=== PATIENT | female | born 1970 | race Caucasian/White ===

== ENCOUNTER → 2023-10-28 11:04 | Outpatient (BNVA) | payer OTHER, SELFPAY | PROVIDERS: Visit Provider Physician Assistant ==

== ENCOUNTER 2023-11-22 08:55 | Outpatient (AMB) | payer OTHER, SELFPAY ==
--- NOTE | 2023-11-22 09:00 | MHC.OFFVISWM ---
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 Allergies acetaminophen [From Percocet] Adverse Reaction (Intermediate, Verified 11/22/23 09:05) Rash oxycodone [From Percocet] Adverse Reaction (Intermediate, Verified 11/22/23 09:05) Rash Penicillins Adverse Reaction (Intermediate, Verified 11/22/23 09:05) Rash Medication List - Last Reconciled 11/22/23 by PILAR Triplett amlodipine 5 mg PO DAILY amlodipine 5 mg PO DAILY cholecalciferol (vitamin D3) (Vitamin D3) 125 mcg PO DAILY escitalopram oxalate (Lexapro) 20 mg PO DAILY gabapentin 400 mg PO BID levothyroxine 150 mcg PO DAILY losartan 50 mg PO BID magnesium 250 mg PO DAILY metformin 1,000 mg PO DAILY multivitamin 1 tab PO DAILY omeprazole 20 mg PO BID oxybutynin chloride ER 10 mg PO DAILY pyridoxine (vitamin B6) 100 mg PO DAILY ropinirole 0.5 mg PO TID simvastatin 10 mg PO DAILY tirzepatide (Mounjaro) 12.5 mg subcut QWEEK HPI HPI Comments History of Present Illness Details Pt is here to start the [facility] Weight Management surgical weight loss program. She heard about our program from her own research and a family friend. Her goal is to lose weight and achieve a healthy lifestyle as well as to improve, if not resolve, obesity related medical conditions, including dm, htn, hld, arthritis. She reports first being concerned about her weight for years, highest weight to date was 250. Current weight is 213.6 pounds with a BMI of 38.4. Her inital weight on presentation to the [facility] on 10/28/23 was 214.2 pounds and a BMI of 38.6. She has tried multiple methods of weight loss including fad diets without permanent results. She lives with her and son. 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 She wakes at:?7 am, and goes to bed at?9 pm. Dinner is at 530 pm. Breakfast: skip AM snack: skip Lunch: sausage and cottage cheese w black olives and carrots, leftovers, sandwich PM snack: doritos, cheese and crackers, dry cereal Dinner: sweet and sour chicken w white rice, steak, veg, salad, chicken, pork After dinner: popcorn, veg w dip, doritos Other snacks: candy Liquids: 16 oz water, 2 c coffee per day, cream and sugar, 4 c tea w sugar, no soda, no juice Alcohol/marijuana/tobacco intake: 2-3 drinks per week, no cannabis, no tobacco Exercise: none, can join a gym. GERD score: 22 DEE score: 4 ESS score: 10 QOL score: 111 PFSH Surgical History History of partial hysterectomy Hx of cholecystectomy Hx of thyroidectomy Hx of colonoscopy Family History Maternal Aunt Breast cancer Mother Thyroid cancer Social History Alcohol intake: current Alcohol intake frequency: holidays/special occasions only Patient Tobacco Use Status: Never used Tobacco Review of Systems Const All systems reviewed & are unremarkable except as noted in HPI and below Physical Exam Vital Signs: Last Vital Signs Temp 95.9 F L 11/22/23 09:07 Pulse 77 11/22/23 09:07 BP 141/65 H 11/22/23 09:07 Pulse Ox 96 11/22/23 09:07 Oxygen Delivery Method Room Air 11/22/23 09:07 BMI result Body Mass Index 38.4 Const General: cooperative, healthy appearing and no acute distress Orientation/consciousness: patient oriented x3 HEENT Head: Yes normal to inspection Ears: hearing grossly normal bilaterally General nose exam: Normal external nose present Face and sinus: Yes normal facial exam Eyes General: appearance normal, both eyes and all related structures Resp Effort & Inspection: normal respiratory effort Auscultation: clear to auscultation bilaterally Cardio Rate: regular rate Rhythm: regular rhythm Heart sounds: S1 normal heart sound present and S2 normal heart sound present GI Inspection: Yes normal to inspection, No distended and Yes obesity Palpation (GI): Soft to palpation, nontender and no guarding Auscultation: normal bowel sounds Skin General skin exam: no rashes or lesions noted Neuro General: patient oriented x3 Extrem General: No edema Psych Appearance: grossly normal Mental Status: mental status grossly normal Speech and movement: Normal speech and movement present Affect: normal affect Attitude: cooperative Assessment & Plan Assessment & Plan (1) Obesity (BMI 30-39.9): Code(s): E66.9 - Obesity, unspecified Plan: This is a?52 yo female who will start our SWL program to prepare for bariatric surgery.? Blood work, h pylori , CXR, ECG, Abd US and UGI have been ordered. She is being scheduled for RD and BH initial consultations. She will start SWL classes and watch the first three videos before her next appointment. Will refer to Dr Bob after her next appointment ? Adequate sleep of 7-8 hours per night discussed, awakening at 7 am and going to bed at 9 pm ? You have already purchased a body composition scale so be sure and check weight weekly. The best time to do this is first thing in the morning after going to the bathroom. 1. Nutritional counseling: Be sure to careful read the number of scoops per shake Start with 1Celebrate rebuild protein shake ([facility] [employer], [employer], [employer]), (2 scoop2 in 16 oz unsweetened almond milk) at 8am-10am 2 Celebrate protein bars (Celebrate bars at [facility] [employer], [employer], [employer]) First bar at 11am-1pm. Second bar at 3pm-5 pm Dinner at 6pm (7 forks of protein and 7 forks of salad/vegetables). Meal to include lean meat (beef, fish, pork, turkey, chicken), cooked vegetables or a salad with olive oil and/or fruits (berries, pears, apples, kiwi). Avoid salt, breads, potatoes, rice, pasta, desserts. 1 c fresh fruit if needed after dinner (berries, apple, pear, kiwi). Try to drink 64 oz of water daily and avoid soda and juices. ?2. Each shake would be drunk slowly, like coffee in a period of 2 hours. ?3. Cut each bar in 4 pieces and eat each piece in 30 min ?to make each bar last 2 hours. ?4. I emphasized the importance of measuring accurately the food portion and measure it carefully when serving the food on the plate ?5. The meal portions include 7 full-size forks of meat and 7 full-size forks of salad. You always eat the meat portion but you can replace up to half of the forks of salad/vegetables with rice, potatoes or pasta, or a fruit ?if you like. The less you do it the better weight loss will be. ?6. One full-size fork is what can be scooped on the fork without falling aside and not what can be bit with the fork. Use regular forks like those you find in a typical restaurant. ?7.? Please send me weight measurements as soon as possible and then once a week. Always include your diet and exercise plan. Alternatively come weekly at the office for weight checks and send me the measurements. ?8. Exercise counseling: Begin by watching a stretching for beginners video. Start slowly and begin to stretch your muscles. You should do this before and after each exercise session to prevent injury. Please join [facility] gym near your home. Ask the finance business manager or one of the trainers how to use the machines if you are unfamiliar with them. Start elliptical with a resistance of 2. Increase resistance by 1 every 3 min to your most comfortable resistance with a max resistance of 8. Reduce the resistance by 1 every 3 minutes back down to 2 and repeat cycles for 300 calories. Alternatively, start treadmill with a speed of 3.0 and incline of 0, increasing incline by 1 every 3 minutes to the highest comfortable level (max 6 for now) then decrease in the same fashion. Repeat process to a goal of 300 calories. Goal of 2000 calories burned or more weekly. You may also consider use of the stationary bike. The easiest would be to chose the fat-burn or interval training program on the machine and do this until you reach the 300 calorie goal. Alternatively, you can manually adjust the resistance in a similar fashion as mentioned above, (resistance of 2-8 with a goal speed of 12 mph). Tracking calories is essential. 9. Alternatively start walking outside daily, tracking calories with a goal of 300 calories per day, daily. You can download the ronnie [employer] which can track your time, distance and calories while walking outside. You press start in the ronnie when you start and then stop when you are finished. 10.? It is important to closely monitor your blood sugars as they will be positively affected quickly. Also be sure to text me weekly with your weight measurement updates and if you are having any problems with the plans. 11. Please get labs, EKG and chest X-Ray within 1 week. 12. Discussed and answered all questions regarding?obtained consent to participate in the [place] [facility]?Registry. 13. Please follow the diet plan exactly, without any change. If you do not like something about the plan or you feel hungry, you need to communicate with me so I can help you revise the plan. You should not change the plan yourself. Text me at [phone] 14. Goal is to lose at least 12 pounds in the first month 15. Goal is to lose 10% of your weight before surgery, which is about 21 lbs. Ultimate weight goal: 192 lbs before surgery Patient is morbidly obese and is not considered stable at this time.?I spent a total of 70 minutes reviewing/updating records, examining the patient and counseling the patient on weight management as detailed above. Orders: Orders H Pylori Breath Test Today E11.9 - Type 2 diabetes mellitus without complications, E66.9 - Obesity, unspecified, E78.00 - Pure hypercholesterolemia, unspecified, I10 - Essential (primary) hypertension Complete Blood Count Auto Diff Today E11.9 - Type 2 diabetes mellitus without complications, E66.9 - Obesity, unspecified, E78.00 - Pure hypercholesterolemia, unspecified, I10 - Essential (primary) hypertension Lipid Panel Today E11.9 - Type 2 diabetes mellitus without complications, E66.9 - Obesity, unspecified, E78.00 - Pure hypercholesterolemia, unspecified, I10 - Essential (primary) hypertension IRON PROFILE Today E11.9 - Type 2 diabetes mellitus without complications, E66.9 - Obesity, unspecified, E78.00 - Pure hypercholesterolemia, unspecified, I10 - Essential (primary) hypertension Comprehensive Met. Panel Today E11.9 - Type 2 diabetes mellitus without complications, E66.9 - Obesity, unspecified, E78.00 - Pure hypercholesterolemia, unspecified, I10 - Essential (primary) hypertension Vitamin B12 and Folate Today E11.9 - Type 2 diabetes mellitus without complications, E66.9 - Obesity, unspecified, E78.00 - Pure hypercholesterolemia, unspecified, I10 - Essential (primary) hypertension Vitamin B1 Today E11.9 - Type 2 diabetes mellitus without complications, E66.9 - Obesity, unspecified, E78.00 - Pure hypercholesterolemia, unspecified, I10 - Essential (primary) hypertension Vitamin D 25-OH Total Today E11.9 - Type 2 diabetes mellitus without complications, E66.9 - Obesity, unspecified, E78.00 - Pure hypercholesterolemia, unspecified, I10 - Essential (primary) hypertension US abdomen comp w elastography Today E11.9 - Type 2 diabetes mellitus without complications, E66.9 - Obesity, unspecified, E78.00 - Pure hypercholesterolemia, unspecified, I10 - Essential (primary) hypertension XR chest 2V Today E11.9 - Type 2 diabetes mellitus without complications, E66.9 - Obesity, unspecified, E78.00 - Pure hypercholesterolemia, unspecified, I10 - Essential (primary) hypertension Insulin Today E11.9 - Type 2 diabetes mellitus without complications, E66.9 - Obesity, unspecified, E78.00 - Pure hypercholesterolemia, unspecified, I10 - Essential (primary) hypertension Hemoglobin A1c Today E11.9 - Type 2 diabetes mellitus without complications, E66.9 - Obesity, unspecified, E78.00 - Pure hypercholesterolemia, unspecified, I10 - Essential (primary) hypertension Zinc Today E11.9 - Type 2 diabetes mellitus without complications, E66.9 - Obesity, unspecified, E78.00 - Pure hypercholesterolemia, unspecified, I10 - Essential (primary) hypertension C Reactive Protein Today E11.9 - Type 2 diabetes mellitus without complications, E66.9 - Obesity, unspecified, E78.00 - Pure hypercholesterolemia, unspecified, I10 - Essential (primary) hypertension Vitamin A Today E11.9 - Type 2 diabetes mellitus without complications, E66.9 - Obesity, unspecified, E78.00 - Pure hypercholesterolemia, unspecified, I10 - Essential (primary) hypertension TSH reflex Free T4 Today E11.9 - Type 2 diabetes mellitus without complications, E66.9 - Obesity, unspecified, E78.00 - Pure hypercholesterolemia, unspecified, I10 - Essential (primary) hypertension Ferritin Today E11.9 - Type 2 diabetes mellitus without complications, E66.9 - Obesity, unspecified, E78.00 - Pure hypercholesterolemia, unspecified, I10 - Essential (primary) hypertension ECG 12 lead EKG Today E11.9 - Type 2 diabetes mellitus without complications, E66.9 - Obesity, unspecified, E78.00 - Pure hypercholesterolemia, unspecified, I10 - Essential (primary) hypertension FL upper GI w air Today E11.9 - Type 2 diabetes mellitus without complications, E66.9 - Obesity, unspecified, E78.00 - Pure hypercholesterolemia, unspecified, I10 - Essential (primary) hypertension Referrals Behavioral Health Referral E11.9 - Type 2 diabetes mellitus without complications, E66.9 - Obesity, unspecified, E78.00 - Pure hypercholesterolemia, unspecified, I10 - Essential (primary) hypertension Nutrition/Dietitian Referral E11.9 - Type 2 diabetes mellitus without complications, E66.9 - Obesity, unspecified, E78.00 - Pure hypercholesterolemia, unspecified, I10 - Essential (primary) hypertension Coding Level of Care Code New Pt Level 5 (99039) Diagnoses Obesity (BMI 30-39.9) E66.9 Time Spent (min) 70
[2023-11-22 09:07] VITALS: BP 141/65; PULSE 77; TEMP 35.5; O2SAT 96; BMI 38.4
== END 2023-11-22 13:38 | disposition home or self-care (01) ==
PROVIDERS: Visit Provider Physician Assistant Surgical
DX: E66.9 Obesity, unspecified (principal); Z68.38 Body mass index [BMI] 38.0-38.9, adult
CPT/HCPCS: 99205

== ENCOUNTER → 2023-11-22 08:55 | Outpatient (BNVA) | payer OTHER, SELFPAY | PROVIDERS: Visit Provider Physician Assistant Surgical ==

== ENCOUNTER 2023-12-02 07:34 | Outpatient (REF) | payer OTHER, SELFPAY ==
--- NOTE | ~2023-12-02 | XR_ITS ---
EXAMINATION: XR CHEST CLINICAL INFORMATION: Obesity, unspecified COMPARISON: None available. TECHNIQUE: 2 views of the chest were obtained. 8:15 AM FINDINGS: No significant abnormality is noted involving the heart, lungs, mediastinum, bony thorax or soft tissues. Mild round back posture is noted. Surgical clips are seen in the upper abdomen. XR/XR chest 2V IMPRESSION: No acute cardiopulmonary disease.
--- NOTE | 2023-12-02 07:40 | ECG_ITS ---
Test Reason : OBS Blood Pressure : / mmHG Vent. Rate : 074 BPM Atrial Rate : 074 BPM P-R Int : 152 ms QRS Dur : 100 ms QT Int : 434 ms P-R-T Axes : 048 004 024 degrees QTc Int : 481 ms Normal sinus rhythm Prolonged QT Abnormal ECG No previous ECGs available Referred By: Juan Luis Vincent Electronically Signed By:TINO VICENTE
[2023-12-02 07:55] LABS: MANUAL DIFF FLAG NO
[2023-12-02 08:07] LABS: Basophils Percent Auto 0.7 % (0-2); Eosinophils Absolute Auto 0.1 X10*3/uL (0.0-0.4); Eosinophils Percent Auto 1.7 % (0-4); Hematocrit 41.1 % (37.0-47.0); Hemoglobin 13.6 g/dl (12.0-16.0); Imm Gran Abs Auto 0.01 X10*3/uL (0.00-0.03); Imm Gran Pct Auto 0.2 % (0.0-0.4); Lymphocytes Absolute Auto 1.3 X10*3/uL (1.2-4.9); Lymphocytes Percent Auto 21.7 % (20-40); Mean Corpuscular HGB Conc 33.1 g/dl (31.0-35.0); Mean Corpuscular Hemoglobin 27.3 pg (27.0-33.0); Mean Corpuscular Volume 82.4 fL (80.0-98.0); Mean Platelet Volume 9.6 fL (9.4-12.3); Monocytes Absolute Auto 0.3 X10*3/uL (0.1-1.2); Monocytes Percent Auto 5.8 % (2-11); Neutrophils Absolute Auto 4.1 x10*3/uL (2.0-8.3); Neutrophils Percent Auto 69.9 % (45-73); Platelet Count 187 X10*3/uL (160-400); Red Blood Count 4.99 X10*6/uL (4.20-5.50); Red Cell Distribution Width 14.4 % (11.0-16.0); White Blood Count 5.9 X10*3/uL (4.8-10.8)
[2023-12-02 08:23] LABS: Estimated Average Glucose 100 mg/dL; Hemoglobin A1c % 5.1 % (<6.0)
[2023-12-02 08:53] LABS: Alanine Aminotransferase 67 U/L (0-31); Albumin Level 4.4 g/dL (3.5-5.0); Alkaline Phosphatase 154 U/L (39-117); Anion Gap 15 (12-20); Aspartate Amino Transferase 69 U/L (5-31); Bilirubin Total 0.6 mg/dL (0.0-1.0); Blood Urea Nitrogen 17 mg/dL (9-16); C Reactive Protein 2.02 mg/dL (< or = 0.50); Carbon Dioxide 25 mmol/L (22-29); Chloride 104 mmol/L (96-108); Cholesterol 99 mg/dL (<200); Estimated Glomerular Filt Rate > 60; Glucose Random 81 mg/dL (60-115); HDL Cholesterol 35 mg/dL (>40); Iron 47 mcg/dL (30-160); LDL Cholesterol Calculated 40 mg/dL (<100); Percent Iron Saturation 15 % (15-50); Potassium 4.3 mmol/L (3.3-5.1); Sodium 140 mmol/L (135-145); Total Iron Binding Capacity 304 mcg/dL (228-428); Total Protein 8.2 g/dL (6.5-8.0); Triglycerides 124 mg/dL (<150); Unsaturated Iron Binding 257 ug/dL
[2023-12-02 09:04] LABS: Ferritin 116 ng/mL (10-250); Insulin 13 uU/mL (2-29); TSH reflex Free T4 0.34 uIU/mL (0.32-4.0); Vitamin D 25-OH Total 79.9 ng/mL (>30)
[2023-12-02 09:14] LABS: Folate 15.3 ng/mL (> or = 4.0); Vitamin B12 1318 pg/mL (200-900)
[2023-12-05 16:42] LABS: Zinc 84 mcg/dL (60-130)
[2023-12-07 16:05] LABS: Vitamin A 36 mcg/dL (38-98)
[2023-12-08 14:43] LABS: Vitamin B1 8 nmol/L (8-30)
== END 2023-12-02 07:35 | disposition home or self-care (01) ==
LOC: HO.XRAY 07:34
PROVIDERS: PCP Internal Medicine; Visit Provider Physician Assistant Surgical
DX: E66.9 Obesity, unspecified (principal); E11.9 Type 2 diabetes mellitus without complications; E78.00 Pure hypercholesterolemia, unspecified; I10 Essential (primary) hypertension
CPT/HCPCS: 36415; 71046; 80053; 80061; 82306; 82607; 82728; 82746; 83036; 83525; 83540; 84425; 84443; 84590; 84630; 85025; 86140; 93005

== ENCOUNTER → 2023-12-02 07:40 | Outpatient (BNV) | payer OTHER, SELFPAY | PROVIDERS: PCP Internal Medicine; Visit Provider Internal Medicine | DX: I45.81 Long QT syndrome (principal) | CPT/HCPCS: 93010 ==

== ENCOUNTER 2023-12-08 08:40 | Outpatient (AMB) | payer OTHER, SELFPAY ==
--- NOTE | 2023-12-08 09:10 | A.OFFVIS_ITS ---
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 Is doing great but would appreciate some recipe resources, provided today. Reports low energy, stopped having caffeine completely, and isn't sleeping great. struggles with constipation - discussed remedies Exercise: 2x per week at [employer] - her goal is to increase but still trying to create a consistent schedule wtih her work SW online classes completed . reviewed and scored well Going to conference in mid january - will need to discuss plans for surgery around this. Dietary counseling reduction Who buys your food self Who prepares/cooks your food self Meal frequency irregular: breakfast, lunch and dinner Lifestyle Reads food labels Yes Family support Yes Diagnosis Nutrition problem #1 overweight/obesity As related to (etiology) #1 excess energy intake and physical inactivity As evidenced by (sign/symptom) #1 high BMI Monitoring/Goals Nutrition problem monitoring total energy intake, level of knowledge/skill, total PRO intake, total CHO intake and weight Outcome progress progressing Learning/Education Readiness to learn excellent Stages of change action Educational materials provided Yes Most Recent Diabetes Results: Cholesterol 99 mg/dL (<200) 12/02/23 HDL Cholesterol 35 mg/dL (>40) L 12/02/23 Triglycerides 124 mg/dL (<150) 12/02/23 Creatinine 0.77 mg/dL (0.5-1.4) 12/02/23 Blood Urea Nitrogen 17 mg/dL (9-16) H 12/02/23 Sodium 140 mmol/L (135-145) 12/02/23 Potassium 4.3 mmol/L (3.3-5.1) 12/02/23 Chloride 104 mmol/L (96-108) 12/02/23 Carbon Dioxide 25 mmol/L (22-29) 12/02/23 Calcium 10.0 mg/dL (8.4-10.2) 12/02/23 AST 69 U/L (5-31) H 12/02/23 ALT 67 U/L (0-31) H 12/02/23 Total Protein 8.2 g/dL (6.5-8.0) H 12/02/23 Albumin 4.4 g/dL (3.5-5.0) 12/02/23 PFSH Surgical History History of partial hysterectomy Hx of cholecystectomy Hx of thyroidectomy Hx of colonoscopy Family History Maternal Aunt Breast cancer Mother Thyroid cancer Social History Alcohol intake: current Alcohol intake frequency: holidays/special occasions only Patient Tobacco Use Status: Never used Tobacco Assessment & Plan Assessment & Plan (1) Obesity (BMI 30-39.9): Code(s): E66.9 - Obesity, unspecified Plan Patient is cleared from a nutrition standpoint for bariatric surgery. Educational requirements have been completed. Reviewed vitamin supplementation and commitment to protein shake for several months post surgery. Encouraged communication with office as needed Coding Level of Care Code Nutr Indiv Intake (28976) Diagnoses Obesity (BMI 30-39.9) E66.9 Time Spent (min) 55
== END 2023-12-08 09:51 | disposition home or self-care (01) ==
PROVIDERS: Visit Provider Dietitian, Registered
DX: E66.9 Obesity, unspecified (principal)

== ENCOUNTER → 2023-12-08 08:40 | Outpatient (BNVA) | payer OTHER, SELFPAY | PROVIDERS: Visit Provider Dietitian, Registered | DX: E66.9 Obesity, unspecified (principal); Z71.3 Dietary counseling and surveillance; Z11.0 Encounter for screening for intestinal infectious diseases | CPT/HCPCS: 97802; 99211 ==

== ENCOUNTER 2023-12-08 15:06 | Outpatient (REF) | payer OTHER, SELFPAY ==
[2023-12-13 14:20] LABS: H Pylori Breath Test Negative (Negative)
== END 2023-12-08 15:07 | disposition home or self-care (01) ==
LOC: HO.LNP 15:06
PROVIDERS: Visit Provider Physician Assistant Surgical
DX: E66.9 Obesity, unspecified (principal); E11.9 Type 2 diabetes mellitus without complications; E78.00 Pure hypercholesterolemia, unspecified; I10 Essential (primary) hypertension
CPT/HCPCS: 83013

== ENCOUNTER 2023-12-14 08:54 | Outpatient (AMB) | payer OTHER, SELFPAY ==
--- NOTE | 2023-12-14 08:59 | A.OFFVIS_ITS ---
Intake VS Expanded 12/14/23 09:06 BP 135/67 Blood Pressure Location Rt brachial Blood Pressure Position Sitting Pulse 85 Pulse Source Pulse Oximeter Temp 96.7 F L Temperature Source Tympanic Pulse Oximetry 97 Oxygen Delivery Method Room Air Height 5 ft 2.5 in Weight 198 lb 3.2 oz BMI 35.7 Body Fat % 42.7 Body Fat Mass 84.6 Fat Free Mass 113.6 Visceral Fat Rating 12.0 Body Water % 40.7 Body Water Mass 80.6 Muscle Mass/Score 107.8 Basal Metabolic Rate/Score 1,576 Intake Visit Reasons: (OV) F/U SWL Registration Representative Required: No Allergies acetaminophen [From Percocet] Adverse Reaction (Intermediate, Verified 12/14/23 09:12) Rash oxycodone [From Percocet] Adverse Reaction (Intermediate, Verified 12/14/23 09:12) Rash Penicillins Adverse Reaction (Intermediate, Verified 12/14/23 09:12) Rash Medication List - Last Reconciled 12/14/23 by PILAR Triplett amlodipine 5 mg PO DAILY cholecalciferol (vitamin D3) (Vitamin D3) 125 mcg PO DAILY escitalopram oxalate (Lexapro) 20 mg PO DAILY gabapentin 400 mg PO BID levothyroxine 150 mcg PO DAILY losartan 50 mg PO BID magnesium 250 mg PO DAILY metformin 1,000 mg PO DAILY multivitamin 1 tab PO DAILY omeprazole 20 mg PO BID oxybutynin chloride ER 10 mg PO DAILY pyridoxine (vitamin B6) 100 mg PO DAILY ropinirole 0.5 mg PO TID simvastatin 10 mg PO DAILY thiamine HCl (vitamin B1) 100 mg PO DAILY tirzepatide (Mounjaro) 12.5 mg subcut QWEEK vitamin A palmitate 3,000 mcg PO DAILY 90 days HPI HPI Comments History of Present Illness Details The patient is a pleasant 53 year old female who returns to the clinic for pre-operative surgical weight loss management. They were last seen in the office on 11/22/2023 for her 1st visit, recorded weight at that time was to 13.6 pounds, with a BMI of 38.4. Today's weight is 198.2 pounds and BMI is 35.7. There has been a weight loss of 16 pounds since initiating the surgical weight loss program on 10/28/2023 with a total body weight loss of 7.4 %. Pre op work up completed as follows: SWL classes:? 05/10 BH appts: 12/19/2023 ? ? RD appts: Cleared-12/08/2023 Labs: 12/02/2023-low A, B1 H. pylori: 12/08/2023-negative CXR: 12/02/2023-no active disease EK12/02/2023-prolonged QT ABD U/S: 12/22/2023 UGI: 01/24/2024 The patient reports she is doing very well. She was able to get past the withdrawal from sugar, caffeine, alcohol. She did see the registered dietitian and was recommended to replace her 1st bar with a different protein source, it was suggested that she do too hard boiled eggs and 2 tbsp of yogurt which she has done. She has had abdominal bloating but has not changed protein bars. She does state that the abdominal bloating has improved but has not completely resolved.. The patient does have a body composition scale. They also have been communicating weekly. Current meal plan includes: 1 Celebrate rebuild protein shake ([facility] [employer], [employer], [employer]), (2 scoops in 16 oz unsweetened almond milk) at 8am-10am 1 Celebrate protein bars ([employer] bars at [facility] [employer], [employer], [employer]) meal w 2 eggs and 2 tbps maltese yogurt or cottage cheese at 11am-1pm. Second bar at 3pm-5 pm Dinner at 6pm (7 forks of protein and 7 forks of salad/vegetables). Drinking 48-64 oz of water Current exercise plan includes: joined [employer], but difficult fitting in schedule walking outside 2 x per week, not tracking calories. indoor walking videos considering buying a treadmill PFSH Surgical History History of partial hysterectomy Hx of cholecystectomy Hx of thyroidectomy Hx of colonoscopy Family History Maternal Aunt Breast cancer Mother Thyroid cancer Social History Alcohol intake: current Alcohol intake frequency: holidays/special occasions only Patient Tobacco Use Status: Never used Tobacco Review of Systems Const All systems reviewed & are unremarkable except as noted in HPI and below Physical Exam Const General: healthy appearing and no acute distress Resp Effort & Inspection: normal respiratory effort Auscultation: clear to auscultation bilaterally Cardio Rate: regular rate Rhythm: regular rhythm GI Auscultation: normal bowel sounds Extrem General: Yes normal to inspection Assessment & Plan Assessment & Plan (1) Obesity (BMI 30-39.9): Code(s): E66.9 - Obesity, unspecified Plan: Change meal plan slightly: 1 Celebrate rebuild protein shake ([facility] [employer], [employer], [employer]), (1.5 scoops in 12 oz unsweetened almond milk) at 8am-10am 2 Celebrate protein bars ([employer] bars at [facility] [employer], [employer], [employer]) first bar at 11am-1pm. Second bar at 3pm-5 pm Dinner at 6pm (7 forks of protein and 7 forks of salad/vegetables). Discussed the importance of tracking calories, using the [employer] ronnie while walking outside. She will try to get to the [employer] gym on Saturdays and Sundays. She is looking into purchasing a treadmill at home. She was reminded of upcoming appointments. We will refer to Dr. Bob for further preoperative care. Coding Level of Care Code Est Pt Level 3 (20921) Diagnoses Obesity (BMI 30-39.9) E66.9
[2023-12-14 09:06] VITALS: BP 135/67; PULSE 85; TEMP 35.9; O2SAT 97; BMI 35.7
== END 2023-12-14 09:57 | disposition home or self-care (01) ==
PROVIDERS: Visit Provider Physician Assistant Surgical
DX: E66.9 Obesity, unspecified (principal); Z68.35 Body mass index [BMI] 35.0-35.9, adult
CPT/HCPCS: 99213

== ENCOUNTER → 2023-12-14 08:54 | Outpatient (BNVA) | payer OTHER, SELFPAY | PROVIDERS: Visit Provider Physician Assistant Surgical ==

== ENCOUNTER 2023-12-22 09:12 | Outpatient (REF) | payer OTHER, SELFPAY ==
--- NOTE | ~2023-12-22 | US_ITS ---
EXAMINATION: US COMPLETE ABDOMEN WITH LIVER ELASTOGRAPHY CLINICAL INFORMATION: Obesity. COMPARISON: None available. TECHNIQUE: Real-time imaging of the abdominal viscera. Noninvasive ultrasound liver fibrosis assessment is performed using Lui ElastPQ point quantification shear wave elastography (2D-SWE) with a C5-2 MHz transducer. Multiple elastography samples are obtained. FINDINGS: PANCREAS: Suboptimally visualized, obscured by bowel gas. ABDOMINAL AORTA: The proximal, middle, and distal aortic segments are normal in caliber. INFERIOR VENA CAVA: Visualized portions are normal. LIVER: Liver has coarse parenchymal echotexture and nodular surface contour consistent with cirrhosis. No evidence of focal liver lesion or intrahepatic ductal dilatation.. The right lobe measures 17.7 cm in length. The left lobe measures 12.2 cm in length. Portal flow is normal. Shear wave liver elastography median stiffness is 1.41 m/s (reference: normal median stiffness is 1.3 m/s or less). IQR/median stiffness to assess sampling precision is 0.09 (reference: good quality data set is IQR/median stiffness of 0.15 or less). GALLBLADDER: Surgically absent. COMMON BILE DUCT: Normal in caliber measuring 0.4 - 0.5 cm in diameter. RIGHT KIDNEY: Normal. No hydronephrosis. No renal calculi or focal parenchymal lesions. The kidney measures 10.6 cm in maximum dimension. LEFT KIDNEY: Normal. No hydronephrosis. No renal calculi or focal parenchymal lesions. The kidney measures 11.2 cm in maximum dimension. SPLEEN: Mildly enlarged. The spleen measures 14.4 cm in maximum dimension. FREE FLUID: None. US/US abdomen comp w elastography IMPRESSION: * The liver has coarse parenchymal echotexture and nodular contour, highly suggestive of cirrhosis. * However, the shear wave liver elastography reveals a median stiffness of 1.41 m/s (reference: normal median stiffness is 1.3 m/s or less). In the absence of other known clinical signs, this value rules out compensated advanced chronic liver disease. * Mild splenomegaly is noted. * No ascites. REFERENCE: Society of Radiologists in Ultrasound Liver Stiffness Thresholds (2020): LIVER STIFFNESS THRESHOLDS: *Liver Stiffness equal or less than 1.3 m/s: High probability of being normal. *Liver Stiffness less than 1.7 m/s: In the absence of other known clinical signs, rules out compensated advanced chronic liver disease. *Liver Stiffness 1.7-2.1 m/s: Suggestive of compensated advanced chronic liver disease but need further test for confirmation. *Liver Stiffness over 2.1 m/s: Rules in compensated advanced chronic liver disease. *Liver Stiffness over 2.4 m/s: Suggestive of clinically significant portal hypertension. QUALITY OF DATA SET: *IQR/Median value equal or less than 0.15 implies a quality data set. *IQR/Median value over 0.15 implies a poor quality data set. OTHER CONSIDERATIONS: The stage of liver fibrosis may be overestimated in the setting of acute hepatitis, liver inflammation, elevated liver function tests, hepatic vascular congestion, obstructive cholestasis, non-fasting state, and infiltrative diseases such as amyloidosis and lymphoma. In some patients with NAFLD, the liver stiffness thresholds for compensated advanced chronic liver disease may be lower. In causes other than viral hepatitis and NAFLD, liver stiffness thresholds are not well established.
== END 2023-12-22 09:13 | disposition home or self-care (01) ==
LOC: HO.US 09:12
PROVIDERS: PCP Internal Medicine; Visit Provider Physician Assistant Surgical
DX: E66.9 Obesity, unspecified (principal); E11.9 Type 2 diabetes mellitus without complications; I10 Essential (primary) hypertension; E78.00 Pure hypercholesterolemia, unspecified
CPT/HCPCS: 76700; 76981

== ENCOUNTER 2024-01-04 10:11 | Outpatient (AMB) | payer OTHER, SELFPAY ==
--- NOTE | 2024-01-04 10:04 | A.OFFWM_ITS ---
Intake Intake Visit Reasons: (TV) BH Intake Allergies acetaminophen [From Percocet] Adverse Reaction (Intermediate, Verified 12/14/23 09:12) Rash oxycodone [From Percocet] Adverse Reaction (Intermediate, Verified 12/14/23 09:12) Rash Penicillins Adverse Reaction (Intermediate, Verified 12/14/23 09:12) Rash PFSH Surgical History History of partial hysterectomy Hx of cholecystectomy Hx of thyroidectomy Hx of colonoscopy Family History Maternal Aunt Breast cancer Mother Thyroid cancer Social History Alcohol intake: current Alcohol intake frequency: holidays/special occasions only Patient Tobacco Use Status: Never used Tobacco Behavioral Health Assessment Weight Management Therapy Therapy Notes Details Patient is looking to have weight loss surgery to help improve her health and quality of life. She denied any mental health therapy currently or in the past. Pt is taking medication from her doctor for some depression symptoms for about many years. She has no history of inpatient psychiatric admissions or hx of drug or alcohol abuse. Presenting Concerns Referral Source provider Reason for referral weight loss surgery evaluation Precipitating Event obesity Living Situation0 Current Living Situation Own At risk of losing current housing? No Satisfied with current living situation? Yes Comments Patient lives with her , and her 22 year old son. Food/Weight/Diet Expectations of change weight loss and maintenance History/Relationship with food Pt reported that she was big on starches, rice, pasta, bread, heavy coffee drinker (3 ice coffees a day with cream and sugar), also social drinker. She has stopped all that. She reported eating large quantities of food, eating when stressed and bored. Also was eating fast before hand. History/Relationship with weight She reported that she has not been this weight for over 20 years now, Currently at her lowest. She reported that she has been up and down with her weight many times. History/Relationship with dieting various diets, WW several times, and also no sugar. Binge Eating Do you frequently eat large amounts of food in short periods of time, not feeling physically hungry? No Do you feel out of control when you eat a large amount of food in a short period of time? No Do you eat large amounts of food rapidly and typically alone? Yes Night Eating Do you wake up at least once during the night to eat? No If you wake up in the night, do you find that it is necessary to eat something in order to fall back asleep? No Do you have little or no appetite in the morning and feel very hungry in the evening, often overeating between dinner and when you go to bed? No Social History Family history and relationship Patient has been for 30 years and together since high school, they have two grown children together. Parental/Familial molder meat obligations none Developmental history and status no issues Social support best friend, Community support [facility] support group Cultural/Ethnic information Legal Involvement and History Current or historical involvement with the legal system? none Education Preferred learning style Auditory, Verbal, Written, Learn by doing and Visual Currently enrolled in educational program? No Interested in further educational program? 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 No Meaningful activities traveling, walking Financial Situation Describe current financial situation Comfortable Financial assistance? None Service Service? No Mental Health and Addiction Treatment Current/Past substance abuse? No Medical and Physical Health Summary Physical exam in the last year? Yes Pain Screening Current pain? No Pain in the last few months? No Medications Is the patient compliant with medications? Yes Does the patient have Xiao Guardian in place? No Does the patient use complimentary health approaches? No Trauma/Abuse History History of trauma? No Questionnaires PHQ-9 Over the last 2 weeks, how often have you been bothered by any of the following problems? 1. Little interest or pleasure in doing things: not at all 2. Feeling down, depressed, or hopeless: not at all 3. Trouble falling or staying asleep, or sleeping too much: nearly every day 4. Feeling tired or having little energy: several days 5. Poor appetite or overeating: not at all 6. Feeling bad about yourself - or that you are a failure or have let yourself or your family down: not at all 7. Trouble concentrating on things, such as reading the newspaper or watching television: several days 8. Moving or speaking so slowly that other people could have noticed. Or the opposite - being so fidgety or restless that you have been moving around a lot more than usual: not at all 9. Thoughts that you would be better off or of hurting yourself in some way: not at all Total score: 5 Depression Screening Interpretation: Negative Depression Screening Done: Yes Source: Developed by Drs. Pratik Álvarez, Keya Barreto, Liam Moscoso and colleagues, with an educational sandi from [employer]. Binge Eating Scale Group 1 A. I don't feel self-conscious about my wt. or body size when I'm with others. B. I feel concerned about how I look to others, but it normally does not make me fell disappointed with myself C. I do get self-conscious about my appearance and wt. which makes me feel disappointed in myself. D. I feel very self-conscious about my wt. and frequently I feel intense shame and disgust for myself. I try to avoid social contacts because of my self- consciousness. Response Group 1: C Group 2 A. I don't have any difficulty eating slowly in the proper manner. B. Although I seem to gobble down foods, I don't end up feeling stuffed because of eating to much. C. At times, I tend to eat quickly and then, I feel uncomfortably full afterwards. D. I have the habit of bolting down my food, without really chewing it. When this happens I usually feel uncomfortably stuffed because I've eaten to much. Response Group 2: B Group 3 A. I feel capable to control my eating urges when I want to. B. I feel like I have failed to control my eating more than the average person. C. I feel utterly helpless when it comes to feeling in control of my eating urges. D. Because I feel so helpless about controlling my eating I have become very desperate about trying to get control. Response Group 3: B Group 4 A. I don't have the habit of eating when I'm bored. B. I sometimes eat when I'm bored, but often I'm able to get busy and get my mind off food. C. I have a regular habit of eating when I'm bored, but occasionally, I can use some other activity to get my mind off eating. D. I have a strong habit of eating when I'm bored. Nothing seems to help me breath the habit. Response Group 4: D Group 5 A. I'm usually physically hungry when I eat something. B. Occasionally, I eat something on impulse even though I really am not hungry. C. I have the regular habit of eating foods, that I might not really enjoy, to satisfy a hungry feeling even though physically, I don't need the food. D. Although I'm not physically hungry, I get a hungry feeling in my mouth that only seems to be satisfied when I eat a food, like sandwich, that fills my mouth. Sometimes, when I eat the food to satisfy my mouth hunger, I then spit the food out so I won't gain weight. Response Group 5: B Group 6 A. I don't feel any guilt or self-hate after I overeat. B. After I overeat, occasionally I feel guilt or self-hate. C. Almost all the time I experience strong guilt or self-hate after I overeat. Response Group 6: B Group 7 A. I don't lose total control of my eating when dieting even after periods when I overeat. B. Sometimes when I eat a forbidden food on a diet, I feel like I blew it and eat even more. C. Frequently, I have the habit of saying to myself, I've blown it now, why not go all the way, when I overeat on a diet. When that happens I eat more. D. I have a regular habit of starting a strict diets for myself but I break the diets by going on an eating binge. My life seems to be either a feast or famine. Response Group 7: C Group 8 A. I rarely eat so much food that I feel uncomfortably stuffed afterwards. B. Usually about once a month, I each such a quantity of food, I end up feeling very stuffed. C. I have regular periods during the month when I eat large amounts of food, either at mealtime or at snacks. D. I eat so much food that I regularly feel quite uncomfortable after eating and sometimes a bit nauseous. Response Group 8: C Group 9 A. My level of calorie intake does not go up very high or go down very low on a regular basis. B. Sometimes after I overeat, I will try to reduce my caloric intake to almost nothing to compensate for the excess calories I've eaten. C. I have a regular habit of overeating during the night. It seems that my routine is not to be hungry in the morning but overeat in the evening. D. In my adult years, I have had week-long periods where I practically starve myself. This follows periods when I overeat. It seems I live a life of either feast or famine. Response Group 9: C Group 10 A. I usually am able to stop eating when I want to. I know when enough is enough. B. Every so often, I experience a compulsion to eat which I can't seem to control. C. Frequently, I experience strong urges to eat which I seem unable to control, but at other times I can control my eating urges. D. I feel incapable of controlling urges to eat. I have a fear of not being able to stop eating voluntarily. Response Group 10: B Group 11 A. I don't have any problem stopping eating when I feel full. B. I usually can stop eating when I feel full but occasionally overeat leaving me feeling uncomfortably stuffed. C. I have a problem stopping eating once I start and usually I feel uncomfortably stuffed after I eat a meal. D. Because I have a problem not being able to stop eating when I want, I some times have to induce vomiting to relieve my stuffed feeling. Response Group 11: B Group 12 A. I seem to eat just as much when I'm with others, Family social gatherings as when I'm by myself. B. Sometimes, when I'm with other persons, I don't eat as much as I want to eat because I'm self-conscious about my eating. C. Frequently, I eat only a small amount of food when others are present, because I'm very embarrassed about my eating. D. I feel so ashamed about overeating that I pick times to overeat when I know no one will see me. I feel like a closet eater. Response Group 12: A Group 13 A. I eat three meals a day with only an occasional between meal snack. B. I eat 3 meals a day, but I also normally snack between meals. C. When I am snacking heavily, I get in the habit of skipping regular meals. D. There are regular periods when I seem to be continually eating, with no planned meals. Response Group 13: D Group 14 A. I don't think much about trying to control unwanted eating urges. B. At least some of the time, I feel my thoughts are pre-occupied with trying to control my eating urges. C. I feel that frequently I spend much time thinking about how much I ate or a bout trying not to eat anymore. D. It seems to me that most of my waking hours are pre-occupied by thoughts about eating or not eating. I feel like I'm constantly struggling not to eat. Response Group 14: B Group 15 A. I don't think about food a great deal. B. I have strong craving for food but they last only for brief periods of time. C. I have days when I can't seem to think about anything else but food. D. Most of my days seem to be pre-occupied with thoughts about food. I feel like I live to eat. Response Group 15: B Group 16 A. I usually know whether or not I'm physically hungry. I take the right portion of food to satisfy me. B. Occasionally, I feel uncertain about knowing whether or not I'm physically hungry. A these times it's hard to know how much food I should take to satisfy me. C. Even though I might know how many calories I should eat, I don't have any idea what is a normal amount of food for me. Response Group 16: C Binge Eating Score: 24 Score less than 17 Minimal Risk Score between 18-26 Moderate Risk Score between 27-46 High Risk Assessment & Plan Assessment & Plan (1) Depression, unspecified: Code(s): F32.A - Depression, unspecified (2) Obesity (BMI 30-39.9): Code(s): E66.9 - Obesity, unspecified Plan Patient is doing well, she has no major barriers. Provided some psychoeducation around emotional eating and binge eating tendencies. She is cleared for surgery when ready. Telehealth Telehealth Location of provider rendering services: other Location of patient: other Patient Identification confirmed using: Name, : Yes Telehealth method: voice only Patient verbally consented to treatment: Yes Patient verbally consented to billing insurance company: Yes Patient informed of any privacy concerns related to visit: Yes Minutes spent on Phone/Video with Pt.: 45 Coding Level of Care Code Tele Psy Diag Eval (83935) Diagnoses Depression, unspecified F32.A Obesity (BMI 30-39.9) E66.9 Time Spent (min) 45
== END 2024-01-04 10:35 | disposition home or self-care (01) ==
LOC: HO.HBST 10:11
PROVIDERS: PCP Internal Medicine; Visit Provider Counselor Mental Health
DX: F32.A Depression, unspecified (principal); E66.9 Obesity, unspecified
CPT/HCPCS: 90791

== ENCOUNTER → 2024-01-04 10:11 | Outpatient (BNVA) | payer OTHER, SELFPAY | PROVIDERS: PCP Internal Medicine; Visit Provider Counselor Mental Health ==

== ENCOUNTER 2024-01-13 08:28 | Outpatient (AMB) | payer OTHER, SELFPAY ==
--- NOTE | 2024-01-13 13:33 | MHC.OFFVISWM ---
Intake VS Expanded 01/13/24 13:50 Height 5 ft 2.5 in Weight 188 lb 6 oz BMI 33.9 Body Fat % 45.1 Body Fat Mass 85 Fat Free Mass 103.4 Visceral Fat Rating 16 Body Water % 37.6 Body Water Mass 70.9 Basal Metabolic Rate/Score 1,509 Intake Visit Reasons: TV Consult/Transfer Juan Luis Allergies acetaminophen [From Percocet] Adverse Reaction (Intermediate, Verified 01/13/24 13:33) Rash oxycodone [From Percocet] Adverse Reaction (Intermediate, Verified 01/13/24 13:33) Rash Penicillins Adverse Reaction (Intermediate, Verified 01/13/24 13:33) Rash Medication List - Last Reconciled 01/13/24 by Moe Licea MD amlodipine 5 mg PO DAILY cholecalciferol (vitamin D3) (Vitamin D3) 125 mcg PO DAILY escitalopram oxalate (Lexapro) 20 mg PO DAILY gabapentin 400 mg PO BID levothyroxine 150 mcg PO DAILY losartan 50 mg PO BID magnesium 250 mg PO DAILY metformin 1,000 mg PO DAILY multivitamin 1 tab PO DAILY omeprazole 20 mg PO BID oxybutynin chloride ER 10 mg PO DAILY pyridoxine (vitamin B6) 100 mg PO DAILY ropinirole 0.5 mg PO TID simvastatin 10 mg PO DAILY thiamine HCl (vitamin B1) 100 mg PO DAILY tirzepatide (Mounjaro) 12.5 mg subcut QWEEK vitamin A palmitate 3,000 mcg PO DAILY 90 days HPI TV Consult/Transfer Juan Luis HPI Details Start time: 1.10pm, End time: 1.55pm ?I spent 40 minutes speaking with the patient on the phone plus an additional 5 minutes reviewing and updating records for a total of 45 minutes HPI Comments History of Present Illness Details Overall weight loss: 25.1 lbs, or 11.75% TBWL Is doing 1 Celebrate Rebuild protein shake (1.5 scoops in almond milk), 1-2 Celebrate protein bars, one meal (7 forks of protein and 7 forks of salad or vegetables) Exercise: doing treadmill x3-4/wk for 300 calories (speed: 3.1mph, does not incline) [facility] Medical History (Updated 01/13/24 @ 13:42 by Moe Licea MD) Restless leg syndrome Stress incontinence Hypothyroidism Anxiety DJD (degenerative joint disease) Asthma GERD (gastroesophageal reflux disease) Surgical History (Updated 01/13/24 @ 13:42 by Moe Licea MD) History of delivery History of partial hysterectomy Hx of cholecystectomy Hx of thyroidectomy Hx of colonoscopy Family History Maternal Aunt Breast cancer Mother Thyroid cancer Social History Alcohol intake: current Alcohol intake frequency: holidays/special occasions only Patient Tobacco Use Status: Never used Tobacco Physical Exam Vital Signs: BMI result Body Mass Index 33.9 Assessment & Plan Assessment & Plan (1) Obesity (BMI 30-39.9): Code(s): E66.9 - Obesity, unspecified Plan: 1. Plan for lap sleeve gastrectomy. If diaphragmatic or ventral hernias are present at time of surgery, these will be repaired laparoscopically as well. Risks and complications were discussed in detail including possible conversion to an open procedure, anastomotic leak, bleeding requiring transfusion, small bowel obstruction, , DVT and pulmonary embolism, cardiac, or pulmonary complications, as buttermaker complications such as anastomotic ulcer, insufficient weight loss and vitamin deficiencies. I emphasized the importance of close follow-up, adherence to instructions and good communication. 2. Continue same nutritional plan of 1 Celebrate Rebuild protein shake (1.5 scoops in almond milk), 1-2 Celebrate protein bars, one meal (7 forks of protein and 7 forks of salad or vegetables) 3. Exercise: continue treadmill but increase to daily for 300 calories per day. Goal is to burn 2000 calories per week 4. Send weight measurements weekly on Wednesdays Orders: Orders CA lexiscan stress w wanda Today R94.31 - Abnormal electrocardiogram [ECG] [EKG] CA echo transthorac w con Today R94.31 - Abnormal electrocardiogram [ECG] [EKG] Telehealth Telehealth Location of provider rendering services: practice address Location of patient: address on file Patient Identification confirmed using: Name, : Yes Telehealth method: voice only Patient verbally consented to treatment: Yes Patient verbally consented to billing insurance company: Yes Patient informed of any privacy concerns related to visit: Yes Minutes spent on Phone/Video with Pt.: 45 Coding Level of Care Code Tele Est Pt Level 5 (83639) Diagnoses Obesity (BMI 30-39.9) E66.9 Time Spent (min) 45
[2024-01-13 13:50] VITALS: BMI 33.9
== END 2024-01-13 13:56 | disposition home or self-care (01) ==
LOC: HO.HBS 08:28
PROVIDERS: PCP Internal Medicine; Visit Provider Surgery
DX: E66.9 Obesity, unspecified (principal)
CPT/HCPCS: 99215

== ENCOUNTER → 2024-01-13 08:28 | Outpatient (BNVA) | payer OTHER, SELFPAY | PROVIDERS: PCP Internal Medicine; Visit Provider Surgery ==

== ENCOUNTER 2024-01-24 08:09 | Outpatient (REF) | payer OTHER, SELFPAY ==
--- NOTE | ~2024-01-24 | FL_ITS ---
EXAMINATION: XR FLUOROSCOPY UPPER GI WITH AIR CLINICAL INFORMATION: Preop evaluation prior to bariatric surgery COMPARISON: None TECHNIQUE: Fluoroscopic air contrast upper GI examination was performed utilizing standard techniques with thin and thick barium and effervescent granules. Numerous spot images were obtained. FINDINGS: Imaging of the oropharynx and hypopharynx demonstrate normal swallow mechanism with normal epiglottic inversion and soft palate elevation. No tracheal penetration, glottic or subglottic aspiration identified. Minimal nasopharyngeal reflux present. There is mild ballooning of the hypopharynx during swallow. Hypopharyngeal structures appear normal without evidence of mass or diverticulum. There is mild to moderate cricopharyngeal achalasia present. Dual and single contrast images of the esophagus demonstrate normal caliber, contour, and mucosal pattern. No evidence of stricture, mass, or ulcerations identified. Nonpropulsive tertiary contractions noted throughout the entire esophagus, resulting in to and fro motion of the barium column. No evidence of hiatus hernia identified. No significant gastroesophageal reflux was seen during the course of the examination and on reflux views. Dual contrast and single contrast images of the stomach demonstrated normal contour and mucosal pattern without evidence of mass or large ulceration. Approximately 3 subcentimeter filling defects are present along the greater curvature in the gastric body, suggestive of hyperplastic polyps (RF 1-6, image 74). Contrast freely passed into the gastric antrum and duodenal bulb without delay. Single and air-contrast images of the duodenal bulb demonstrate no abnormality. The duodenal sweep has a normal appearance, course, and mucosal fold appearance. There is a small third segment duodenal diverticulum. The imaged proximal jejunum has a normal fold pattern and caliber. Numerous surgical clips surround the trachea in the region of the thyroid. Cholecystectomy clips present. FLUOROSCOPY TIME: 2 minutes 47 seconds Number of Spot Images: 12 Number of Cine: 9 DOSE AREA PRODUCT: 1909 uGy-m2 (microgray-meter squared) FL/FL upper GI w air IMPRESSION: 1. Mild to moderate cricopharyngeal achalasia, with ballooning of the hypopharynx on swallow. No aspiration. 2. Mild to moderate esophageal dysmotility. 3. A few subcentimeter hyperplastic polyps suspected in the lateral gastric body. 4. Small third segment duodenal diverticulum. 5. No definite hiatus hernia or reflux identified during this exam. This procedure was performed by Rylan Marcano PA-C, and supervised by Dr. Warner
== END 2024-01-24 08:10 | disposition home or self-care (01) ==
LOC: HO.XRAY 08:09
PROVIDERS: PCP Internal Medicine; Visit Provider Physician Assistant Surgical
DX: E66.9 Obesity, unspecified (principal); E11.9 Type 2 diabetes mellitus without complications; I10 Essential (primary) hypertension; E78.00 Pure hypercholesterolemia, unspecified
CPT/HCPCS: 74246

== ENCOUNTER → 2024-01-24 08:10 | Outpatient (BNV) | payer OTHER, SELFPAY | PROVIDERS: PCP Internal Medicine; Visit Provider Physician Assistant Surgical | DX: E66.01 Morbid (severe) obesity due to excess calories (principal); Z01.818 Encounter for other preprocedural examination | CPT/HCPCS: 74246 ==

== ENCOUNTER 2024-02-17 09:13 | Outpatient (AMB) | payer OTHER, SELFPAY ==
--- NOTE | 2024-02-17 09:14 | A.OFFVIS_ITS ---
VS Expanded 02/17/24 09:21 BP 112/57 L Blood Pressure Location Rt brachial Blood Pressure Position Sitting Pulse 80 Pulse Source Pulse Oximeter Temp 96.8 F Temperature Source Tympanic Pulse Oximetry 95 Oxygen Delivery Method Room Air Height 5 ft 2.5 in Weight 180 lb BMI 32.4 Body Fat % 71.4 Body Fat Mass 71.4 Fat Free Mass 108.4 Visceral Fat Rating 10.0 Body Water % 42.9 Body Water Mass 77.2 Muscle Mass/Score 103.0 Basal Metabolic Rate/Score 1,492 Intake Visit Reasons: (ov) appt per Dr Bob Claim Service Representative Required: No Allergies acetaminophen [From Percocet] Adverse Reaction (Intermediate, Verified 02/17/24 09:14) Rash oxycodone [From Percocet] Adverse Reaction (Intermediate, Verified 02/17/24 09:14) Rash Penicillins Adverse Reaction (Intermediate, Verified 02/17/24 09:14) Rash Medication List - Last Reconciled 02/17/24 by PILAR Triplett amlodipine 5 mg PO DAILY cholecalciferol (vitamin D3) (Vitamin D3) 125 mcg PO DAILY escitalopram oxalate (Lexapro) 20 mg PO DAILY gabapentin 600 mg PO BID levothyroxine 150 mcg PO DAILY losartan 50 mg PO BID magnesium 250 mg PO DAILY metformin 1,000 mg PO DAILY multivitamin 1 tab PO DAILY omeprazole 20 mg PO BID oxybutynin chloride ER 10 mg PO DAILY pyridoxine (vitamin B6) 100 mg PO DAILY ropinirole 0.5 mg PO TID simvastatin 10 mg PO DAILY thiamine HCl (vitamin B1) 100 mg PO DAILY tirzepatide (Mounjaro) 12.5 mg subcut QWEEK vitamin A palmitate 3,000 mcg PO DAILY 90 days HPI Comments Details: The patient is a pleasant 53 year old female who returns to the clinic for pre- operative surgical weight loss management. Today's weight is 180pounds and BMI is 32.4. There has been a weight loss of 34.2 pounds since initiating the surgical weight loss program on 10/28/2023 with a total body weight loss of 15.9 % The patient reports she is doing great. Now gardening and has noticed much less knee pain. The patient does have a body composition scale. They also have been communicating weekly. BS 98-200. BP not being measured at home. Current meal plan includes: 1 Celebrate Rebuild protein shake (1.5 scoops in almond milk), 1 Celebrate protein bars, one meal (7 forks of protein and 7 forks of salad or vegetables) Drinking 48 oz of water Current exercise plan includes: walking outside, not tracking fanny, 1-2 x per week, 30 min treadmill 1 hr, no incline, 350 fanny, 3-4 days per week PFSH Medical History Restless leg syndrome Stress incontinence Hypothyroidism Anxiety DJD (degenerative joint disease) Asthma GERD (gastroesophageal reflux disease) Surgical History History of delivery History of partial hysterectomy Hx of cholecystectomy Hx of thyroidectomy Hx of colonoscopy Family History Maternal Aunt Breast cancer Mother Thyroid cancer Social History Alcohol intake: current Alcohol intake frequency: holidays/special occasions only Patient Tobacco Use Status: Never used Tobacco Physical Exam Vital Signs: Last Vital Signs Temp 96.8 F 02/17/24 09:21 Pulse 80 02/17/24 09:21 BP 112/57 L 02/17/24 09:21 Pulse Ox 95 02/17/24 09:21 Oxygen Delivery Method Room Air 02/17/24 09:21 Const General: healthy appearing and no acute distress Resp Effort & Inspection: normal respiratory effort Auscultation: clear to auscultation bilaterally Cardio Rate: regular rate Rhythm: regular rhythm GI Auscultation: normal bowel sounds Extrem General: Yes normal to inspection Assessment & Plan Assessment & Plan (1) Obesity (BMI 30-39.9): Code(s): E66.9 - Obesity, unspecified Category: Medical Plan: Patient has made good progress. She is scheduled for cardiac testing next week. She continues to communicate weekly with Dr. Licea. She will continue her current meal plan. As far as exercise goes, she was encouraged to use her treadmill on a daily basis. She states because of work she can only do 1 hour 3-4 days per week. I encouraged her to do at least a 1/2 hour on the days that she does not have as much time.
[2024-02-17 09:21] VITALS: BP 112/57; PULSE 80; TEMP 36; O2SAT 95; BMI 32.4
== END 2024-02-17 09:51 | disposition home or self-care (01) ==
PROVIDERS: PCP Internal Medicine; Visit Provider Physician Assistant Surgical
DX: E66.9 Obesity, unspecified (principal); Z68.32 Body mass index [BMI] 32.0-32.9, adult
CPT/HCPCS: 99213

== ENCOUNTER → 2024-02-17 09:13 | Outpatient (BNVA) | payer OTHER, SELFPAY | PROVIDERS: PCP Internal Medicine; Visit Provider Physician Assistant Surgical ==

== ENCOUNTER → 2024-02-21 08:00 | Outpatient (REF) | payer OTHER, SELFPAY ==
--- NOTE | ~2024-02-21 | NM_ITS ---
Myocardial perfusion study Indication: Abnormal EKG to evaluate for myocardial ischemia Technique: The patient was brought in for a Lexiscan perfusion study on 02/21/2024. Patient performed low-level exercise and was injected 0.4 mg of Lexiscan intravenously. Within a minute of injection, 30 mCi of sestamibi was given intravenously. Images were obtained using the SPECT gamma camera interlaced with the gating device. Images were obtained in supine position. Resting perfusion study was performed on 02/23/2024. Patient was administered 30 mCi of sestamibi intravenously at rest. Images were then obtained in supine position. Images obtained with and without CT attenuation. Total DLP 100 mGy-cm. Images were processed with the software and compared side to side in short axis, horizontal long axis and vertical long axis views. Findings: The stress perfusion study showed both attenuated as well as non attenuated corrected images show overall normal uptake of radiotracer in all segments of LV myocardium. The gated study shows normal LV systolic function with calculated LVEF of 73%. LV cavity is normal size. The gated study shows normal systolic wall thickening and contraction of segments. Resting study shows attenuated corrected images show normal uptake of radiotracer in all segments of LV myocardium. Gating at rest reveals normal systolic wall motion with ejection fraction at greater than 60%. The findings are consistent with normal myocardial perfusion. NM/NM wanda perf SPECT rest & str Impression: 1. Myocardial perfusion imaging study shows normal myocardial perfusion 2. Gated LVEF is 73% 3. Transient ischemic dilatation not present EKG is nondiagnostic for ischemia
--- NOTE | 2024-02-21 08:02 | CA_ITS ---
Acquisition Time: 2024-02-21 08:45:32 Total Exercise Time: 00:08:26 Test Indications: ABN EKG Medications: SEE H Protocol: MALLORIE Max HR: 144 BPM 86% of Pred: 166 BPM Max BP: 138/074 mmHG Max Work Load: 10.1 METS Exercise stress test exercise 8 min 26 sec of Mallorie protocol achieving 86% MPHR, without anginal symptoms, without arrhythmias, with normotensive response to exercise, without EKG changes. Nuclear images pending. Test reviewed with Dr. Silva Referred By: Moe Licea Overread By: Magali Warner
--- NOTE | 2024-02-21 08:02 | CA_ITS ---
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 The calculated ejection fraction is 61% by biplane method. - No obvious valvular pathology seen on this study. - There is mild dilatation of the ascending aorta measuring 3.80 cm. - There is a small loculated pericardial effusion overlying the left ventricle. Findings Left Ventricle Normal left ventricular cavity size. There is mildly increased left ventricular wall thickness. The left ventricular systolic function is normal. The calculated ejection fraction is 61% by biplane method. There is no evidence of regional wall motion abnormalities. Evidence suggests grade I (mild) diastolic dysfunction. LV peak GLS -17.5%. Right Ventricle Normal right ventricular cavity size and systolic function. Atria Both atria are normal in size. Aortic Valve There is a normal trileaflet aortic valve. There is no aortic valve stenosis. There is no aortic valve regurgitation. Mitral Valve The mitral valve appears normal. There is trace mitral valve regurgitation. There is no mitral valve stenosis. Pulmonic Valve The pulmonic valve is likely normal. Tricuspid Valve There is trace tricuspid valve regurgitation. There is no evidence of pulmonary hypertension. Great Vessels The aortic arch is normal in size. There is mild dilatation of the ascending aorta measuring 3.80 cm. Venous The inferior vena cava is normal in size and collapses greater than 50% with inspiration. Pericardium/Pleural There is a small loculated pericardial effusion overlying the left ventricle. There are no definitive echocardiographic findings of tamponade physiology. Prior Study Comparison No prior study available for comparison. Recommendations, Care & Conclusions No obvious valvular pathology seen on this study. Measurements 2D Linear Measurements IVSd: 1.25 0.6-0.9/0.6-1.0 cm LVIDd: 4.43 3.9-5.3/4.2-5.9 cm LVIDd Index: 2.42 2.4-3.2/2.2-3.1 cm/m2 LVIDs: 2.82 2.0-3.6 cm LVPWd: 1.09 0.7-1.1 cm LA Diam: 4.10 2.7-3.8/3.0-4.0 cm LAIDs Index: 2.24 1.5-2.3 cm/m2 LV Mass: 232.28 67-162/88-224 g LV Mass Index: 126.93 43-95/49-115 g/m2 LVOT Diam: 2.10 3.0+(-)1.3 cm 2D Systolic Function EF 4C: 62.40 >55% EF 2C: 58.40 >55% EF BiP: 60.60 >55% Mitral Valve MV Pk E: 0.75 MV PK A: 0.89 MV Decel Time: 244.00 E/A: 0.80 E'Lateral: 5.33 E'Medial: 4.03 E/E' Med: 18.50 E/E' Lat: 14.00 PHT: 72.00 MVA PHT: 3.06 Decel Cascade: 3.05 Aortic Valve AoV Pk Luis E: 1.51 AoV Mn Luis E: 1.03 AoV VTI: 0.32 AoV Pk Grad: 9.00 Aov Mn Grad: 5.00 BELINDA Cont.VTI: 2.62 LVOT LVOT Pk Luis E: 1.06 LVOT Mn Luis E: 0.73 LVOT VTI: 0.24 LVOT Pk Grad: 4.00 LVOT Mn Grad: 2.00 LVOT Diam: 2.10 LVOT Area: 3.46 Diastolic Function MV Pk E: 0.75 MV Pk A: 0.89 E/A: 0.80 E'Medial: 4.03 E/E' Med: 18.50 E' Laterial: 5.33 E/E' Lat: 14.00 Right Ventricle TAPSE (mm): 20.80 TVS' Luis E: 16.40 Tricuspid Valve TR Pk Luis E: 2.09 TR Pk Grad: 17.00 RA Press: 3.00 RVSP: 20.00 Great Vessels Aorta Sinus of Valsalva: 3.40 2.0-3.5 cm Ao Asc: 3.80 2.1-3.4 cm Ao Arch: 3.40 Pulmonary Valve PV Pk Luis E: 0.94 Peak PV Grad: 4.00 Updated in Other Vendor System with Status of Final Kojo Willett MD electronically signed on 02/21/2024 10:29:24 AM with status of Final
== END ==
LOC: HO.CARD 08:00
PROVIDERS: PCP Internal Medicine; Visit Provider Surgery
DX: R94.31 Abnormal electrocardiogram [ECG] [EKG] (principal)
CPT/HCPCS: 78452; 93017; 93306; 93356; A9500

== ENCOUNTER → 2024-02-21 08:02 | Outpatient (BNV) | payer OTHER, SELFPAY | PROVIDERS: PCP Internal Medicine; Visit Provider Internal Medicine | DX: R94.31 Abnormal electrocardiogram [ECG] [EKG] (principal) | CPT/HCPCS: 78452; 93016; 93018; 93350; 93356 ==

== ENCOUNTER 2024-02-22 13:55 | Outpatient (AMB) | payer OTHER, SELFPAY ==
--- NOTE | 2024-02-22 15:49 | A.OFFVIS_ITS ---
VS Expanded 02/22/24 15:52 Height 5 ft 2.5 in Weight 179 lb BMI 32.2 Body Fat % 42.3 Body Fat Mass 75.7 Fat Free Mass 103.2 Intake Visit Reasons: TV Pre Op LSG 02/28/24 Allergies acetaminophen [From Percocet] Adverse Reaction (Intermediate, Verified 02/22/24 15:57) Rash oxycodone [From Percocet] Adverse Reaction (Intermediate, Verified 02/22/24 15:57) Rash Penicillins Adverse Reaction (Intermediate, Verified 02/22/24 15:57) Rash Medication List - Last Reconciled 02/22/24 by Moe Licea MD amlodipine 5 mg PO DAILY cholecalciferol (vitamin D3) (Vitamin D3) 125 mcg PO DAILY escitalopram oxalate (Lexapro) 20 mg PO DAILY gabapentin 600 mg PO BID levothyroxine 150 mcg PO DAILY losartan 50 mg PO BID magnesium 250 mg PO DAILY metformin 1,000 mg PO DAILY multivitamin 1 tab PO DAILY omeprazole 20 mg PO BID ondansetron 4 mg PO Q12H oxybutynin chloride ER 10 mg PO DAILY pantoprazole 40 mg PO DAILY polyethylene glycol 3350 17 grams PO DAILY pyridoxine (vitamin B6) 100 mg PO DAILY ropinirole 0.5 mg PO TID simvastatin 10 mg PO DAILY sucralfate 10 mL PO BID thiamine HCl (vitamin B1) 100 mg PO DAILY tirzepatide (Mounjaro) 12.5 mg subcut QWEEK vitamin A palmitate 3,000 mcg PO DAILY 90 days HPI HPI TV Pre Op LSG 02/28/24: Details: Start time: 2.30pm, End time: 3pm ?I spent 15 minutes speaking with the patient on the phone plus an additional 15 minutes reviewing and updating records for a total of 20 minutes HPI Comments Details: Overall weight loss: 34.7 lbs, or 16.24% TBWL Is doing 1 Celebrate Rebuild protein shake (1.5 scoops in almond milk), 1-2 Celebrate protein bars, one meal (7 forks of protein and 7 forks of salad or vegetables) Exercise: doing treadmill x6-7/wk for 300 calories (speed: 3.1mph, does not incline) PFSH Medical History Restless leg syndrome Stress incontinence Hypothyroidism Anxiety DJD (degenerative joint disease) Asthma GERD (gastroesophageal reflux disease) Surgical History History of delivery History of partial hysterectomy Hx of cholecystectomy Hx of thyroidectomy Hx of colonoscopy Family History Maternal Aunt Breast cancer Mother Thyroid cancer Social History Alcohol intake: current Alcohol intake frequency: holidays/special occasions only Patient Tobacco Use Status: Never used Tobacco Telehealth Telehealth Telehealth Platform: Telephone Location of provider rendering services: practice address Location of patient: address on file Patient Identification confirmed using: Name, : Yes Telehealth method: voice only Patient verbally consented to treatment: Yes Patient verbally consented to billing insurance company: Yes Patient informed of any privacy concerns related to visit: Yes Minutes spent on Phone/Video with Pt.: 30 Assessment & Plan Assessment & Plan (1) Obesity (BMI 30-39.9): Code(s): E66.9 - Obesity, unspecified Category: Medical Plan: 1. Plan for lap sleeve gastrectomy including upper GI endoscopy. All tests has been completed and reviewed and the patient is cleared for the surgery. If diaphragmatic or ventral hernias are present at time of surgery, these will be repaired laparoscopically as well. Risks and complications were discussed in detail including possible conversion to an open procedure, anastomotic leak, bleeding requiring transfusion, small bowel obstruction, , DVT and pulmonary embolism, cardiac, or pulmonary complications, as long-term complications such as anastomotic ulcer, insufficient weight loss and vitamin deficiencies. I emphasized the importance of close follow-up, adherence to instructions and good communication. So far she has proven to be an excellent communicator and very compliant with all our directions accomplishing a great weight loss. I believe that she is an excellent candidate and she is ready. 2. Preop prescriptions were provided and explained the purpose of each one. Need to be purchased preop. Start Pantoprazole now as you get it from the pharmacy, 1 pill per day. Sucralfate and Zofran are for after surgery as needed. 3. Bowel prep: please do 7 packets of Miralax mixing each one with a an 8oz glass of water, crystal light, gatorade zero, or propel on 02/28/24 and the same amount on 02/29/24. The Miralax you begin with one packet at a time in 8oz water or crystal light, gatorade zero, or propel as early in the day as you can and you do them back to back until you finish them. Continue the protein shakes duri ng the bowel prep. 4. Needs to purchase 1oz medicine cups . 5. Needs to purchase Children's liquid Tylenol for postop pain control. 6. She needs to stop the Gabapentin on Tuesday02/24/24 (last day to take it). Do not take the Mounjaro again. Avoid aspirin, motrin, Advil, Aleve, Ibuprofen, Naproxyn. Tylenol is OK. 7. She needs to purchase the Celebrate 4:1 protein shakes from the hospital's gift shop. 8. Will do basic preop blood work-up any day between tomorrow Tuesday02/22/24 and Tuesday02/24/24 fasting for 12 hours and is scheduled to see the Anesthesiologist prior to the day of surgery. 9. Importance of adherence to postop folllow-up and recommendations was underscored and she understands that. 10. Stop food and bars as of tomorrow 02/22/24 and continue with 4 Celebrate REBUILD protein shakes (ONE scoop EACH in 8oz almond milk) at 8am-10am, 11am- 1pm, 2pm-4pm and 5pm-7pm and one more Celebrate REBUILD protein shake with TWO scoops in 8oz of almond milk at 7pm-9pm 11. No soups, broths or V8 12. The patient's medical history has been reviewed and they are considered low risk for post op DVT and therefore DVT prophylaxis is not considered necessary. Travel after surgery was reviewed. The patient has not disclosed any travel plans during the first 30 days after surgery and they have been advised that within the first 30 days after surgery any bus, plane, train or car travel over 2 hours in duration is contraindicated due to the possibility of developing blood clots from immobility. Any travel, needs to include periods of ambulation of 10 minutes in duration every 2 hours. Patient was instructed to discuss any plans for travel during this period with their bariatric surgeon. 13. Please take at the day of surgery the following medications: Only Amllodipine and Losartan based on the following parameters: Measure your blood pressure daily in the morning starting tomorrow. If blood pressure is: Below 120/70: do not take the Amlodipine or Losartan 121/71 to 130/80: take only the Amlodipine 131/81 to 140/90: take the Amlodipine and HALF of Losartan Over 141/91: take both the Losartana and Amlodipine 14. Stop any control pills and don't use them for one month after surgery 15. Absolutely no smoking or vaping, or marijuana until the surgery and for at least the first 4 weeks. Only nicotine patches are allowed. 16. Send me weight measurements tomorrow Tuesday and then on 03/01/24, the day of surgery before you go to the hospital. 17. Avoid any steroids by mouth for any reason. Let me know if someone prescribes them to you 18. These instructions supersede anything else you read in the handbook, anything you watched in videos or classes or you were told by any other provider. If there is any conflict, you follow the above instructions
[2024-02-22 15:52] VITALS: BMI 32.2
== END 2024-02-22 16:00 | disposition home or self-care (01) ==
PROVIDERS: PCP Internal Medicine; Visit Provider Surgery
DX: E66.9 Obesity, unspecified (principal)
CPT/HCPCS: 99214

== ENCOUNTER → 2024-02-22 13:55 | Outpatient (BNVA) | payer OTHER, SELFPAY | PROVIDERS: PCP Internal Medicine; Visit Provider Surgery ==

== ENCOUNTER 2024-02-23 08:12 | Outpatient (REF) | payer OTHER, SELFPAY ==
[2024-02-23 08:39] LABS: MANUAL DIFF FLAG NO
[2024-02-23 09:17] LABS: Basophils Percent Auto 0.6 % (0-2); Eosinophils Absolute Auto 0.1 X10*3/uL (0.0-0.4); Eosinophils Percent Auto 1.1 % (0-4); Hematocrit 40.4 % (37.0-47.0); Hemoglobin 13.4 g/dl (12.0-16.0); Imm Gran Abs Auto 0.02 X10*3/uL (0.00-0.03); Imm Gran Pct Auto 0.3 % (0.0-0.4); Lymphocytes Absolute Auto 1.3 X10*3/uL (1.2-4.9); Lymphocytes Percent Auto 21.6 % (20-40); Mean Corpuscular HGB Conc 33.2 g/dl (31.0-35.0); Mean Corpuscular Hemoglobin 28.2 pg (27.0-33.0); Mean Corpuscular Volume 85.1 fL (80.0-98.0); Mean Platelet Volume 10.3 fL (9.4-12.3); Monocytes Absolute Auto 0.4 X10*3/uL (0.1-1.2); Monocytes Percent Auto 6.3 % (2-11); Neutrophils Absolute Auto 4.3 x10*3/uL (2.0-8.3); Neutrophils Percent Auto 70.1 % (45-73); Platelet Count 186 X10*3/uL (160-400); Red Blood Count 4.75 X10*6/uL (4.20-5.50); Red Cell Distribution Width 14.4 % (11.0-16.0); White Blood Count 6.2 X10*3/uL (4.8-10.8)
[2024-02-23 09:22] LABS: Prothrombin Time 12.2 SEC (11.1-13.3)
[2024-02-23 09:23] LABS: Estimated Average Glucose 100 mg/dL; Hemoglobin A1c % 5.1 % (<6.0)
[2024-02-23 09:25] LABS: Partial Thromboplastin Time 37.5 SEC (26.0-36.8)
[2024-02-23 10:26] LABS: Alanine Aminotransferase 33 U/L (0-31); Albumin Level 4.3 g/dL (3.5-5.0); Alkaline Phosphatase 141 U/L (39-117); Anion Gap 14 (12-20); Aspartate Amino Transferase 39 U/L (5-31); Bilirubin Total 0.7 mg/dL (0.0-1.0); Blood Urea Nitrogen 14 mg/dL (9-16); C Reactive Protein 1.22 mg/dL (< or = 0.50); Carbon Dioxide 25 mmol/L (22-29); Chloride 106 mmol/L (96-108); Cholesterol 102 mg/dL (<200); Estimated Glomerular Filt Rate > 60; Glucose Random 91 mg/dL (60-115); HDL Cholesterol 37 mg/dL (>40); LDL Cholesterol Calculated 43 mg/dL (<100); Potassium 4.2 mmol/L (3.3-5.1); Sodium 141 mmol/L (135-145); Total Protein 7.9 g/dL (6.5-8.0); Triglycerides 110 mg/dL (<150)
[2024-02-23 10:34] LABS: Insulin 14 uU/mL (2-29); TSH reflex Free T4 0.03 uIU/mL (0.32-4.0)
[2024-02-23 11:12] LABS: Free T4 (Free Thyroxine) 1.43 ng/dL (0.71-1.85)
== END 2024-02-23 08:13 | disposition home or self-care (01) ==
LOC: HO.LAB 08:12
PROVIDERS: PCP Internal Medicine; Visit Provider Surgery
DX: E66.9 Obesity, unspecified (principal); I10 Essential (primary) hypertension; E11.9 Type 2 diabetes mellitus without complications; E78.00 Pure hypercholesterolemia, unspecified; E03.9 Hypothyroidism, unspecified
CPT/HCPCS: 36415; 80053; 80061; 83036; 83525; 84439; 84443; 85025; 85610; 85730; 86140

== ENCOUNTER 2024-02-28 06:55 | Day surgery (SDC) | payer OTHER, SELFPAY ==
[2024-02-23 10:50] VITALS: BMI 32.7
--- NOTE | 2024-02-23 14:03 | HO.ANESPROP2 ---
Documented by User: Suzan Omalley NP 02/24/24 09:15 HPI - Anesthesia Eval Consult details Narrative: 53yo F for Gastrectomy Sleeve-EGD, possible diaphragmatic hernia, possible ventral hernia, possible open Cirrhosis - no prev EGD on record Small loculated pericardial effusion over LV, no sign of tamponade. Reviewed with Dr Ye. After T/C with Dr Bob [place] [facility] [place], should not increase risk under anesthesia. OK for eval DOS. PMFSH Active Problems Active Problems: All Active Problems BMI 34.0-34.9,adult (Acute) Abnormal EKG (Acute) Depression, unspecified (Acute) Hypercholesterolemia (Acute) Diabetes (Acute) HTN (hypertension) (Acute) Obesity (BMI 30-39.9) (Acute) Restless leg syndrome (Acute) Stress incontinence (Acute) Hypothyroidism (Acute) Anxiety (Acute) DJD (degenerative joint disease) (Acute) Asthma (Acute) GERD (gastroesophageal reflux disease) (Acute) Past Medical History Medical History Arthritis Diabetes Cirrhosis Depression Elevated cholesterol HTN (hypertension) Cancer Restless leg syndrome Stress incontinence Hypothyroidism Anxiety DJD (degenerative joint disease) Asthma GERD (gastroesophageal reflux disease) Family History Family History Maternal Aunt Breast cancer Mother Thyroid cancer Surgical History Surgical History History of lumpectomy of right breast History of delivery History of partial hysterectomy Hx of cholecystectomy Hx of thyroidectomy Hx of colonoscopy Social History Social History Are you a primary aged or disabled care worker to a significant other at home: No Do you presently have visiting nurse or other home services: No Alcohol intake: current Alcohol intake frequency: does not drink Patient Tobacco Use Status: Never used Tobacco Use of substances other than those prescribed or required for medical reasons: No Have you been hit, kicked, punched, or otherwise hurt by someone within the past year? If so, by whom?: No Are you DNR?: No Advance Directives: No Advance Directives Information Provided: Yes Advance Directives on File: No Recently lost weight without trying: No Eating poorly because of decreased appetite: No Nutrition Risks: No Nutritional Risk Patient : No : No Poor oral hygiene: Yes (right upper crown) Meds Allergies Allergy/AdvReac Type Severity Reaction Status Date / Time oxycodone [From Percocet] AdvReac Intermediate Rash Verified 02/28/24 07:17 Penicillins AdvReac Intermediate Rash Verified 02/28/24 07:17 Home Medications ?Medication ?Instructions ?Recorded ?Confirmed ?Last Taken ?Type amlodipine 5 mg tablet 5 mg PO DAILY 10/28/23 02/28/24 02/27/24 History cholecalciferol (vitamin D3) 125 125 mcg PO DAILY 10/28/23 02/28/24 02/27/24 History mcg (5,000 unit) tablet (Vitamin D3) escitalopram oxalate 20 mg tablet 20 mg PO BEDTIME 10/28/23 02/28/24 02/27/24 History (Lexapro) levothyroxine 150 mcg capsule 150 mcg PO DAILY 10/28/23 02/28/24 02/27/24 History losartan 50 mg tablet 50 mg PO BID 10/28/23 02/28/24 02/27/24 History magnesium 250 mg tablet 250 mg PO BEDTIME 10/28/23 02/28/24 02/27/24 History metformin 1,000 mg tablet 1,000 mg PO BID 10/28/23 02/28/24 02/27/24 History multivitamin 1 tab PO DAILY 10/28/23 02/28/24 02/27/24 History omeprazole 20 mg capsule,delayed 20 mg PO BID 10/28/23 02/28/24 02/27/24 History release oxybutynin chloride 10 mg 10 mg PO BEDTIME 10/28/23 02/28/24 02/27/24 History tablet,extended release 24 hr pyridoxine (vitamin B6) 100 mg 100 mg PO DAILY 10/28/23 02/28/24 02/27/24 History tablet ropinirole 0.5 mg tablet 0.5 mg PO TID 10/28/23 02/28/24 02/27/24 History simvastatin 10 mg tablet 10 mg PO BEDTIME 10/28/23 02/28/24 02/27/24 History Exam Height,Weight and Vital Signs: Height 5 ft 2 in Weight 81.193 kg Pertinent Lab Results Pertinent Lab Results: Laboratory Tests 02/23/24 08:28 Blood Type O Positive Antibody Screen NEGATIVE Laboratory Tests 02/23/24 08:38 WBC 6.2 Hgb 13.4 Hct 40.4 Plt Count 186 PT 12.2 INR 1.0 APTT 37.5 H Sodium 141 Potassium 4.2 Chloride 106 Carbon Dioxide 25 Anion Gap 14 BUN 14 Creatinine 0.70 Estimated GFR > 60 Random Glucose 91 Estimat Average Glucose 100 Hemoglobin A1c % 5.1 Insulin Level 14 Calcium 10.0 Total Bilirubin 0.7 AST 39 H ALT 33 H Alkaline Phosphatase 141 H C-Reactive Protein 1.22 H Total Protein 7.9 Albumin 4.3 Triglycerides 110 Cholesterol 102 LDL Cholesterol, Calc 43 HDL Cholesterol 37 L TSH 0.03 L Free T4 1.43 Narrative Narrative: EKG 12/2023 ECHO 02/2024 Conclusions: - The left ventricular systolic function is normal. The calculated ejection fraction is 61% by biplane method. - No obvious valvular pathology seen on this study. - There is mild dilatation of the ascending aorta measuring 3.80 cm. - There is a small loculated pericardial effusion overlying the left ventricle. NM wanda perf SPECT rest & str 02/2024 Impression: 1. Myocardial perfusion imaging study shows normal myocardial perfusion 2. Gated LVEF is 73% 3. Transient ischemic dilatation not present US abdomen comp w elastography IMPRESSION: * The liver has coarse parenchymal echotexture and nodular contour, highly suggestive of cirrhosis. * However, the shear wave liver elastography reveals a median stiffness of 1.41 m/s (reference: normal median stiffness is 1.3 m/s or less). In the absence of other known clinical signs, this value rules out compensated advanced chronic liver disease. * Mild splenomegaly is noted. * No ascites. FL upper GI w air 2023 IMPRESSION: 1. Mild to moderate cricopharyngeal achalasia, with ballooning of the hypopharynx on swallow. No aspiration. 2. Mild to moderate esophageal dysmotility. 3. A few subcentimeter hyperplastic polyps suspected in the lateral gastric body. 4. Small third segment duodenal diverticulum. 5. No definite hiatus hernia or reflux identified during this exam. Assessment and Plan Assessment Anesthesia Assessment: Chart Reviewed Documented by User: Lubna Langston MD 02/28/24 10:14 PMF Past Medical History Medical History Arthritis Diabetes Cirrhosis Depression Elevated cholesterol HTN (hypertension) Cancer Restless leg syndrome Stress incontinence Hypothyroidism Anxiety DJD (degenerative joint disease) Asthma GERD (gastroesophageal reflux disease) Family History Family History Maternal Aunt Breast cancer Mother Thyroid cancer Surgical History Surgical History History of lumpectomy of right breast History of delivery History of partial hysterectomy Hx of cholecystectomy Hx of thyroidectomy Hx of colonoscopy Social History Social History Are you a primary aged or disabled care worker to a significant other at home: No Do you presently have visiting nurse or other home services: No Alcohol intake: current Alcohol intake frequency: does not drink Patient Tobacco Use Status: Never used Tobacco Use of substances other than those prescribed or required for medical reasons: No Have you been hit, kicked, punched, or otherwise hurt by someone within the past year? If so, by whom?: No Are you DNR?: No Advance Directives: No Advance Directives Information Provided: Yes Advance Directives on File: No Recently lost weight without trying: No Eating poorly because of decreased appetite: No Nutrition Risks: No Nutritional Risk Patient : No : No Poor oral hygiene: Yes (right upper crown) Meds Allergies Allergy/AdvReac Type Severity Reaction Status Date / Time oxycodone [From Percocet] AdvReac Intermediate Rash Verified 02/28/24 07:17 Penicillins AdvReac Intermediate Rash Verified 02/28/24 07:17 Home Medications ?Medication ?Instructions ?Recorded ?Confirmed ?Last Taken ?Type amlodipine 5 mg tablet 5 mg PO DAILY 10/28/23 02/28/24 02/27/24 History cholecalciferol (vitamin D3) 125 125 mcg PO DAILY 10/28/23 02/28/24 02/27/24 History mcg (5,000 unit) tablet (Vitamin D3) escitalopram oxalate 20 mg tablet 20 mg PO BEDTIME 10/28/23 02/28/24 02/27/24 History (Lexapro) levothyroxine 150 mcg capsule 150 mcg PO DAILY 10/28/23 02/28/24 02/27/24 History losartan 50 mg tablet 50 mg PO BID 10/28/23 02/28/24 02/27/24 History magnesium 250 mg tablet 250 mg PO BEDTIME 10/28/23 02/28/24 02/27/24 History metformin 1,000 mg tablet 1,000 mg PO BID 10/28/23 02/28/24 02/27/24 History multivitamin 1 tab PO DAILY 10/28/23 02/28/24 02/27/24 History omeprazole 20 mg capsule,delayed 20 mg PO BID 10/28/23 02/28/24 02/27/24 History release oxybutynin chloride 10 mg 10 mg PO BEDTIME 10/28/23 02/28/24 02/27/24 History tablet,extended release 24 hr pyridoxine (vitamin B6) 100 mg 100 mg PO DAILY 10/28/23 02/28/24 02/27/24 History tablet ropinirole 0.5 mg tablet 0.5 mg PO TID 10/28/23 02/28/24 02/27/24 History simvastatin 10 mg tablet 10 mg PO BEDTIME 10/28/23 02/28/24 02/27/24 History Exam Airway Mallampati Class: II TM Dist: >3cm Neck ROM: Full Loose/Missing/Broken Teeth: No Heart: RRR Lungs: CTA Assessment and Plan Assessment Anesthesia Assessment: Anesthesia Plan Discussed Final Anesthetic Review NPO: Yes ASA Class: III Final Preanesthetic Review: Meds/Allgs Chart Reviewed, Consent Obtained/Reviewed and Anes Risks/Benef Reviewed Patient Risk: Intermediate Procedure Risk: Intermediate Anesthetic Plan Anesthetic Plan: GA Disposition: Standard PACU
[2024-02-28] VITALS (14 sets, daily range): BP systolic 107–155; BP diastolic 52–88; PULSE 66–83; RESP 14–18; TEMP 35.9–36.6; O2SAT 94–99; BMI 31.9
[2024-02-28] MEDS: Aprepitant 32 MG/4.4 ML VIAL IVPUSH (07:58)
[2024-02-28] MEDS: Lactated Ringers 1,000 ML 100 ML IVCONT ×2 (07:58→15:28)
[2024-02-28] MEDS: Lactated Ringers 1,000 ML 999 ML IV (07:58)
[2024-02-28 09:09] LABS: Glucose, Whole Blood 93 mg/dL (60-115)
--- NOTE | 2024-02-28 10:35 | PM.OP ---
Brief Operative Note Date of Service: 02/28/24 Pre-op diagnosis: Severe obesity with comorbidities (see below) Post-op diagnosis: same (& liver cirrhosis) Procedure: INITIAL PATIENT BMI ON PRESENTATION AT OUR OFFICE: 38.6 kg/m2 LAST BMI BEFORE SURGERY: 32.9 kg/m2 COMORBIDITIES: GERD, non-insulin dependent diabetes, hypertension, depression, anxiety, DJD, asthma, hypothyroidism, restless leg syndrome, stress incontinence, liver fibrosis, hyperlipidemia, LVH, grade I diastolic dysfunction ?The patient presented to the Weight Management Program with significant obesity that was negatively impacting the patient's comorbidities as listed above.? The program is a phased program with a special focus on preoperative medical weight management to promote substantial weight loss and prepare the patients for the second phase of the program: bariatric surgery. The patient participated in an intensive weekly lifestyle ?intervention and exercise program during which the patient ?has lost between the initial office visit and the last preoperative visit 34.7lbs, or 16.24% of initial actual body weight. It was deemed appropriate for the patient to now have bariatric surgery. In light of the current Covid-19 pandemic and the well documented strong association of obesity and increased risk of worse outcomes if infected with Covid-19 (REFERENCES:https://pubmed.ncbi.nlm.nih.gov/59916570/,?https://pubmed.ncbi.nlm.nih.gov/80923428/), any delay in undergoing bariatric surgery may lead to the patient's worsening health condition and increased?risk of more severe Covid-19 disease if infected. In addition a recent?study from [facility] published in [employer] [employer] on 09/28/2021 ([email or web address]) found that, among patients with obesity, substantial weight loss achieved with surgery was associated with improved outcomes of COVID-19 infection. The findings suggest that obesity can be a modifiable risk factor for the severity of COVID-19 infection. In addition, the patient met the BMI-criteria for bariatric surgery based on the BMI on initial presentation. The patient should not be penalized for achieving such weight loss because ?it is not sustainable long-term without surgical intervention and it was achieved in preparation for bariatric surgery ?under my direction and based on my published research ([email or web address] and?https://www.soard.org/article/[email or web address]-X/pdf) ?that a 10% preoperative weight loss improves long-term weight loss after surgery and reduces perioperative complications.? Insurance carriers such as [facility] have endorsed my recommendations ?and have included in their policies criteria to include a 10% preoperative weight loss requirement. PROCEDURE: Esophago-gastroscopy, laparoscopic sleeve gastrectomy and laparoscopic gastropexy INDICATIONS: This is a 53 year-old female who was electively scheduled for laparoscopic, possibly open sleeve gastrectomy. The risks and complications of the procedure were discussed with the patient in advance, particularly the possibility of ; pulmonary embolism; staple line leak; bleeding; GERD; cardiac, pulmonary, or renal complications; as well as long-term problems such as insufficient weight loss, vitamin deficiency, strictures, or ulcers. The patient understood all the risks, and was in agreement to proceed with surgery. DESCRIPTION OF PROCEDURE: After informed consent was obtained from the patient, the patient was given preoperative antibiotics, and was transferred to the operating room. After successful induction of general anesthesia, pneumatic compression devices were placed on both lower extremities. An upper endoscopy was performed next. The oropharynx and esophagus appeared to be within normal limits. There was no diaphragmatic hernia present consistent with the findings of the preoperative upper GI. The stomach was entered. Then after all fluid and air were suctioned and the stomach was fully decompressed, the scope was withdrawn and secured in the mid esophagus. The patient was then prepped and draped in the usual sterile manner, and abdominal access was established at the right upper quadrant with the Brandt technique. A 12 mm blunt port was inserted, and the abdomen was insufflated with CO2 to a pressure of 15 mmHg. Under direct visualization, additional ports were placed, specifically two 5 mm Versi-step ports to the left upper quadrant, and a 5 mm Versi-Step port to the right upper quadrant. 1% lidocaine plain was used to infiltrate all port sites as well as all fascia defects. Following that, the patient was placed in a steep reverse Trendelenburg position. An additional 5 mm port was placed to the right flank for the Mediflex retractor that was used to retract the left lobe of the liver. The liver was nodular consistent with liver cirrhosis. There was no obvious varices or ascitic fluid in the abdomen. The gastro-esophageal fat pad was opened with the ultrasonic device (Thunderbeat, Olympus) and the anterior esophagus and hiatus were exposed. The angle of His was opened with the ultrasonic device the fundus of the stomach from any diaphragmatic and splenic attachments. I then opened the gastrocolic ligament between the transverse colon and the greater curvature of the stomach with the ultrasonic device to enter the lesser sac and facilitate the ligation of the short gastric vessels. I started at a mid-point along the greater curvature and using the Thunderbeat, all short gastric vessels were divided all the way to the angle of His until the left maxine was completely dissected at its entirety. I then divided the gastro-colic ligament distally to a distance of about 3-4 cm proximal to the pylorus. The stomach was then divided transversely with three Endo BRAYAN-45 purple and four BRAYAN-60 articulating purple loads using the CellEraIA stapler and loads. Every effort was made that the gastric sleeve had a tubular shape and an even caliber throughout. Once the sleeve resection was completed, the staple line of the gastric sleeve was reinforced with Hemoclips. The resected stomach was retrieved without difficulty from the Brandt port. A gastropexy was then performed in order to prevent postoperative GERD and partial gastric volvulus. Several interrupted 2.0 Surgidac sutures were placed between the sleeve's staple line and the previously divided greater omentum and gastro-colic ligament using the Endo-Stitch device. ?An upper endoscopy was performed. There was no narrowing at the GE junction. The scope was easily advanced all the way to the pylorus which was clearly visualized. There was no narrowing anywhere and the sleeve's caliber was even throughout. The sleeve's staple line was inspected and there was no evidence of ischemia, bleeding or dehiscence. At that point the gastroscope was withdrawn from the patient?s mouth while we were decompressing the bowel and the stomach from any remaining air. I looked into the lesser sac to see how the sleeve was situating and it was situating well. There was no bleeding from the staple line, spleen, or short gastric vessels. The Mediflex retractor was removed, and the undersurface of the liver was inspected and there was no bleeding. The patient was placed in supine position. I closed the fascial defect of the 12 mm port site with a figure of eight #1 Polysorb suture. Then 30cc Ropivacaine plain with 10 mg of Dexamethasone were used to infiltrate the fascial closure as well as all skin incisions. A total of 7ml Zynrelef was applied in the Brandt wound. At this point, the abdomen was deflated, all ports were removed under direct vision, and no bleeding was noted from any of the port sites. The skin incisions were irrigated with saline and were closed with 4-0 absorbable monofilament sutures. Steri-Strips and OpSites were used to cover all incisions. The patient was extubated and was transferred in stable condition to the recovery room for further care. I was present and performed all damon parts of the procedure. Mr. Vincent was the public services assistant. There were no residents to assist with this case. Jesus Licea MD, PhD, FACS Surgeon: Moe Licea MD Anesthesia: GETA, local and other (TAP block and 7ml Zynrelef) Was an Asphalt Plant Operator used for this Procedure?: No Asphalt Plant Operator: Juan Luis Vincent Estimated blood loss (mL): 10 IV fluids (mL): 2,500 Urine output (mL): 0 (No Castro to record output) Pathology: other (Stomach) Condition: stable Disposition: PACU
--- NOTE | 2024-02-28 10:39 | P.PNGS_ITS ---
Subjective Subjective Date of Service: 02/29/24 Interval history: Feels well. Mild incisional pain. She is tolerating phase 1 bariatric diet Physical Exam 2 Vital Signs: Vital Signs: Last Vital Signs Temp 96.7 F L 02/28/24 07:50 Pulse 66 02/28/24 07:50 Resp 16 02/28/24 07:50 BP 107/52 L 02/28/24 07:50 Pulse Ox 98 02/28/24 07:50 O2 Del Method Room Air 02/28/24 07:50 BMI result Body Mass Index 31.9 GI: Inspection: Yes normal to inspection, Yes incision (clean, dry and intact) and Yes obesity Palpation (GI): Soft to palpation Extrem: Right lower extremity: normal to inspection (no calf tenderness) L eft lower extremity: normal to inspection (no calf tenderness) Objective Data Active Medications Albuterol Sulfate (Albuterol Sulfate (0.083%) 2.5 Mg/3 Ml Vial.Neb) 2.5 mg INHALE ONCE PRN PRN Reason: Shortness of Breath/Wheezing Albuterol Sulfate (Albuterol Sulfate (0.083%) 2.5 Mg/3 Ml Vial.Neb) 2.5 mg INHALE ONCE PRN PRN Reason: Wheezing Stop: 02/28/24 16:16 Fentanyl (Fentanyl Citrate/Pf 100 Mcg/2 Ml Vial) 25 mcg IVPUSH Q5M PRN; Protocol PRN Reason: Pain, Moderate(Pain Scale 4-6) Stop: 02/28/24 16:15 Hydromorphone HCl (Hydromorphone Hcl 0.5 Mg/0.5 Ml Syringe) 0.25 mg IVPUSH Q5M PRN; Protocol PRN Reason: Pain, Severe (Pain Scale 7-10) Stop: 02/28/24 16:15 Lactated Ringer's (Lr) 1,000 mls @ 100 mls/hr IVCONT .Q10H LINDA Last Admin: 02/28/24 07:58 Dose: 100 mls/hr Documented By: BRITTANI Ondansetron HCl (Ondansetron Hcl 4 Mg/2 Ml Vial) 4 mg IVPUSH ONCE PRN PRN Reason: Nausea and Vomiting Stop: 02/28/24 16:16 Labs 02/29/24 05:50 05/29/24 05:50 Labs: Laboratory Results - last 24 hr 02/28/24 09:05 POC Glucose 93 Procedures Date of Service Date of Service: 02/29/24 Progress Note: A&P Assessment and plan (1) Obesity (BMI 30-39.9): Status: Acute Assessment and Plan: s/p laparoscopic sleeve gastrectomy and gastropexy Doing well Will check am labs and if OK the patient will be discharged home (2) BMI 32.0-32.9,adult: Status: Acute (3) GERD (gastroesophageal reflux disease): Status: Acute (4) Asthma: Status: Acute (5) DJD (degenerative joint disease): Status: Acute (6) Anxiety: Status: Acute (7) Hypothyroidism: Status: Acute (8) Stress incontinence: Status: Acute (9) Restless leg syndrome: Status: Acute (10) HTN (hypertension): Status: Acute (11) Diabetes: Status: Acute (12) Hypercholesterolemia: Status: Acute (13) Depression, unspecified: Status: Acute (14) LVH (left ventricular hypertrophy): Status: Acute (15) Diastolic dysfunction without heart failure: Status: Acute (16) S/P laparoscopic sleeve gastrectomy: Status: Acute (17) Cirrhosis: Status: Acute Time Spent With Patient Time: Total time managing care of this patient today ____ minutes. Quality Stroke Does the patient have a stroke diagnosis?: No VTE Prior VTE?: No VTE Risk Level:: Surgical - moderate VTE Device Contraindication: N/A - Device Ordered VTE Drug Contraindication: Treatment Not Indicated
--- NOTE | 2024-02-28 13:19 | P.DS_ITS ---
DS: Providers Provider Date of Service: 02/29/24 Primary care physician: Faustino Sommer MD DS: Diagnosis Discharge Diagnosis (1) Obesity (BMI 30-39.9): Status: Acute (2) BMI 32.0-32.9,adult: Status: Acute (3) GERD (gastroesophageal reflux disease): Status: Acute (4) Asthma: Status: Acute (5) DJD (degenerative joint disease): Status: Acute (6) Anxiety: Status: Acute (7) Hypothyroidism: Status: Acute (8) Stress incontinence: Status: Acute (9) Restless leg syndrome: Status: Acute (10) HTN (hypertension): Status: Acute (11) Diabetes: Status: Acute (12) Hypercholesterolemia: Status: Acute (13) Depression, unspecified: Status: Acute (14) LVH (left ventricular hypertrophy): Status: Acute (15) Diastolic dysfunction without heart failure: Status: Acute DS: Summary Hospital Course Hospital Course: ADMITTING DIAGNOSIS: obesity, dm, htn, hypothyroid, hld ? DISCHARGE DIAGNOSIS: same, s/p laparoscopic sleeve gastrectomy ? PAST SURGICAL HISTORY: partial hystercetomy, cholecystectomy, thyroidectomy ? PROCEDURE: upper endoscopy, laparoscopic sleeve gastrectomy ? DISCHARGE SUMMARY: ? History of Present Illness: ? The patient is a?53 year-old woman with a BMI of?38.6 kg/m2 and associated co- morbidities as described above. The patient had extensive work-up,lost?35.8 lbs preoperatively and was electively scheduled for laparoscopic, possible open sleeve gastrectomy and gastropexy. Risks and complications of the surgery were discussed with the patient in advance, particularly the possibility of , pulmonary embolism, anastomotic leak, bleeding, bowel injury, GERD, cardiac, renal or pulmonary complications. The patient understood all the risks and was in agreement with the surgical plan. ? Hospital Course: ? The patient underwent an uneventful laparoscopic sleeve gastrectomy with gastropexy on the day of admission. Postoperatively, the patient was transferred to the surgical floor. The patient received IV Acetaminophen and IV dilaudid for pain control. Patient was started on bariatric phase 1 diet POD #0. On postoperative day one, the patient was feeling well without nausea, vomiting, fevers, or tachycardia. The patient had some mild incisional pain and the abdomen was soft. ? On the morning of postoperative day one, the patient was continued on 1 ounce of water or ice every half hour. During the day, the patient did fairly well, having some incisional pain, but able to ambulate adequately and to tolerate liquids well. ? Since the patient is doing well, we decided that the patient was ready to be discharged. The patient was given instructions to follow-up with me next week and to call my office for any fever over 101, persistent abdominal pain, nausea, vomiting, GERD, symptoms of DVT such as calf tenderness, or leg swelling, or pulmonary embolism such as chest pain or shortness of breath. The patient was also instructed to drink 40-60 ounces of liquids per day using the 1-ounce cups. The patient had been given prescriptions for Tylenol for pain, Zofran prn for nausea, and pantoprazole and carafate previously. The patient was encouraged to ambulate and use the incentive spirometer. The patient was allowed to shower, but no baths, and encouraged to stay active at home. All of these instructions were given to the patient personally. All questions were answered and the patient understood all instructions, the instructions were also given to the patient in print. Time Attestation Total time managing care of this patient today: 25 mintues. Discharge Coordination Time (in mins): 25 Quality: Safe Use of Opioids Does Pt have an Active Cancer Diagnosis on the Problem List?: No Quality: Stroke Does the patient have a stroke diagnosis?: No Physical Exam Vital Signs: Vital Signs: Last Vital Signs Temp 96.7 F L 02/28/24 07:50 Pulse 66 02/28/24 07:50 Resp 16 02/28/24 07:50 BP 107/52 L 02/28/24 07:50 Pulse Ox 98 02/28/24 07:50 O2 Del Method Room Air 02/28/24 07:50 BMI result Body Mass Index 31.9 DS: Data Data Completed and Pending Pending studies at discharge: Pending at discharge 02/28/24 12:50 Surgical [PTH] Routine Labs on day of discharge: Laboratory Results - last 24 hr 02/28/24 09:05 POC Glucose 93 Discharge Plan Discharge Patient Disposition: Home, Self-Care Referrals: Faustino Sommer MD [Primary Care Provider] - 1 Week Discharge Medications: Continued pantoprazole 40 mg tablet,delayed release (DR/EC) 40 mg PO DAILY Qty: 90 0RF trazodone 50 mg tablet 50 - 100 mg PO BEDTIME PRN (Reason: insomnia) levothyroxine 150 mcg capsule 150 mcg PO DAILY simvastatin 10 mg tablet 10 mg PO BEDTIME escitalopram oxalate [Lexapro] 20 mg tablet 20 mg PO BEDTIME oxybutynin chloride 10 mg tablet extended release 24hr 10 mg PO BEDTIME ropinirole 0.5 mg tablet 0.5 mg PO TID magnesium 250 mg tablet 250 mg PO BEDTIME Held amlodipine 5 mg tablet 5 mg PO DAILY Hold Instructions: Resume on 03/01/24. Check your blood pressure every morning as soon as you wake up and send it to Dr. Licea. Do no take the blood pressure medication if the blood pressure is below 120/70. Wait every day to hear back from Dr. Licea before you take the medication. losartan 50 mg tablet 50 mg PO BID Hold Instructions: Resume on 03/01/24. Check your blood pressure every morning as soon as you wake up and send it to Dr. Licea. Do no take the blood pressure medication if the blood pressure is below 120/70. Wait every day to hear back from Dr. Licea before you take the medication. Discontinued vitamin A palmitate 3,000 mcg (10,000 unit) capsule 3,000 mcg PO DAILY 90 Days Qty: 90 0RF thiamine HCl (vitamin B1) 100 mg tablet 100 mg PO DAILY Qty: 60 0RF metformin 1,000 mg tablet 1,000 mg PO BID multivitamin Tablet 1 tab PO DAILY cholecalciferol (vitamin D3) [Vitamin D3] 125 mcg (5,000 unit) tablet 125 mcg PO DAILY No Action pyridoxine (vitamin B6) 100 mg tablet 100 mg PO DAILY Discharge Orders: Discharge Order (Routine); Ordered 02/29/24 Ordered By: Moe Licea Activity on Discharge: No heavy lifting Activity Restrictions/Additional Instructions: No tub baths, sex or returning to work until discussed at first post op appointment. No exercise, alcohol, tobacco or illegal drug use. Continue to use incentive spirometer hourly while awake. Walk in home for 5- 10 minutes every 2 hours during the first week. Follow all instructions in the bariatric handbook and call with any questions.Discharge Instructions 1. Please call your doctor or come back to the emergency room should any new symptoms arise. 2. You will receive a courtesy call from [facility] 24-48 hours after discharge. 3. Activity: abstain from alcohol, practice limited stair climbing, no bending, no driving, no exercise, no illicit substances, no lifting, no sex, no tub bath, no work. 4. Diet: continue as discussed with Dr. Licea. 5. Dressing Change/Wound Care: Your incision is covered by clear bandages and guaze underneath. If the area is tender, you may apply an ice pack for short intervals (no more than 20 minutes on, followed by at least 20 minutes off). Do not apply heat. Do not use creams, lotions, or topical antibiotics unless instructed to do so by your surgeon. These can cause infection or allergic reaction. 6. Call your doctor if: - Your temperature exceeds 101.5 F - You experience excessive pain or swelling - You have an unexpected reaction to medication - You have excessive bleeding - You experience continued vomiting/nausea - Your incision begins to separate - Your incision shows signs of infection such as increased redness, swelling, excessive pain, heat, or drainage (light blood or clear fluid is normal) 7. General instructions: No lifting greater than 5 lbs for 1 week and not more than 20lbs the next 3?weeks. No driving until seen at the office in 5-7 days after surgery. If you do not move your bowels in the next 2 days, please tell?Dr. Licea. Please walk around your home every hour or two to prevent blood clots from forming in your legs. You do not need to wake from sleeping to walk. Please sleep in a bed or couch to prevent kinking at the hips and knees. Please take your incentive spirometer (your lung cosmetics demonstrator) home with you and use it for the next few days to prevent pneumonia. You may shower, no hot tubs, baths or swimming pools.?Please follow the post op diet instructions you are?given by Dr Licea? and text me daily at 5-6pm for an update.?If you have any issues or concerns or questions please communicate this to him via text.? The Celebrate shakes have all of the bariatric vitamins you need if you consume these shakes. If you are drinking other protein shakes, you will need to purchase the Celebrate multivitamins and calcium that are available in the hospital gift shop on the first floor of the [facility].??Do not take anything without first discussing with Dr Licea. Please make sure you are consuming at least 40 ounces of fluids per day starting the?day AFTER your discharge from the hospital. Always drink 1-2 ml per minute using the 5ml?syringe. If you drink faster you may experience?bloating,?gas pain, burping, nausea or heartburn. In that case please slow down your pace and use the syringe to?understand better the?proper?pace and volume of drinking. Do not hesitate to contact the office with any questions at . The patient's medical history has been reviewed and they are considered low risk for post op DVT and therefore DVT prophylaxis is not considered necessary. Travel after surgery was reviewed. The patient has not disclosed any travel plans during the first 30 days after surgery and they have been advised that within the first 30 days after surgery any bus, plane, train or car travel over 2 hours in duration is contraindicated due to the possibility of developing blood clots from immobility. Any travel, needs to include periods of ambulation of 10 minutes in duration every 2 hours.? The patient was instructed to discuss any plans for travel during this period with their bariatric surgeon. Print Language: Italian Discharge Date/Time: 02/29/24 10:00
[2024-02-28] MEDS: HYDROmorphone HCl 0.5 MG/0.5 ML SYRINGE 0.25 MG IVPUSH ×2 (13:45→13:50)
[2024-02-28] MEDS: fentaNYL citrate/PF 100 MCG/2 ML VIAL 25 MCG IVPUSH (14:02)
[2024-02-28 14:03] LABS: Hematocrit 38.5 % (37.0-47.0); Hemoglobin 13.2 g/dl (12.0-16.0)
[2024-02-28 14:19] LABS: Anion Gap 14 (12-20); Blood Urea Nitrogen 11 mg/dL (9-16); Calcium 9.2 mg/dL (8.4-10.2); Carbon Dioxide 22 mmol/L (22-29); Chloride 105 mmol/L (96-108); Creatinine Clr Calc Pharmacy 97.8; Estimated Glomerular Filt Rate > 60; Glucose Random 141 mg/dL (60-115); Potassium 4.4 mmol/L (3.3-5.1); Sodium 137 mmol/L (135-145)
[2024-02-28] MEDS: Acetaminophen 1,000 MG/100 ML PIGGYBACK 16.7 MG IV ×2 (15:29→21:40)
[2024-02-28 16:23] LABS: Glucose, Whole Blood 149 mg/dL (60-115)
[2024-02-28] MEDS: rOPINIRole HCL 0.5 MG TABLET PO ×2 (16:34→21:53)
[2024-02-28] MEDS: 0.9 % Sodium Chloride Flush 3 ML SYRINGE IVFLUSH (16:44)
--- NOTE | 2024-02-28 17:56 | PC.NURSE ---
Pt able to ambulate around unit multiple times. Pt was able to void once in bathroom. Pt denying pain at this time. Tolerating phase 1 diet, denies nausea.
--- NOTE | 2024-02-28 19:36 | PHA.MEDREC ---
Pharmacy Consult ? Medication Reconciliation Pharmacy has completed the medication reconciliation. Confirmed med list with patient.
[2024-02-28 20:25] LABS: Glucose, Whole Blood 153 mg/dL (60-115)
[2024-02-28] MEDS: Escitalopram Oxalate 20 MG TABLET PO (21:52)
[2024-02-28] MEDS: oxyBUTYnin chloride ER 5 MG TAB.ER.24 10 MG PO (21:52)
[2024-02-28] MEDS: Famotidine/PF 20 MG/2 ML VIAL IVPUSH (21:57)
[2024-02-29] MEDS: Lactated Ringers 1,000 ML 100 ML IVCONT (00:12)
[2024-02-29 03:11] VITALS: BP 142/93; PULSE 73; RESP 18; TEMP 36.1; O2SAT 95
[2024-02-29] MEDS: Acetaminophen 1,000 MG/100 ML PIGGYBACK 16.7 MG IV (03:59)
[2024-02-29 06:36] LABS: MANUAL DIFF FLAG NO
[2024-02-29] MEDS: Levothyroxine Sodium 150 MCG TABLET PO (06:40)
[2024-02-29 06:47] LABS: Basophils Percent Auto 0.1 % (0-2); Hematocrit 36.3 % (37.0-47.0); Hemoglobin 12.7 g/dl (12.0-16.0); Imm Gran Abs Auto 0.03 X10*3/uL (0.00-0.03); Imm Gran Pct Auto 0.4 % (0.0-0.4); Lymphocytes Absolute Auto 0.7 X10*3/uL (1.2-4.9); Lymphocytes Percent Auto 8.3 % (20-40); Mean Corpuscular Hemoglobin 28.9 pg (27.0-33.0); Mean Corpuscular Volume 82.5 fL (80.0-98.0); Mean Platelet Volume 10.3 fL (9.4-12.3); Monocytes Absolute Auto 0.3 X10*3/uL (0.1-1.2); Monocytes Percent Auto 3.1 % (2-11); Neutrophils Absolute Auto 7.1 x10*3/uL (2.0-8.3); Neutrophils Percent Auto 88.1 % (45-73); Platelet Count 143 X10*3/uL (160-400); Red Cell Distribution Width 13.8 % (11.0-16.0); White Blood Count 8.1 X10*3/uL (4.8-10.8)
[2024-02-29 07:05] LABS: Anion Gap 13 (12-20); Blood Urea Nitrogen 9 mg/dL (9-16); Calcium 9.6 mg/dL (8.4-10.2); Carbon Dioxide 25 mmol/L (22-29); Chloride 106 mmol/L (96-108); Creatinine Clr Calc Pharmacy 96.3; Estimated Glomerular Filt Rate > 60; Glucose Random 113 mg/dL (60-115); Potassium 4.9 mmol/L (3.3-5.1); Sodium 139 mmol/L (135-145)
[2024-02-29 07:47] VITALS: BP 135/79; PULSE 69; RESP 16; TEMP 36.3; O2SAT 94
[2024-02-29 08:04] LABS: Glucose, Whole Blood 107 mg/dL (60-115)
[2024-02-29 08:41] VITALS: BP 135/79
[2024-02-29] MEDS: amLODIPine Besylate 5 MG TABLET PO (08:41)
[2024-02-29] MEDS: rOPINIRole HCL 0.5 MG TABLET PO (08:41)
[2024-02-29] MEDS: Losartan Potassium 50 MG TABLET PO (08:41)
[2024-02-29] MEDS: Famotidine/PF 20 MG/2 ML VIAL IVPUSH (08:42)
--- NOTE | 2024-02-29 09:15 | MHC.CM.PN ---
PATIENT LIVES AT HOME W/ AND ADULT SON. FUNCTIONALLY INDEPENDENT. DENIES USE OF DME OR SERVICES. PCP WHIT PAYNE MD NO HCP. CM PROVIDED EDUCATION AND OFFERED ASSISTANCE. PATIENT DECLINED. DP: MEDICALLY CLEARED FOR DC HOME SELF CARE. SON TO TRANSPORT.
--- NOTE | 2024-02-29 09:38 | HO.POSTANES ---
Post Anesthesia Evaluation Post Anesthesia Evaluation Date of Service: 02/29/24 Vital Signs: Vital Signs Temp Pulse Resp BP Pulse Ox O2 Del Method 02/29/24 08:41 135/79 02/29/24 08:41 135/79 02/29/24 07:47 97.4 F 69 16 135/79 94 Room Air 02/29/24 03:11 97 F 73 18 142/93 H 95 Room Air Anesthesia: General Endotracheal-GETA Mental Status: Awake Pain Control: Satisfactory Nausea/Vomiting: None Hydration: Adequate Anesthesia-Related Issues: No Anes. Related Issues
== END 2024-02-29 10:00 | disposition home or self-care (01) ==
LOC: HO.SSS 13:22 → HO.S3 13:28
PROVIDERS: Physician Assistant Surgical; PCP Internal Medicine; Visit Provider Surgery
PROC: (CPT 43845; principal; 2024-02-28 10:30)
DX: E66.01 Morbid (severe) obesity due to excess calories (principal); Z68.32 Body mass index [BMI] 32.0-32.9, adult; K21.9 Gastro-esophageal reflux disease without esophagitis; J45.909 Unspecified asthma, uncomplicated; M19.90 Unspecified osteoarthritis, unspecified site; F41.9 Anxiety disorder, unspecified; E03.9 Hypothyroidism, unspecified; K74.60 Unspecified cirrhosis of liver; N39.3 Stress incontinence (female) (male); G25.81 Restless legs syndrome; I11.9 Hypertensive heart disease without heart failure; E11.9 Type 2 diabetes mellitus without complications; E78.00 Pure hypercholesterolemia, unspecified; F32.A Depression, unspecified; Z79.84 Long term (current) use of oral hypoglycemic drugs; Z79.899 Other long term (current) drug therapy; Z90.49 Acquired absence of other specified parts of digestive tract; Z88.0 Allergy status to penicillin; Z88.5 Allergy status to narcotic agent
CPT/HCPCS: 43775; 43659; 36415; 80048; 82947; 85014; 85018; 85025; 86850; 86900; 86901; 88304; 88305; 88307; 88342; A4649; C9088; C9145; J0131; J1100; J1170; J1956; J2250; J2405; J2704; J2795; J3010; J7120

== ENCOUNTER → 2024-02-28 06:55 | Outpatient (BNV) | payer OTHER, SELFPAY | PROVIDERS: PCP Internal Medicine; Visit Provider Surgery | DX: E66.9 Obesity, unspecified (principal); Z68.32 Body mass index [BMI] 32.0-32.9, adult; Z90.3 Acquired absence of stomach [part of]; Z98.84 Bariatric surgery status | CPT/HCPCS: 43659; 43775; 99024 ==

== ENCOUNTER 2024-03-06 09:50 | Outpatient (AMB) | payer OTHER, SELFPAY ==
--- NOTE | 2024-03-06 09:58 | MHC.OFFVISWM ---
VS Expanded 03/06/24 10:18 BP 112/58 L Blood Pressure Location Rt brachial Blood Pressure Position Sitting Pulse 82 Pulse Source Pulse Oximeter Temp 97.6 F Temperature Source Tympanic Pulse Oximetry 93 Oxygen Delivery Method Room Air Height 5 ft 2.5 in Weight 167 lb 12.8 oz BMI 30.2 Body Fat % 38.4 Body Fat Mass 73.4 Fat Free Mass 103.4 Visceral Fat Rating 9.0 Body Water % 43.8 Body Water Mass 73.4 Muscle Mass/Score 98.2 Basal Metabolic Rate/Score 1,419 Intake Visit Reasons: (OV) PO LSG 02/28/24 Allergies oxycodone [From Percocet] Adverse Reaction (Intermediate, Verified 02/28/24 07:17) Rash Penicillins Adverse Reaction (Intermediate, Verified 02/28/24 07:17) Rash HPI Comments Details: Patient is a 53-year-old female who returns to the office today in follow-up. She is approximately 7 days post sleeve gastrectomy performed on 02/28/2024. Tolerating 3 celebrate 4 in 1 shakes with 1 scoop each. She has moved her bowels. She is additionally drinking approximately 45 oz of fluids. She does report a confluence rash in the umbilical area. She has been checking her blood pressure at home. Average 120s to 130s over 70s to 80s. She is most commonly taking her amlodipine 5 mg daily and not requiring her losartan. [facility] Medical History (Updated 03/06/24 @ 11:02 by PILAR Triplett) BMI 32.0-32.9,adult BMI 34.0-34.9,adult Arthritis Diabetes Cirrhosis Depression Elevated cholesterol HTN (hypertension) Cancer Restless leg syndrome Stress incontinence Hypothyroidism Anxiety DJD (degenerative joint disease) Asthma GERD (gastroesophageal reflux disease) Surgical History (Updated 03/06/24 @ 10:24 by Jania Hall CMA) Hx of laparoscopic partial gastrectomy History of lumpectomy of right breast History of delivery History of partial hysterectomy Hx of cholecystectomy Hx of thyroidectomy Hx of colonoscopy Family History Maternal Aunt Breast cancer Mother Thyroid cancer Social History Household Members: Spouse and Children Household Members Other:: 3 Housing: House Are you a primary career guidance technician to a significant other at home: No Do you presently have visiting nurse or other home services: No Alcohol intake: current Alcohol intake frequency: does not drink Patient Tobacco Use Status: Never used Tobacco service: No Physical Exam GI Inspection: Yes incision (Clean, dry, intact. Mild ecchymosis.) Skin Other: Erythematous papular rash midline abdominal fold Assessment & Plan Assessment & Plan (1) S/P laparoscopic sleeve gastrectomy: Code(s): Z98.84 - Bariatric surgery status Category: Surgical Plan: POD 7 s/p LSG on 02/28/[address] Licea Weight loss prior to surgery was 35.8 pounds or 16.7 % TBWL. Original weight on 10/28/2023 was 214.2 pounds and op weight was 178.4 pounds. Be sure to text Dr Licea exactly 1 week after surgery your weight from your home scale so he can adjust your meal plan. Continue meal plan until f/u nakul Mcknight in 2 weeks May shower, no submersion in bath for another week Continue abdominal binder with activity and exercise for the next 2 weeks. Exercise prior to surgery was treadmill and may resume No abdominal exercises for 6 weeks post operatively Will be emailed link to post op video for review Reminded of the pace of drinking, 2 mL per minute, 1 oz/15 min. (2) Dermatomycosis: Code(s): B36.9 - Superficial mycosis, unspecified Category: Medical Plan: Add p.r.n. clotrimazole Medications: New clotrimazole 1% (Antifungal (clotrimazole)) 1 appl topical BID 45 grams 2RF
[2024-03-06 10:18] VITALS: BP 112/58; PULSE 82; TEMP 36.4; O2SAT 93; BMI 30.2
== END 2024-03-06 11:03 | disposition home or self-care (01) ==
LOC: HO.HBS 09:50
PROVIDERS: PCP Internal Medicine; Visit Provider Physician Assistant Surgical
DX: Z98.84 Bariatric surgery status (principal); B36.9 Superficial mycosis, unspecified
CPT/HCPCS: 99024

== ENCOUNTER → 2024-03-06 09:50 | Outpatient (BNVA) | payer OTHER, SELFPAY | PROVIDERS: PCP Internal Medicine; Visit Provider Physician Assistant Surgical ==

== ENCOUNTER 2024-04-02 10:19 | Outpatient (AMB) | payer OTHER, SELFPAY ==
--- NOTE | 2024-04-02 10:20 | MHC.OFFVISWM ---
VS Expanded 04/02/24 10:30 BP 123/68 Blood Pressure Location Rt brachial Blood Pressure Position Sitting Pulse 67 Pulse Source Pulse Oximeter Temp 97.8 F Temperature Source Temporal Artery Scan Pulse Oximetry 100 Oxygen Delivery Method Room Air Height 5 ft 2.5 in Weight 159 lb 3.2 oz BMI 28.7 Body Fat % 33.1 Body Fat Mass 52.6 Fat Free Mass 106.4 Visceral Fat Rating 8.0 Body Water % 47.5 Body Water Mass 75.6 Muscle Mass/Score 101.0 Basal Metabolic Rate/Score 1,436 Intake Visit Reasons: (OV) PO LSG 02/28/24 Cma Or Lpn Required: No Allergies oxycodone [From Percocet] Adverse Reaction (Intermediate, Verified 04/02/24 10:24) Rash Penicillins Adverse Reaction (Intermediate, Verified 04/02/24 10:24) Rash Medication List - Last Reconciled 04/02/24 by PILAR Triplett bisacodyl (Dulcolax (bisacodyl)) 10 mg ND DAILY PRN levothyroxine 150 mcg PO DAILY [OTC Antifungual powder topical] pantoprazole 40 mg PO DAILY ropinirole 0.5 mg PO TID sennosides (senna) 17.2 mg (2 x 8.6 mg) PO BEDTIME PRN simvastatin 10 mg PO BEDTIME sucralfate mL PO trazodone 50 - 100 mg PO BEDTIME PRN HPI Comments Details: This?a?53?yo female who is s/p LSG without hiatal hernia repair on?02/28/2024. Presents for 1 month post op visit. Weight today is 159.2 pounds, with a BMI of 28.7. There has been a 55 pound weight loss,(initial weight 214.2 pounds) since starting the program on 10/28/2023 reflecting a 25.6 % total body weight loss and a weight loss of 19.2 pounds since surgery (operative weight 178.4 pounds) reflecting a 10.7 % TBWL since surgery. No complaints of nausea, emesis, abdominal pain or reflux. Reports infrequent but normal bowel movements every 1-2 days and uses stool softeners regularly. She has been checking her BP at home with readings 1 teens-120s/60-70s. She has not used her amlodipine or losartan Present meal plan includes: Celebrate 4 in 1 1 scoop in 4 oz water and 4 oz almond milk at 8-10, 11-1 Celebrate bar 2-4 meal 7 pm, 4 forks protein Drinking 30 24 oz additional water ? Exercise routine includes: treadmill at home, 200 in am and 200 at night, daily [facility] Medical History (Updated 03/06/24 @ 11:02 by PILAR Triplett) BMI 32.0-32.9,adult BMI 34.0-34.9,adult Arthritis Diabetes Cirrhosis Depression Elevated cholesterol HTN (hypertension) Cancer Restless leg syndrome Stress incontinence Hypothyroidism Anxiety DJD (degenerative joint disease) Asthma GERD (gastroesophageal reflux disease) Surgical History Hx of laparoscopic partial gastrectomy History of lumpectomy of right breast History of delivery History of partial hysterectomy Hx of cholecystectomy Hx of thyroidectomy Hx of colonoscopy Family History Maternal Aunt Breast cancer Mother Thyroid cancer Social History Household Members: Spouse and Children Household Members Other:: 3 Housing: House Are you a primary adult care provider to a significant other at home: No Do you presently have visiting nurse or other home services: No Alcohol intake: current Alcohol intake frequency: does not drink Patient Tobacco Use Status: Never used Tobacco service: No Physical Exam Vital Signs: Last Vital Signs Temp 97.8 F 04/02/24 10:30 Pulse 67 04/02/24 10:30 BP 123/68 04/02/24 10:30 Pulse Ox 100 04/02/24 10:30 Oxygen Delivery Method Room Air 04/02/24 10:30 BMI result Body Mass Index 28.7 Skin Other: incisions all healing Assessment & Plan Assessment & Plan (1) S/P laparoscopic sleeve gastrectomy: Code(s): Z98.84 - Bariatric surgery status Category: Surgical Plan: Patient is doing very well. She has no longer requiring antihypertensive medications. She will continue her current meal plan. Return to the office in 3 weeks. Encouraged to continue exercising and text weekly with weights and if any questions or concerns.
[2024-04-02 10:30] VITALS: BP 123/68; PULSE 67; TEMP 36.6; O2SAT 100; BMI 28.7
== END 2024-04-02 11:04 | disposition home or self-care (01) ==
PROVIDERS: PCP Internal Medicine; Visit Provider Physician Assistant Surgical
DX: Z98.84 Bariatric surgery status (principal)
CPT/HCPCS: 99024

== ENCOUNTER → 2024-04-02 10:19 | Outpatient (BNVA) | payer OTHER, SELFPAY | PROVIDERS: PCP Internal Medicine; Visit Provider Physician Assistant Surgical ==

== ENCOUNTER 2024-05-08 10:46 | Outpatient (AMB) | payer OTHER, SELFPAY ==
--- NOTE | 2024-05-08 08:14 | A.OFFVIS_ITS ---
VS Expanded 05/08/24 08:15 Height 5 ft 2.5 in Weight 149 lb 9 oz BMI 26.9 Body Fat % 34.1 Body Fat Mass 51.1 Fat Free Mass 98.6 Visceral Fat Rating 10 Body Water % 45.1 Body Water Mass 67.6 Muscle Mass/Score 92.7 Basal Metabolic Rate/Score 1,340 Intake Visit Reasons: (TV) PO LSG 02/28/24 Granite Setter Required: No Allergies oxycodone [From Percocet] Adverse Reaction (Intermediate, Verified 04/02/24 10:24) Rash Penicillins Adverse Reaction (Intermediate, Verified 04/02/24 10:24) Rash Medication List - Last Reconciled 05/08/24 by PILAR Triplett bisacodyl (Dulcolax (bisacodyl)) 10 mg ID DAILY PRN levothyroxine 150 mcg PO DAILY [OTC Antifungual powder topical] pantoprazole 40 mg PO DAILY ropinirole 0.5 mg PO TID sennosides (senna) 17.2 mg (2 x 8.6 mg) PO BEDTIME PRN simvastatin 10 mg PO BEDTIME trazodone 50 - 100 mg PO BEDTIME PRN HPI Comments Details: This?a?53?yo female who is s/p LSG without hiatal hernia repair on?02/28/2024. Presents for 2.5 month post op visit. Weight today is 149.9 pounds, with a BMI of 26.9. There has been a 64.3 pound weight loss,(initial weight 214.2 pounds) since starting the program on 10/28/2023 reflecting a 30 % total body weight loss and a weight loss of 28.5 pounds since surgery (operative weight 178.4 pounds) reflecting a 15.9 % TBWL since surgery. No complaints of nausea, emesis, abdominal pain or reflux. Reports infrequent but normal bowel movements every 1- 2 days and uses stool softeners regularly. She has been checking her BP at home with readings 1 teens-120s/60-70s. She has not used her amlodipine or losartan Present meal plan includes: 1 scram egg, 8 am celebrate 4 in 1 1/2 scoop in 4 oz almond milk, 4 oz water 11 am Celebrate bar 2-4 5 pm meal, 5 forks protein, 5 forks salad celebrate 4 in 1 1/2 scoop in 4 oz almond milk and 4 oz water (1-2 x per week has this shake) Drinking 96 oz additional water ? Exercise routine includes: treadmill at home, 200 in am and 200 at night, daily [facility] Medical History BMI 32.0-32.9,adult BMI 34.0-34.9,adult Arthritis Diabetes Cirrhosis Depression Elevated cholesterol HTN (hypertension) Cancer Restless leg syndrome Stress incontinence Hypothyroidism Anxiety DJD (degenerative joint disease) Asthma GERD (gastroesophageal reflux disease) Surgical History Hx of laparoscopic partial gastrectomy History of lumpectomy of right breast History of delivery History of partial hysterectomy Hx of cholecystectomy Hx of thyroidectomy Hx of colonoscopy Family History Maternal Aunt Breast cancer Mother Thyroid cancer Social History Household Members: Spouse and Children Household Members Other:: 3 Housing: House Are you a primary child caregiver to a significant other at home: No Do you presently have visiting nurse or other home services: No Alcohol intake: current Alcohol intake frequency: does not drink Patient Tobacco Use Status: Never used Tobacco service: No Telehealth Telehealth Telehealth Platform: Telephone Location of provider rendering services: practice address Location of patient: address on file Patient Identification confirmed using: Name, : Yes Telehealth method: voice only Patient verbally consented to treatment: Yes Patient verbally consented to billing insurance company: Yes Patient informed of any privacy concerns related to visit: Yes Minutes spent on Phone/Video with Pt.: 20 Assessment & Plan Assessment & Plan (1) S/P laparoscopic sleeve gastrectomy: Code(s): Z98.84 - Bariatric surgery status Category: Surgical Plan: Patient is doing well overall. Meal plan changed recently by Dr. Licea. We will continue current plan. Additionally, incorporate weight training, prior to cardio. Follow-up in clinic as scheduled.
[2024-05-08 08:15] VITALS: BMI 26.9
== END 2024-05-08 10:56 | disposition home or self-care (01) ==
LOC: HO.HBS 10:46
PROVIDERS: PCP Internal Medicine; Visit Provider Physician Assistant Surgical
DX: Z98.84 Bariatric surgery status (principal)
CPT/HCPCS: 99024

== ENCOUNTER → 2024-05-08 10:46 | Outpatient (BNVA) | payer OTHER, SELFPAY | PROVIDERS: PCP Internal Medicine; Visit Provider Physician Assistant Surgical ==

== ENCOUNTER 2024-06-22 09:00 | Outpatient (AMB) | payer OTHER, SELFPAY ==
--- NOTE | 2024-06-22 08:45 | MHC.OFFVISWM ---
VS Expanded 06/22/24 08:46 Height 5 ft 2.5 in Weight 147 lb 7 oz BMI 26.5 Body Fat % 33.5 Fat Free Mass 98.1 Visceral Fat Rating 9 Body Water % 45.5 Muscle Mass/Score 92.2 Intake Visit Reasons: (TV) PO LSG 02/28/24 Allergies oxycodone [From Percocet] Adverse Reaction (Intermediate, Verified 04/02/24 10:24) Rash Penicillins Adverse Reaction (Intermediate, Verified 04/02/24 10:24) Rash HPI Comments Details: This?a?53?yo female who is s/p LSG without hiatal hernia repair on?02/28/2024. Presents for 4 month post op visit. Weight today is 147.7 pounds, with a BMI of 26.9. There has been a 66.5 pound weight loss,(initial weight 214.2 pounds) since starting the program on 10/28/2023 reflecting a 31 % total body weight loss and a weight loss of 30.7 pounds since surgery (operative weight 178.4 pounds) reflecting a 17.2 % TBWL since surgery. No complaints of nausea, emesis, abdominal pain or reflux. Reports infrequent but normal bowel movements every 1-2 days and uses stool softeners regularly. She has been more stressed at work and she has been spending more time in bed. She has been checking her BP at home with readings 1 teens-120s/60-70s. She has not used her amlodipine or losartan. Present meal plan includes: 1 scram egg, 8 am celebrate 4 in 1 1 scoop in 4 oz almond milk, 4 oz water 11 am Celebrate bar 2-4 5 pm meal, 5 forks protein, 5 forks salad Drinking 96 oz additional water ? Exercise routine includes: treadmill at home, 200 in am and 200 at night, daily [facility] Medical History BMI 32.0-32.9,adult BMI 34.0-34.9,adult Arthritis Diabetes Cirrhosis Depression Elevated cholesterol HTN (hypertension) Cancer Restless leg syndrome Stress incontinence Hypothyroidism Anxiety DJD (degenerative joint disease) Asthma GERD (gastroesophageal reflux disease) Surgical History Hx of laparoscopic partial gastrectomy History of lumpectomy of right breast History of delivery History of partial hysterectomy Hx of cholecystectomy Hx of thyroidectomy Hx of colonoscopy Family History Maternal Aunt Breast cancer Mother Thyroid cancer Social History Household Members: Spouse and Children Household Members Other:: 3 Housing: House Are you a primary health care technician to a significant other at home: No Do you presently have visiting nurse or other home services: No Alcohol intake: current Alcohol intake frequency: does not drink Patient Tobacco Use Status: Never used Tobacco service: No Telehealth Telehealth Telehealth Platform: Telephone Location of provider rendering services: practice address Location of patient: other Patient Identification confirmed using: Name, : Yes Telehealth method: voice only Patient verbally consented to treatment: Yes Patient verbally consented to billing insurance company: Yes Patient informed of any privacy concerns related to visit: Yes Minutes spent on Phone/Video with Pt.: 15 Assessment & Plan Assessment & Plan (1) S/P laparoscopic sleeve gastrectomy: Code(s): Z98.84 - Bariatric surgery status Category: Surgical Plan: Discussed the importance of incorporating exercise again. She will try to resume her treadmill. She does have weights at home that she has been using. Discussed using weights and then cardio. Goal is to burn approximately 300 calories daily. She states her goal is to achieve a weight of approximately 140 lb. We will arrange for follow-up visit in 4 weeks. She was encouraged to text her weight and if any questions or concerns.
[2024-06-22 08:46] VITALS: BMI 26.5
== END 2024-06-22 09:18 | disposition home or self-care (01) ==
LOC: HO.HBS 09:13
PROVIDERS: PCP Internal Medicine; Visit Provider Physician Assistant Surgical
DX: E66.3 Overweight (principal); Z68.26 Body mass index [BMI] 26.0-26.9, adult; Z90.3 Acquired absence of stomach [part of]; Z98.84 Bariatric surgery status
CPT/HCPCS: 99213

== ENCOUNTER → 2024-06-22 09:00 | Outpatient (BNVA) | payer OTHER, SELFPAY | PROVIDERS: PCP Internal Medicine; Visit Provider Physician Assistant Surgical ==

== ENCOUNTER 2024-08-17 09:07 | Outpatient (REF) | payer OTHER, SELFPAY ==
[2024-08-17 10:17] LABS: MANUAL DIFF FLAG NO
[2024-08-17 10:39] LABS: Basophils Percent Auto 0.9 % (0-2); Eosinophils Absolute Auto 0.1 X10*3/uL (0.0-0.4); Eosinophils Percent Auto 2.1 % (0-4); Hematocrit 39.3 % (37.0-47.0); Hemoglobin 12.9 g/dl (12.0-16.0); Imm Gran Abs Auto 0.01 X10*3/uL (0.00-0.03); Imm Gran Pct Auto 0.2 % (0.0-0.4); Lymphocytes Percent Auto 22.8 % (20-40); Mean Corpuscular HGB Conc 32.8 g/dl (31.0-35.0); Mean Corpuscular Hemoglobin 28.7 pg (27.0-33.0); Mean Corpuscular Volume 87.3 fL (80.0-98.0); Mean Platelet Volume 10.4 fL (9.4-12.3); Monocytes Absolute Auto 0.2 X10*3/uL (0.1-1.2); Monocytes Percent Auto 5.5 % (2-11); Neutrophils Percent Auto 68.5 % (45-73); Platelet Count 144 X10*3/uL (160-400); Red Cell Distribution Width 13.7 % (11.0-16.0); White Blood Count 4.3 X10*3/uL (4.8-10.8)
[2024-08-17 10:57] LABS: Estimated Average Glucose 100 mg/dL; Hemoglobin A1c % 5.1 % (<6.0); Total Hemoglobin (HGBA1C) 3422.4586 umol/L
[2024-08-17 11:21] LABS: Alanine Aminotransferase 41 U/L (0-31); Albumin Level 3.9 g/dL (3.5-5.0); Alkaline Phosphatase 131 U/L (39-117); Anion Gap 8 (12-20); Aspartate Amino Transferase 45 U/L (5-31); Bilirubin Total 0.5 mg/dL (0.0-1.0); Blood Urea Nitrogen 15 mg/dL (9-16); C Reactive Protein 0.47 mg/dL (< or = 0.50); Calcium 9.6 mg/dL (8.4-10.2); Carbon Dioxide 29 mmol/L (22-29); Chloride 105 mmol/L (96-108); Cholesterol 136 mg/dL (<200); Estimated Glomerular Filt Rate > 60; Glucose Random 97 mg/dL (60-115); HDL Cholesterol 53 mg/dL (>40); Iron 67 mcg/dL (30-160); LDL Cholesterol Calculated 62 mg/dL (<100); Percent Iron Saturation 25 % (15-50); Potassium 4.1 mmol/L (3.3-5.1); Sodium 138 mmol/L (135-145); Total Iron Binding Capacity 264 mcg/dL (228-428); Total Protein 6.9 g/dL (6.5-8.0); Triglycerides 107 mg/dL (<150); Unsaturated Iron Binding 197 ug/dL
[2024-08-17 11:23] LABS: Ferritin 50 ng/mL (10-250); Insulin 29 uU/mL (2-29); TSH reflex Free T4 1.69 uIU/mL (0.32-4.0); Vitamin D 25-OH Total 93.2 ng/mL (>30)
[2024-08-17 11:40] LABS: Folate 13.4 ng/mL (> or = 4.0); Vitamin B12 1132 pg/mL (200-900)
[2024-08-22 03:13] LABS: Zinc 59 mcg/dL (60-130)
[2024-08-23 17:58] LABS: Vitamin A 35 mcg/dL (38-98)
[2024-08-24 16:09] LABS: Vitamin B1 12 nmol/L (8-30)
== END 2024-08-17 09:08 | disposition home or self-care (01) ==
LOC: HO.LAB 09:07
PROVIDERS: PCP Internal Medicine; Visit Provider Physician Assistant Surgical
DX: E03.9 Hypothyroidism, unspecified (principal); I10 Essential (primary) hypertension; E11.9 Type 2 diabetes mellitus without complications; E78.00 Pure hypercholesterolemia, unspecified; Z98.84 Bariatric surgery status
CPT/HCPCS: 36415; 80053; 80061; 82306; 82607; 82728; 82746; 83036; 83525; 83540; 84425; 84443; 84590; 84630; 85025; 86140

== ENCOUNTER 2024-08-17 09:07 | Outpatient (AMB) | payer OTHER, SELFPAY ==
--- NOTE | 2024-08-17 09:21 | A.OFFVIS_ITS ---
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 Presents for 6 month post op visit. Weight today is 148 pounds, with a BMI of 26.6. There has been a 66.2 pound weight loss,(initial weight 214.2 pounds) since starting the program on 10/28/2023 reflecting a 31 % total body weight loss and a weight loss of 30.4 pounds since surgery (operative weight 178.4 pounds) reflecting a 17.2 % TBWL since surgery. No complaints of nausea, emesis, abdominal pain or reflux. Reports infrequent but normal bowel movements every 1- 2 days and uses stool softeners regularly. She has been stuck . Feels as though it is stress related and work related. She does not have a therapist and she will discuss with her PCP. She wants to change her shake product to clean and simple protein shake 20 gm per packet. She has been using 8 oz almond milk shake into ice coffee. She is no longer using celebrate 4 in 1 She has been checking her BP at home with readings 1 teens-120s/60-70s. She has not used her amlodipine or losartan. Dr Bob had suggested celebrate 4 in 1 1/2 scoop x 2, celebrate bar, meal Present meal plan includes: 1 scram egg, 8 am celebrate 4 in 1 1 scoop in 4 oz almond milk, 4 oz water 11 am Celebrate bar 2-4 5 pm meal, 5 forks protein, 5 forks salad Drinking 96 oz additional water ? Exercise routine includes: treadmill at home, 3 days per week, 250 fanny weights Any post op complications: none EDIN: never DM: resolved HTN: resolved Hyperlipidemia: resolved GERD:?0-5 scale ??0 = no symptoms ??1 = symptoms noticeable but not bothersome 2 =symptoms bothersome but not daily ? 3 = symptoms bothersome and daily 4 = symptoms affect daily activities 5 = symptoms are incapacitating, unable to do daily activities ? How bad is the heartburn: 0 ? Heartburn while lying down: 0 ? Heartburn when standing up: 0 ? Heartburn after meals: 0 ? Does heartburn change your diet: 0 ? Does heartburn wake you up from sleep: 0 ? Do you have difficulty swallowin ? Do you have pain with swallowin ? If you take medicine for your reflux, does this affect your daily life: 0 Satisfaction with present condition - satisfied or not satisfied: satisfied [facility] Medical History BMI 32.0-32.9,adult BMI 34.0-34.9,adult Arthritis Diabetes Cirrhosis Depression Elevated cholesterol HTN (hypertension) Cancer Restless leg syndrome Stress incontinence Hypothyroidism Anxiety DJD (degenerative joint disease) Asthma GERD (gastroesophageal reflux disease) Surgical History Hx of laparoscopic partial gastrectomy History of lumpectomy of right breast History of delivery History of partial hysterectomy Hx of cholecystectomy Hx of thyroidectomy Hx of colonoscopy Family History Maternal Aunt Breast cancer Mother Thyroid cancer Social History Household Members: Spouse and Children Household Members Other:: 3 Housing: House Are you a primary neonatal intensive care nurse to a significant other at home: No Do you presently have visiting nurse or other home services: No Alcohol intake: current Alcohol intake frequency: does not drink Patient Tobacco Use Status: Never used Tobacco service: No Physical Exam Const General: cooperative and no acute distress Orientation/consciousness: patient oriented x3 Resp Effort & Inspection: normal respiratory effort Auscultation: clear to auscultation bilaterally Cardio Rate: regular rate Rhythm: regular rhythm GI Inspection: Yes normal to inspection and Yes incision (well healed) Palpation (GI): Soft to palpation and no masses Neuro General: patient oriented x3 Assessment & Plan Assessment & Plan (1) S/P laparoscopic sleeve gastrectomy: Code(s): Z98.84 - Bariatric surgery status Category: Surgical Plan: clean and simple protein shake 20 gm per packet patient wants to use this protein supplement One packet mixed with 16 oz of almond milk drank over 4 hours Celebrate protein bar Meal with 5 forks of protein and 5 of vegetables She may have half cup fresh fruit in the afternoon if she wishes Encouraged to improve her exercise routine, utilizing weights for 20 minutes then cardio for 40 minutes on a daily basis with a goal of burning 300 calories or more per day. Check six-month postop labs. Encouraged to text weekly with her weights and if any questions Return to clinic 1 month. Orders: Orders Complete Blood Count Auto Diff Today E03.9 - Hypothyroidism, unspecified, E11.9 - Type 2 diabetes mellitus without complications, E78.00 - Pure hypercholesterolemia, unspecified, I10 - Essential (primary) hypertension, Z98.84 - Bariatric surgery status Comprehensive Met. Panel Today E03.9 - Hypothyroidism, unspecified, E11.9 - Type 2 diabetes mellitus without complications, E78.00 - Pure hypercholes terolemia, unspecified, I10 - Essential (primary) hypertension, Z98.84 - Bariatric surgery status Zinc Today E03.9 - Hypothyroidism, unspecified, E11.9 - Type 2 diabetes brayden litus without complications, E78.00 - Pure hypercholesterolemia, unspecified, I10 - Essential (primary) hypertension, Z98.84 - Bariatric surgery status C Reactive Protein Today E03.9 - Hypothyroidism, unspecified, E11.9 - Type 2 diabetes mellitus without complications, E78.00 - Pure hypercholesterolemia, unspecified, I10 - Essential (primary) hypertension, Z98.84 - Bariatric surgery status TSH reflex Free T4 Today E03.9 - Hypothyroidism, unspecified, E11.9 - Type 2 diabetes mellitus without complications, E78.00 - Pure hypercholesterolemia, unspecified, I10 - Essential (primary) hypertension, Z98.84 - Bariatric surgery status Ferritin Today E03.9 - Hypothyroidism, unspecified, E11.9 - Type 2 diabetes mellitus without complications, E78.00 - Pure hypercholesterolemia, unspecified, I10 - Essential (primary) hypertension, Z98.84 - Bariatric surgery status Vitamin D 25-OH Total Today E03.9 - Hypothyroidism, unspecified, E11.9 - Type 2 diabetes mellitus without complications, E78.00 - Pure hypercholesterolemia, unspecified, I10 - Essential (primary) hypertension, Z98.84 - Bariatric surgery status Insulin Today E03.9 - Hypothyroidism, unspecified, E11.9 - Type 2 diabetes mellitus without complications, E78.00 - Pure hypercholesterolemia, unspecified, I10 - Essential (primary) hypertension, Z98.84 - Bariatric surgery status Hemoglobin A1c Today E03.9 - Hypothyroidism, unspecified, E11.9 - Type 2 diabetes mellitus without complications, E78.00 - Pure hypercholesterolemia, unspecified, I10 - Essential (primary) hypertension, Z98.84 - Bariatric surgery status Lipid Panel Today E03.9 - Hypothyroidism, unspecified, E11.9 - Type 2 diabetes mellitus without complications, E78.00 - Pure hypercholesterolemia, unspecified, I10 - Essential (primary) hypertension, Z98.84 - Bariatric surgery status IRON PROFILE Today E03.9 - Hypothyroidism, unspecified, E11.9 - Type 2 diabetes mellitus without complications, E78.00 - Pure hypercholesterolemia, unspecified, I10 - Essential (primary) hypertension, Z98.84 - Bariatric surgery status Vitamin B12 and Folate Today E03.9 - Hypothyroidism, unspecified, E11.9 - Type 2 diabetes mellitus without complications, E78.00 - Pure hypercholesterolemia, unspecified, I10 - Essential (primary) hypertension, Z98.84 - Bariatric surgery status Vitamin B1 Today E03.9 - Hypothyroidism, unspecified, E11.9 - Type 2 diabetes mellitus without complications, E78.00 - Pure hypercholesterolemia, unspecified, I10 - Essential (primary) hypertension, Z98.84 - Bariatric surgery status Vitamin A Today E03.9 - Hypothyroidism, unspecified, E11.9 - Type 2 diabetes mellitus without complications, E78.00 - Pure hypercholesterolemia, unspecified, I10 - Essential (primary) hypertension, Z98.84 - Bariatric surgery status
[2024-08-17 09:36] VITALS: BP 124/66; PULSE 65; TEMP 35.8; O2SAT 98; BMI 26.6
== END 2024-08-17 09:50 | disposition home or self-care (01) ==
PROVIDERS: PCP Internal Medicine; Visit Provider Physician Assistant Surgical
DX: E66.3 Overweight (principal); Z68.26 Body mass index [BMI] 26.0-26.9, adult; Z90.3 Acquired absence of stomach [part of]; Z98.84 Bariatric surgery status
CPT/HCPCS: 99214

== ENCOUNTER 2024-09-27 14:21 | Outpatient (AMB) | payer OTHER, SELFPAY ==
--- OUTSIDE RECORDS SUMMARY | 2024-09-27 14:25 | XMS_ITS | Patient Health Record ---
[facility] Address [address] [place] [address] Care Team Providers Care Guest Service Representative Name Role Phone Pratik Varela MD Primary Care Provider Unavailab Nargis Anderson Unavailable [phone] Suzy Fontana Unavailable Unavailable Allergies Allergen (clinical drug ingredient) Drug/Non Drug Allergy documented on EMR Reaction Allergy Type Onset Date Status Penicillin hives Drug Allergy Active Reason For Referral No Information Medications Medication SIG (Take, Route, Frequency, Duration) Notes Start Date End Date Status Tamoxifen Citrate 20 MG 1 tablet Orally Once a day Active Losartan Potassium 25 MG 1 tablet Orally Once a day Active Vitamin D 2000 UNIT 1 tablet Orally Once a day Active metFORMIN HCl 1000 MG 1 tablet with meal s Orally Twice a day Active Gabapentin 300 MG Orally 3 times daily Active Turmeric Active Necon (28) Not- Taking Magnesium Active Maxalt Not-Taking Simvastatin Active Wellbutrin Not-Takin g Ropinirole Hydrochloride Active Singulair Not-Taking Levoxyl Active Claritin Active Immunizations Vaccine Route Administration Date Status Comme nts Influenza Unknown 06/28/2018 Administered Influenza Unknown 07/27/2019 Administered Social History Tobacco use other than smoking: Question Answer Notes Are you an other tobacco user? No Problems Problem Type SNOMED Code ICD Code Onset Dates Problem Status W/U Status Risk Notes Problem Acquired hammer toe of right foot (5622394512680754) Other hammer toe(s) (acquired), right foot (M20.41) Active confirmed Problem Acquired hammer toe of left foot (5397716284641108) Other hammer toe(s) (acquired), left foot (M20.42) Active confirmed Problem Localized, primary osteoarthritis of the ankle and/or foot (264988173) Primary osteoarthritis, left ankle and foot (M19.072) Active confirmed Problem Acquired hammer toe of left foot (6323425538958265) Other hammer toe(s) (acquired), left foot (M20.42) Active confirmed Problem Plantar nerve lesion (586349824) Lesion of plantar nerve, 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) Active confirmed Problem Type II diabetes mellitus without complication (158838256) Type 2 diabetes mellitus without complications (E11.9) Active confirmed Plan Of Treatment Pending Test Test Name Order Date X ray : Foot, right 3V 06/01/2011 87601, J0702- Neuroma/Injection 07/04/20 83640, J0702- Neuroma/Injection 03/16/20 21 Insurance Providers Payer Name Payer Address Payer Phone Subscriber Number Group Number Insured Name Patient Relationship to Insured Coverage Start Date Coverage End Date [facility] [address] [place] [address] [phone] [id number] [facility] Self - patient is the insured Medical (General) History Medical History History ICD Code chicken pox bone implants/screws thyroid disorder headaches/migraines gall bladder problems depression cancer back, hip, knee pain asthma Anxiety Reflux Diabetic Surgical History Surgery Date(Month/Year) section cholecystectomy 2000 thyroidectomy 2002 knee surgery breast cancer 11/18
--- OUTSIDE RECORDS SUMMARY | 2024-09-27 14:26 | XMS_ITS | Data Portability ---
Author Organization [facility], , [facility] Address [address] [place] [address] Care Team Providers Care Otolaryngologist Name Role Phone AJ FELIPE OTHER AJ FELIPE Career Specialist [facility] WHIT PAYNE Primary Care Provider [phone] Assessment Encounter Date Assessment Date Assessment LastModified by Organization Details LastModified Time 02/22/2023 02/22/2023 PAPILLARY THYROID CA- Small focus- excised 2002 with follow up 100 mCi of I131. Has had low thyroglobulin levels (01/2015) indicating continued remission. Low risk for recurrence. TSH up to 20.1 on 2018 but better about meds in 2019 and TSH much improved. DMT2- on metformin and incretin. Was on victoza but wasn't helping her (per pt). Trulicity not covered. Weight gain in 2018 and a1c up to 7.2 (but TSH= 20). A1c back under 7% in 2019 but weight remains high. 01/21: On Ozempic 0.25. High a1c. Increase to 0.5. 05/24: Trouble getting refill of ozempic. Off x 2 months. Try mounjaro FATTY LIVER- on u/s (02/20); Has increased AST/ALT but usually AST >ALT. Persisting since 2019. HYPERLIPIDEMIA- at goal on meds. Hx breast CA on tamoxifen. Will want to consider getting BMD. Enhanced Provider time spent performing enhanced activities which may include, but are not limited to: reviewing tests, obtaining and/or reviewing patient history; ordering medications, test or procedures; EMR documentation; communication with patient, family, caregiver(s), VNA; pre-visit prep time communication with specialists, ER staff. Time spent: 33 (minutes) 05/24; Update lab orders Try mounjaro- samples for next 4 weeks. Pt received teaching about use of pen device If tolerates, will send in Rx. 02/22: Increase mounjaro (to help fatty liver as much as anything else). Thyroid stable. Lipids OK. [email or web address] Not available 02/23/2023 19:32:18 07/29/2023 07/29/2023 PAPILLARY THYROID CA- Small focus- excised 2002 with follow up 100 mCi of I131. Has had low thyroglobulin levels (01/2015) indicating continued remission. Low risk for recurrence. TSH up to 20.1 on 2018 but better about meds in 2019 and TSH much improved. DMT2- on metformin and incretin. Was on victoza but wasn't helping her (per pt). Trulicity not covered. Weight gain in 2018 and a1c up to 7.2 (but TSH= 20). A1c back under 7% in 2019 but weight remains high. 01/21: On Ozempic 0.25. High a1c. Increase to 0.5. 05/24: Trouble getting refill of ozempic. Off x 2 months. Try mounjaro OK to increase mounjaro (for fatty liver too) 07/25: a1c at target and OK ACR (losartan up to 50 bid- can go to 100 daily) FATTY LIVER- on u/s (02/20); Has increased AST/ALT but usually AST >ALT. Persisting since 2019. 07/25: PCP following u/s- doesn't typically quantify so may not see changes. HYPERLIPIDEMIA- at goal on meds. 07/25: last was total/HDL. would like to see TG given metabolic syndrome. next time. consider simva -> rosuva/atorva for better TG control. PANNUS: becoming a greater problem- discussed option of referral to surgeon. GI had also thought good idea. she will contact them re: referral. Hx breast CA on tamoxifen. Will want to consider getting BMD. Enhanced Provider time spent performing enhanced activities which may include, but are not limited to: reviewing tests, obtaining and/or reviewing patient history; ordering medications, test or procedures; EMR documentation; communication with patient, family, caregiver(s), VNA; pre-visit prep time communication with specialists, ER staff. Time spent: 32 (minutes) 05/24; Update lab orders Try mounjaro- samples for next 4 weeks. Pt received teaching about use of pen device If tolerates, will send in Rx. 07/25: Increase mounjaro (to help fatty liver as much as anything else). TSH too low- decrease dose to 6/7 (from daily). Lipids update full panel- assess TG. [email or web address] Not available 07/29/2023 09:14:37 09/16/2023 09/16/2023 PAPILLARY THYROID CA- Small focus- excised 2002 with follow up 100 mCi of I131. Has had low thyroglobulin levels (01/2015) indicating continued remission. Low risk for recurrence. TSH up to 20.1 on 2018 but better about meds in 2019 and TSH much improved. DMT2- on metformin and incretin. Was on victoza but wasn't helping her (per pt). Trulicity not covered. Weight gain in 2018 and a1c up to 7.2 (but TSH= 20). A1c back under 7% in 2019 but weight remains high. 01/21: On Ozempic 0.25. High a1c. Increase to 0.5. 05/24: Trouble getting refill of ozempic. Off x 2 months. Try mounjaro OK to increase mounjaro (for fatty liver too) 07/25: a1c at target and OK ACR (losartan up to 50 bid- can go to 100 daily) 09/24: a1c at target. FATTY LIVER- on u/s (02/20); Has increased AST/ALT but usually AST >ALT. Persisting since 2019. 07/25: PCP following u/s- doesn't typically quantify so may not see changes. 09/24: sees Shahida Perkins in [facility]. Evidence of fibrosis. HYPERLIPIDEMIA- at goal on meds. 07/25: last was total/HDL. would like to see TG given metabolic syndrome. next time. consider simva -> rosuva/atorva for better TG control. 09/24: check lipid panel PANNUS: becoming a greater problem- discussed option of referral to surgeon. GI had also thought good idea. she will contact them re: referral. 09/24: discussion of bariatric procedure vs. plastics- need to consider what is biggest issue for her. Hx breast CA on tamoxifen. Will want to consider getting BMD. Enhanced Provider time spent performing enhanced activities which may include, but are not limited to: reviewing tests, obtaining and/or reviewing patient history; ordering medications, test or procedures; EMR documentation; communication with patient, family, caregiver(s), VNA; pre-visit prep time communication with specialists, ER staff. Time spent: 37 (minutes) 05/24; Update lab orders Try mounjaro- samples for next 4 weeks. Pt received teaching about use of pen device If tolerates, will send in Rx. 07/25: Increase mounjaro (to help fatty liver as much as anything else). TSH too low- decrease dose to 6/7 (from daily). Lipids update full panel- assess TG. 09/24: lipid panel today. a1c too. Big issue is thinking about what is focus for seeing surgeon- bariatric vs. correction of pannus. [email or web address] Not available 10/18/2023 18:13:32 04/25/2024 04/25/2024 PAPILLARY THYROID CA- Small focus- excised 2002 with follow up 100 mCi of I131. Has had low thyroglobulin levels (01/2015) indicating continued remission. Low risk for recurrence. TSH up to 20.1 on 2018 but better about meds in 2019 and TSH much improved. 04/25: TSH too low since wt. loss s/p gastric sleeve. adjust dose (to 112) DMT2- on metformin and incretin. Was on victoza but wasn't helping her (per pt). Trulicity not covered. Weight gain in 2018 and a1c up to 7.2 (but TSH= 20). A1c back under 7% in 2019 but weight remains high. 01/21: On Ozempic 0.25. High a1c. Increase to 0.5. 05/24: Trouble getting refill of ozempic. Off x 2 months. Try mounjaro OK to increase mounjaro (for fatty liver too) 07/25: a1c at target and OK ACR (losartan up to 50 bid- can go to 100 daily) 09/24: a1c at target. 04/25: Now really Previous hx of Abnormal Glucose Tolerance. A1c normal with weight loss (mounjaro and then gastric sleeve). FATTY LIVER- on u/s (02/20); Has increased AST/ALT but usually AST >ALT. Persisting since 2019. 07/25: PCP following u/s- doesn't typically quantify so may not see changes. 09/24: sees Shahida Perkins in [facility]. Evidence of fibrosis. 04/25: bariatric surgeon told her liver was not normal. May want to update fibroscan (GI) to see if weight loss/incretin in past has helped. HYPERLIPIDEMIA- at goal on meds. 07/25: last was total/HDL. would like to see TG given metabolic syndrome. next time. consider simva -> rosuva/atorva for better TG control. 09/24: check lipid panel 04/25: Given normal a1c and wt. loss, may be able to come off low dose simva. PANNUS: becoming a greater problem- discussed option of referral to surgeon. GI had also thought good idea. she will contact them re: referral. 09/24: discussion of bariatric procedure vs. plastics- need to consider what is biggest issue for her. 04/25:hopes insurance will cover next summer (2023) saddlebags hanging Hx breast CA on tamoxifen. Will want to consider getting BMD. Enhanced Provider time spent performing enhanced activities which may include, but are not limited to: reviewing tests, obtaining and/or reviewing patient history; ordering medications, test or procedures; EMR documentation; communication with patient, family, caregiver(s), VNA; pre-visit prep time communication with specialists, ER staff. Time spent: 36 (minutes) 04/25; 05/24; Update lab orders Try mounjaro- samples for next 4 weeks. Pt received teaching about use of pen device If tolerates, will send in Rx. 07/25: Increase mounjaro (to help fatty liver as much as anything else). TSH too low- decrease dose to 6/7 (from daily). Lipids update full panel- assess TG. 09/24: lipid panel today. a1c too. Big issue is thinking about what is focus for seeing surgeon- bariatric vs. correction of pannus. 04/25: Great job with weight loss (Mounjaro) and now s/p gastric sleeve. a1c is NORMAL. No meds for DM, HTN and probably can come off of lipid meds. TFTs are off likely from weight loss. [email or web address] Not available 04/25/2024 18:20:31 Plan of Treatment Reminders Order Date Submit Date Provider Last Modified By Organization Details Last Modified Time Details Appointments LAB Follow-U p 2024 09:00A M [facility] Lab Not available Not available Not available Follow Up, 40 2024 04:00P M Aj Felipe MD Not available Not available Not available Lab HbA1c (hemoglo bin A1c), blood 2022 023 [email or web address] 2 [facility], [address] [place], [id number], 09/16/2023 10:49:39 CMP, serum or plasma 2022 023 NARDA [facility], [address] [place], [id number], 06/03/2023 16:43:50 lipid panel, serum 2022 023 NARDA [facility], [address] [place], [id number], 06/03/2023 16:43:52 microalb umin, urine 2022 023 NARDA [facility], [address] [place], [address], 06/03/2023 17:44:29 HbA1c (hemoglo bin A1c), blood 2022 023 NARDA [facility], [address] [place], [id number], 06/03/2023 19:04:09 thyroglo bulin Ab, serum 2022 023 [email or web address] 2 [facility], [address] [place], [id number], 09/16/2023 10:49:29 thyroglo bulin Ab, serum 2022 023 NARDA [facility], [address] [place], [id number], 06/04/2023 11:06:44 TSH, serum or plasma 2022 023 [email or web address], [address] [place], [address], 09/16/2023 10:49:14 T4, free, serum 2022 023 [email or web address], [address] [place], [address], 09/16/2023 10:49:49 TSH, serum or plasma 2022 023 NARDA [facility], [address] [place], [address], 06/03/2023 16:48:53 T4, free, serum 2022 023 NARDA [facility], [address] [place], [address], 06/03/2023 16:48:51 HbA1c (hemoglo bin A1c), blood 2022 023 [facility], [address] [place] [address], [id number], 05/23/2024 11:43:14 CMP, serum or plasma 2022 023 [facility], [address] [place] [address], [id number], 09/19/2023 16:36:29 lipid panel, serum 2022 023 [facility], [address] [place] [address], [id number], 09/19/2023 16:36:30 microalb umin, urine 2022 023 [facility], [address] [place] [address], [id number], 09/23/2023 14:34:10 HbA1c (hemoglo bin A1c), blood 2022 024 [facility], [address] [place] [address], [id number], 05/23/2024 11:43:14 CMP, serum or plasma 2022 024 [facility], [address] [place] [address], [id number], 02/14/2024 14:58:31 lipid panel, serum 2022 024 [facility], [address] [place] [address], [id number], 02/14/2024 14:58:32 microalb umin, urine 2022 024 [facility], [address] [place] [address], [id number], 04/17/2024 11:00:12 CMP, serum or plasma 2023 024 [facility], [address] [place] [address], [id number], 08/23/2024 09:19:21 lipid panel, serum 2023 024 [facility], [address] [place] [address], [id number], 08/23/2024 09:19:21 microalb umin, urine 2023 024 [facility], [address] [place] [address], [id number], 08/23/2024 09:19:21 TSH, serum or plasma 2022 023 [facility], [address] [place] [address], [id number], 05/23/2024 11:43:55 T4, free, serum 2022 023 [facility], [address] [place] [address], [id number], 05/23/2024 11:43:36 thyroglo bulin Ab, serum [address] [facility], [address] [place] [address], [id number], 10/11/2023 10:38:53 T4, free, serum 2022 024 [facility], [address] [place] [address], [id number], 05/23/2024 11:43:36 TSH, serum or plasma 2022 024 [facility], [address] [place] [address], [id number], 05/23/2024 11:43:55 thyroglo bulin Ab, serum 2022 024 [facility], [address] [place] [address], [id number], 02/17/2024 07:38:42 HbA1c (hemoglo bin A1c), blood 2023 024 [facility], [address] [place] [address], [id number], 05/28/2024 11:17:08 lipid panel, serum 2023 024 [facility], [address] [place] [address], [id number], 05/28/2024 14:16:25 CMP, serum or plasma 2023 024 [facility], [address] [place] [address], [id number], 05/28/2024 14:38:58 microalb umin, urine 2023 024 [facility], [address] [place] [address], [id number], 05/29/2024 14:48:40 HbA1c (hemoglo bin A1c), blood 2023 025 [facility], [address] [place] [address], [id number], 05/28/2024 11:17:08 lipid panel, serum 2023 025 [facility], [address] [place] [address], [id number], 05/28/2024 14:16:25 CMP, serum or plasma 2023 025 [facility], [address] [place] [address], [id number], 05/28/2024 14:38:58 thyroglo bulin Ab, serum - thyroid AB tumor marker 2023 024 [facility], [address] [place] [address], [id number], 06/07/2024 15:03:30 thyroglo bulin Ab, serum - thyroid AB tumor marker 2023 025 [facility], [address] [place] [address], [id number], 06/07/2024 15:03:30 TSH, ultra-se nsitive, serum 2023 024 [facility], [address] [place] [address], [address], 05/29/2024 14:51:19 T4, free, serum 2023 024 [facility], [address] [place] [address], [id number], 05/28/2024 12:29:43 T4, free, serum 2023 024 [facility], [address] [place] [address], [id number], 08/23/2024 09:19:21 TSH, ultra-se nsitive, serum 2023 024 [facility], [address] [place] [address], [id number], 08/23/2024 09:19:21 Referral None recorded . Procedures None recorded . Surgeries None recorded . Imaging None recorded . Medication Orders Mounjaro 7.5 mg/0.5 mL subcutan eous pen injector 2021 022 [email or web address] [facility], [address] [place], [address], 04/22/2023 09:44:57 Mounjaro 10 mg/0.5 mL subcutan eous pen injector 2022 023 [email or web address] [facility], [address] [place], [address], 09/16/2023 09:49:36 Mounjaro 12.5 mg/0.5 mL subcutan eous pen injector 2022 023 [facility], [address] [place], [address], 04/25/2024 16:49:16 levothyr oxine 112 mcg tablet 2023 024 NARDA [facility], [address] [place], [address], 04/25/2024 18:28:29 Patient TargetsNo targets recorded. Patient Instructions Encounter Date Encounter Id Patient Instructions Last Modified By Organization Details Last Modified Time 02/22/2023 [id number] - Get labs done every 3 months (for thyroid and diabetes). - Continue taking thyroid hormone every day away from other food and especially from other minerals like calcium (dairy), iron, magnesium, etc. - Contact office if any symptoms of low thyroid (excess fatigue, unexplained weight gain, feeling much more cold than usual, constipation, very dry skin) or excess thyroid (heart racing, unexplained weight loss, feeling jittery/nervous/ anxious, change in frequency of moving bowels, tremors, or insomnia) - Try and be as physically active as you can - Continue to monitor your blood sugars as directed - Follow a healthy diet - Increase Mounjaro weekly (10). [email or web address] Not available 02/22/2023 14:06:38 6 months- 40 min [email or web address] Not available 02/22/2023 14:06:46 07/29/2023 [id number] - Get labs done every 3 months (for thyroid and diabetes). - Continue taking thyroid hormone every day away from other food and especially from other minerals like calcium (dairy), iron, magnesium, etc. - Contact office if any symptoms of low thyroid (excess fatigue, unexplained weight gain, feeling much more cold than usual, constipation, very dry skin) or excess thyroid (heart racing, unexplained weight loss, feeling jittery/nervous/ anxious, change in frequency of moving bowels, tremors, or insomnia) - Try and be as physically active as you can - Continue to monitor your blood sugars as directed - Follow a healthy diet - Increase Mounjaro weekly (12.5). - Thyroid take as 150 six days per week. [email or web address] Not available 07/29/2023 09:11:30 6 months- 40 min [email or web address] Not available 07/29/2023 09:10:37 09/16/2023 [id number] - Get labs done every 3 months (for thyroid and diabetes). - Continue taking thyroid hormone every day away from other food and especially from other minerals like calcium (dairy), iron, magnesium, etc. - Contact office if any symptoms of low thyroid (excess fatigue, unexplained weight gain, feeling much more cold than usual, constipation, very dry skin) or excess thyroid (heart racing, unexplained weight loss, feeling jittery/nervous/ anxious, change in frequency of moving bowels, tremors, or insomnia) - Try and be as physically active as you can - Continue to monitor your blood sugars as directed - Follow a healthy diet - Continue Mounjaro weekly (12.5). - Thyroid take as 150 six days per week. [email or web address] Not available 09/16/2023 10:37:48 6 months- 40 min Not available 09/13/2023 11:27:35 04/25/2024 [id number] - Get labs done every 6 months - Continue taking thyroid hormone every day away from other food and especially from other minerals like calcium (dairy), iron, magnesium, etc. - Contact office if any symptoms of low thyroid (excess fatigue, unexplained weight gain, feeling much more cold than usual, constipation, very dry skin) or excess thyroid (heart racing, unexplained weight loss, feeling jittery/nervous/ anxious, change in frequency of moving bowels, tremors, or insomnia) - Try and be as physically active as you can - Continue to monitor your blood sugars as directed - Follow a healthy diet [email or web address] Not available 04/25/2024 17:23:07 6 months- 40 min Not available 04/24/2024 08:52:57 Reason for Referral None Reported. Results Created Date Observation Date Name Description Value Unit Range Abnormal Flag Note LastModifiedBy Organization Detail LastModifiedTime 12/02/1912/01/2022 HGB A1C hemoglobin A1C 6.0 % 4.8-6. 0 Goal: <7% in Patie nts with Diabe luci An A1c betwe en 5.7-6 .4% is ident ified as pre-d iabet es and sugge sts risk for progr essio n to diabe luci Two a1c value s of 6.5% or highe r is consi stent with a diagn osis of diabe luci but may need furth er confi rmati on Not Available [address], [address], 12/01/2022 11:47:35 12/02/19 23 12/01/2022 HGB A1C estimated average glucose 125.5 mg/dL Not Available [address], [address], 12/01/2022 11:47:35 12/02/1912/01/2022 COMP. METAB OLIC PANEL glucose 121 mg/dL 70-100 high Not Available [address], [address], 12/01/2022 14:30:55 12/02/1912/01/2022 COMP. METAB OLIC PANEL BUN 12 mg/dL 7-18 Not Available [address], [address], 12/01/2022 14:30:55 12/02/19 23 12/01/2022 COMP. METAB OLIC PANEL creatinine 0.7 mg/dL 0.8-1. 3 low Not Available [address], [address], 12/01/2022 14:30:55 12/02/19 23 12/01/2022 COMP. METAB OLIC PANEL B/C 17.1 ratio Not Available [address], [address], 12/01/2022 14:30:55 12/02/19 23 12/01/2022 COMP. METAB OLIC PANEL GFR >=60ML /MIN mL/mi n normal >=60m L/min - Tamia l or midly reduc ed <60mL /min- Decre ased kidne y funct ion <15mL /min - Kidne y failu re [facility] calcu lates estim ated Glome rular Filtr ation Rate (eGFR ) using the Chron ic Kidne y Disea se Epide miolo gy Colla borat ion (CKD- EPI) Equat ion (Joaquina r et. al 2020) as recom lenny d by the Natio nal Kidne y Found ation . eGFR is based on age, serum creat inine , and sex. CKD-E PI does not calcu late eGFR by race, does not apply to child sarah (age <18 years ), and shoul d not be used in pregn jose. Not Available [address], [address], 12/01/2022 14:30:55 12/02/19 23 12/01/2022 COMP. METAB OLIC PANEL sodium 142 mmol/ L 136-14 5 Not Available [address], [address], 12/01/2022 14:30:55 12/02/19 23 12/01/2022 COMP. METAB OLIC PANEL potassium 4.2 mmol/ L 3.5-5. 1 Not Available [address], [address], 12/01/2022 14:30:55 12/02/19 23 12/01/2022 COMP. METAB OLIC PANEL chloride 104 mmol/ L 96-107 Not Available [address], [address], 12/01/2022 14:30:55 12/02/19 23 12/01/2022 COMP. METAB OLIC PANEL anion gap 9.4 5.0-15 .0 Not Available [address], [address], 12/01/2022 14:30:55 12/02/19 23 12/01/2022 COMP. METAB OLIC PANEL CO2 29 mmol/ L 21-32 Not Available [address], [address], 12/01/2022 14:30:55 12/02/19 23 12/01/2022 COMP. METAB OLIC PANEL calcium 9.7 mg/dL 8.5-10 .3 Not Available [address], [address], 12/01/2022 14:30:55 12/02/19 23 12/01/2022 COMP. METAB OLIC PANEL total protein 7.0 g/dL 6.4-8. 2 Not Available [address], [address], 12/01/2022 14:30:55 12/02/19 23 12/01/2022 COMP. METAB OLIC PANEL albumin 3.4 g/dL 3.4-5. 0 Not Available [address], [address], 12/01/2022 14:30:55 12/02/19 23 12/01/2022 COMP. METAB OLIC PANEL globulin 3.6 g/dL Not Available [address], [address], 12/01/2022 14:30:55 12/02/19 23 12/01/2022 COMP. METAB OLIC PANEL A/G 0.9 ratio 0.8-2. 0 Not Available [address], [address], 12/01/2022 14:30:55 12/02/19 23 12/01/2022 COMP. METAB OLIC PANEL total bilirubin 0.30 mg/dL 0.00-1 .00 Not Available [address], [address], 12/01/2022 14:30:55 12/02/19 23 12/01/2022 COMP. METAB OLIC PANEL AST 50 U/L 0-37 high Not Available [address], [address], 12/01/2022 14:30:55 12/02/19 23 12/01/2022 COMP. METAB OLIC PANEL ALT 52 U/L 6-63 Not Available [address], [address], 12/01/2022 14:30:55 12/02/19 23 12/01/2022 COMP. METAB OLIC PANEL alk. phos. 259 U/L 50-136 high Not Available [address], [address], 12/01/2022 14:30:55 12/02/19 23 12/01/2022 LIPID PANEL cholesterol 146 mg/dL <200 mg/dl Alexandra able 200-2 39 mg/dl Borde rline High >240 mg/dl High Not Available [address], [address], 12/01/2022 14:30:57 12/02/1912/01/2022 LIPID PANEL triglyceride s 198 mg/dL <150 mg/dL Tamia l 150-1 99 mg/dL Borde rline High 200-4 99 mg/dL High >500 mg/dL Very High Not Available [address], [address], 12/01/2022 14:30:57 12/02/19 23 12/01/2022 LIPID PANEL direct HDL 54 mg/dL <40 mg/dl - Major Risk for CHD >60 mg/dl - Negat ravi Risk for CHD Not Available [address], [address], 12/01/2022 14:30:57 12/02/19 23 12/01/2022 DIREC T LDL direct LDL 44 mg/dL RISK CATEG ORY LDL GOAL _ CHD or CHD Risk Equiv alent s <100 mg/dl (10-y ear risk >20%) 2+ Risk Facto rs <130 mg/dl (10-y ear risk <= 20%) 0-1 Risk Facto r??? <160 mg/dl ??? Almos t all peopl e with 0-1 risk facto r have a 10 year risk <10%, thus 10 year risk asses ment in peopl e with 0-1 risk facto r is not emma bueno. Not Available [address], [address], 12/01/2022 14:30:58 12/02/19 23 12/01/2022 MICRO ALBUM IN/CR EATIN INE RATIO PANEL , URINE microalbumin 58.1 mg/L 1.3-20 .0 high Not Available [address], [address], 12/01/2022 15:25:16 12/02/19 23 12/01/2022 MICRO ALBUM IN/CR EATIN INE RATIO PANEL , URINE creatinine urine 140.0 mg/dL 30.0-1 25.0 high Not Available [address], [address], 12/01/2022 15:25:16 12/02/19 23 12/01/2022 MICRO ALBUM IN/CR EATIN INE RATIO PANEL , URINE microalb/cre at ratio 41.5 mg/g_ creat 0.0-29 .0 high Not Available [address], [address], 12/01/2022 15:25:16 12/02/19 23 12/01/2022 FREE T4 free T4 1.33 NG/dL 0.75-1 .54 Not Available [address], [address], 12/01/2022 15:37:02 12/02/19 23 12/01/2022 TSH TSH 0.24 uIU/m L 0.50-6 .00 low The [employer] Endoc rinol ogy and Ameri can Thyro id Assoc iatio n recom mend goal TSH value s betwe en 0.4-4 .0 mIU/m L. Not Available [address], [address], 12/01/2022 16:05:27 12/02/19 23 12/05/2022 THYRO ID CANCE R (THYR OGLOB ULIN) MONIT OR thyroglobuli n antibody <1 IU/mL <=1 This Thyro globu mychal antib anjum test was perfo rmed using the [employer] er Chemi lumin escen t metho d. Value s obtai mila from diffe rent assay metho ds canno t be used inter [facility] . Thyro globu mychal antib anjum level s, regar dless of value , shoul d not be inter prete d as absol [place] evide nce of the prese nce or absen ce of disea se. Not Available [employer] [facility] [place] [facility] [address] [place] [address], [place], [address], 12/05/2022 06:13:00 12/02/1912/05/2022 THYRO ID CANCE R (THYR OGLOB ULIN) MONIT OR thyroglobuli n <0.1 NG/mL Refer ence Range : Athyr otic: <0.1 ng/mL Refer ence range appli es to diffe renti ated thyro id cance r patie nts follo wing treat ment. The prese nce of measu rable thyro globu mychal indic ates the prese nce of thyro globu mychal-p roduc ing thyro id tissu e. Clini fanny corre latio n is advis ed. This Thyro globu mychal test was perfo rmed using the Beckm an Coult er Chemi lumin escen t metho d. Value s obtai mila from diffe rent assay metho ds canno t be used inter [facility] . Thyro globu mychal level s, regar dless of value , shoul d not be inter prete d as absol [place] evide nce of the prese nce or absen ce of disea se. Not Available [facility] [address] [place] [address], [place], [address], 12/05/2022 06:13:00 06/03/20 23 06/03/2023 COMPR EHENS RAVI METAB OLIC PANL glucose 130 mg/dL (70-99 ) high Not Available [facility] [address] [place], [address], 06/03/2023 16:43:50 06/03/20 23 06/03/2023 COMPR EHENS RAVI METAB OLIC PANL BUN 8 mg/dL (6-20) Not Available [facility] [address] [place], [address], 06/03/2023 16:43:50 06/03/20 23 06/03/2023 COMPR EHENS RAVI METAB OLIC PANL creatinine 0.6 mg/dL (0.5-1 .0) Not Available [facility] [address] [place], [address], 06/03/2023 16:43:50 06/03/20 23 06/03/2023 COMPR EHENS RAVI METAB OLIC PANL sodium 141 mmol/ L (133-1 45) Not Available [facility] [address] [place], [address], 06/03/2023 16:43:50 06/03/20 23 06/03/2023 COMPR EHENS RAVI METAB OLIC PANL potassium 3.9 mmol/ L (3.6-5 .2) Not Available [facility] [address] [place], [address], 06/03/2023 16:43:50 06/03/20 23 06/03/2023 COMPR EHENS RAVI METAB OLIC PANL chloride 106 mmol/ L (98-10 7) Not Available [facility] [address] [place] [place], [address], 06/03/2023 16:43:50 06/03/20 23 06/03/2023 COMPR EHENS RAVI METAB OLIC PANL bicarbonate 25 mmol/ L (22-29 ) Not Available [facility] [address] [place], [address], 06/03/2023 16:43:50 06/03/20 23 06/03/2023 COMPR EHENS RAVI METAB OLIC PANL anion gap 10 (4-17) Not Available [facility] [address] [place], [address], 06/03/2023 16:43:50 06/03/20 23 06/03/2023 COMPR EHENS RAVI METAB OLIC PANL albumin 3.9 gm/dL (3.4-4 .8) Not Available [facility] [address] [place], [address], 06/03/2023 16:43:50 06/03/20 23 06/03/2023 COMPR EHENS RAVI METAB OLIC PANL calcium 9.4 mg/dL (8.6-1 0.5) Not Available [facility] [address] [place], [address], 06/03/2023 16:43:50 06/03/20 23 06/03/2023 COMPR EHENS RAVI METAB OLIC PANL bilirubin,to scarlett 0.3 mg/dL (0-1.2 ) Not Available [facility] [address] [place], [address], 06/03/2023 16:43:50 06/03/20 23 06/03/2023 COMPR EHENS RAVI METAB OLIC PANL total protein 6.5 gm/dL (6.2-8 .2) Not Available [facility] [address] [place], [address], 06/03/2023 16:43:50 06/03/20 23 06/03/2023 COMPR EHENS RAVI METAB OLIC PANL Ag ratio 1.5 Not Available [facility] [address] [place], [address], 06/03/2023 16:43:50 06/03/20 23 06/03/2023 COMPR EHENS RAVI METAB OLIC PANL AST 55 U/L (0-32) high Not Available [facility] [address] [place], [address], 06/03/2023 16:43:50 06/03/20 23 06/03/2023 COMPR EHENS RAVI METAB OLIC PANL alk phos 208 U/L (35-10 4) high Not Available [facility] [address] [place], [address], 06/03/2023 16:43:50 06/03/20 23 06/03/2023 COMPR EHENS RAVI METAB OLIC PANL ALT 45 U/L (0-33) high Not Available [facility] [address] [place], [address], 06/03/2023 16:43:50 06/03/20 23 06/03/2023 COMPR EHENS RAVI METAB OLIC PANL estimated GFR creatinine 109 mL/mi n/1.7 3_M2 Creat inine based estim ated glome rular filtr ation (eGFR ) in adult s is calcu lated using the Natio nal Kidne y Found ation recom lenny d 2020 CKD-E PI equat ion. Estim ates GFR from serum creat inine , age and sex. Not Available [facility] [address] [place], [address], 06/03/2023 16:43:50 06/03/20 23 06/03/2023 NON FASTI NG LIPID PANEL cholesterol, total 126 mg/dL (<200) Not Available [facility] [address] [place], [address], 06/03/2023 16:43:51 06/03/20 23 06/03/2023 NON FASTI NG LIPID PANEL HDL chol 51 mg/dL (>39) Not Available [facility] [address] [place], [address], 06/03/2023 16:43:51 06/03/20 23 06/03/2023 NON FASTI NG LIPID PANEL non HDL cholesterol (calc) 75 mg/dL (<160) Not Available [facility] [address] [place], [address], 06/03/2023 16:43:51 06/03/2006/03/2023 FREE T4 free T4 1.88 NG/dL (0.70- 1.80) high Not Available [facility] [address] [place], [address], 06/03/2023 16:48:51 06/03/2006/03/2023 TSH TSH 0.02 uIU/m L (0.4-4 .2) low Not Available [facility] [address] [place], [address], 06/03/2023 16:48:53 06/03/2006/03/2023 URINA RY MICRO ALBUM IN micro-albumi n <12.0 mg/L (<20) The urine micro album in test is desig mila to monit or renal funct ion. When scree castro for Bence Mansfield prote inuri a, urine elect ropho resis is recom lenny d. Not Available [facility] [address] [place], [address], 06/03/2023 17:44:29 06/03/20 23 06/03/2023 URINA RY MICRO ALBUM IN malb/creat ratio UNABLE TO CALCUL ATE mg/gm (0-20) Not Available [facility] [address], [place], [address], 06/03/2023 17:44:29 06/03/20 23 06/03/2023 URINA RY MICRO ALBUM IN urine creat for micro albumin 62.9 mg/dL Not Available [facility] [address], [place], [address], 06/03/2023 17:44:29 06/03/20 23 06/03/2023 HEMOG LOBIN A1C hemoglobin A1C 5.7 % (4.0-5 .6) high MONIT ORING : In known diabe tic patie nts, hemog lobin A1c targe ts shoul d be discu ssed with healt h care provi jane. DIAGN OSTIC USE: The Ameri can Diabe luci Assoc iatio n (ADA) and the World Healt h Organ izati on (WHO) recom mend the use of HbA1c to diagn ose diabe luci using a thres hold of 6.5%. Patie nts who have an HbA1c betwe en 5.7% and 6.4% are consi dered at incre ased risk for devel oping diabe luci in the futur e. CAUTI ON: False ly low HbA1c resul ts may be obser oleg in patie nts with hemol ytic anemi a, homoz ygous forms of abnor mal hemog lobin (e.g. SS, CC, SC), pregn jose, recen t blood loss or hemog lobin F great er than 7%. Fruct osami ne may be used as an alter sharif test in these cases . REFER ENCE: ADA: [employer] ards of Medic al Care in Diabe luci 2019, The Journ al of Clini fanny and Appli ed Resea rch and Educa tion Volum e 43, Suppl ement 1 Not Available [facility] [address], [place], [address], 06/03/2023 19:04:09 06/03/20 23 06/04/2023 THYRO GLOBU MYCHAL,T UMOR MRKR W/RFL X thyroglobuli n antibody, serum <1.0 Refer ence range : 0.0 to 0.9 Unit: IU/mL (NOTE ) Thyro globu mychal Antib anjum measu red by Beckm an Coult er Metho dolog y Test perfo rmed by [facility], [address], [place] [address] Not Available [facility] [address], [place], [address], 06/04/2023 11:06:43 06/03/20 23 06/04/2023 THYRO GLOBU MYCHAL REFLE X IMMUN OASSA Y thyroglobin reflex immunoassy low <0.1 Refer ence range : 1.5 to 38.5 Unit: ng/mL (NOTE ) Accor ding to the Natio nal Acade my of Clini fanny Bioch emist ry, the refer ence inter more for Thyro globu mychal (TG) shoul d be relat ed to euthy roid patie nts and not for patie nts who under went thyro idect raheem. TG refer ence inter vals for these patie nts depen d on the resid ual mass of the thyro id tissu e left after surge ry. Estab lishi ng a post- opera tive basel ine is recom lenny d. The assay limit of quant itati on is 0.1 ng/mL Thyro globu mychal measu red by Beckm an Coult er Immun ometr ic Assay Test perfo rmed by [facility], [address], [place] [address] Not Available [facility] [address], [place], [address], 06/04/2023 11:07:04 09/16/20 23 09/16/2023 HGB A1C hemoglobin A1C 5.3 % 4.8-6. 0 Goal: <7% in Patie nts with Diabe luci An A1c betwe en 5.7-6 .4% is ident ified as pre-d iabet es and sugge sts risk for progr essio n to diabe luci Two a1c value s of 6.5% or highe r is consi stent with a diagn osis of diabe luci but may need furth er confi rmati on Not Available [address], [address], 09/16/2023 14:10:24 09/16/20 23 09/16/2023 HGB A1C estimated average glucose 105.4 mg/dL Not Available [address], [address], 09/16/2023 14:10:24 09/16/20 23 09/16/2023 FREE T4 free T4 1.53 NG/dL 0.75-1 .54 Not Available [address], [address], 09/16/2023 16:13:11 09/16/20 23 09/16/2023 TSH TSH 0.11 uIU/m L 0.50-6 .00 low The Ameri can Colle ge of Endoc rinol ogy and Ameri can Thyro id Assoc iatio n recom mend goal TSH value s betwe en 0.4-4 .0 mIU/m L. Not Available [address], [address], 09/16/2023 16:39:34 09/16/20 23 09/17/2023 THYRO GLOBU MYCHAL ANTIB ODIES thyroglobuli n antibodies <1 IU/mL < or = 1 normal Not Available [facility] [address], [address], 09/17/2023 09:43:20 09/16/20 23 09/19/2023 COMP. METAB OLIC PANEL glucose 88 mg/dL 70-100 Not Available [address], [address], 09/19/2023 16:36:28 09/16/20 23 09/19/2023 COMP. METAB OLIC PANEL BUN 13 mg/dL 7-18 Not Available [address] [place], [address], 09/19/2023 16:36:28 09/16/20 23 09/19/2023 COMP. METAB OLIC PANEL creatinine 0.8 mg/dL 0.8-1. 3 Not Available [address], [address], 09/19/2023 16:36:28 09/16/20 23 09/19/2023 COMP. METAB OLIC PANEL B/C 16.3 ratio Not Available [address], [address], 09/19/2023 16:36:28 09/16/20 23 09/19/2023 COMP. METAB OLIC PANEL GFR >=60ML /MIN mL/mi n normal >=60m L/min - Tamia l or midly reduc ed <60mL /min- Decre ased kidne y funct ion <15mL /min - Kidne y failu re [facility] calcu lates estim ated Glome rular Filtr ation Rate (eGFR ) using the Chron ic Kidne y Disea se Epide miolo gy Colla borat ion (CKD- EPI) Equat ion (Joaquina r et. al 2020) as recom lenny d by the Natio nal Kidne y Found ation . eGFR is based on age, serum creat inine , and sex. CKD-E PI does not calcu late eGFR by race, does not apply to child sarah (age <18 years ), and shoul d not be used in pregn jose. Not Available [address], [address], 09/19/2023 16:36:28 09/16/20 23 09/19/2023 COMP. METAB OLIC PANEL sodium 142 mmol/ L 136-14 5 Not Available [address], [address], 09/19/2023 16:36:28 09/16/20 23 09/19/2023 COMP. METAB OLIC PANEL potassium 4.9 mmol/ L 3.5-5. 1 Not Available [address], [address], 09/19/2023 16:36:28 09/16/20 23 09/19/2023 COMP. METAB OLIC PANEL chloride 106 mmol/ L 96-107 Not Available [address], [address], 09/19/2023 16:36:28 09/16/20 23 09/19/2023 COMP. METAB OLIC PANEL anion gap 8.5 5.0-15 .0 Not Available [address], [address], 09/19/2023 16:36:28 09/16/20 23 09/19/2023 COMP. METAB OLIC PANEL CO2 28 mmol/ L 21-32 Not Available [address], [address], 09/19/2023 16:36:28 09/16/20 23 09/19/2023 COMP. METAB OLIC PANEL calcium 9.1 mg/dL 8.5-10 .3 Not Available [address], [address], 09/19/2023 16:36:28 09/16/20 23 09/19/2023 COMP. METAB OLIC PANEL total protein 7.5 g/dL 6.4-8. 2 Not Available [address], [address], 09/19/2023 16:36:28 09/16/20 23 09/19/2023 COMP. METAB OLIC PANEL albumin 3.6 g/dL 3.4-5. 0 Not Available [address], [address], 09/19/2023 16:36:28 09/16/20 23 09/19/2023 COMP. METAB OLIC PANEL globulin 3.9 g/dL Not Available [address], [address], 09/19/2023 16:36:28 09/16/20 23 09/19/2023 COMP. METAB OLIC PANEL A/G 0.9 ratio 0.8-2. 0 Not Available [address], [address], 09/19/2023 16:36:28 09/16/20 23 09/19/2023 COMP. METAB OLIC PANEL total bilirubin 0.30 mg/dL 0.00-1 .00 Not Available [address], [address], 09/19/2023 16:36:28 09/16/20 23 09/19/2023 COMP. METAB OLIC PANEL AST 38 U/L 0-37 high Not Available [address], [address], 09/19/2023 16:36:28 09/16/20 23 09/19/2023 COMP. METAB OLIC PANEL ALT 53 U/L 6-63 Not Available [address], [address], 09/19/2023 16:36:28 09/16/20 23 09/19/2023 COMP. METAB OLIC PANEL alk. phos. 182 U/L 50-136 high Not Available [address], [address], 09/19/2023 16:36:28 09/16/20 23 09/19/2023 LIPID PANEL cholesterol 124 mg/dL <200 mg/dl Alexandra able 200-2 39 mg/dl Borde rline High >240 mg/dl High Not Available [address], [address], 09/19/2023 16:36:30 09/16/20 23 09/19/2023 LIPID PANEL triglyceride s 77 mg/dL <150 mg/dL Tamia l 150-1 99 mg/dL Borde rline High 200-4 99 mg/dL High >500 mg/dL Very High Not Available [address], [address], 09/19/2023 16:36:30 09/16/20 23 09/19/2023 LIPID PANEL direct HDL 57 mg/dL <40 mg/dl - Major Risk for CHD >60 mg/dl - Negat ravi Risk for CHD Not Available [address], [address], 09/19/2023 16:36:30 09/16/20 23 09/19/2023 LDL - CALCU LATED LDL - calculated 51.6 RISK CATEG ORY LDL GOAL _ CHD or CHD Risk Equiv alent s <100 mg/dl (10-y ear risk >20%) 2+ Risk Facto rs <130 mg/dl (10-y ear risk <= 20%) 0-1 Risk Facto r??? <160 mg/dl ??? Almos t all peopl e with 0-1 risk facto r have a 10 year risk <10%, thus 10 year risk asses ment in peopl e with 0-1 risk facto r is not emma bueno. Not Available [address], [address], 09/19/2023 16:36:31 09/16/20 23 09/20/2023 MICRO ALBUM IN/CR EATIN INE RATIO PANEL , URINE microalbumin 12.2 mg/L 1.3-20 .0 Not Available [address], [address], 09/20/2023 14:44:35 09/16/20 23 09/20/2023 MICRO ALBUM IN/CR EATIN INE RATIO PANEL , URINE creatinine urine 94.2 mg/dL 30.0-1 25.0 Not Available [address], [address], 09/20/2023 14:44:35 09/16/20 23 09/20/2023 MICRO ALBUM IN/CR EATIN INE RATIO PANEL , URINE microalb/cre at ratio 13.0 mg/g_ creat 0.0-29 .0 Not Available [address], [address], 09/20/2023 14:44:35 02/14/20 24 02/14/2024 HGB A1C hemoglobin A1C 5.2 % 4.8-6. 0 Goal: <7% in Patie nts with Diabe luci An A1c betwe en 5.7-6 .4% is ident ified as pre-d iabet es and sugge sts risk for progr essio n to diabe luci Two a1c value s of 6.5% or highe r is consi stent with a diagn osis of diabe luci but may need furth er confi rmati on Not Available [address], [address], 02/14/2024 13:18:57 02/14/20 24 02/14/2024 HGB A1C estimated average glucose 102.5 mg/dL Not Available [address], [address], 02/14/2024 13:18:57 02/14/20 24 02/14/2024 MICRO ALBUM IN/CR EATIN INE RATIO PANEL , URINE microalbumin 15.2 mg/L 1.3-20 .0 Not Available [address], [address], 02/14/2024 14:34:38 02/14/20 24 02/14/2024 MICRO ALBUM IN/CR EATIN INE RATIO PANEL , URINE creatinine urine 196.9 mg/dL 30.0-1 25.0 high Not Available [address], [address], 02/14/2024 14:34:38 02/14/20 24 02/14/2024 MICRO ALBUM IN/CR EATIN INE RATIO PANEL , URINE microalb/cre at ratio 7.7 mg/g_ creat 0.0-29 .0 Not Available [address], [address], 02/14/2024 14:34:38 02/14/20 24 02/14/2024 COMP. METAB OLIC PANEL glucose 83 mg/dL 70-100 Not Available [address], [address], 02/14/2024 14:58:30 02/14/20 24 02/14/2024 COMP. METAB OLIC PANEL BUN 16 mg/dL 7-18 Not Available [address], [address], 02/14/2024 14:58:30 02/14/20 24 02/14/2024 COMP. METAB OLIC PANEL creatinine 0.6 mg/dL 0.8-1. 3 low Not Available [address], [address], 02/14/2024 14:58:30 02/14/20 24 02/14/2024 COMP. METAB OLIC PANEL B/C 26.7 ratio Not Available [address], [address], 02/14/2024 14:58:30 02/14/20 24 02/14/2024 COMP. METAB OLIC PANEL GFR >=60ML /MIN mL/mi n normal >=60m L/min - Tamia l or midly reduc ed <60mL /min- Decre ased kidne y funct ion <15mL /min - Kidne y failu re [facility] calcu lates estim ated Glome rular Filtr ation Rate (eGFR ) using the Chron ic Kidne y Disea se Epide miolo gy Colla borat ion (CKD- EPI) Equat ion (Joaquina r et. al 2020) as recom lneny d by the Natio nal Kidne y Found ation . eGFR is based on age, serum creat inine , and sex. CKD-E PI does not calcu late eGFR by race, does not apply to child sarah (age <18 years ), and shoul d not be used in pregn jose. Not Available [address], [address], 02/14/2024 14:58:30 02/14/20 24 02/14/2024 COMP. METAB OLIC PANEL sodium 143 mmol/ L 136-14 5 Not Available [address], [address], 02/14/2024 14:58:30 02/14/20 24 02/14/2024 COMP. METAB OLIC PANEL potassium 4.2 mmol/ L 3.5-5. 1 Not Available [address], [address], 02/14/2024 14:58:30 02/14/20 24 02/14/2024 COMP. METAB OLIC PANEL chloride 106 mmol/ L 96-107 Not Available [address], [address], 02/14/2024 14:58:30 02/14/20 24 02/14/2024 COMP. METAB OLIC PANEL anion gap 6.8 5.0-15 .0 Not Available [address], [address], 02/14/2024 14:58:30 02/14/20 24 02/14/2024 COMP. METAB OLIC PANEL CO2 30 mmol/ L 21-32 Not Available [address], [address], 02/14/2024 14:58:30 02/14/20 24 02/14/2024 COMP. METAB OLIC PANEL calcium 9.3 mg/dL 8.5-10 .3 Not Available [address], [address], 02/14/2024 14:58:30 02/14/20 24 02/14/2024 COMP. METAB OLIC PANEL total protein 7.1 g/dL 6.4-8. 2 Not Available [address], [address], 02/14/2024 14:58:30 02/14/20 24 02/14/2024 COMP. METAB OLIC PANEL albumin 3.5 g/dL 3.4-5. 0 Not Available [address], [address], 02/14/2024 14:58:30 02/14/20 24 02/14/2024 COMP. METAB OLIC PANEL globulin 3.6 g/dL Not Available [address], [address], 02/14/2024 14:58:30 02/14/20 24 02/14/2024 COMP. METAB OLIC PANEL A/G 1.0 ratio 0.8-2. 0 Not Available [address], [address], 02/14/2024 14:58:30 02/14/20 24 02/14/2024 COMP. METAB OLIC PANEL total bilirubin 0.50 mg/dL 0.00-1 .00 Not Available [address], [address], 02/14/2024 14:58:30 02/14/20 24 02/14/2024 COMP. METAB OLIC PANEL AST 34 U/L 0-37 Not Available [address], [address], 02/14/2024 14:58:30 02/14/20 24 02/14/2024 COMP. METAB OLIC PANEL ALT 44 U/L 6-63 Not Available [address], [address], 02/14/2024 14:58:30 02/14/20 24 02/14/2024 COMP. METAB OLIC PANEL alk. phos. 149 U/L 50-136 high Not Available [address], [address], 02/14/2024 14:58:30 02/14/20 24 02/14/2024 LIPID PANEL cholesterol 124 mg/dL <200 mg/dl Alexandra able 200-2 39 mg/dl Borde rline High >240 mg/dl High Not Available [address], [address], 02/14/2024 14:58:32 02/14/20 24 02/14/2024 LIPID PANEL triglyceride s 100 mg/dL <150 mg/dL Tamia l 150-1 99 mg/dL Borde rline High 200-4 99 mg/dL High >500 mg/dL Very High Not Available [address], [address], 02/14/2024 14:58:32 02/14/20 24 02/14/2024 LIPID PANEL direct HDL 47 mg/dL <40 mg/dl - Major Risk for CHD >60 mg/dl - Negat ravi Risk for CHD Not Available [address], [address], 02/14/2024 14:58:32 02/14/20 24 02/14/2024 LDL - CALCU LATED LDL - calculated 57.0 RISK CATEG ORY LDL GOAL _ CHD or CHD Risk Equiv alent s <100 mg/dl (10-y ear risk >20%) 2+ Risk Facto rs <130 mg/dl (10-y ear risk <= 20%) 0-1 Risk Facto r??? <160 mg/dl ??? Almos t all peopl e with 0-1 risk facto r have a 10 year risk <10%, thus 10 year risk asses ment in peopl e with 0-1 risk facto r is not necgladys ximena. Not Available [address], [address], 02/14/2024 14:58:34 02/14/20 24 02/14/2024 FREE T4 free T4 1.28 NG/dL 0.75-1 .54 Not Available [address] [place], [address], 02/14/2024 15:08:30 02/14/20 24 02/14/2024 TSH TSH 0.03 uIU/m L 0.50-6 .00 low The Ameri can Colle ge of Endoc rinol ogy and Ameri can Thyro id Assoc iatio n recom mend goal TSH value s betwe en 0.4-4 .0 mIU/m L. Not Available [address], [address], 02/14/2024 15:33:50 02/14/20 24 02/17/2024 THYRO ID CANCE R (THYR OGLOB ULIN) MONIT OR thyroglobuli n antibody <1 IU/mL <=1 This Thyro globu mychal antib anjum test was perfo rmed using the Baiyaxuanm an Coult er Chemi lumin escen t metho d. Value s obtai mila from diffe rent assay metho ds canno t be used inter jackson eably . Thyro globu mychal antib anjum level s, regar dless of value , shoul d not be inter prete d as absol [place] evide nce of the prese nce or absen ce of disea se. Not Available [facility] [address] [place] [address], [address], 02/17/2024 07:38:40 02/14/20 24 02/17/2024 THYRO ID CANCE R (THYR OGLOB ULIN) MONIT OR thyroglobuli n <0.1 NG/mL Refer ence Range : Athyr otic: <0.1 ng/mL Refer ence range appli es to diffe renti ated thyro id cance r patie nts follo wing treat ment. The prese nce of measu rable thyro globu mychal indic ates the prese nce of thyro globu mychal-p roduc ing thyro id tissu e. Clini fanny corre latio n is advis ed. This Thyro globu mychal test was perfo rmed using the Beckm an Coult er Chemi lumin escen t metho d. Value s obtai mila from diffe rent assay metho ds canno t be used inter jackson eably . Thyro globu mychal level s, regar dless of value , shoul d not be inter prete d as absol [place] evide nce of the prese nce or absen ce of disea se. Not Available [facility] [place] [facility] [address], [place], [address], 02/17/2024 07:38:40 02/14/2002/17/2024 THYRO GLOBU MYCHAL ANTIB ODIES thyroglobuli n antibodies <1 IU/mL < or = 1 normal Not Available [facility] [place] [facility] [address], [place], [address], 02/17/2024 07:38:42 05/28/20 24 05/28/2024 HGB A1C hemoglobin A1C 5.1 % 4.8-6. 0 Goal: <7% in Patie nts with Diabe luci An A1c betwe en 5.7-6 .4% is ident ified as pre-d iabet es and sugge sts risk for progr essio n to diabe luci Two a1c value s of 6.5% or highe r is consi stent with a diagn osis of diabe luci but may need furth er confi rmati on Not Available [address], [address], 05/28/2024 11:17:08 05/28/20 24 05/28/2024 HGB A1C estimated average glucose 99.7 mg/dL Not Available [address], [address], 05/28/2024 11:17:08 05/28/20 24 05/28/2024 FREE T4 free T4 1.61 NG/dL 0.75-1 .54 high Not Available [address], [address], 05/28/2024 12:29:43 05/28/20 24 05/28/2024 TSH TSH 0.05 uIU/m L 0.50-6 .00 low [facility] i[facility] n recom mend goal TSH value s betwe en 0.4-4 .0 mIU/m L. Not Available [address], [address], 05/28/2024 14:08:09 05/28/2005/28/2024 LIPID PANEL cholesterol 131 mg/dL <200 mg/dl Alexandra able 200-2 39 mg/dl Borde rline High >240 mg/dl High Not Available [address], [address], 05/28/2024 14:16:25 05/28/20 24 05/28/2024 LIPID PANEL triglyceride s 73 mg/dL <150 mg/dL Tamia l 150-1 99 mg/dL Borde rline High 200-4 99 mg/dL High >500 mg/dL Very High Not Available [address], [address], 05/28/2024 14:16:25 05/28/20 24 05/28/2024 LIPID PANEL direct HDL 59 mg/dL <40 mg/dl - Major Risk for CHD >60 mg/dl - Negat ravi Risk for CHD Not Available [address], [address], 05/28/2024 14:16:25 05/28/2005/28/2024 LDL - CALCU LATED LDL - calculated 57 RISK CATEG ORY LDL GOAL _ CHD or CHD Risk Equiv alent s <100 mg/dl (10-y ear risk >20%) 2+ Risk Facto rs <130 mg/dl (10-y ear risk <= 20%) 0-1 Risk Facto r??? <160 mg/dl ??? Almos t all peopl e with 0-1 risk facto r have a 10 year risk <10%, thus 10 year risk asses ment in peopl e with 0-1 risk facto r is not emma joshuay. Not Available [address], [address], 05/28/2024 14:16:26 05/28/20 24 05/28/2024 COMP. METAB OLIC PANEL glucose 88 mg/dL 70-100 Not Available [address], [address], 05/28/2024 14:38:58 05/28/20 24 05/28/2024 COMP. METAB OLIC PANEL BUN 14 mg/dL 7-18 Not Available [address], [address], 05/28/2024 14:38:58 05/28/20 24 05/28/2024 COMP. METAB OLIC PANEL creatinine 0.7 mg/dL 0.8-1. 3 low Not Available [address], [address], 05/28/2024 14:38:58 05/28/20 24 05/28/2024 COMP. METAB OLIC PANEL B/C 20.0 ratio Not Available [address], [address], 05/28/2024 14:38:58 05/28/20 24 05/28/2024 COMP. METAB OLIC PANEL GFR >=60ML /MIN mL/mi n normal >=60m L/min - Tamia l or midly reduc ed <60mL /min- Decre ased kidne y funct ion <15mL /min - Kidne y failu re [facility] calcu lates estim ated Glome rular Filtr ation Rate (eGFR ) using the Chron ic Kidne y Disea se Epide miolo gy Colla borat ion (CKD- EPI) Equat ion (Joaquina adan et. al 2020) as recom lenny d by [facility] . eGFR is based on age, serum creat inine , and sex. CKD-E PI does not calcu late eGFR by race, does not apply to child sarah (age <18 years ), and shoul d not be used in pregn jose. Not Available [address], [address], 05/28/2024 14:38:58 05/28/20 24 05/28/2024 COMP. METAB OLIC PANEL sodium 143 mmol/ L 136-14 5 Not Available [address], [address], 05/28/2024 14:38:58 05/28/20 24 05/28/2024 COMP. METAB OLIC PANEL potassium 3.9 mmol/ L 3.5-5. 1 Not Available [address], [address], 05/28/2024 14:38:58 05/28/20 24 05/28/2024 COMP. METAB OLIC PANEL chloride 106 mmol/ L 96-107 Not Available [address], [address], 05/28/2024 14:38:58 05/28/20 24 05/28/2024 COMP. METAB OLIC PANEL anion gap 8.5 5.0-15 .0 Not Available [address], [address], 05/28/2024 14:38:58 05/28/20 24 05/28/2024 COMP. METAB OLIC PANEL CO2 29 mmol/ L 21-32 Not Available [address], [address], 05/28/2024 14:38:58 05/28/20 24 05/28/2024 COMP. METAB OLIC PANEL calcium 9.0 mg/dL 8.5-10 .3 Not Available [address], [address], 05/28/2024 14:38:58 05/28/20 24 05/28/2024 COMP. METAB OLIC PANEL total protein 6.9 g/dL 6.4-8. 2 Not Available [address], [address], 05/28/2024 14:38:58 05/28/20 24 05/28/2024 COMP. METAB OLIC PANEL albumin 3.6 g/dL 3.4-5. 0 Not Available [address], [address], 05/28/2024 14:38:58 05/28/20 24 05/28/2024 COMP. METAB OLIC PANEL globulin 3.3 g/dL Not Available [address], [address], 05/28/2024 14:38:58 05/28/20 24 05/28/2024 COMP. METAB OLIC PANEL A/G 1.1 ratio 0.8-2. 0 Not Available [address], [address], 05/28/2024 14:38:58 05/28/20 24 05/28/2024 COMP. METAB OLIC PANEL total bilirubin 0.60 mg/dL 0.00-1 .00 Not Available [address], [address], 05/28/2024 14:38:58 05/28/20 24 05/28/2024 COMP. METAB OLIC PANEL AST 39 U/L 0-37 high Not Available [address], [address], 05/28/2024 14:38:58 05/28/20 24 05/28/2024 COMP. METAB OLIC PANEL ALT 40 U/L 6-63 Not Available [address], [address], 05/28/2024 14:38:58 05/28/20 24 05/28/2024 COMP. METAB OLIC PANEL alk. phos. 151 U/L 50-136 high Not Available [address], [address], 05/28/2024 14:38:58 05/28/20 24 05/28/2024 MICRO ALBUM IN/CR EATIN INE RATIO PANEL , URINE microalbumin 11.5 mg/L 1.3-20 .0 Not Available [address], [address], 05/28/2024 16:07:39 05/28/20 24 05/28/2024 MICRO ALBUM IN/CR EATIN INE RATIO PANEL , URINE creatinine urine 143.3 mg/dL 30.0-1 25.0 high Not Available [address], [address], 05/28/2024 16:07:39 05/28/20 24 05/28/2024 MICRO ALBUM IN/CR EATIN INE RATIO PANEL , URINE microalb/cre at ratio 8.0 mg/g_ creat 0.0-29 .0 Not Available [address], [address], 05/28/2024 16:07:39 05/28/20 24 06/07/2024 THYRO ID CANCE R (THYR OGLOB ULIN) MONIT OR thyroglobuli n antibody <1 IU/mL <=1 This Thyro globu mychal antib anjum test was perfo rmed using the Beta Dash an [employer] lumin escen t metho d. Value s obtai mila from diffe rent assay metho ds canno t be used inter jackson eably . Thyro globu mychal antib anjum level s, regar dless of value , shoul d not be inter prete d as absol [place] evide nce of the prese nce or absen ce of disea se. Not Available [facility] [address] [place] [address], [place], [address], 06/07/2024 15:03:30 05/28/20 24 06/07/2024 THYRO ID CANCE R (THYR OGLOB ULIN) MONIT OR thyroglobuli n <0.1 NG/mL Refer ence Range : Athyr otic: <0.1 ng/mL Refer ence range appli es to diffe renti ated thyro id cance r patie nts follo wing treat ment. The prese nce of measu rable thyro globu mychal indic ates the prese nce of thyro globu mychal-p roduc ing thyro id tissu e. Clini fanny corre latio n is advis ed. This Thyro globu mychal test was perfo rmed using the Beta Dash an Coul[employer] er Chemi lumin escen t metho d. Value s obtai mila from diffe rent assay metho ds canno t be used inter jackson eably . Thyro globu mychal level s, regar dless of value , shoul d not be inter prete d as absol [place] evide nce of the prese nce or absen ce of disea se. Not Available [facility] [address] [place] [address], [address], 06/07/2024 15:03:30 Result Notes None recorded. Problems Name Problem SNOMED Code Status Onset Date Resolution Date Notes Provider Name and Address Organization Details Recorded Time Renal disorder due to type 2 diabetes mellitus [id number] Nuno Felipe MD [address] [place] [address], [phone] , [facility] 09:01:23 Hyperlipid emia 36433401 Nuno Felipe MD [address] [place] [address], [phone] , [facility] 2 11:35:32 Numbness of lower limb 661925662 Nuno Felipe MD [address] [place] [address], [phone] , [facility] 6 09:46:36 Polyuria 82952570 Completed 08/22/2013 Not Available [facility] 3 02:04:12 Menopausal symptom 72020967 Completed 08/22/2013 Not Available [facility] 3 02:01:29 Blood chemistry outside reference range 628948421 Completed 08/22/2013 Not Available [facility] 3 02:03:30 Postoperat ravi hypothyroi dism 74679996 Active 2007 Aj Felipe MD [address] [place] [address], [phone] , [facility] 3 09:01:07 Primary malignant neoplasm of thyroid gland 83267171 Active 2003 Aj Felipe MD [address] [place] [address], [phone] , [facility] 3 09:01:23 Problem Notes None recorded. Procedures Surgical History Date Name Laterality Status Provider Name and Address Organization Details Recorded Time 9 Carpal tunnel surgery completed Haley Marcos LPN [facility] 04/24/2019 09:07:21 9 release of trigger thumb completed Haley Marcos LPN [facility] 04/24/2019 09:07:39 Imaging Results None recorded. Procedure Notes None recorded. Medical Equipment None Reported. Allergies Allergen ID Allergen Name Allergen Category Reaction Reaction Severity Criticality Documentation Date Start Date Code Code System Note Provider Name and Address Organization Details Recorded Time 20161103 Oxycontin medicatio n Not available Not available Not available 09/27/2017 72905 6 RxNorm Prema Matamoros RN BSN [address] [place] [address], [phone], [facility] 7 09:05:36 7548 Medicinal product containin g penicilli n and acting as antibacte rial agent (product) medicatio n rash Not available Not available 01/02/2009 48437 05 SNOMED Not Available [facility] 1 06:05:20 Medications Name Sig Start Date Stop Date Status Note LastModified by Organization Details LastModified Time Prescript ion - Prior Authoriza tion Request 01/28 completed Not Available Not Available Not Available Singulair 10 mg tablet active Take 1 tab. q.d. Not Available Not Available Not Available losartan 50 mg tablet TAKE 1 TABLET BY MOUTH EVERY DAY 04/25 completed taking 100mg daily PT states PCP filling 02/09/24 Not Available Not Available Not Available silver sulfadiaz ine 1 % topical cream APPLY A 1/16 INCH (1.5 MM) THICK LAYER TO ENTIRE BURN AREA BY TOPICALR OUTE 2 TIMES PER DAY 02/24 completed Not Available Not Available Not Available trazodone 50 mg tablet Take 2 tablets every day by oral route as directed for 30 days. 2020 active Taking it for sleep. Not Available Not Available Not Available atorvasta tin 10 mg tablet Take 1 tablet every day by oral route for 30 days. 04/24 completed Not Available Not Available Not Available oxybutyni n chloride ER 10 mg tablet,ex tended release 24 hr Take 1 tablet every day by oral route. 04/25 completed Not Available Not Available Not Available Levoxyl 200 mcg tablet Take 1 tablet every day by oral route for 30 days. 2014 active Not Available Not Available Not Avai lable Claritin 10 mg tablet active Take 1 tab. q.d. Not Available Not Available Not Available simvastat in 10 mg tablet Take 1 tablet every day by oral route. active Not Available Not Available No t Available Levoxyl 175 mcg tablet TAKE ONE TABLET BY MOUTH EVERY DAY 04/24 completed Not Available Not Available Not Available Zyrtec 10 mg tablet active taking claritin Not Available Not Available Not Available amlodipin e 5 mg tablet Take 1 tablet every day by oral route. 04/25 completed Not Available Not Available Not Available citalopra m 20 mg tablet Take 1.5 tablet(s ) every day by oral route. 04/24 completed Not Available Not Available Not Available metformin 1,000 mg tablet TAKE ONE TABLET BY MOUTH TWICE A DAY 04/25 completed [place] 02/23/20 23 [place] 09/16/20 23 LABS 12/02/19 23 Not Available Not Available Not Available ropinirol e 0.5 mg tablet Take 1 tablet 3 times a day by oral route. active Not Available Not Available No t Available levothyro xine 150 mcg tablet TAKE ONE TABLET BY MOUTH EVERY DAY DIRECTED 06/20 completed Not Available Not Available Not Available losartan 25 mg tablet Take 1 tablet every day by oral route. 06/02 completed Not Available Not Available Not Available gabapenti n 300 mg capsule Take 1 capsule twice a day by oral route as directed for 30 days. 04/25 completed Not Available Not Available Not Available lorazepam 1 mg tablet Take 1 tablet twice a day by oral route as needed. 01/28 completed PCP Not Available Not Available Not Available tamoxifen 20 mg tablet Take 1 tablet every day by oral route. 05/14 completed Not Available Not Available Not Available levothyro xine 112 mcg tablet TAKE ONE TABLET(S ) EVERY DAY BY MOUTH 2023 active Not Available Not Available Not Avai lable Levoxyl 137 mcg tablet TAKE 1 TABLET BY MOUTH EVERY DAY 12/30 completed [place]: 11-16-19 LV: 04-24-19 Labs: 04-27-19 Not Available Not Available Not Available escitalop eben 20 mg tablet Take 1 tablet every day by oral route. active Not Available Not Available No t Available calcium 1 tabs PO daily, unsure of dose 01/28 completed Not Available Not Available Not Available sucralfat e 10 ml twice daily active Not Available Not Available No t Available Claritin active as needed Not Available Not Available Not Available Celexa active prescirb ed by PCP pt does not recall dose. Not Available Not Available Not Available Necon 0.5/35 (28) active Take 1 tab. q.d. Not Available Not Available Not Available multivita min 1 tab Po daily active Not Available Not Available No t Available Cymbalta active Not Available Not Avai lable Not Available Vitamin D3 50 mcg (2,000 unit) tablet 03/17 completed Take 1 tab. q.d., hasn't taken in over a year, 09/27/17 Not Available Not Available Not Available Victoza 3-Reece 0.6 mg/0.1 mL (18 mg/3 mL) subcutane ous pen injector Inject 1.8 mg every day by subcutan eous route for 30 days. 04/24 completed Not Available Not Available Not Available Levemir FlexTouch U-100 Insulin 100 unit/mL (3 mL) subcutane ous pen Inject 8 units every day by subcutan eous route in the evening. 02/24 completed Not Available Not Available Not Available Trulicity 0.75 mg/0.5 mL subcutane ous pen injector Inject 0.5 mL every week by subcutan eous route. 04/24 completed Not Available Not Available Not Available Ozempic 0.25 mg or 0.5 mg (2 mg/1.5 mL) subcutane ous pen injector lNJECT 0.5MRII GRAMS SUBCUTAN EOUSLY ONCE WEEKLY needs apt prior to future refills 06/02 completed PT has not been taking for the past two months 05/14/22 Not Available Not Available Not Available Ozempic 1 mg/dose (4 mg/3 mL) subcutane ous pen injector 07/15 completed pa approved thru 05/11/26-n ot using this 07/15/23 Not Available Not Available Not Available Mounjaro 7.5 mg/0.5 mL subcutane ous pen injector 04/22 completed taking once weekly * 3 portal msg=d/c d/t national shortage , switched to ozempic Not Available Not Available Not Available Mounjaro 5 mg/0.5 mL subcutane ous pen injector 07/29 completed Not Available Not Available Not Available Mounjaro 10 mg/0.5 mL subcutane ous pen injector Inject 10 mg every week by subcutan eous route for 90 days. 09/16 completed Not Available Not Available Not Available Mounjaro 12.5 mg/0.5 mL subcutane ous pen injector 04/25 completed Not Available Not Available Not Available Vitals Date Recorded Body weight Systolic blood pressure Diastolic blood pressure Provider Name and Address Organization Details Last Updated DateTime 06/23/2022 014149.84 g 132 mm[Hg] 86 mm[Hg] Idania Cole RN [facility] 06/23/2022 11:05:46 Date Recorded Body weight Body mass index (BMI) Body height Heart rate Systolic blood pressure Diastolic blood pressure Provider Name and Address Organization Details Last Updated DateTime 3 148069. 94 g 40 kg/m2 158.75 cm 81 /min 146 mm[Hg] 81 mm[Hg] Xochitl Sparrow LPN [facility] 3 13:31:55 Date Recorded Body height Body mass index (BMI) Body weight Provider Name and Address Organization Details Last Updated DateTime 07/29/2023 158.75 cm 38.5 kg/m2 19386.77 g Idania Cole RN [facility] 07/29/2023 08:39:56 Date Recorded Body height Body mass index (BMI) Body weight Heart rate Systolic blood pressure Diastolic blood pressure Provider Name and Address Organization Details Last Updated DateTime 3 158.75 cm 39.5 kg/m2 45920.8 8 g 72 /min 136 mm[Hg] 82 mm[Hg] Idania Cole RN [facility] 3 09:52:37 Date Recorded Body height Body mass index (BMI) Body weight Heart rate Systolic blood pressure Diastolic blood pressure Provider Name and Address Organization Details Last Updated DateTime 4 158.75 cm 27.8 kg/m2 03253.6 6 g 63 /min 112 mm[Hg] 70 mm[Hg] Xochitl Sparrow LPN [facility] 4 16:54:45 Social History Question Answer Notes LastModified by Organizat ion Details LastModified Time Tobacco Smoking Status Never Smoker Not Available [facility] 08/19/2011 04:53:49 Do You Have An Advance Directive? No [email or web address] Information not available 08/19/2011 What Is Your Level Of Alcohol Consumption? None Information not available 04/25/2024 What Is Your Level Of Caffeine Consumption? Heavy 3 Cups Of Coffee Daily, 4 Cups Tea Daily Information not available 01/02/2009 How Much Tobacco Do You Chew? None [email or web address] Information not available 08/19/2011 What Type Of Diet Are You Following? REGULAR [email or web address] Information not available 08/19/2011 Which Illicit Or Recreational Drugs Have You Used? 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 No [email or web address] Information not available 08/19/2011 Live Alone Or With Others? With Others [email or web address] Information not available 08/19/2011 DM Disease Process Pre-grasps Stringer Points Information not available 05/10/2018 Nutrition Pre-needs Review Information not available 05/10/2018 Physical Activity Pre-needs Review Information not available 05/10/2018 Medications Pre-needs Review Information not available 05/10/2018 Monitoring Not Assessed Pt. Forgot Meter. Information not available 05/10/2018 Acute Complications Pre-needs Review Information not available 05/10/2018 Chronic Complications Pre-needs Review Information not available 05/10/2018 Coping Pre-needs Review Information not available 05/10/2018 Behavior Change Pre-needs Review Information not available 05/10/2018 DSME Plan Goal Monitoring: Bring Meter In The Future For Appointments. Information not available 05/10/2018 DSME Plan Goal Success Initiated Information not available 05/10/2018 DSME Plan Goal Evaluation: 05/10/2018 Information not available 05/10/2018 DSME Plan Initiated: 05/10/2018 DSME Dates Seen: 05/10/18, Information not available 05/10/2018 DSME Plan Status In Progress - Information not available 05/10/2018 Diabetes Ed Classes Discussed Decined Information not available 05/10/2018 Marital Status Information not available 08/19/2011 What Was The Date Of Your Most Recent Tobacco Screening? 04/24/2019 Information not available 04/25/2019 How Many Children Do You Have? 2 [email or web address] Information not available 08/19/2011 Are There Any Occupational Health Risks Where You Work? Bodily Harm From Clients [email or web address] Information not available 08/19/2011 Seat Belts Used Routinely Yes [email or web address] Information not available 08/19/2011 What Types Of Sporting Activities Do You Participate In? None [email or web address] Information not available 08/19/2011 General Stress Level High [email or web address] Information not available 08/19/2011 Do You Use Any Illicit Or Recreational Drugs? No Information not available 05/14/2022 Do You Use Sunscreen Routinely? No [email or web address] Information not available 08/19/2011 Do You Or Have You Ever Used Any Other Forms Of Tobacco Or Nicotine? No Information not available 05/14/2022 Sex: Unknown Functional Status None recorded. Mental Status None recorded. Family History Relationship Description Onset Age of this Age Resolved Age Notes LastModified by Organization Details LastModified Time Mother Diabetes mellitus 52 liver xplant and aneur ysm [email or web address] Not available 02/20/2016 09:10:32 Sister Diverticulit is [email or web address] Not available 2017 08:53:55 Notes:Mother- of aneury sm and complications of liver transplant at age 52, Hep from transfusion when had kidney cancer, diabetes, Matheus's thyroid disease Father- age 59 of lung cancer, prostate cancer 1 brother and 1 sister-sister =asthma, matheus's thyroid disease, brother=thyroid disease but does not know kind 12/13- no changes. doesn't know much about brother's health. 07/2014: no changes 01/2015- Sister coming in next week. Has been OK. 18 y.o.son works assistant department manager with . 14 y.o. son is her baby 08/17- Sister doing OK (divorce tough). sons are dong OK. 03/20- No changes. Sister remarried. January diverticulitis. Sons are OK. 04/20- No changes. 01/21: No change- not much interaction with sister right now. 05/24: Family OK. Youngest son Reserves. Oldest nearby lives [place] farm. No grands. Medical History Condition Response Diabetes Type II Y Thyroid Disease Y Gynecological HistoryNo gynecological history recorded. Obstetrics History GPAL:G 0 P 0 0 0 0 Immunizations Vaccine Type Date Status Note Provider Nam e and Address Organization Details Recorded Time Influenza, split virus, trivalent, preservative 1 completed Not Available [facility] 10/20/2019 02:18:14 Influenza, split virus, trivalent, PF 3 completed Not Available [facility] 10/20/2019 02:18:32 Influenza, split virus, trivalent, PF 4 completed Not Available [facility] 10/20/2019 02:25:04 Influenza, split virus, quadrivalent, PF 5 completed Not Available [facility] 10/20/2019 02:20:12 Influenza, split virus, quadrivalent, PF 7 completed Not Available [facility] 10/20/2019 02:22:29 COVID-19, mRNA, LNP-S, PF, 100 mcg/0.5mL dose or 50 mcg/0.25mL dose 1 completed ANAMARIA Mckee, [facility] 05/14/2022 10:57:17 COVID-19, mRNA, LNP-S, PF, 100 mcg/0.5mL dose or 50 mcg/0.25mL dose 1 completed Xochitl Sparrow LPN chandana [facility] 05/14/2022 10:57:27 Past Encounters Encounter ID Performer Location Encounter Start Date Encounter Closed Date Diagnosis/Indication Diagnosis SNOMED-CT Code Diagnosis ICD10 Code [id number] [address] [address] 09/15/2004 07:17:13 09/15/2004 11:47:[id number] [address] 09/30/2004 13:24:11 09/30/2004 17:11:[id number] [address] 1 11/30/2004 07:06:18 11/30/2004 09:21:[id number] [address] 04/13/2006 13:26:41 04/14/2006 08:35:[id number] [address] 04/13/2006 14:37:30 04/13/2006 14:37:[id number] [place] [address] 06/07/2007 13:06:06 10/23/2008 02:02:[id number] [address] 06/30/2007 08:55:27 06/30/2007 08:55:35 [id number] [facility], OFFICE [address] [place] [address] 07/03/2007 08:31:33 10/23/2008 02:02:29 [id number] [facility], OFFICE [address] [place] [address] 07/04/2007 08:28:14 10/23/2008 02:02:29 [id number] Endocrino logy, [facility] [place] [address] 07/14/2007 11:40:39 07/14/2007 12:47:17 [id number] LAB - [address] [place] [address] 10/06/2007 14:01:26 10/06/2007 14:01:33 [id number] Endocrino logy, [facility] [place] [place] [address] 05/15/2008 13:05:24 10/23/2008 02:02:29 [id number] LAB - [facility] [place] [place] [address] 05/15/2008 14:28:35 05/15/2008 14:28:49 [id number] LAB - [facility] [place] [address] 10/17/2008 14:03:39 10/17/2008 14:03:45 [id number] Endocrino logy, [facility] [place] [address] 01/02/2009 09:41:53 02/07/2009 09:15:04 [id number] Carolyn Will LPN Endocrino logy, [facility] [place] [place] [address] 02/12/2010 09:27:06 02/18/2010 09:09:10 [id number] Carolyn Will LPN Endocrino logy, [facility] [place] [place] [address] 07/23/2011 10:25:14 07/23/2011 11:13:06 [id number] Carolyn Will LPN Endocrino logy, [facility] [place] [address] 12/20/2012 17:13:58 01/01/2013 09:42:30 [id number] Carolyn Will LPN Endocrino logy, [facility] [place] [address] 07/25/2014 10:05:38 07/25/2014 11:25:42 Postoperative hypothyroidism 67344173 Influenza vaccine needed 5724271277 106 Primary ma lignant neoplasm of thyroid gland 79190419 [id number] Endocrino logy, [address] [address] 02/21/2015 09:46:40 02/21/2015 10:39:44 Primary malignant neoplasm of thyroid gland 21725195 Postoperat ravi hypothyroidism 81369843 Renal diso rder due to type 2 diabetes mellitus 529731381 [id number] Aj Felipe MD [facility], [address] [address] 08/22/2015 09:47:50 08/22/2015 10:40:03 Active or passive immunization 968698274 Z23 Primary ma lignant neoplasm of thyroid gland 24949899 C73 Postoperat ravi hypothyroidism 76178265 E89.0 Renal diso rder due to type 2 diabetes mellitus 273342025 E11.29 [id number] Aj Felipe MD [facility], [address] [address] 02/20/2016 08:13:06 02/20/2016 09:45:25 Primary malignant neoplasm of thyroid gland 80355120 C73 Postoperat ravi hypothyroidism 51137302 E89.0 Renal diso rder due to type 2 diabetes mellitus 110833576 E11.29 Hyperlipidemia 29456866 E78.5 Numbness o f lower limb 594629169 R20.0 [id number] Aj Felipe MD [facility], [address] [address] 02/24/2017 14:27:14 02/24/2017 15:43:14 Postoperative hypothyroidism 72014993 E89.0 Primary ma lignant neoplasm of thyroid gland 60067803 C73 Renal diso rder due to type 2 diabetes mellitus 186401026 E11.29 Hyperlipidemia 05156497 E78.5 [id number] Aj Felipe MD Endocr[facility], [address] [address] 09/27/2017 08:58:19 09/27/2017 10:11:03 Postoperative hypothyroidism 89507994 E89.0 Renal diso rder due to type 2 diabetes mellitus 194719634 E11.29 Primary ma lignant neoplasm of thyroid gland 45803556 C73 Hyperlipidemia 26847945 E78.5 Fatigue 02648002 R53.83 Steatosis of liver 1007 K76.0 Active or passive immunization 071271301 Z23 [id number] Aj Felipe MD [facility], [address] [address] 03/17/2018 08:36:28 03/17/2018 09:43:01 Postoperative hypothyroidism 21542137 E89.0 Renal diso rder due to type 2 diabetes mellitus 826610708 E11.29 Primary ma lignant neoplasm of thyroid gland 95835058 C73 Hyperlipidemia 35938418 E78.5 Steatosis of liver 1007 K76.0 [id number] Iram Mohan RN, BSN, [facility] DM Education , [address] [address] 05/10/2018 07:44:45 05/15/2018 11:33:54 Uncontrolled type 2 diabetes mellitus 121959476 E11.65 [id number] Aj Felipe MD [facility]ocr[facility] logy, [address] [address] 04/24/2019 08:35:40 04/24/2019 09:55:57 Postoperative hypothyroidism 77750649 E89.0 Primary ma lignant neoplasm of thyroid gland 43741560 C73 Renal diso rder due to type 2 diabetes mellitus 649020805 E11.29 Hyperlipidemia 31299926 E78.5 Steatosis of liver 1007 K76.0 [id number] Aj Felipe MD Endocr[facility] log[facility], [address] [address] 01/28/2021 14:27:25 01/28/2021 19:22:16 Postoperative hypothyroidism 09143351 E89.0 Primary ma lignant neoplasm of thyroid gland 94529219 C73 Renal diso rder due to type 2 diabetes mellitus 114935433 E11.29 Hyperlipidemia 43007957 E78.5 Steatosis of liver 1007 K76.0 [id number] Iram Mohan RN, BSN, [facility] Education , [address] [address] 06/17/2021 14:34:53 06/22/2021 09:18:12 Uncontrolled type 2 diabetes mellitus 313048020 E11.65 [id number] Aj Felipe MD Endocrino logy, [address] [address] 05/14/2022 10:41:18 05/19/2022 14:27:17 Renal disorder due to type 2 diabetes mellitus 724087255 E11.29 Postoperat ravi hypothyroidism 91889665 E89.0 Primary ma lignant neoplasm of thyroid gland 12004230 C73 Steatosis of liver 1007 K76.0 Hyperlipidemia 73211025 E78.5 [id number] Idania Cole RN Endocrino logy, [address] [address] 06/23/2022 10:47:49 06/23/2022 11:27:07 Uncontrolled type 2 diabetes mellitus 208570062 E11.65 [id number] Aj Felipe MD Endocrino logy, [address] [address] 02/22/2023 13:15:52 02/23/2023 16:19:30 Renal disorder due to type 2 diabetes mellitus 518885473 E11.29 Postoperat ravi hypothyroidism 24858929 E89.0 Primary ma lignant neoplasm of thyroid gland 76688178 C73 Steatosis of liver 1007 K76.0 Hyperlipidemia 83219231 E78.5 [id number] Aj Felipe MD Endocrino logy, [address] [address] 1 07/29/2023 08:35:07 07/29/2023 10:10:36 Renal disorder due to type 2 diabetes mellitus 354143255 E11.29 Postoperat ravi hypothyroidism 90453011 E89.0 Primary ma lignant neoplasm of thyroid gland 20858676 C73 Steatosis of liver 1007 K76.0 Hyperlipidemia 90630743 E78.5 [id number] Aj Felipe MD Endocr[facility] logy, [address] [address] 09/16/2023 09:43:47 10/19/2023 12:46:59 Renal disorder due to type 2 diabetes mellitus 122880299 E11.29 Postoperat ravi hypothyroidism 69891222 E89.0 Primary ma lignant neoplasm of thyroid gland 93780392 C73 Steatosis of liver 1007 K76.0 Hyperlipidemia 01265964 E78.5 [id number] Aj Felipe MD Endocrino logy, [address] [address] 04/25/2024 16:17:11 04/26/2024 09:45:14 Renal disorder due to type 2 diabetes mellitus 918592834 E11.29 Postoperat ravi hypothyroidism 90181735 E89.0 Primary ma lignant neoplasm of thyroid gland 86491059 C73 Steatosis of liver 1007 K76.0 Hyperlipidemia 74793300 E78.5 Health Concerns Section Related Observation LastModified by Organization Detai ls LastModified Time None Recorded Concern Status LastModified by Organization Details LastModified Time None Recorded Advance Directives Directive N: Payers Encounter Date Sequence Insurance Name Policy Number Policy Shelby Covered Member ID Shelby Member ID Guarantor Name 06/23/2022 1 [facility] [id number] 01 Ruth L L Stanislav [id number] Ruth L Stanislav 02/22/2023 1 [facility] [id number] 01 Ruth L L Stanislav [id number] Ruth L Stanislav 07/29/2023 1 [facility] [id number] 01 Ruth L L Stanislav [id number] Ruth L Stanislav 09/16/2023 1 [facility] [id number] 01 Ruth L L Stanislav [id number] Ruth L Stanislav 04/25/2024 1 [facility] [id number] 01 Ruth L L Stanislav [id number] Ruth L Stanislav Notes Date Note Type Note Provider Name and Address Organization Details Recorded Time 02/22/2023 text/html DiabetesReported bypatient.Labs:last Hemoglobin A1C: (6.0 (12/23); was 10.6 (05/24) was 7.3 (06/23); was 8.5 (01/21); was 11.9 (10/23); was 7.2 (09/20); was 7.1 (04/20); was 6.7 (01/19); was 6.5; was 7.2 (03/20); was 6.1 (09/18- as 6.1 (02/16); was 5.7 (10/19);); microalbumin/creatinine ratio: normal (41.5 (12/23): was 106 (05/24) was 29.5 (10/23); was 12.7 (09/20); was 28.4 (10/21);); serum creatinine: 2022 normal; LDL at goal (44 (12/23); was 49 (10/23);); Triglycerides (198 (12/23); was 285 (10/23); was 173;); HDL at goal (54 (12/23); was 43 (10/23); was 53 (10/21);) Diabetes Medications:metformin; detemir (OFF: 8 units (was higher).); Mounjaro 7.5 (02/22); occ nausea. tolerable . Ozempic - Ran out 2 months ago. Trulicity not covered. Off Victoza 1.8. Renal/HTN Medications:losartan (50) Lipid Medications:simvastatin (10 mg) Review blood sugar:Doesn't check. Associated Symptoms:no polyuria (every couple hours.);nocturia: 2x times per night; no burning or discomfort with urination;foul odor or discharge(per lab. Rx waiting.);polydypsia; no blurred vision; no weight gain;weight loss (10 lbs)(since fall 2021 (Mounjaro));barriers to self management(multiple jobs.); Still has 1 dog (crook) but doesn't go for walks- had to put [place] down). Weight is 222 (02/22); was 235. Cardiac / Eye / Podiatric / Renal / Vascular Symptomsno coronary artery disease; no retinopathy ([address] (2021)); no numbness of feet; no kidney disease Hypoglycemia Symptomsfrequency of hypoglycemic episodesinfrequently; No lows. In past, feels nervous when BG around 70 (only on metformin). Dogs noticed once (BG was 65)Notes:TSH 0.93-cancer AST/ALT ongoing elevation. ast/alt= 50/52 (12/23) was 94/75 (05/24); was 60/45 (06/23); was 53/46 (10/23); was 44/31 (04/21); 77/79 (04/20); as 70/54 (01/19) Son (Yogesh) has helped her (in [employer] and [employer] ). Not buying snacks. Small meals with protein. Bringing meals to work more. yogurt with berries. Has juicer now. Drinks a lot of water (also lot of coffee). Coffee always has cream and sugar. CMP gluc 155, AST 60, ALT 45 Alk phos 176 A1c 7.3 TSH 0.93-cancerThyroidRepor maxwell bypatient.Previous Evaluation:TSH: (0.24 (12/23) was 2.46 (05/24) was 0.93 (06/23); was 1.25 (10/23); 12.89 (11/22); was 1.02 (04/20); was 1.33 (01/19); was 0.07; was 20.01 (03/20); was 7.06); free T4: (1.33 (12/23) was 1.21 (05/24) was 1.70 (10/23); was ss0.96 (09/20); was 1.59 (04/20); was 1.31 (01/19); was 1.5 (03/20); was 1.14 (09/18);); thyroglobulin: (<0.1 (12/23 and 04/20 and 03/20 and 02/14)- was 0.08 (06/16)- was <0.05 in 10/15 when TSH was over 35. - was <0.2 07/21/11); total body scan thyrogen: (07/09 at [facility]); Pt hx of thyroid cancer (2002), goal is to suppress TSH to low normal. Treatment:levoxyl, dose: 150 mcg (x 05/09 (05/24); was daily ( 01/21); Was 137 x 7.5 pills per week. Was on 150 Levoxyl. Takes away from calcium); Reports taking daily in AM. Waits 30 minutes between pill and coffee (milk)/bkfst. Monitoring and goals:Taking MVI away from T4 (but today was with thyroid). Takes Mg in evening. Takes vit D (1000). Constitutional:no cold intolerance; no heat intolerance Eyes:opthamologist: (Alfred.); No blurry vision. Neck:no difficulty swallowing; no masses Heart:no rapid heart rate; no palpitations; no chest pain; no tightness or pressure GI:no constipation; no diarrhea :No periods since Aug 2013- had ablation procedure. Having lots of hot flashes. Neurological:no tremor; no anxiety; no insomnia (Better with trazodone (ongoing). Restless legs bad- on requip. Better than in past- switched room (different than ). Too used to sleeping by herself. snores too.)Notes: PREVIOUS TSH: 0.05 (07/2015)_ was <0.01 (taking regularly now; was over 50 (10/17); was 3.95 (12/13) but had been as high as 37.12 (in 10/15) 4.23 (prev 0.03) PREVIOUS FT4= 1.54 (ULN in 07/17)- was 2.02 in 02/14- (was 1.63)- - was 1.13 in 10/15. 1.28 ( prev 1.30) PCP: Madisyn Osorio (venecia Varela).ONC: [facility]. OFF tamoxifen (graduated).[facility] put on gabapentinDx of breast CA in 2016: s/p lumpectomy and now on tamoxifen Follow-Up: postoperative hypothyroidismFollow-Up : primary malignant neoplasm of thyroid glandFollow-Up: renal disorder due to type 2 diabetes mellitusRenal disorder due to type 2 diabetes mellitusprimary malignant neoplasm of thyroid glandLV on 05/24Last labs 12/23 [id number] cuedPT had Liver US on 1Checks blood sugars occasionally when not feeling well last reading was FBS 128Pt saw a power marketer states might have cirrosis of the liver PT had colonoscopy and endoscopy last week. PAST MEDICAL Hx (updated): Had u/s around december 2022 by GI for LFTs ([address] Start of cirrhosis.On mounjaro since 06/24. 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 FAMILY Hx (updated): No changes. Youngest son Reserves. Oldest nearby lives [place] farm. No grands. weight= 222 (02/22); doesn't check at home. ROS:Migraines come/go- not as bad as in past.COVID in 03/24. Not too bad. Hx asthma but no recent problems. allergy flare over summer.Hx of MRSA infection after breast CA surgery- went to ER and put drain in. Mild nausea. No vomiting or abdominal pain.No muscle cramping; Usual aches/pains.Arthritis in hands (mostly right). Right knee bothers her too.Charley horse lately (calves)- getting out of pool Has restless legs- on given low dose of ropinirole - helps some.No dizziness with standing. Aj Felipe MD [address] [place] [address], [phone], [facility]/23/[place]23 19:34:58 07/29/2023 text/html DiabetesReported bypatient.Labs:last Hemoglobin A1C: (5.7 (06/25) was 6.0 (12/23); was 10.6 (05/24) was 7.3 (06/23); was 8.5 (01/21); was 11.9 (10/23); was 7.2 (09/20); was 7.1 (04/20); was 6.7 (01/19); was 6.5; was 7.2 (03/20); was 6.1 (09/18- as 6.1 (02/16); was 5.7 (10/19);); microalbumin/creatinine ratio: normal (<12 (06/25); was 41.5 (12/23): was 106 (05/24) was 29.5 (10/23); was 12.7 (09/20); was 28.4 (10/21);); serum creatinine: 2022 normal; LDL at goal (44 (12/23); was 49 (10/23);); Triglycerides (198 (12/23); was 285 (10/23); was 173;); HDL at goal (54 (12/23); was 43 (10/23); was 53 (10/21);); LFTs- see below Diabetes Medications:metformin; detemir (OFF: 8 units (was higher).); Mounjaro 10 (07/25; was 7.); occ nausea. tolerable . Occ stomach ache. No constipation. Ozempic - Ran out 2 months ago. Trulicity not covered. Off Victoza 1.8. Renal/HTN Medications:losartan (50 BID (07/25)) Lipid Medications:simvastatin (10 mg) Review blood sugar:Doesn't check. Associated Symptoms:no polyuria (every couple hours.); no nocturia (1-2x;); no burning or discomfort with urination; no foul odor or discharge; no polydypsia; no blurred vision; no weight gain;weight loss ( lbs)(since fall 2021 ());barriers to self management(multiple jobs.); Still has 1 dog (crook) but doesn't go for walks- had to put Alice down). Weight is 214 (07/25); was 222 (02/22); was 235. Cardiac / Eye / Podiatric / Renal / Vascular Symptomsno coronary artery disease; no retinopathy ([address] (2021).); no numbness of feet; no kidney disease; due (07/25) Hypoglycemia Symptomsfrequency of hypoglycemic episodesinfrequently; No lows. In past, feels nervous when BG around 70 (only on metformin). Dogs noticed once (BG was 65)Notes:06/25: 126/xxx/51/xx12/23: 146/198/5405/24: 169-247-46 (05/24);01/21: 465-934-89-65 (01/21)07/25: Eating less junk- Mounjaro helping (10mg). TSH 0.93-cancer AST/ALT ongoing elevation.AST/ALT= 55/45 (06/25); Told U/S shows sign of cirrhosis ([facility]). was 50/52 (12/23) was 94/75 (05/24); was 60/45 (06/23); was 53/46 (10/23); was 44/31 (04/21); 77/79 (04/20); as 70/54 (01/19) Son (Yogesh) has helped her (in [employer] ). Not buying snacks. Small meals with protein. Bringing meals to work more. yogurt with berries. Has juicer now. ThyroidReported bypatient.Previous Evaluation:TSH: (0.02 (06/25) was 0.24 (12/23) was 2.46 (05/24) was 0.93 (06/23); was 1.25 (10/23); 12.89 (11/22); was 1.02 (04/20); was 1.33 (01/19); was 0.07; was 20.01 (03/20); was 7.06); free T4: (1.88 (06/25) was 1.33 (12/23) was 1.21 (05/24) was 1.70 (10/23); was ss0.96 (09/20); was 1.59 (04/20); was 1.31 (01/19); was 1.5 (03/20); was 1.14 (09/18);); thyroglobulin: (<0.1 (06/25 and 12/23 and 04/20 and 03/20 and 02/14)- was 0.08 (06/16)- was <0.05 in 10/15 when TSH was over 35. - was <0.2 07/21/11); total body scan thyrogen: (07/09 at [facility]); Pt hx of thyroid cancer (2002), goal is to suppress TSH to low normal. Treatment:generic, dose: 150 mcg (daily (07/25); was x 8/7 (05/24); was daily ( 01/21); Was 137 x 7.5 pills per week. Was on 150 Levoxyl. Takes away from calcium); Reports taking daily in AM. Waits 30 minutes between pill and coffee (milk)/bkfst. Monitoring and goals:Taking MVI away from T4 (but today was with thyroid). Takes Mg in evening. Takes vit D (1000). Constitutional:no cold intolerance; no heat intolerance Eyes:opthamologist: () Neck:no difficulty swallowing; no masses Heart:no rapid heart rate; no palpitations; no chest pain; no tightness or pressure GI:no constipation; no diarrhea :No periods since Aug 2013- had ablation procedure. Having lots of hot flashes. Neurological:no tremor; no anxiety; no insomnia (Better with trazodone (ongoing).); Restless horrible - on requip. Had been better- worse (07/25) switched room (different than ). Too used to sleeping by herself. snores too.Notes: PREVIOUS TSH: 0.05 (07/2015)_ was <0.01 (taking regularly now; was over 50 (10/17); was 3.95 (12/13) but had been as high as 37.12 (in 10/15) 4.23 (prev 0.03) PREVIOUS FT4= 1.54 (ULN in 07/17)- was 2.02 in 02/14- (was 1.63)- - was 1.13 in 10/15. 1.28 ( prev 1.30) PCP: Kemal ([facility]).ONC: [facility]. OFF tamoxifen (graduated).RHEUM: [facility]. put on gabapentinDx of breast CA in 2016: s/p lumpectomy and now on tamoxifen Follow-Up: postoperative hypothyroidismFollow-Up : primary malignant neoplasm of thyroid glandFollow-Up: renal disorder due to type 2 diabetes mellitusRenal disorder due to type 2 diabetes mellitusprimary malignant neoplasm of thyroid glandLV on 05/24Last labs 12/23 [id number] cuedPT had Liver US on 1Checks blood sugars occasionally when not feeling well last reading was FBS 128Pt saw a power marketer states might have cirrosis of the liver PT had colonoscopy and endoscopy last week. PAST MEDICAL Hx (updated): Had u/s around december 2022 by GI for LFTs ([address]). Start of cirrhosis.On mounjaro since 06/24.07/25: BP up. Started on amlodipine. has machine at home- no major change. 5mg. 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 not much time for walking FAMILY Hx (updated): No changes. Youngest son Reserves. Oldest nearby lives on farm. No grands.07/25: all good. weight= 222 (02/22); doesn't check at home. 07/25: wants to increase Mounjaro. Distressed about saddle bag .sex life is zero. very self conscious about looks (role in [employer]- more visible than in past).Talked about option of surgeon - might not be covered. GI agreed ([address] ROS:Migraines come/go- not as bad as in past.COVID in 03/24. Not too bad. Hx asthma but no recent problems. allergy flare over summer.Hx of MRSA infection after breast CA surgery- went to ER and put drain in. Mild nausea. No vomiting or abdominal pain.No muscle cramping; Usual aches/pains from restless legs.Charley horse less lately (calves)Arthritis in hands (mostly right). Right knee bothers her too.No dizziness with standing. Aj Felipe MD [address] [place] [address], [phone], [facility] 07/29/2023 09:18:19 09/16/2023 text/html DiabetesReported bypatient.Labs:last Hemoglobin A1C: (5.7 (06/25) was 6.0 (12/23); was 10.6 (05/24) was 7.3 (06/23); was 8.5 (01/21); was 11.9 (10/23); was 7.2 (09/20); was 7.1 (04/20); was 6.7 (01/19); was 6.5; was 7.2 (03/20); was 6.1 (09/18- as 6.1 (02/16); was 5.7 (10/19);); microalbumin/creatinine ratio: normal (<12 (06/25); was 41.5 (12/23): was 106 (05/24) was 29.5 (10/23); was 12.7 (09/20); was 28.4 (10/21);); serum creatinine: 2022 normal; LDL at goal (44 (12/23); was 49 (10/23);); Triglycerides (198 (3/23); was 285 (10/23); was 173;); HDL at goal (54 (12/23); was 43 (10/23); was 53 (10/21);); LFTs- see below Diabetes Medications:metformin; detemir (OFF: 8 units (was higher).); Mounjaro 12.5 (09/24); occ nausea. tolerable . Occ stomach ache. No constipation. Ozempic - Ran out 2 months ago. Trulicity not covered. Off Victoza 1.8. Renal/HTN Medications:losartan (100 qd (09/24) 50 BID (07/25)) Lipid Medications:simvastatin (10 mg) Review blood sugar:Doesn't check. Associated Symptoms:no polyuria (every couple hours.); no nocturia (1-2x;); no burning or discomfort with urination; no foul odor or discharge; no polydypsia; no blurred vision; no weight gain;weight loss ( lbs)(since fall 2021 (Mounaudiero));barriers to self management(multiple jobs.); Still has 1 dog (crook) but doesn't go for walks- had to put Alice down). Weight is 220 (09/24@[facility]); was 214 (07/25); was 222 (02/22); was 235. Cardiac / Eye / Podiatric / Renal / Vascular Symptomsno coronary artery disease; no retinopathy ([facility] (2021)); no numbness of feet; no kidney disease Hypoglycemia Symptomsfrequency of hypoglycemic episodesinfrequently; No lows. In past, feels nervous when BG around 70 (only on metformin). Dogs noticed once (BG was 65)Notes: 06/25: 126/xxx/51/xx12/23: 146/198/54/: 169-247-46 (05/24);01/21: 178-832-15-65 (01/21)07/25: Eating less junk- Krish helping (10mg). TSH 0.93-cancer AST/ALT ongoing elevation.AST/ALT= 55/45 (06/25); Told U/S shows sign of cirrhosis ([facility]). was 50/52 (12/23) was 94/75 (05/24); was 60/45 (06/23); was 53/46 (10/23); was 44/31 (04/21); 77/79 (04/20); as 70/54 (01/19) ThyroidReported bypatient.Previous Evaluation:TSH: (0.02 (06/25) was 0.24 (12/23) was 2.46 (05/24) was 0.93 (06/23); was 1.25 (10/23); 12.89 (11/22); was 1.02 (04/20); was 1.33 (01/19); was 0.07; was 20.01 (03/20); was 7.06); free T4: (1.88 (06/25) was 1.33 (12/23) was 1.21 (05/24) was 1.70 (10/23); was ss0.96 (09/20); was 1.59 (04/20); was 1.31 (01/19); was 1.5 (03/20); was 1.14 (09/18);); thyroglobulin: (<0.1 (06/25 and 12/23 and 04/20 and 03/20 and 02/14)- was 0.08 (06/16)- was <0.05 in 10/15 when TSH was over 35. - was <0.2 07/21/11); total body scan thyrogen: (07/09 at [facility]); Pt hx of thyroid cancer (2002), goal is to suppress TSH to low normal. Treatment:generic, dose: 150 mcg (x6/7 (09/24); was daily (07/25); was x 8/7 (05/24); was daily ( 01/21); Was 137 x 7.5 pills per week. Was on 150 Levoxyl. Takes away from calcium); Reports taking daily in AM. Waits 30 minutes between pill and coffee (milk)/bkfst. Monitoring and goals:Taking MVI away from T4 (but today was with thyroid). Takes Mg in evening. Takes vit D (1000). Constitutional:no cold intolerance; no heat intolerance; less hot flashes off tamoxifen Eyes:opthamologist: () Neck:no difficulty swallowing; no masses Heart:no rapid heart rate; no palpitations; no chest pain; no tightness or pressure GI:no constipation; no diarrhea :No periods since Aug 2013- had ablation procedure. Having lots of hot flashes. Neurological:no tremor; no anxiety; no insomnia (Better with trazodone (ongoing).); Restless legs- horrible - on requip. worse with aging (since 07/25) switched room (different than ). Too used to sleeping by herself. snores too.Notes:some numbness in feet (09/24) PREVIOUS TSH: 0.05 (07/2015)_ was <0.01 (taking regularly now; was over 50 (10/17); was 3.95 (12/13) but had been as high as 37.12 (in 10/15) 4.23 (prev 0.03) PREVIOUS FT4= 1.54 (ULN in 07/17)- was 2.02 in 02/14- (was 1.63)- - was 1.13 in 10/15. 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).ONC: yearly now ([facility]) OFF tamoxifen (graduated).Dx of breast CA in 2016: s/p lumpectomy and now on tamoxifenGI: Keisha for fatty liver. ([address])- Elevated liver elastography stiffness value measuring 11.2 kPa (1.92 m/sec): Suggestive of compensated advanced chronic liver disease but need further test for confirmation. Additional comment: In the setting of elevated liver function tests, vascular congestion, and infiltrative liver diseases, the stage of liver fibrosis may be overestimated RHEUM: [facility]. put on gabapentin PT had Liver US on 1Checks blood sugars occasionally when not feeling well last reading was FBS 128Pt saw a power marketer states might have cirrosis of the liver PT had colonoscopy and endoscopy last week. PAST MEDICAL Hx (updated): Had u/s around december 2022 by GI for LFTs ([address]). Start of cirrhosis.On mounjaro since 06/24.07/25: BP up. Started on amlodipine. has machine at home- no major change. 5mg.09/24: No changes. losaratan increased to 100. 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 Not exercising. up/down stairs 2-3x per day FAMILY Hx (updated): No changes. Youngest son Reserves. Oldest nearby lives on farm ([employer]). No grands.in past, Son (Yogesh) has helped her (in [employer] ). Not buying snacks. Small meals with protein. Bringing meals to work more. yogurt with berries. Has juicer now.09/24: all good. WEIGHT= 219 (09/24); was 222 (02/22); doesn't check at home. masx was 250 (2017)On Call Britanniaro 12.5.Will likely be contacting [facility] surgeons. In past: sex life is zero. very self conscious about looks (role in [employer]- more visible than in past).Talked about option of surgeon - might not be covered. GI agreed ([address] ROS:Migraines come/go- not as bad as in past.COVID in 03/24. Not too bad. Hx asthma but no recent problems. allergy flare over summer.Hx of MRSA infection after breast CA surgery- went to ER and put drain in. No nausea/vomiting or abdominal pain.No muscle cramping; Usual aches/pains from restless legs.Charley horse less lately (calves)Arthritis in hands (mostly right). Right knee bothers her too. No dizziness with standing. Aj Felipe MD [address] [place] [address], [place], [phone], [facility] [place] 10/18/2023 18:17:21 04/25/2024 text/html DiabetesReported bypatient.Labs:last Hemoglobin A1C: (5.2 (02/23); was 5.3 (09/24) was 5.7 (06/25) was 6.0 (12/23); was 10.6 (05/24) was 7.3 (06/23); was 8.5 (01/21); was 11.9 (10/23); was 7.2 (09/20); was 7.1 (04/20); was 6.7 (01/19); was 6.5; was 7.2 (03/20); was 6.1 (09/18- as 6.1 (02/16); was 5.7 (10/19);); microalbumin/creatinine ratio: normal (7.7 (02/23) was 13 (09/24) was <12 (06/25); was 41.5 (12/23): was 106 (05/24) was 29.5 (10/23); was 12.7 (09/20); was 28.4 (10/21);); serum creatinine: 2023 normal; LDL at goal (44 (12/23); was 49 (10/23);); Triglycerides (198 (12/23); was 285 (10/23); was 173;); HDL at goal (54 (12/23); was 43 (10/23); was 53 (10/21);); LFTs- see below Diabetes Medications:OFF METFORMIN and MOUNJARO 12.5 (09/24); occ nausea. tolerable . Occ stomach ache. No constipation. Ozempic - Ran out 2 months ago. Trulicity not covered. Off Victoza 1.8. Renal/HTN Medications:losartan (OFF 100 qd (09/24) 50 BID (07/25)) Lipid Medications:simvastatin (10 mg) Review blood sugar:Doesn't check. Associated Symptoms:no polyuria; no nocturia; no burning or discomfort with urination; no foul odor or discharge; no polydypsia; no blurred vision (has some floaters.); no weight gain;weight loss ( lbs)(since gastric sleeve. had lost on Mounjaro too); Still has 1 dog (crook) but doesn't go for walks- had to put [place] down). WEIGHT: 151 (04/25@home); was 220 (09/24@[facility]); was 214 (07/25); was 222 (02/22); was 235. Cardiac / Eye / Podiatric / Renal / Vascular Symptomsno coronary artery disease; no retinopathy ([facility] (2023)); no numbness of feet; no kidney disease Hypoglycemia Symptomsfrequency of hypoglycemic episodes; No lows.Notes:02/23: 124/100/47/57 still on simva.06/25: 126/xxx/51/xx12/23: 146/198/54/: [phone] (05/24);01/21: [phone] (01/21)07/25: Eating less junk- Mounjaro helping (10mg). TSH 0.93-cancer AST/ALT improved s/p gastric sleeve and weight loss.AST/ALT= 34/44 (02/23); was 55/45 (06/25); Told U/S shows sign of cirrhosis ([place]). was 50/52 (12/23) was 94/75 (05/24); was 60/45 (06/23); was 53/46 (10/23); was 44/31 (04/21); 77/79 (04/20); as 70/54 (01/19) ThyroidReported bypatient.Previous Evaluation:TSH: (0.03 (02/23) was 0.1 (09/24) was 0.02 (06/25) was 0.24 (12/23) was 2.46 (05/24) was 0.93 (06/23); was 1.25 (10/23); 12.89 (11/22); was 1.02 (04/20); was 1.33 (01/19); was 0.07; was 20.01 (03/20); was 7.06); free T4: (1.28 (02/23) was 1.53 (09/24) was 1.88 (06/25) was 1.33 (12/23) was 1.21 (05/24) was 1.70 (10/23); was ss0.96 (09/20); was 1.59 (04/20); was 1.31 (01/19); was 1.5 (03/20); was 1.14 (09/18);); thyroglobulin: (<0.1 (02/23 and 06/25 and 12/23 and 04/20 and 03/20 and 02/14)- was 0.08 (06/16)- was <0.05 in 10/15 when TSH was over 35. - was <0.2 07/21/11); total body scan thyrogen: (07/09 at [facility]); Pt hx of thyroid cancer (2002), goal is to suppress TSH to low normal. Treatment:generic, dose: 150 mcg (x6/7 ( since 09/24); was daily (07/25); was x 8/7 (05/24); was daily ( 01/21); Was 137 x 7.5 pills per week. Was on 150 Levoxyl. Takes away from calcium); Reports taking daily in AM. Waits 30 minutes between pill and coffee (milk)/bkfst. Monitoring and goals:Taking MVI away from T4 (but today was with thyroid). Takes Mg in evening. Takes vit D (1000). Constitutional:no heat intolerance;cold intolerance(colder in a/c.); Less hot flashes off tamoxifen. Eyes:opthamologist: () Neck:no difficulty swallowing; no masses Heart:no rapid heart rate; no palpitations; no chest pain; no tightness or pressure GI:no constipation; no diarrhea :No periods since Aug 2013- had ablation procedure. Having lots of hot flashes. Neurological:no tremor; no anxiety; no insomnia (Better with trazodone (ongoing). Not snoring (per ).); Not nervous jittery. Restless legs- horrible - on requip. Worse with aging (since 07/25)Notes: PREVIOUS TSH: 0.05 (07/2015)_ was <0.01 (taking regularly now; was over 50 (10/17); was 3.95 (12/13) but had been as high as 37.12 (in 10/15) 4.23 (prev 0.03) PREVIOUS FT4= 1.54 ([facility] in 07/17)- was 2.02 in 02/14- (was 1.63)- - was 1.13 in 10/15. 1.28 ( prev 1.30) PCP: Kemal ([facility] [place]).ONC: Yearly now (SPFLD) OFF tamoxifen (graduated).Dx of breast CA in 2016: s/p lumpectomy and now on tamoxifen- mammo 2023; told OK. GI: Keisha for fatty liver. ([address]) not in a while.- Elevated liver elastography stiffness value measuring 11.2 kPa (1.92 m/sec): Suggestive of compensated advanced chronic liver disease but need further test for confirmation. Additional comment: In the setting of elevated liver function tests, vascular congestion, and infiltrative liver diseases, the stage of liver fibrosis may be overestimated Bariatric Surgeon: Anuja RHEUM: [facility]. Was on gabapentin PT had Liver US on 1PT does not Check blood sugarsLab cuedPT had gastric sleeve surgery Feb 28 2024 PT states has lost 60 pounds PT had Liver US on 1Checks blood sugars occasionally when not feeling well last reading was FBS 128Pt saw a power marketer states might have cirrosis of the liver PT had colonoscopy and endoscopy last week. PAST MEDICAL Hx (updated): Had u/s around december 2022 by GI for LFTs ([address]). Start of cirrhosis.On mounjaro since 06/24.07/25: BP up. Started on amlodipine. has machine at home- no major change. 5mg.09/24: No changes. losaratan increased to 100.04/25: PT had gastric sleeve surgery Feb 28 2024 PT states has lost 60 poundsAble to get off BP meds. No metformin. No mounjaro. off gabapentin, oxybutynin. 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 Not exercising. 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 Treadmill daily: 45-60 min. 3-3.5 mph. FAMILY Hx (updated): No changes. Youngest son Reserves. Oldest nearby lives on farm ([employer]). No grands.in past, Son (Yogesh) has helped her (in [employer] and [employer] ). Not buying snacks. Small meals with protein. Bringing meals to work more. yogurt with berries. Has juicer now.09/24: all good.04/25: all good. says she's not snoring. WEIGHT (home): 151 (04/25); was 219 (09/24); was 222 (02/22); doesn't check at home. masx was 250 (2017) As in past: sex life is zero. Not interested. not interested (apparently) ROS:Migraines - better (04/25);COVID in 03/24. Not too bad. Hx asthma but no recent problems. Occ allergy flare over summer.Hx of MRSA infection after breast CA surgery- went to ER and put drain in. No nausea/vomiting or abdominal pain.No muscle cramping; Usual aches/pains from restless legs.No Charley horse lately (calves)No gabapentin for arthritis in hands (mostly right). Right knee bothers her too.No dizziness with standing. Aj Felipe MD [address] [place] [address], [phone], [facility] 04/25/2024 18:28:30 OBGyn Episode No OBEpisode recorded.
--- NOTE | 2024-09-27 14:37 | MHC.OFFVISWM ---
VS Expanded 09/27/24 14:46 BP 136/61 Blood Pressure Location Rt brachial Blood Pressure Position Sitting Pulse 68 Pulse Source Pulse Oximeter Temp 97.0 F Temperature Source Temporal Artery Scan Pulse Oximetry 99 Oxygen Delivery Method Room Air Height 5 ft 2.5 in Weight 148 lb 6.4 oz BMI 26.7 Body Fat % 29.9 Body Fat Mass 44.4 Fat Free Mass 104.0 Visceral Fat Rating 7.0 Body Water % 49.8 Body Water Mass 73.8 Muscle Mass/Score 98.8 Basal Metabolic Rate/Score 1,393 Intake Visit Reasons: (OV) PO LSG 02/28/24 Allergies oxycodone [From Percocet] Adverse Reaction (Intermediate, Verified 09/27/24 14:42) Rash Penicillins Adverse Reaction (Intermediate, Verified 09/27/24 14:42) Rash HPI Comments Details: This?a?53?yo female who is s/p LSG without hiatal hernia repair on?02/28/2024. Presents for 7 month post op visit. Weight today is 148.4 pounds, with a BMI of 26.7. There has been a 65.8 pound weight loss,(initial weight 214.2 pounds) since starting the program on 10/28/2023 reflecting a 30.7 % total body weight loss and a weight loss of 30 pounds since surgery (operative weight 178.4 pounds) reflecting a 16.8 % TBWL since surgery. No complaints of nausea, emesis, abdominal pain or reflux. Reports infrequent but normal bowel movements every 1-2 days and uses stool softeners regularly. She has been using celebrate multivitamin daily, especially since low vitamin-A was identified. She has been checking her BP at home with readings 1 teens-120s/60-70s. She has not used her amlodipine or losartan. She states that approximately a week ago her son gave her a big hug as he was very proud of her weight loss. She felt an immediate pop on the left side of her ribs. Since then she has had pain, worse with deep inspiration. She took Tylenol once. Offered chest x-ray but declined. Present meal plan includes: clean and simple protein shake 20 gm per packet patient wants to use this protein supplement One packet mixed with 16 oz of almond milk drank over 4 hours Celebrate protein bar Meal with 5 forks of protein and 5 of vegetables She may have half cup fresh fruit in the afternoon if she wishes Drinking 60-70 oz additional water ? Exercise routine includes: treadmill at home, 3 days per week, 350 fanny weights PFSH Medical History BMI 32.0-32.9,adult BMI 34.0-34.9,adult Arthritis Diabetes Cirrhosis Depression Elevated cholesterol HTN (hypertension) Cancer Restless leg syndrome Stress incontinence Hypothyroidism Anxiety DJD (degenerative joint disease) Asthma GERD (gastroesophageal reflux disease) Surgical History Hx of laparoscopic partial gastrectomy History of lumpectomy of right breast History of delivery History of partial hysterectomy Hx of cholecystectomy Hx of thyroidectomy Hx of colonoscopy Family History Maternal Aunt Breast cancer Mother Thyroid cancer Social History Household Members: Spouse and Children Household Members Other:: 3 Housing: House Are you a primary professional healthcare representative to a significant other at home: No Do you presently have visiting nurse or other home services: No Alcohol intake: current Alcohol intake frequency: does not drink Patient Tobacco Use Status: Never used Tobacco service: No Review of Systems Resp Details: Denies shortness of breath but does report Reports pain on inspiration Physical Exam Const General: healthy appearing and no acute distress Chest Chest palpation & inspection: localized rib tenderness with anteroposterior compression left mid-axillary line Resp Effort & Inspection: normal respiratory effort Auscultation: clear to auscultation bilaterally Cardio Rate: regular rate Rhythm: regular rhythm GI Auscultation: normal bowel sounds Extrem General: Yes normal to inspection Assessment & Plan Assessment & Plan (1) S/P laparoscopic sleeve gastrectomy: Code(s): Z98.84 - Bariatric surgery status Category: Surgical Plan: Patient may continue current meal plan. Suggest increasing to 6 forks of protein and 6 of vegetables at night. Additionally, recommend increasing treadmill to 4 days per week 400 calories burn per session and adding a day of yoga per week. (2) Vitamin A deficiency: Code(s): E50.9 - Vitamin A deficiency, unspecified Category: Medical Plan: Has since been taking celebrate multivitamin. We will check vitamin-A level prior to her next appointment (3) Rib pain on left side: Code(s): R07.81 - Pleurodynia Category: Medical Plan: Likely left-sided midthoracic rib contusion or possible fracture. She was offered chest x-ray but declined. She may use 3 [id number] ibuprofen tablets nightly with food for the next week and p.r.n. Tylenol during the day. Orders: Orders Vitamin A 10/22/24 E50.9 - Vitamin A deficiency, unspecified
[2024-09-27 14:46] VITALS: BP 136/61; PULSE 68; TEMP 36.1; O2SAT 99; BMI 26.7
== END 2024-09-27 15:10 | disposition home or self-care (01) ==
PROVIDERS: PCP Internal Medicine; Visit Provider Physician Assistant Surgical
DX: E50.9 Vitamin A deficiency, unspecified (principal); R07.81 Pleurodynia; Z98.84 Bariatric surgery status
CPT/HCPCS: 99214

== ENCOUNTER → 2024-09-27 14:21 | Outpatient (BNVA) | payer OTHER, SELFPAY | PROVIDERS: PCP Internal Medicine; Visit Provider Physician Assistant Surgical ==

== ENCOUNTER 2024-10-02 14:53 | Outpatient (REF) | payer OTHER, SELFPAY ==
--- NOTE | ~2024-10-02 | XR_ITS ---
CLINICAL HISTORY: R07.81 - Pleurodynia 2 view chest x-ray. Comparison: DX/SR - XR CHEST 2V - 12/02/23 08:18 EST Findings: Normal lung volumes. Lungs are clear. No pneumothorax. Blunting left costophrenic angle. Heart size normal. No passive venous congestion. No midline shift or tracheal deviation. No acute fracture. Scoliosis. Surgical clips GE junction and right upper quadrant. Impression: 1. New blunting left costophrenic angle either pleural thickening or small pleural effusion. This document has been electronically signed by: Tom Davis MD on 10/04/2024 11:53:11
--- OUTSIDE RECORDS SUMMARY | 2024-10-02 14:56 | XMS_ITS | Patient Health Record ---
Author Organization [facility] Address [address] [place] [address] Care Team Providers Care Jack Strip Assembler Name Role Phone Pratik Varela MD Primary Care Provider Unavailab Nargis Anderson Unavailable [phone] Suzy Fontana Unavailable Unavailable Allergies Allergen (clinical [...] Problem Acquired hammer toe of right foot ([id number]) Other hammer toe(s) (acquired), right foot (M20.41) Active confirmed Problem Acquired hammer toe of left foot (0509326114880907) Other hammer toe(s) (acquired), left foot (M20.42) Active confirmed Problem Localized, primary osteoarthritis of the ankle and/or foot (396001239) Primary osteoarthritis, left ankle and foot (M19.072) Active confirmed Problem Acquired hammer toe of left foot ([id number]) Other hammer toe(s) (acquired), left foot (M20.42) Active confirmed Problem Plantar nerve lesion (844769501) Lesion of plantar nerve, 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) Active confirmed Problem Type II diabetes mellitus without complication (430420031) Type 2 diabetes mellitus without complications (E11.9) Active confirmed Plan Of Treatment Pending Test Test Name Order Date X ray : Foot, right 3V 06/01/2011 61487, J0702- Neuroma/Injection 07/04/20 70654, J0702- Neuroma/Injection 03/16/20 21 Insurance Providers Payer Name Payer Address Payer Phone Subscriber Number Group Number Insured Name Patient Relationship to Insured Coverage Start Date Coverage End Date [facility] [address] [place] [address] [phone] [id number] [facility] Self - patient is the insured Medical (General) History Medical History History ICD Code chicken pox bone implants/screws thyroid disorder headaches/migraines gall bladder problems depression cancer back, hip, knee pain asthma Anxiety Reflux Diabetic Surgical History Surgery Date(Month/Year) section cholecystectomy 2000 thyroidectomy 2002 knee surgery breast cancer 11/18
--- OUTSIDE RECORDS SUMMARY | 2024-10-02 14:57 | XMS_ITS | Data Portability ---
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 Role Phone AJ FELIPE OTHER AJ FELIPE [employer] [facility] WHIT PAYNE Primary Care Provider [phone] Assessment Encounter Date Assessment Date Assessment LastModified [...] Appointments LAB Follow-U p 2024 09:00A M [facility] Lab Not available Not available Not available Follow Up, 40 2024 04:00P M Aj Felipe MD Not available Not available Not available Lab HbA1c (hemoglo bin A1c), blood 2022 023 [email or web address] 2 [facility], [address] [place], [address], 09/16/2023 10:49:39 CMP, serum or plasma 2022 023 NARDA [facility], [address] [place], [address], 06/03/2023 16:43:50 lipid panel, serum 2022 023 NARDA [facility], [address] [place], [address], 06/03/2023 16:43:52 microalb umin, urine 2022 023 NARDA [facility], [address] [place], [address], 06/03/2023 17:44:29 HbA1c (hemoglo bin A1c), blood 2022 023 NARDA [facility], [address] [place], [address], 06/03/2023 19:04:09 thyroglo bulin Ab, serum 2022 023 [email or web address] 2 [facility], [address] [place], [address], 09/16/2023 10:49:29 thyroglo bulin Ab, serum 2022 023 NARDA [facility], [address] [place], [address], 06/04/2023 11:06:44 TSH, serum or plasma 2022 023 [email or web address], [address] [place], [address], 09/16/2023 10:49:14 T4, free, serum 2022 023 [email or web address], [address] [place], [address], 09/16/2023 10:49:49 TSH, serum or plasma 2022 023 NARDA [facility], [address] [place], [address], 06/03/2023 16:48:53 T4, free, serum 2022 023 NARDA [facility], [address] [place], [address], 06/03/2023 16:48:51 HbA1c (hemoglo bin A1c), blood 2022 023 [facility], [address] [place] [address], [address], 05/23/2024 11:43:14 CMP, serum or plasma 2022 023 [facility], [address] [place] [address], [address], 09/19/2023 16:36:29 lipid panel, serum 2022 023 [facility], [address] [place] [address], [address], 09/19/2023 16:36:30 microalb umin, urine 2022 023 [facility], [address] [place] [address], [address], 09/23/2023 14:34:10 HbA1c (hemoglo bin A1c), blood 2022 024 [facility], [address] [place] [address], [address], 05/23/2024 11:43:14 CMP, serum or plasma 2022 024 [facility], [address] [place] [address], [address], 02/14/2024 14:58:31 lipid panel, serum 2022 024 [facility], [address] [place] [address], [address], 02/14/2024 14:58:32 microalb umin, urine 2022 024 [facility], [address] [place] [address], [address], 04/17/2024 11:00:12 CMP, serum or plasma 2023 024 [facility], [address] [place] [address], [address], 08/23/2024 09:19:21 lipid panel, serum 2023 024 [facility], [address] [place] [address], [address], 08/23/2024 09:19:21 microalb umin, urine 2023 024 [facility], [address] [place] [address], [address], 08/23/2024 09:19:21 TSH, serum or plasma 2022 023 [facility], [address] [place] [address], [address], 05/23/2024 11:43:55 T4, free, serum 2022 023 [facility], [address] [place] [address], [address], 05/23/2024 11:43:36 thyroglo bulin Ab, serum [address] [facility], [address] [place] [address], [address], 10/11/2023 10:38:53 T4, free, serum 2022 024 [facility], [address] [place] [address], [address], 05/23/2024 11:43:36 TSH, serum or plasma 2022 024 [facility], [address] [place] [address], [address], 05/23/2024 11:43:55 thyroglo bulin Ab, serum 2022 024 [facility], [address] [place] [address], [address], 02/17/2024 07:38:42 HbA1c (hemoglo bin A1c), blood 2023 024 [facility], [address] [place] [address], [address], 05/28/2024 11:17:08 lipid panel, serum 2023 024 [facility], [address] [place] [address], [address], 05/28/2024 14:16:25 CMP, serum or plasma 2023 024 [facility], [address] [place] [address], [address], 05/28/2024 14:38:58 microalb umin, urine 2023 024 [facility], [address] [place] [address], [address], 05/29/2024 14:48:40 HbA1c (hemoglo bin A1c), blood 2023 025 [facility], [address] [place] [address], [address], 05/28/2024 11:17:08 lipid panel, serum 2023 025 [facility], [address] [place] [address], [address], 05/28/2024 14:16:25 CMP, serum or plasma 2023 025 [facility], [address] [place] [address], [address], 05/28/2024 14:38:58 thyroglo bulin Ab, serum - thyroid AB tumor marker 2023 024 [facility], [address] [place] [address], [address], 06/07/2024 15:03:30 thyroglo bulin Ab, serum - thyroid AB tumor marker 2023 025 [facility], [address] [place] [address], [address], 06/07/2024 15:03:30 TSH, ultra-se nsitive, serum 2023 024 [facility], [address] [place] [address], [address], 05/29/2024 14:51:19 T4, free, serum 2023 024 [facility], [address] [place] [address], 60[address], 05/28/2024 12:29:43 T4, free, serum 2023 024 [facility], [address] [place] [address], [address], 08/23/2024 09:19:21 TSH, ultra-se nsitive, serum 2023 024 [facility], [address] [place] [address], [address], 08/23/2024 09:19:21 Referral None recorded . Procedures None recorded . Surgeries None recorded . Imaging None recorded . Medication Orders Mounjaro 7.5 mg/0.5 mL subcutan eous pen injector 2021 022 [email or web address] [facility], [address] [place], [address], 04/22/2023 09:44:57 Mounjaro 10 mg/0.5 mL subcutan eous pen injector 2022 023 [email or web address] [facility], [address] [place], [address], 09/16/2023 09:49:36 Mounjaro 12.5 mg/0.5 mL subcutan eous pen injector 2022 023 [facility], [address] [place], [address], 04/25/2024 16:49:16 levothyr oxine 112 mcg tablet 2023 024 NARDA [facility], [address] [place], [address], 04/25/2024 18:28:29 Patient TargetsNo targets recorded. Patient Instructions Encounter Date Encounter Id Patient Instructions Last Modified By Organization Details Last Modified Time 02/22/2023 [id number] - Get labs done every 3 months [...] min [email or web address] Not available 02/22/2023 14:06:46 07/29/2023 [id number] - Get labs done every 3 months [...] min [email or web address] Not available 07/29/2023 09:10:37 09/16/2023 [id number] - Get labs done every 3 months [...] 40 min Not available 09/13/2023 11:27:35 04/25/2024 [id number] - Get labs done every 6 months [...] furth er confi rmati on Not Available [address], [address], 12/01/2022 11:47:35 12/02/19 23 12/01/2022 HGB A1C estimated average glucose 125.5 mg/dL Not Available [address], [address], 12/01/2022 11:47:35 12/02/1912/01/2022 COMP. METAB OLIC PANEL glucose 121 mg/dL 70-100 high Not Available [address], [address], 12/01/2022 14:30:55 12/02/1912/01/2022 COMP. METAB OLIC PANEL BUN 12 mg/dL 7-18 Not Available [address], [address], 12/01/2022 14:30:55 12/02/19 23 12/01/2022 COMP. METAB OLIC PANEL creatinine 0.7 mg/dL 0.8-1. 3 low Not Available [address], [address], 12/01/2022 14:30:55 12/02/19 23 12/01/2022 COMP. METAB OLIC PANEL B/C 17.1 ratio Not Available [address], [address], 12/01/2022 14:30:55 12/02/19 23 12/01/2022 COMP. METAB [...] be used in pregn jose. Not Available [address], [address], 12/01/2022 14:30:55 12/02/19 23 12/01/2022 COMP. METAB OLIC PANEL sodium 142 mmol/ L 136-14 5 Not Available [address], [address], 12/01/2022 14:30:55 12/02/19 23 12/01/2022 COMP. METAB OLIC PANEL potassium 4.2 mmol/ L 3.5-5. 1 Not Available [address], [address], 12/01/2022 14:30:55 12/02/19 23 12/01/2022 COMP. METAB OLIC PANEL chloride 104 mmol/ L 96-107 Not Available [address], [address], 12/01/2022 14:30:55 12/02/19 23 12/01/2022 COMP. METAB OLIC PANEL anion gap 9.4 5.0-15 .0 Not Available [address], [address], 12/01/2022 14:30:55 12/02/19 23 12/01/2022 COMP. METAB OLIC PANEL CO2 29 mmol/ L 21-32 Not Available [address], [address], 12/01/2022 14:30:55 12/02/19 23 12/01/2022 COMP. METAB OLIC PANEL calcium 9.7 mg/dL 8.5-10 .3 Not Available [address], [address], 12/01/2022 14:30:55 12/02/19 23 12/01/2022 COMP. METAB OLIC PANEL total protein 7.0 g/dL 6.4-8. 2 Not Available [address], [address], 12/01/2022 14:30:55 12/02/19 23 12/01/2022 COMP. METAB OLIC PANEL albumin 3.4 g/dL 3.4-5. 0 Not Available [address], [address], 12/01/2022 14:30:55 12/02/19 23 12/01/2022 COMP. METAB OLIC PANEL globulin 3.6 g/dL Not Available [address], [address], 12/01/2022 14:30:55 12/02/19 23 12/01/2022 COMP. METAB OLIC PANEL A/G 0.9 ratio 0.8-2. 0 Not Available [address], [address], 12/01/2022 14:30:55 12/02/19 23 12/01/2022 COMP. METAB OLIC PANEL total bilirubin 0.30 mg/dL 0.00-1 .00 Not Available [address], [address], 12/01/2022 14:30:55 12/02/19 23 12/01/2022 COMP. METAB OLIC PANEL AST 50 U/L 0-37 high Not Available [address], [address], 12/01/2022 14:30:55 12/02/19 23 12/01/2022 COMP. METAB OLIC PANEL ALT 52 U/L 6-63 Not Available [address], [address], 12/01/2022 14:30:55 12/02/19 23 12/01/2022 COMP. METAB OLIC PANEL alk. phos. 259 U/L 50-136 high Not Available [address], [address], 12/01/2022 14:30:55 12/02/19 23 12/01/2022 LIPID PANEL cholesterol 146 mg/dL <200 mg/dl Alexandra able 200-2 39 mg/dl Borde rline High >240 mg/dl High Not Available [address], [address], 12/01/2022 14:30:57 12/02/1912/01/2022 LIPID PANEL triglyceride s 198 mg/dL <150 mg/dL Tamia l 150-1 99 mg/dL Borde rline High 200-4 99 mg/dL High >500 mg/dL Very High Not Available [address], [address], 12/01/2022 14:30:57 12/02/19 23 12/01/2022 LIPID PANEL direct HDL 54 mg/dL <40 mg/dl - Major Risk for CHD >60 mg/dl - Negat ravi Risk for CHD Not Available [address], [address], 12/01/2022 14:30:57 12/02/19 23 12/01/2022 DIREC T [...] r is not emma bueno. Not Available [address], [address], 12/01/2022 14:30:58 12/02/19 23 12/01/2022 MICRO ALBUM IN/CR EATIN INE RATIO PANEL , URINE microalbumin 58.1 mg/L 1.3-20 .0 high Not Available [address], [address], 12/01/2022 15:25:16 12/02/19 23 12/01/2022 MICRO ALBUM IN/CR EATIN INE RATIO PANEL , URINE creatinine urine 140.0 mg/dL 30.0-1 25.0 high Not Available [address], [address], 12/01/2022 15:25:16 12/02/19 23 12/01/2022 MICRO ALBUM IN/CR EATIN INE RATIO PANEL , URINE microalb/cre at ratio 41.5 mg/g_ creat 0.0-29 .0 high Not Available [address], [address], 12/01/2022 15:25:16 12/02/19 23 12/01/2022 FREE T4 free T4 1.33 NG/dL 0.75-1 .54 Not Available [address], [address], 12/01/2022 15:37:02 12/02/19 23 12/01/2022 TSH TSH 0.24 uIU/m L 0.50-6 .00 low The Ameri can Colle ge of Endoc rinol ogy and Ameri can Thyro id Assoc iatio n recom mend goal TSH value s betwe en 0.4-4 .0 mIU/m L. Not Available [address], [address], 12/01/2022 16:05:27 12/02/19 23 12/05/2022 THYRO ID CANCE R (THYR OGLOB ULIN) MONIT OR thyroglobuli n antibody <1 IU/mL <=1 This Thyro globu mychal antib anjum test was perfo rmed using the [employer] er Chemi lumin escen t metho d. Value s obtai mila from diffe rent assay metho ds canno t be used inter [facility] . Thyro globu mychal antib anjum level s, regar dless of value , shoul d not be inter prete d as absol circle evide nce of the prese nce or absen ce of disea se. Not Available [facility] [place] [facility] [address] [place] [address], [place], [address], 12/05/2022 06:13:00 12/02/1912/05/2022 THYRO ID CANCE R [...] not be inter prete d as absol circle evide nce of the prese nce or absen ce of disea se. Not Available [facility] [address] [place] [address], [place], [address], 12/05/2022 06:13:00 06/03/20 23 06/03/2023 COMPR EHENS RAVI METAB OLIC PANL glucose 130 mg/dL (70-99 ) high Not Available [facility] [address] [place], [address], 06/03/2023 16:43:50 06/03/20 23 06/03/2023 COMPR EHENS RAVI METAB OLIC PANL BUN 8 mg/dL (6-20) Not Available [facility] [address] [place], [address], 06/03/2023 16:43:50 06/03/20 23 06/03/2023 COMPR EHENS RAVI METAB OLIC PANL creatinine 0.6 mg/dL (0.5-1 .0) Not Available [facility] [address] [place], [address], 06/03/2023 16:43:50 06/03/20 23 06/03/2023 COMPR EHENS RAVI METAB OLIC PANL sodium 141 mmol/ L (133-1 45) Not Available [facility] [address] [place], [address], 06/03/2023 16:43:50 06/03/20 23 06/03/2023 COMPR EHENS RAVI METAB OLIC PANL potassium 3.9 mmol/ L (3.6-5 .2) Not Available [facility] [address], [address], 06/03/2023 16:43:50 06/03/20 23 06/03/2023 COMPR EHENS RAVI METAB OLIC PANL chloride 106 mmol/ L (98-10 7) Not Available [facility] [address], [address], 06/03/2023 16:43:50 06/03/20 23 06/03/2023 COMPR EHENS RAVI METAB OLIC PANL bicarbonate 25 mmol/ L (22-29 ) Not Available [facility] [address] [place], [address], 06/03/2023 16:43:50 06/03/20 23 06/03/2023 COMPR EHENS RAVI METAB OLIC PANL anion gap 10 (4-17) Not Available [facility] [address] [place], [address], 06/03/2023 16:43:50 06/03/20 23 06/03/2023 COMPR EHENS RAVI METAB OLIC PANL albumin 3.9 gm/dL (3.4-4 .8) Not Available [facility] [address] [place], [address], 06/03/2023 16:43:50 06/03/20 23 06/03/2023 COMPR EHENS RAVI METAB OLIC PANL calcium 9.4 mg/dL (8.6-1 0.5) Not Available [facility] [address] [place], [address], 06/03/2023 16:43:50 06/03/20 23 06/03/2023 COMPR EHENS RAVI METAB OLIC PANL bilirubin,to scarlett 0.3 mg/dL (0-1.2 ) Not Available [facility] [address] [place], [address], 06/03/2023 16:43:50 06/03/20 23 06/03/2023 COMPR EHENS RAVI METAB OLIC PANL total protein 6.5 gm/dL (6.2-8 .2) Not Available [facility] [address] [place], [address], 06/03/2023 16:43:50 06/03/20 23 06/03/2023 COMPR EHENS RAVI METAB OLIC PANL Ag ratio 1.5 Not Available [facility] [address] [place], [address], 06/03/2023 16:43:50 06/03/20 23 06/03/2023 COMPR EHENS RAVI METAB OLIC PANL AST 55 U/L (0-32) high Not Available [facility] [address] [place], [address], 06/03/2023 16:43:50 06/03/20 23 06/03/2023 COMPR EHENS RAVI METAB OLIC PANL alk phos 208 U/L (35-10 4) high Not Available [facility] [address] [place], [address], 06/03/2023 16:43:50 06/03/20 23 06/03/2023 COMPR EHENS RAVI METAB OLIC PANL ALT 45 U/L (0-33) high Not Available [facility] [address] [place], [address], 06/03/2023 16:43:50 06/03/20 23 06/03/2023 COMPR EHENS [...] sex. Not Available [facility] [address] [place], [address], 06/03/2023 16:43:50 06/03/20 23 06/03/2023 NON FASTI NG LIPID PANEL cholesterol, total 126 mg/dL (<200) Not Available [facility] [address] [place], [address], 06/03/2023 16:43:51 06/03/20 23 06/03/2023 NON FASTI NG LIPID PANEL HDL chol 51 mg/dL (>39) Not Available [facility] [address] [place], [address], 06/03/2023 16:43:51 06/03/20 23 06/03/2023 NON FASTI NG LIPID PANEL non HDL cholesterol (calc) 75 mg/dL (<160) Not Available [facility] [address], [address], 06/03/2023 16:43:51 06/03/2006/03/2023 FREE T4 free T4 1.88 NG/dL (0.70- 1.80) high Not Available [facility] [address], [address], 06/03/2023 16:48:51 06/03/2006/03/2023 TSH TSH 0.02 uIU/m L (0.4-4 .2) low Not Available [facility] [address], [address], 06/03/2023 16:48:53 06/03/2006/03/2023 URINA RY MICRO ALBUM IN micro-albumi n <12.0 mg/L (<20) The urine micro album in test is desig mila to monit or renal funct ion. When scree castro for Bence Mansfield prote inuri a, urine elect ropho resis is recom lenny d. Not Available [facility] [address] [place], [address], 06/03/2023 17:44:29 06/03/20 23 06/03/2023 URINA RY MICRO ALBUM IN malb/creat ratio UNABLE TO CALCUL ATE mg/gm (0-20) Not Available [facility] [address], [place], [address], 06/03/2023 17:44:29 06/03/20 23 06/03/2023 URINA RY MICRO ALBUM IN urine creat for micro albumin 62.9 mg/dL Not Available [facility] [address], [place], [address], 06/03/2023 17:44:29 06/03/20 23 06/03/2023 HEMOG LOBIN [...] ement 1 Not Available [facility] [address], [place], [address], 06/03/2023 19:04:09 06/03/20 23 06/04/2023 THYRO GLOBU MYCHAL,T UMOR MRKR W/RFL X thyroglobuli n antibody, serum <1.0 Refer ence range : 0.0 to 0.9 Unit: IU/mL (NOTE ) Thyro globu mychal Antib anjum measu red by Beckm an Coult er Metho dolog y Test perfo rmed by [facility], [address], [place] [address] Not Available [facility] [address], [place], [address], 06/04/2023 11:06:43 06/03/20 23 06/04/2023 THYRO GLOBU [...] rp, [address], [place] [address] Not Available [facility] [address], [place], [address], 06/04/2023 11:07:04 09/16/20 23 09/16/2023 HGB A1C [...] furth er confi rmati on Not Available [address], [address], 09/16/2023 14:10:24 09/16/20 23 09/16/2023 HGB A1C estimated average glucose 105.4 mg/dL Not Available [address], [address], 09/16/2023 14:10:24 09/16/20 23 09/16/2023 FREE T4 free T4 1.53 NG/dL 0.75-1 .54 Not Available [address], [address], 09/16/2023 16:13:11 09/16/20 23 09/16/2023 TSH TSH 0.11 uIU/m L 0.50-6 .00 low The Ameri can Colle ge of Endoc rinol ogy and Ameri can Thyro id Assoc iatio n recom mend goal TSH value s betwe en 0.4-4 .0 mIU/m L. Not Available [address], [address], 09/16/2023 16:39:34 09/16/20 23 09/17/2023 THYRO GLOBU MYCHAL ANTIB ODIES thyroglobuli n antibodies <1 IU/mL < or = 1 normal Not Available [facility] [address], [address], 09/17/2023 09:43:20 09/16/20 23 09/19/2023 COMP. METAB OLIC PANEL glucose 88 mg/dL 70-100 Not Available [address], [address], 09/19/2023 16:36:28 09/16/20 23 09/19/2023 COMP. METAB OLIC PANEL BUN 13 mg/dL 7-18 Not Available [address] [place], [address], 09/19/2023 16:36:28 09/16/20 23 09/19/2023 COMP. METAB OLIC PANEL creatinine 0.8 mg/dL 0.8-1. 3 Not Available [address], [address], 09/19/2023 16:36:28 09/16/20 23 09/19/2023 COMP. METAB OLIC PANEL B/C 16.3 ratio Not Available [address], [address], 09/19/2023 16:36:28 09/16/20 23 09/19/2023 COMP. METAB [...] be used in pregn jose. Not Available [address], [address], 09/19/2023 16:36:28 09/16/20 23 09/19/2023 COMP. METAB OLIC PANEL sodium 142 mmol/ L 136-14 5 Not Available [address], [address], 09/19/2023 16:36:28 09/16/20 23 09/19/2023 COMP. METAB OLIC PANEL potassium 4.9 mmol/ L 3.5-5. 1 Not Available [address], [address], 09/19/2023 16:36:28 09/16/20 23 09/19/2023 COMP. METAB OLIC PANEL chloride 106 mmol/ L 96-107 Not Available [address], [address], 09/19/2023 16:36:28 09/16/20 23 09/19/2023 COMP. METAB OLIC PANEL anion gap 8.5 5.0-15 .0 Not Available [address], [address], 09/19/2023 16:36:28 09/16/20 23 09/19/2023 COMP. METAB OLIC PANEL CO2 28 mmol/ L 21-32 Not Available [address], [address], 09/19/2023 16:36:28 09/16/20 23 09/19/2023 COMP. METAB OLIC PANEL calcium 9.1 mg/dL 8.5-10 .3 Not Available [address], [address], 09/19/2023 16:36:28 09/16/20 23 09/19/2023 COMP. METAB OLIC PANEL total protein 7.5 g/dL 6.4-8. 2 Not Available [address], [address], 09/19/2023 16:36:28 09/16/20 23 09/19/2023 COMP. METAB OLIC PANEL albumin 3.6 g/dL 3.4-5. 0 Not Available [address], [address], 09/19/2023 16:36:28 09/16/20 23 09/19/2023 COMP. METAB OLIC PANEL globulin 3.9 g/dL Not Available [address], [address], 09/19/2023 16:36:28 09/16/20 23 09/19/2023 COMP. METAB OLIC PANEL A/G 0.9 ratio 0.8-2. 0 Not Available [address], [address], 09/19/2023 16:36:28 09/16/20 23 09/19/2023 COMP. METAB OLIC PANEL total bilirubin 0.30 mg/dL 0.00-1 .00 Not Available [address], [address], 09/19/2023 16:36:28 09/16/20 23 09/19/2023 COMP. METAB OLIC PANEL AST 38 U/L 0-37 high Not Available [address], [address], 09/19/2023 16:36:28 09/16/20 23 09/19/2023 COMP. METAB OLIC PANEL ALT 53 U/L 6-63 Not Available [address], [address], 09/19/2023 16:36:28 09/16/20 23 09/19/2023 COMP. METAB OLIC PANEL alk. phos. 182 U/L 50-136 high Not Available [address], [address], 09/19/2023 16:36:28 09/16/20 23 09/19/2023 LIPID PANEL cholesterol 124 mg/dL <200 mg/dl Alexandra able 200-2 39 mg/dl Borde rline High >240 mg/dl High Not Available [address], [address], 09/19/2023 16:36:30 09/16/20 23 09/19/2023 LIPID PANEL triglyceride s 77 mg/dL <150 mg/dL Tamia l 150-1 99 mg/dL Borde rline High 200-4 99 mg/dL High >500 mg/dL Very High Not Available [address], [address], 09/19/2023 16:36:30 09/16/20 23 09/19/2023 LIPID PANEL direct HDL 57 mg/dL <40 mg/dl - Major Risk for CHD >60 mg/dl - Negat ravi Risk for CHD Not Available [address], [address], 09/19/2023 16:36:30 09/16/20 23 09/19/2023 LDL - [...] r is not emma bueno. Not Available [address], [address], 09/19/2023 16:36:31 09/16/20 23 09/20/2023 MICRO ALBUM IN/CR EATIN INE RATIO PANEL , URINE microalbumin 12.2 mg/L 1.3-20 .0 Not Available [address], [address], 09/20/2023 14:44:35 09/16/20 23 09/20/2023 MICRO ALBUM IN/CR EATIN INE RATIO PANEL , URINE creatinine urine 94.2 mg/dL 30.0-1 25.0 Not Available [address], [address], 09/20/2023 14:44:35 09/16/20 23 09/20/2023 MICRO ALBUM IN/CR EATIN INE RATIO PANEL , URINE microalb/cre at ratio 13.0 mg/g_ creat 0.0-29 .0 Not Available [address], [address], 09/20/2023 14:44:35 02/14/20 24 02/14/2024 HGB A1C [...] furth er confi rmati on Not Available [address], [address], 02/14/2024 13:18:57 02/14/20 24 02/14/2024 HGB A1C estimated average glucose 102.5 mg/dL Not Available [address], [address], 02/14/2024 13:18:57 02/14/20 24 02/14/2024 MICRO ALBUM IN/CR EATIN INE RATIO PANEL , URINE microalbumin 15.2 mg/L 1.3-20 .0 Not Available [address], [address], 02/14/2024 14:34:38 02/14/20 24 02/14/2024 MICRO ALBUM IN/CR EATIN INE RATIO PANEL , URINE creatinine urine 196.9 mg/dL 30.0-1 25.0 high Not Available [address], [address], 02/14/2024 14:34:38 02/14/20 24 02/14/2024 MICRO ALBUM IN/CR EATIN INE RATIO PANEL , URINE microalb/cre at ratio 7.7 mg/g_ creat 0.0-29 .0 Not Available [address], [address], 02/14/2024 14:34:38 02/14/20 24 02/14/2024 COMP. METAB OLIC PANEL glucose 83 mg/dL 70-100 Not Available [address], [address], 02/14/2024 14:58:30 02/14/20 24 02/14/2024 COMP. METAB OLIC PANEL BUN 16 mg/dL 7-18 Not Available [address], [address], 02/14/2024 14:58:30 02/14/20 24 02/14/2024 COMP. METAB OLIC PANEL creatinine 0.6 mg/dL 0.8-1. 3 low Not Available [address], [address], 02/14/2024 14:58:30 02/14/20 24 02/14/2024 COMP. METAB OLIC PANEL B/C 26.7 ratio Not Available [address], [address], 02/14/2024 14:58:30 02/14/20 24 02/14/2024 COMP. METAB [...] be used in pregn jose. Not Available [address], [address], 02/14/2024 14:58:30 02/14/20 24 02/14/2024 COMP. METAB OLIC PANEL sodium 143 mmol/ L 136-14 5 Not Available [address], [address], 02/14/2024 14:58:30 02/14/20 24 02/14/2024 COMP. METAB OLIC PANEL potassium 4.2 mmol/ L 3.5-5. 1 Not Available [address], [address], 02/14/2024 14:58:30 02/14/20 24 02/14/2024 COMP. METAB OLIC PANEL chloride 106 mmol/ L 96-107 Not Available [address], [address], 02/14/2024 14:58:30 02/14/20 24 02/14/2024 COMP. METAB OLIC PANEL anion gap 6.8 5.0-15 .0 Not Available [address], [address], 02/14/2024 14:58:30 02/14/20 24 02/14/2024 COMP. METAB OLIC PANEL CO2 30 mmol/ L 21-32 Not Available [address], [address], 02/14/2024 14:58:30 02/14/20 24 02/14/2024 COMP. METAB OLIC PANEL calcium 9.3 mg/dL 8.5-10 .3 Not Available [address], [address], 02/14/2024 14:58:30 02/14/20 24 02/14/2024 COMP. METAB OLIC PANEL total protein 7.1 g/dL 6.4-8. 2 Not Available [address], [address], 02/14/2024 14:58:30 02/14/20 24 02/14/2024 COMP. METAB OLIC PANEL albumin 3.5 g/dL 3.4-5. 0 Not Available [address], [address], 02/14/2024 14:58:30 02/14/20 24 02/14/2024 COMP. METAB OLIC PANEL globulin 3.6 g/dL Not Available [address], [address], 02/14/2024 14:58:30 02/14/20 24 02/14/2024 COMP. METAB OLIC PANEL A/G 1.0 ratio 0.8-2. 0 Not Available [address], [address], 02/14/2024 14:58:30 02/14/20 24 02/14/2024 COMP. METAB OLIC PANEL total bilirubin 0.50 mg/dL 0.00-1 .00 Not Available [address], [address], 02/14/2024 14:58:30 02/14/20 24 02/14/2024 COMP. METAB OLIC PANEL AST 34 U/L 0-37 Not Available [address], [address], 02/14/2024 14:58:30 02/14/20 24 02/14/2024 COMP. METAB OLIC PANEL ALT 44 U/L 6-63 Not Available [address], [address], 02/14/2024 14:58:30 02/14/20 24 02/14/2024 COMP. METAB OLIC PANEL alk. phos. 149 U/L 50-136 high Not Available [address], [address], 02/14/2024 14:58:30 02/14/20 24 02/14/2024 LIPID PANEL cholesterol 124 mg/dL <200 mg/dl Alexandra able 200-2 39 mg/dl Borde rline High >240 mg/dl High Not Available [address], [address], 02/14/2024 14:58:32 02/14/20 24 02/14/2024 LIPID PANEL triglyceride s 100 mg/dL <150 mg/dL Tamia l 150-1 99 mg/dL Borde rline High 200-4 99 mg/dL High >500 mg/dL Very High Not Available [address], [address], 02/14/2024 14:58:32 02/14/20 24 02/14/2024 LIPID PANEL direct HDL 47 mg/dL <40 mg/dl - Major Risk for CHD >60 mg/dl - Negat ravi Risk for CHD Not Available [address], [address], 02/14/2024 14:58:32 02/14/20 24 02/14/2024 LDL - [...] r is not necgladys ximena. Not Available [address], [address], 02/14/2024 14:58:34 02/14/20 24 02/14/2024 FREE T4 free T4 1.28 NG/dL 0.75-1 .54 Not Available [address] [place], [address], 02/14/2024 15:08:30 02/14/20 24 02/14/2024 TSH TSH 0.03 uIU/m L 0.50-6 .00 low The Ameri can [employer] ge of Endoc rinol ogy and Ameri can Thyro id Assoc iatio n recom mend goal TSH value s betwe en 0.4-4 .0 mIU/m L. Not Available [address], [address], 02/14/2024 15:33:50 02/14/20 24 02/17/2024 THYRO ID CANCE R (THYR OGLOB ULIN) MONIT OR thyroglobuli n antibody <1 IU/mL <=1 This Thyro globu mychal antib anjum test was perfo rmed using the [employer] an Coult er Chemi lumin escen t metho d. Value s obtai mila from diffe rent assay metho ds canno t be used inter jackson eably . Thyro globu mychal antib anjum level s, regar dless of value , shoul d not be inter prete d as absol circle evide nce of the prese nce or absen ce of disea se. Not Available [facility] [address] [place] [address], [address], 02/17/2024 07:38:40 02/14/20 24 02/17/2024 THYRO ID [...] not be inter prete d as absol circle evide nce of the prese nce or absen ce of disea se. Not Available [facility] [address], [place], [address], 02/17/2024 07:38:40 02/14/2002/17/2024 THYRO GLOBU MYCHAL ANTIB ODIES thyroglobuli n antibodies <1 IU/mL < or = 1 normal Not Available [facility] [address], [place], [address], 02/17/2024 07:38:42 05/28/20 24 05/28/2024 HGB A1C [...] furth er confi rmati on Not Available [address], [address], 05/28/2024 11:17:08 05/28/20 24 05/28/2024 HGB A1C estimated average glucose 99.7 mg/dL Not Available [address], [address], 05/28/2024 11:17:08 05/28/20 24 05/28/2024 FREE T4 free T4 1.61 NG/dL 0.75-1 .54 high Not Available [address], [address], 05/28/2024 12:29:43 05/28/20 24 05/28/2024 TSH TSH 0.05 uIU/m L 0.50-6 .00 low The Ameri can Colle ge of Endoc rinol ogy and Mark can Thyro id Assoc iatio n recom mend goal TSH value s betwe en 0.4-4 .0 mIU/m L. Not Available [address], [address], 05/28/2024 14:08:09 05/28/2005/28/2024 LIPID PANEL cholesterol 131 mg/dL <200 mg/dl Alexandra able 200-2 39 mg/dl Borde rline High >240 mg/dl High Not Available [address], [address], 05/28/2024 14:16:25 05/28/20 24 05/28/2024 LIPID PANEL triglyceride s 73 mg/dL <150 mg/dL Tamia l 150-1 99 mg/dL Borde rline High 200-4 99 mg/dL High >500 mg/dL Very High Not Available [address], [address], 05/28/2024 14:16:25 05/28/20 24 05/28/2024 LIPID PANEL direct HDL 59 mg/dL <40 mg/dl - Major Risk for CHD >60 mg/dl - Negat ravi Risk for CHD Not Available [address], [address], 05/28/2024 14:16:25 05/28/2005/28/2024 LDL - CALCU LATED [...] r is not emma joshuay. Not Available [address], [address], 05/28/2024 14:16:26 05/28/20 24 05/28/2024 COMP. METAB OLIC PANEL glucose 88 mg/dL 70-100 Not Available [address], [address], 05/28/2024 14:38:58 05/28/20 24 05/28/2024 COMP. METAB OLIC PANEL BUN 14 mg/dL 7-18 Not Available [address], [address], 05/28/2024 14:38:58 05/28/20 24 05/28/2024 COMP. METAB OLIC PANEL creatinine 0.7 mg/dL 0.8-1. 3 low Not Available [address], [address], 05/28/2024 14:38:58 05/28/20 24 05/28/2024 COMP. METAB OLIC PANEL B/C 20.0 ratio Not Available [address], [address], 05/28/2024 14:38:58 05/28/20 24 05/28/2024 COMP. METAB [...] be used in pregn jose. Not Available [address], [address], 05/28/2024 14:38:58 05/28/20 24 05/28/2024 COMP. METAB OLIC PANEL sodium 143 mmol/ L 136-14 5 Not Available [address], [address], 05/28/2024 14:38:58 05/28/20 24 05/28/2024 COMP. METAB OLIC PANEL potassium 3.9 mmol/ L 3.5-5. 1 Not Available [address], [address], 05/28/2024 14:38:58 05/28/20 24 05/28/2024 COMP. METAB OLIC PANEL chloride 106 mmol/ L 96-107 Not Available [address], [address], 05/28/2024 14:38:58 05/28/20 24 05/28/2024 COMP. METAB OLIC PANEL anion gap 8.5 5.0-15 .0 Not Available [address], [address], 05/28/2024 14:38:58 05/28/20 24 05/28/2024 COMP. METAB OLIC PANEL CO2 29 mmol/ L 21-32 Not Available [address], [address], 05/28/2024 14:38:58 05/28/20 24 05/28/2024 COMP. METAB OLIC PANEL calcium 9.0 mg/dL 8.5-10 .3 Not Available [address], [address], 05/28/2024 14:38:58 05/28/20 24 05/28/2024 COMP. METAB OLIC PANEL total protein 6.9 g/dL 6.4-8. 2 Not Available [address], [address], 05/28/2024 14:38:58 05/28/20 24 05/28/2024 COMP. METAB OLIC PANEL albumin 3.6 g/dL 3.4-5. 0 Not Available [address], [address], 05/28/2024 14:38:58 05/28/20 24 05/28/2024 COMP. METAB OLIC PANEL globulin 3.3 g/dL Not Available [address], [address], 05/28/2024 14:38:58 05/28/20 24 05/28/2024 COMP. METAB OLIC PANEL A/G 1.1 ratio 0.8-2. 0 Not Available [address], [address], 05/28/2024 14:38:58 05/28/20 24 05/28/2024 COMP. METAB OLIC PANEL total bilirubin 0.60 mg/dL 0.00-1 .00 Not Available [address], [address], 05/28/2024 14:38:58 05/28/20 24 05/28/2024 COMP. METAB OLIC PANEL AST 39 U/L 0-37 high Not Available [address], [address], 05/28/2024 14:38:58 05/28/20 24 05/28/2024 COMP. METAB OLIC PANEL ALT 40 U/L 6-63 Not Available [address], [address], 05/28/2024 14:38:58 05/28/20 24 05/28/2024 COMP. METAB OLIC PANEL alk. phos. 151 U/L 50-136 high Not Available [address], [address], 05/28/2024 14:38:58 05/28/20 24 05/28/2024 MICRO ALBUM IN/CR EATIN INE RATIO PANEL , URINE microalbumin 11.5 mg/L 1.3-20 .0 Not Available [address], [address], 05/28/2024 16:07:39 05/28/20 24 05/28/2024 MICRO ALBUM IN/CR EATIN INE RATIO PANEL , URINE creatinine urine 143.3 mg/dL 30.0-1 25.0 high Not Available [address], [address], 05/28/2024 16:07:39 05/28/20 24 05/28/2024 MICRO ALBUM IN/CR EATIN INE RATIO PANEL , URINE microalb/cre at ratio 8.0 mg/g_ creat 0.0-29 .0 Not Available [address], [address], 05/28/2024 16:07:39 05/28/20 24 06/07/2024 THYRO ID CANCE R (THYR OGLOB ULIN) MONIT OR thyroglobuli n antibody <1 IU/mL <=1 This Thyro globu mychal antib anjum test was perfo rmed using the [employer] an IntraOp Medicalt er Chemi lumin escen t metho d. Value s obtai mila from diffe rent assay metho ds canno t be used inter jackson eably . Thyro globu mychal antib anjum level s, regar dless of value , shoul d not be inter prete d as absol circle evide nce of the prese nce or absen ce of disea se. Not Available [facility] [address] [place] [address], [place], [address], 06/07/2024 15:03:30 05/28/20 24 06/07/2024 THYRO ID [...] mychal test was perfo rmed using the [employer] an Coult er Chemi lumin escen t metho d. Value s obtai mila from diffe rent assay metho ds canno t be used inter jackson eably . Thyro globu mychal level s, regar dless of value , shoul d not be inter prete d as absol circle evide nce of the prese nce or absen ce of disea se. Not Available [facility] [address] [place] [address], [address], 06/07/2024 15:03:30 Result Notes None recorded. Problems Name Problem SNOMED Code Status Onset Date Resolution Date Notes Provider Name and Address Organization Details Recorded Time Renal disorder due to type 2 diabetes mellitus 869444786 Nuno Felipe MD [address] [place] [address], [phone] , [facility] 3 09:01:23 Hyperlipid emia 32147207 Nuno Felipe MD [address] [place] [address], [phone] , [facility] 2 11:35:32 Numbness of lower limb 915781303 Nuno Felipe MD [address] [place] [address], [phone] , [facility] 6 09:46:36 Polyuria 22312618 Completed 08/22/2013 Not Available [facility] 3 02:04:12 Menopausal symptom 48295830 Completed 08/22/2013 Not Available [facility] 3 02:01:29 Blood chemistry outside reference range 587971868 Completed 08/22/2013 Not Available [facility] 3 02:03:30 Postoperat ravi hypothyroi dism 68903483 Active 2007 Aj Felipe MD [address] [place] [address], [phone] , [facility] 3 09:01:07 Primary malignant neoplasm of thyroid gland 51366837 Active 2003 Aj Felipe MD [address] [place] [address], [phone] , [facility] 3 09:01:23 Problem Notes None recorded. Procedures Surgical History Date Name Laterality Status Provider Name and Address Organization Details Recorded Time 9 Carpal tunnel surgery completed Haley Marcos LPN [facility] 04/24/2019 09:07:21 9 release of trigger thumb completed Haley Marcos LPN [facility] 04/24/2019 09:07:39 Imaging Results None recorded. Procedure Notes None recorded. Medical Equipment None Reported. Allergies Allergen ID Allergen Name Allergen Category Reaction Reaction Severity Criticality Documentation Date Start Date Code Code System Note Provider Name and Address Organization Details Recorded Time 20161103 Oxycontin medicatio n Not available Not available Not available 09/27/2017 01597 6 RxNorm Prema Matamoros RN BSN [address] [place] [address], [phone], [facility] 7 09:05:36 7548 Medicinal product containin g penicilli n and acting as antibacte rial agent (product) medicatio n rash Not available Not available 01/02/2009 51284 05 SNOMED Not Available [facility] 1 06:05:20 Medications Name Sig Start [...] Address Organization Details Last Updated DateTime 06/23/2022 729979.84 g 132 mm[Hg] 86 mm[Hg] Idania Cole RN [facility] 06/23/2022 11:05:46 Date Recorded Body weight Body mass index (BMI) Body height Heart rate Systolic blood pressure Diastolic blood pressure Provider Name and Address Organization Details Last Updated DateTime 3 952096. 94 g 40 kg/m2 158.75 cm 81 /min 146 mm[Hg] 81 mm[Hg] Xochitl Sparrow LPN [facility] 3 13:31:55 Date Recorded Body height Body mass index (BMI) Body weight Provider Name and Address Organization Details Last Updated DateTime 07/29/2023 158.75 cm 38.5 kg/m2 92085.77 g Idania Cole RN [facility] 07/29/2023 08:39:56 Date Recorded Body height Body mass index (BMI) Body weight Heart rate Systolic blood pressure Diastolic blood pressure Provider Name and Address Organization Details Last Updated DateTime 3 158.75 cm 39.5 kg/m2 82001.8 8 g 72 /min 136 mm[Hg] 82 mm[Hg] Idania Cole RN [facility] 3 09:52:37 Date Recorded Body height Body mass index (BMI) Body weight Heart rate Systolic blood pressure Diastolic blood pressure Provider Name and Address Organization Details Last Updated DateTime 4 158.75 cm 27.8 kg/m2 47861.6 6 g 63 /min 112 mm[Hg] 70 mm[Hg] Xochitl Sparrow LPN [facility] 4 16:54:45 Social History Question Answer Notes LastModified by Organizat ion Details LastModified Time Tobacco Smoking Status Never Smoker Not Available [facility] 08/19/2011 04:53:49 Do You Have An Advance [...] not available 08/19/2011 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 Has been OK. 18 y.o.son works rn post partum with . 14 y.o. son is her [...] virus, trivalent, preservative 1 completed Not Available [facility] 10/20/2019 02:18:14 Influenza, split virus, trivalent, PF 3 completed Not Available [facility] 10/20/2019 02:18:32 Influenza, split virus, trivalent, PF 4 completed Not Available [facility] 10/20/2019 02:25:04 Influenza, split virus, quadrivalent, PF 5 completed Not Available [facility] 10/20/2019 02:20:12 Influenza, split virus, quadrivalent, PF 7 completed Not Available [facility] 10/20/2019 02:22:29 COVID-19, mRNA, LNP-S, PF, 100 mcg/0.5mL dose or 50 mcg/0.25mL dose 1 completed ANAMARIA Mckee, [facility] 05/14/2022 10:57:17 COVID-19, mRNA, LNP-S, PF, 100 mcg/0.5mL dose or 50 mcg/0.25mL dose 1 completed Xochitl Sparrow LPN chnadana [facility] 05/14/2022 10:57:27 Past Encounters Encounter ID Performer Location Encounter Start Date Encounter Closed Date Diagnosis/Indication Diagnosis SNOMED-CT Code Diagnosis ICD10 Code [id number] [address] [address] 09/15/2004 07:17:13 09/15/2004 11:47:[id number] [address] 09/30/2004 13:24:11 09/30/2004 17:11:[id number] [address] 11/30/2004 07:06:18 11/30/2004 09:21:[id number] [address] 04/13/2006 13:26:41 04/14/2006 08:35:[id number] [address] 04/13/2006 14:37:30 04/13/2006 14:37:[id number] [place] [address] 06/07/2007 13:06:06 10/23/2008 02:02:[id number] [address] 06/30/2007 08:55:27 06/30/2007 08:55:35 [id number] [facility], OFFICE [address] [place] [address] 07/03/2007 08:31:33 10/23/2008 02:02:29 [id number] [facility], OFFICE [address] [place] [address] 07/04/2007 08:28:14 10/23/2008 02:02:29 [id number] Endocrino logy, [facility] [place] [address] 07/14/2007 11:40:39 07/14/2007 12:47:17 [id number] LAB - [address] [place] [address] 10/06/2007 14:01:26 10/06/2007 14:01:33 [id number] Endocrino logy, [facility] [place] [address] 05/15/2008 13:05:24 10/23/2008 02:02:29 [id number] LAB - [facility] [place] [address] 05/15/2008 14:28:35 05/15/2008 14:28:49 [id number] LAB - [place] [address] 10/17/2008 14:03:39 10/17/2008 14:03:45 [id number] Endocrino logy, [facility] [place] [address] 01/02/2009 09:41:53 02/07/2009 09:15:04 [id number] Carolyn Will LPN Endocrino logy, [facility] [place] [address] 02/12/2010 09:27:06 02/18/2010 09:09:10 [id number] Carolyn Will LPN Endocrino logy, [facility] [place] [address] 07/23/2011 10:25:14 07/23/2011 11:13:06 [id number] Carolyn Will LPN Endocrino logy, [facility] [place] [address] 12/20/2012 17:13:58 01/01/2013 09:42:30 [id number] Carolyn Will LPN Endocrino logy, [facility] [place] [address] 07/25/2014 10:05:38 07/25/2014 11:25:42 Postoperative hypothyroidism 21491222 Influenza vaccine needed 4441552518 106 Primary ma lignant neoplasm of thyroid gland 51085345 [id number] Endocrino logy, [address] [address] 02/21/2015 09:46:40 02/21/2015 10:39:44 Primary malignant neoplasm of thyroid gland 49467525 Postoperat ravi hypothyroidism 48852924 Renal diso rder due to type 2 diabetes mellitus 624657530 [id number] Aj Felipe MD Endocr[facility] logy, [address] [address] 08/22/2015 09:47:50 08/22/2015 10:40:03 Active or passive immunization 663128748 Z23 Primary ma lignant neoplasm of thyroid gland 20463128 C73 Postoperat ravi hypothyroidism 41842321 E89.0 Renal diso rder due to type 2 diabetes mellitus 014681373 E11.29 [id number] Aj Felipe MD Endocr[facility] logy, [address] [address] 02/20/2016 08:13:06 02/20/2016 09:45:25 Primary malignant neoplasm of thyroid gland 57801073 C73 Postoperat ravi hypothyroidism 74341804 E89.0 Renal diso rder due to type 2 diabetes mellitus 632609265 E11.29 Hyperlipidemia 58403292 E78.5 Numbness o f lower limb 970027218 R20.0 [id number] Aj Felipe MD [facility]ocr[facility], [address] [address] 02/24/2017 14:27:14 02/24/2017 15:43:14 Postoperative hypothyroidism 98558198 E89.0 Primary ma lignant neoplasm of thyroid gland 52661678 C73 Renal diso rder due to type 2 diabetes mellitus 729481354 E11.29 Hyperlipidemia 18685623 E78.5 [id number] Aj Felipe MD Endocr[facility] logy, [address] [address] 09/27/2017 08:58:19 09/27/2017 10:11:03 Postoperative hypothyroidism 32300829 E89.0 Renal diso rder due to type 2 diabetes mellitus 392437069 E11.29 Primary ma lignant neoplasm of thyroid gland 85079142 C73 Hyperlipidemia 19049356 E78.5 Fatigue 13985639 R53.83 Steatosis of liver 1007 K76.0 Active or passive immunization 119907610 Z23 [id number] Aj Felipe MD [facility], [address] [address] 03/17/2018 08:36:28 03/17/2018 09:43:01 Postoperative hypothyroidism 55808244 E89.0 Renal diso rder due to type 2 diabetes mellitus 699915737 E11.29 Primary ma lignant neoplasm of thyroid gland 85061714 C73 Hyperlipidemia 95940528 E78.5 Steatosis of liver 1007 K76.0 [id number] Iram Mohan RN, BSN, [facility] , [address] [address] 05/10/2018 07:44:45 05/15/2018 11:33:54 Uncontrolled type 2 diabetes mellitus 543735302 E11.65 [id number] Aj Felipe MD [facility]ocr[facility], [address] [address] 04/24/2019 08:35:40 04/24/2019 09:55:57 Postoperative hypothyroidism 01426032 E89.0 Primary ma lignant neoplasm of thyroid gland 34998427 C73 Renal diso rder due to type 2 diabetes mellitus 184244874 E11.29 Hyperlipidemia 10941091 E78.5 Steatosis of liver 1007 K76.0 [id number] Aj Felipe MD Endocr[facility]y, [address] [address] 01/28/2021 14:27:25 01/28/2021 19:22:16 Postoperative hypothyroidism 20133878 E89.0 Primary ma lignant neoplasm of thyroid gland 49208338 C73 Renal diso rder due to type 2 diabetes mellitus 801879829 E11.29 Hyperlipidemia 55240213 E78.5 Steatosis of liver 1007 K76.0 [id number] Iram Mohan RN, BSN, [facility] , [address] [address] 06/17/2021 14:34:53 06/22/2021 09:18:12 Uncontrolled type 2 diabetes mellitus 422201102 E11.65 [id number] Aj Felipe MD [facility]ocr[facility], [address] [address] 05/14/2022 10:41:18 05/19/2022 14:27:17 Renal disorder due to type 2 diabetes mellitus 834905650 E11.29 Postoperat ravi hypothyroidism 70347433 E89.0 Primary ma lignant neoplasm of thyroid gland 23817415 C73 Steatosis of liver 1007 K76.0 Hyperlipidemia 96329569 E78.5 [id number] Idania Cole RN Endocrino logy, [address] [address] 06/23/2022 10:47:49 06/23/2022 11:27:07 Uncontrolled type 2 diabetes mellitus 917152099 E11.65 [id number] Aj Felipe MD Endocrino logy, [address] [address] 02/22/2023 13:15:52 02/23/2023 16:19:30 Renal disorder due to type 2 diabetes mellitus 095623948 E11.29 Postoperat ravi hypothyroidism 48276502 E89.0 Primary ma lignant neoplasm of thyroid gland 73620169 C73 Steatosis of liver 1007 K76.0 Hyperlipidemia 62310449 E78.5 [id number] Aj Felipe MD Endocrino logy, [address] [address] 07/29/2023 08:35:07 07/29/2023 10:10:36 Renal disorder due to type 2 diabetes mellitus 176716471 E11.29 Postoperat ravi hypothyroidism 35312757 E89.0 Primary ma lignant neoplasm of thyroid gland 70227154 C73 Steatosis of liver 1007 K76.0 Hyperlipidemia 26109457 E78.5 [id number] Aj Felipe MD Endocr[facility] logy, [address] [address] 09/16/2023 09:43:47 10/19/2023 12:46:59 Renal disorder due to type 2 diabetes mellitus 353306102 E11.29 Postoperat ravi hypothyroidism 87516760 E89.0 Primary ma lignant neoplasm of thyroid gland 42016290 C73 Steatosis of liver 1007 K76.0 Hyperlipidemia 27462669 E78.5 [id number] Aj Felipe MD Endocr[facility]y, [address] [address] 04/25/2024 16:17:11 04/26/2024 09:45:14 Renal disorder due to type 2 diabetes mellitus 908211101 E11.29 Postoperat ravi hypothyroidism 56344762 E89.0 Primary ma lignant neoplasm of thyroid gland 07761048 C73 Steatosis of liver 1007 K76.0 Hyperlipidemia 69789900 E78.5 Health Concerns Section Related Observation LastModified by Organization Detai ls LastModified Time None Recorded Concern Status LastModified by Organization Details LastModified Time None Recorded Advance Directives Directive N: Payers Encounter Date Sequence Insurance Name Policy Number Policy Shelby Covered Member ID Shelby Member ID Guarantor Name 06/23/2022 1 [facility] [id number] 01 Ruth L L Stanislav [id number] Ruth L Stanislav 02/22/2023 1 [facility] [id number] 01 Ruth L L Stanislav [id number] Ruth L Stanislav 07/29/2023 1 [facility] [id number] 01 Ruth L L Stanislav [id number] Ruth L Stanislav 09/16/2023 1 [facility] [id number] 01 Ruth L L Stanislav [id number] Ruth L Stanislav 04/25/2024 1 [facility] [id number] 01 Ruth L L Stanislav [id number] Ruth L Stanislav Notes Date Note Type [...] doesn't go for walks- had to put Sargeant down). Weight is 222 (02/22); was 235. Cardiac / Eye / Podiatric / Renal / Vascular Symptomsno coronary artery disease; no retinopathy ([address] (2021)); no numbness of feet; no kidney disease Hypoglycemia Symptomsfrequency of hypoglycemic episodesinfrequently; No lows. In past, feels nervous when BG around 70 (only on metformin). Dogs noticed once (BG was 65)Notes:TSH 0.93-cancer AST/ALT ongoing elevation. ast/alt= 50/52 (12/23) was 94/75 (05/24); was 60/45 (06/23); was 53/46 (10/23); was 44/31 (04/21); 77/79 (04/20); as 70/54 (01/19) Son (Yogesh) has helped her (in [employer] and [employer] ). Not buying snacks. Small meals with [...] 07/21/11); total body scan thyrogen: (07/09 at [facility]); Pt hx of thyroid cancer (2002), goal [...] of thyroid glandLV on 05/24Last labs 12/23 P1A-3Tanx cuedPT had Liver US on 1Checks blood sugars occasionally when not feeling well last reading was FBS 128Pt saw a rail car mechanic states might have cirrosis of the liver PT had colonoscopy and endoscopy last week. PAST MEDICAL Hx (updated): Had u/s around december 2022 by GI for LFTs ([address]). Start of cirrhosis.On mounjaro since 06/24. 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 [...] some.No dizziness with standing. Aj Felipe MD [address] [place] [address], [phone], [facility] 02/23/2023 19:34:58 07/29/2023 text/html DiabetesReported bypatient.Labs:last Hemoglobin [...] Vascular Symptomsno coronary artery disease; no retinopathy ([address] (2021).); no numbness of feet; no kidney disease; due (07/25) Hypoglycemia Symptomsfrequency of hypoglycemic episodesinfrequently; No lows. In past, feels nervous when BG around 70 (only on metformin). Dogs noticed once (BG was 65)Notes:06/25: 126/xxx/51/xx12/23: 146/198/5405/24: 169-247-46 (05/24);01/21: 173-963-07-65 (01/21)07/25: Eating less junk- Mounjaro helping (10mg). TSH 0.93-cancer AST/ALT ongoing elevation.AST/ALT= 55/45 (06/25); Told U/S shows sign of cirrhosis ([address]). was 50/52 (12/23) was 94/75 (05/24); was 60/45 (06/23); was 53/46 (10/23); was 44/31 (04/21); 77/79 (04/20); as 70/54 (01/19) Son (Yogesh) has helped her (in [employer] ). Not buying snacks. Small meals with [...] 07/21/11); total body scan thyrogen: (07/09 at [facility]); Pt hx of thyroid cancer (2002), goal [...] 10/15. 1.28 ( prev 1.30) PCP: Kemal ([facility]).ONC: [place]. OFF tamoxifen (graduated).RHEUM: [facility]. put on gabapentinDx of breast CA in 2016: s/p lumpectomy and now on tamoxifen Follow-Up: postoperative hypothyroidismFollow-Up : primary malignant neoplasm of thyroid glandFollow-Up: renal disorder due to type 2 diabetes mellitusRenal disorder due to type 2 diabetes mellitusprimary malignant neoplasm of thyroid glandLV on 05/24Last labs 12/23 P0M-3Pwbq cuedPT had Liver US on 1Checks blood sugars occasionally when not feeling well last reading was FBS 128Pt saw a rail car mechanic states might have cirrosis of the liver PT had colonoscopy and endoscopy last week. PAST MEDICAL Hx (updated): Had u/s around december 2022 by GI for LFTs ([address] Start of cirrhosis.On mounjaro since 06/24.07/25: BP up. Started on amlodipine. has machine at home- no major change. 5mg. 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 Aj Felipe MD [address] [place] [address], [phone], [facility] 07/29/2023 09:18:19 09/16/2023 text/html DiabetesReported bypatient.Labs:last Hemoglobin [...] to put Alice down). [place] 220 ([place]24[place] was 214 (07/25); was 222 (02/22); was 235. Cardiac / Eye / Podiatric / Renal / Vascular Symptomsno coronary artery disease; no retinopathy (Simon (2021)); no numbness of feet; no kidney disease Hypoglycemia Symptomsfrequency of hypoglycemic episodesinfrequently; No lows. In past, feels nervous when BG around 70 (only on metformin). Dogs noticed once (BG was 65)Notes: 06/25: 126/xxx/51/xx12/23: 146/198/54/: 169-247-46 (05/24);01/21: 606-794-33-65 (01/21)07/25: Eating less junk- Krish helping (10mg). [...] 07/21/11); total body scan thyrogen: (07/09 at [facility]); Pt hx of thyroid cancer (2002), goal [...] 10/15. 1.28 ( prev 1.30) PCP: Jania ([employer]) with Kemal ([facility]).ONC: yearly now ([facility]) OFF tamoxifen (graduated).Dx of [...] last reading was FBS 128Pt saw a rail car mechanic states might have cirrosis of the liver PT had colonoscopy and endoscopy last week. PAST MEDICAL Hx (updated): Had u/s around december 2022 by GI for LFTs ([address]). Start of cirrhosis.On mounjaro since 06/24.07/25: BP up. Started on amlodipine. has machine at home- no major change. 5mg.09/24: No changes. losaratan increased to 100. 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 Not exercising. up/down stairs 2-3x per day FAMILY Hx (updated): No changes. Youngest son [employer]. Oldest nearby lives on farm ([place]). No grands.in past, Son (Yogesh) has helped her (in [employer] ). Not buying snacks. Small meals with protein. Bringing meals to work more. yogurt with berries. Has juicer now.09/24: all good. WEIGHT= 219 (09/24); was 222 (02/22); doesn't check at home. masx was 250 (2017)On [employer] 12.5.Will likely be contacting [facility]. In past: sex life is zero. very self conscious about looks (role in [employer]- more visible than in past).Talked about option [...] No dizziness with standing. Aj Felipe MD [address] [place] [address], [place], [phone], [facility] 10/18/2023 18:17:21 04/25/2024 text/html DiabetesReported bypatient.Labs:last Hemoglobin [...] doesn't go for walks- had to put Sargeant down). WEIGHT: 151 (04/25@home); was 220 (09/24[place] was 214 (07/25); was 222 (02/22); was 235. Cardiac / Eye / Podiatric / Renal / Vascular Symptomsno coronary artery disease; no retinopathy (Simon's office (2023)); no numbness of feet; no kidney disease Hypoglycemia Symptomsfrequency of hypoglycemic episodes; No lows.Notes:02/23: 124/100/47/57 still on simva.06/25: 126/xxx/51/xx12/23: 146/198/54/: 169-247-46 (05/24);01/21: 157-223-62-65 (01/21)07/25: Eating less junk- Mounjaro helping (10mg). 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 Not exercising. up/down stairs 2-3x per day04/25: work same; SUPERVISOR FILTER [employer] and president of [employer]. Treadmill daily: 45-60 min. 3-3.5 mph. FAMILY Hx (updated): No changes. Youngest son [employer]. Oldest nearby lives on farm ([place]). No grands.in past, Son (Yogesh) has helped her (in [employer] ). Not buying snacks. Small meals with [...] too.No dizziness with standing. Aj Felipe MD [address] [place] [address], [phone], [facility] 04/25/2024 18:28:30 OBGyn Episode No OBEpisode recorded.
== END 2024-10-02 14:54 | disposition home or self-care (01) ==
LOC: HO.XRAY 14:53
PROVIDERS: PCP Internal Medicine; Visit Provider Physician Assistant Surgical
DX: R07.81 Pleurodynia (principal)
CPT/HCPCS: 71046

== ENCOUNTER → 2024-10-02 14:56 | Outpatient (BNV) | payer OTHER, SELFPAY | PROVIDERS: PCP Internal Medicine; Visit Provider Radiology Diagnostic Radiology | DX: R07.81 Pleurodynia (principal) | CPT/HCPCS: 71046 ==

== ENCOUNTER 2024-12-21 14:56 | Outpatient (AMB) | payer OTHER, SELFPAY ==
[2024-12-21 10:46] VITALS: BMI 26.3
--- NOTE | 2024-12-21 10:46 | A.OFFVIS_ITS ---
VS Expanded 12/21/24 10:46 Height 5 ft 2.5 in Weight 146 lb 3 oz BMI 26.3 Body Fat % 33.2 Fat Free Mass 97.7 Visceral Fat Rating 9 Body Water % 45.8 Muscle Mass/Score 91.8 Basal Metabolic Rate/Score 1,321 Intake Visit Reasons: TELEPHONE PO LSG 02/28/24 Domestic Violence Advocate Required: No Allergies oxycodone [From Percocet] Adverse Reaction (Intermediate, Verified 09/27/24 14:42) Rash Penicillins Adverse Reaction (Intermediate, Verified 09/27/24 14:42) Rash Medication List - Last Reconciled 12/21/24 by PILAR Triplett escitalopram oxalate 20 mg PO DAILY levothyroxine 150 mcg PO DAILY ropinirole 0.5 mg PO TID trazodone 50 - 100 mg PO BEDTIME PRN HPI Comments Details: This?a?54?yo female who is s/p LSG without hiatal hernia repair on?02/28/2024. Presents for 10 month post op visit. Weight today is 146.3 pounds, with a BMI of 26.3. There has been a 67.9 pound weight loss,(initial weight 214.2 pounds) since starting the program on 10/28/2023 reflecting a 31.6 % total body weight l oss and a weight loss of 32.1 pounds since surgery (operative weight 178.4 pounds) reflecting a 17.9 % TBWL since surgery. No complaints of nausea, emesis, abdominal pain or reflux. Reports infrequent but normal bowel movements every 1-2 days and uses stool softeners regularly. She has been using celebrate multivitamin and fanny + D daily, especially since low vitamin-A was identified. She has been checking her BP at home with readings 1 teens-120s/60-70s. She has not used her amlodipine or losartan. Her left rib pain resolved but then she got covid and the flu and now recovering. Back to work. She was unable to adhere strictly to the meal plan while she was sick. She additionally had difficulty exercising. Now that she has recovered, she has returned to the meal plan and has resumed her exercise plan. Present meal plan includes: clean and simple protein shake 20 gm per packet patient wants to use this protein supplement One packet mixed with 16 oz of almond milk drank over 4 hours Celebrate protein bar Meal with 6 forks of protein and 6 of vegetables She may have half cup fresh fruit in the afternoon if she wishes Drinking 60-70 oz additional water ? Exercise routine includes: treadmill at home, 3 days per week, 350 fanny weights [facility] Medical History BMI 32.0-32.9,adult BMI 34.0-34.9,adult Arthritis Diabetes Cirrhosis Depression Elevated cholesterol HTN (hypertension) Cancer Restless leg syndrome Stress incontinence Hypothyroidism Anxiety DJD (degenerative joint disease) Asthma GERD (gastroesophageal reflux disease) Surgical History Hx of laparoscopic partial gastrectomy History of lumpectomy of right breast History of delivery History of partial hysterectomy Hx of cholecystectomy Hx of thyroidectomy Hx of colonoscopy Family History Maternal Aunt Breast cancer Mother Thyroid cancer Social History Household Members: Spouse and Children Household Members Other:: 3 Housing: House Are you a primary career services director to a significant other at home: No Do you presently have visiting nurse or other home services: No Alcohol intake: current Alcohol intake frequency: does not drink Patient Tobacco Use Status: Never used Tobacco service: No Telehealth Telehealth Telehealth Platform: Telephone Location of provider rendering services: practice address Location of patient: address on file Patient Identification confirmed using: Name, : Yes Telehealth method: voice only Patient verbally consented to treatment: Yes Patient verbally consented to billing insurance company: Yes Patient informed of any privacy concerns related to visit: Yes Minutes spent on Phone/Video with Pt.: 15 Assessment & Plan Assessment & Plan (1) S/P laparoscopic sleeve gastrectomy: Code(s): Z98.84 - Bariatric surgery status Category: Surgical Plan: Patient has resumed her meal plan. She has resumed her exercise plan. She is recovering from COVID and flu. She is satisfied with her meal plan and we will continue as such. We will have her return to the office for her 1 year follow- up. Encouraged to text weekly with weights and with any questions or concerns.
== END 2024-12-21 15:10 | disposition home or self-care (01) ==
LOC: HO.HBS 14:56
PROVIDERS: PCP Internal Medicine; Visit Provider Physician Assistant Surgical
DX: E66.3 Overweight (principal); Z68.26 Body mass index [BMI] 26.0-26.9, adult; Z90.3 Acquired absence of stomach [part of]; Z98.84 Bariatric surgery status
CPT/HCPCS: 98012

== ENCOUNTER → 2024-12-21 14:56 | Outpatient (BNVA) | payer OTHER, SELFPAY | PROVIDERS: PCP Internal Medicine; Visit Provider Physician Assistant Surgical ==

== ENCOUNTER 2025-03-05 14:34 | Outpatient (AMB) | payer OTHER, SELFPAY ==
--- NOTE | 2025-03-05 14:39 | A.OFFVIS_ITS ---
VS Expanded 03/05/25 14:49 BP 142/81 H Blood Pressure Location Rt brachial Blood Pressure Position Sitting Pulse 81 Pulse Source Pulse Oximeter Temp 95.9 F L Temperature Source Temporal Artery Scan Pulse Oximetry 98 Oxygen Delivery Method Room Air Height 5 ft 2.5 in Weight 155 lb BMI 27.9 Body Fat % 31.6 Body Fat Mass 49.0 Fat Free Mass 106.0 Visceral Fat Rating 7.0 Body Water % 48.5 Body Water Mass 75.2 Muscle Mass/Score 100.8 Basal Metabolic Rate/Score 1,424 Intake Visit Reasons: (OV) PO LSG 02/28/24 Ophthalmic Technician Apprentice Required: No Allergies oxycodone [From Percocet] Adverse Reaction (Intermediate, Verified 03/05/25 14:43) Rash Penicillins Adverse Reaction (Intermediate, Verified 03/05/25 14:43) Rash Medication List - Last Reconciled 03/05/25 by PILAR Triplett escitalopram oxalate 20 mg PO DAILY levothyroxine 150 mcg PO DAILY ropinirole 0.5 mg PO TID trazodone 50 - 100 mg PO BEDTIME PRN HPI Comments Details: This?a?54?yo female who is s/p LSG without hiatal hernia repair on?02/28/2024. Presents for 1 year post op visit. Weight today is 155 pounds, with a BMI of 27.9. There has been a 59.2 pound weight loss,(initial weight 214.2 pounds) since starting the program on 10/28/2023 reflecting a 27.6 % total body weight loss and a weight loss of 32.1 pounds since surgery (operative weight 178.4 pounds) reflecting a 13.1 % TBWL since surgery. No complaints of nausea, emesis, abdominal pain or reflux. Reports infrequent but normal bowel movements every 1-2 days and uses stool softeners regularly. She has been using MVI She has been checking her BP at home with readings 1 teens-120s/60-70s. She has not used her amlodipine or losartan. Overall, patient states that she is feeling well. She has however developed a distaste for the number of shakes that she had been doing and had been eating more food, subsequently developing some weight gain. Eating yogurt with granola at lunch. eating 7 forks and 7 forks at night. Not satisfied with her current weight, wants to be 140 pounds. Present meal plan includes: (clean and simple protein shake 20 gm per packet patient wants to use this protein supplement) One packet mixed with 16 oz of almond milk drank over 4 hours Meal with 6 forks of protein and 6 of vegetables She may have half cup fresh fruit in the afternoon if she wishes Drinking 40 oz additional water ? Exercise routine includes: none in 3 months, treadmill at home Any post op complications: none EDIN: never DM: resolved HTN: resolved Hyperlipidemia: resolved GERD:?0-5 scale ??0 = no symptoms ??1 = symptoms noticeable but not bothersome 2 =symptoms bothersome but not daily ? 3 = symptoms bothersome and daily 4 = symptoms affect daily activities 5 = symptoms are incapacitating, unable to do daily activities ? How bad is the heartburn: 0 ? Heartburn while lying down: 3-4 only if eating late at night then going to bed (1-2 x per week) ? Heartburn when standing up: 0 ? Heartburn after meals: 0 ? Does heartburn change your diet: 0 ? Does heartburn wake you up from sleep: 0 ? Do you have difficulty swallowin ? Do you have pain with swallowin ? If you take medicine for your reflux, does this affect your daily life: 0 Satisfaction with present condition - satisfied or not satisfied: dissatisfied [facility] Medical History BMI 32.0-32.9,adult BMI 34.0-34.9,adult Arthritis Diabetes Cirrhosis Depression Elevated cholesterol HTN (hypertension) Cancer Restless leg syndrome Stress incontinence Hypothyroidism Anxiety DJD (degenerative joint disease) Asthma GERD (gastroesophageal reflux disease) Surgical History Hx of laparoscopic partial gastrectomy History of lumpectomy of right breast History of delivery History of partial hysterectomy Hx of cholecystectomy Hx of thyroidectomy Hx of colonoscopy Family History Maternal Aunt Breast cancer Mother Thyroid cancer Social History Household Members: Spouse and Children Household Members Other:: 3 Housing: House Are you a primary animal caregiver to a significant other at home: No Do you presently have visiting nurse or other home services: No Alcohol intake: current Alcohol intake frequency: holidays/special occasions only Patient Tobacco Use Status: Never used Tobacco service: No Physical Exam Const General: cooperative and no acute distress Orientation/consciousness: patient oriented x3 Resp Effort & Inspection: normal respiratory effort Auscultation: clear to auscultation bilaterally Cardio Rate: regular rate Rhythm: regular rhythm GI Inspection: Yes normal to inspection and Yes incision (well healed) Palpation (GI): Soft to palpation and no masses Neuro General: patient oriented x3 Assessment & Plan Assessment & Plan (1) S/P laparoscopic sleeve gastrectomy: Code(s): Z98.84 - Bariatric surgery status Category: Surgical Plan: Patient has not been following a meal plan strictly. She has not been exercising in several months. States her goal is to return to a weight of 140 lb. She was given information regarding the right BMI ronnie. she will follow this closely. She has a treadmill at home and has been encouraged to resume exercise with a goal of burning 350-450 calories per day. She has been encouraged to text weights weekly and with any questions or concerns. We will additionally check 1 year postop labs. We will have her return to the office in approximately 6 weeks. Orders: Orders Hemoglobin A1c Today E03.9 - Hypothyroidism, unspecified, E50.9 - Vitamin A deficiency, unspecified, E78.00 - Pure hypercholesterolemia, unspecified, I10 - Essential (primary) hypertension, Z98.84 - Bariatric surgery status Lipid Panel Today E03.9 - Hypothyroidism, unspecified, E50.9 - Vitamin A deficiency, unspecified, E78.00 - Pure hypercholesterolemia, unspecified, I10 - Essential (primary) hypertension, Z98.84 - Bariatric surgery status Vitamin B12 and Folate Today E03.9 - Hypothyroidism, unspecified, E50.9 - Vitamin A deficiency, unspecified, E78.00 - Pure hypercholesterolemia, unspecified, I10 - Essential (primary) hypertension, Z98.84 - Bariatric surgery status C Reactive Protein Today E03.9 - Hypothyroidism, unspecified, E50.9 - Vitamin A deficiency, unspecified, E78.00 - Pure hypercholesterolemia, unspecified, I10 - Essential (primary) hypertension, Z98.84 - Bariatric surgery status Vitamin A Today E03.9 - Hypothyroidism, unspecified, E50.9 - Vitamin A deficiency, unspecified, E78.00 - Pure hypercholesterolemia, unspecified, I10 - Essential (primary) hypertension, Z98.84 - Bariatric surgery status TSH reflex Free T4 Today E03.9 - Hypothyroidism, unspecified, E50.9 - Vitamin A deficiency, unspecified, E78.00 - Pure hypercholesterolemia, unspecified, I10 - Essential (primary) hypertension, Z98.84 - Bariatric surgery status Insulin Today E03.9 - Hypothyroidism, unspecified, E50.9 - Vitamin A deficiency, unspecified, E78.00 - Pure hypercholesterolemia, unspecified, I10 - Essential (primary) hypertension, Z98.84 - Bariatric surgery status Complete Blood Count Auto Diff Today E03.9 - Hypothyroidism, unspecified, E50.9 - Vitamin A deficiency, unspecified, E78.00 - Pure hypercholesterolemia, unspe cified, I10 - Essential (primary) hypertension, Z98.84 - Bariatric surgery status IRON PROFILE Today E03.9 - Hypothyroidism, unspecified, E50.9 - Vitamin A deficiency, unspecified, E78.00 - Pure hypercholesterolemia, unspecified, I10 - Essential (primary) hypertension, Z98.84 - Bariatric surgery status Zinc Today E03.9 - Hypothyroidism, unspecified, E50.9 - Vitamin A deficiency, unspecified, E78.00 - Pure hypercholesterolemia, unspecified, I10 - Essential (primary) hypertension, Z98.84 - Bariatric surgery status Vitamin B1 Today E03.9 - Hypothyroidism, unspecified, E50.9 - Vitamin A deficiency, unspecified, E78.00 - Pure hypercholesterolemia, unspecified, I10 - Essential (primary) hypertension, Z98.84 - Bariatric surgery status Ferritin Today E03.9 - Hypothyroidism, unspecified, E50.9 - Vitamin A deficiency, unspecified, E78.00 - Pure hypercholesterolemia, unspecified, I10 - Essential (primary) hypertension, Z98.84 - Bariatric surgery status Vitamin D 25-OH Total Today E03.9 - Hypothyroidism, unspecified, E50.9 - Vitamin A deficiency, unspecified, E78.00 - Pure hypercholesterolemia, unspecified, I10 - Essential (primary) hypertension, Z98.84 - Bariatric surgery status Basic Metabolic Panel Today E03.9 - Hypothyroidism, unspecified, E50.9 - Vitamin A deficiency, unspecified, E78.00 - Pure hypercholesterolemia, unspecified, I10 - Essential (primary) hypertension, Z98.84 - Bariatric surgery status
[2025-03-05 14:49] VITALS: BP 142/81; PULSE 81; TEMP 35.5; O2SAT 98; BMI 27.9
--- OUTSIDE RECORDS SUMMARY | 2025-03-05 16:22 | XMS_ITS | Continuity of Care Document ---
Author Organization [facility] an[facility] Care Address [address] [place] [address]- Care Team Providers Care Quality Assurance Nurse Name Role Phone Faustino Sommer MD Primary Care Physician [id number] Date(s): 01/29/25 - 02/28/25 [facility] [address] [place] [id number] [[email or web address]] Encounter Type: Triage Allergies, Adverse Reactions, Alerts Substance Criticality Severity Reaction Reaction Severity Status penicillin HIVES Active oxyCODONE pruritis Active Medications Albuterol (Eqv-ProAir HFA) 90 mcg/inh inhalation aerosol 8 Gm, INHALE 2 PUFFS BY MOUTH EVERY 4 HOURS NEEDED FOR WHEEZING, 0 Refills, 01/04/22 10:44:00 AM EDT, Partial fill upon patient request if the prescription is for a schedule II opioid drug. Start Date: 01/04/22 Status: Ordered Repeat number: 1 Calcium (as carbonate)-vitamin D 500 mg-400 intl units oral tablet, chewable 1 tablet, Chew, Daily, # 60 tablet, 0 Refills, Soft Stop, 02/17/09 8:30:00 AM EDT Start Date: 02/17/09 Stop Date: 03/19/09 Status: Ordered Quantity: 60.0 Unit: tablet Repeat number: 1 citalopram 20 mg oral tablet 30 mg, 1.5, tablet, By Mouth, Daily, # 30 tablet, Refills 0, Maintenance, 11/23/18 11:23:13 AM EST Start Date: 11/23/18 Status: Ordered Quantity: 30.0 Unit: tablet Repeat number: 1 levothyroxine 150 mcg (0.15 mg) oral tablet 1 tablet = 150 mcg, By Mouth, Daily, # 30 tablet, 0 Refills, Maintenance, 12/25/21 8:17:00 PM EDT, Tablet, Partial fill upon patient request if the prescription is for a schedule II opioid drug. Start Date: 12/25/21 Status: Ordered Quantity: 30.0 Unit: tablet Repeat number: 1 Losartan Tablet 25 mg, By Mouth, Daily, Maintenance, 01/13/15 10:06:32 AM EDT Start Date: 01/13/15 Status: Ordered Repeat number: 1 Magnesium Oxide By Mouth, Daily, 0 Refills, Maintenance, 11/23/18 11:23:43 AM EST Start Date: 11/23/18 Status: Ordered Repeat number: 1 Multivitamin Daily, 0 Refills, Maintenance, 11/23/18 11:24:08 AM EST Start Date: 11/23/18 Status: Ordered Repeat number: 1 omeprazole 20 mg oral enteric coated capsule 1 capsule = 20 mg, By Mouth, 2 times a day, take on empty stomach 30min before breakfast and dinner, # 180 capsule, 3 Refills, Maintenance, 09/03/24 3:00:00 PM EST, EC Capsule, [id number], Partial fill upon patient request if the prescription is for a schedule II opioid drug., 158, cm, 01/31/24 8:19:00 EDT, Height, 85.2, kg, 01/31/24 8:19:00 EDT, Dry Weight Start Date: 09/03/24 Stop Date: 08/29/25 Status: Ordered Quantity: 180.0 Unit: capsule Repeat number: 4 rOPINIRole 0.25 mg oral tablet 1 tablet = 0.25 mg, By Mouth, Daily, 0 Refills, Maintenance, 11/23/18 11:22:14 AM EST Start Date: 11/23/18 Status: Ordered Repeat number: 1 traZODone 100 mg oral tablet 100 mg, 1, tablet, By Mouth, Daily at bedtime, Refills 0, Maintenance, 06/22/21 11:19:00 AM EDT, Partial fill upon patient request if the prescription is for a schedule II opioid drug. Start Date: 06/22/21 Status: Ordered Repeat number: 1 Vitamin A Daily, 0 Refills, Maintenance, 01/31/24 8:53:00 AM EDT, Partial fill upon patient request if the prescription is for a schedule II opioid drug. Start Date: 01/31/24 Status: Ordered Repeat number: 1 Vitamin B Complex oral tablet, disintegrating 0 Refills, Maintenance, 01/31/24 8:53:00 AM EDT, Partial fill upon patient request if the prescription is for a schedule II opioid drug. 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, invasive ductal carcinoma,??pT1b, pN0, upper outer quadrant, stage I, hormone receptor positive, HER-2/toño negative Confirmed 2015 Active Cirrhosis Confirmed Active Depression Confirmed Active Diabetes Confirmed Active Chronic GERD Confirmed Active Hx of thyroid cancer Confirmed Active Hypertension Confirmed Active Estrogen receptor positive status (ER+) Confirmed Active Social History Social History Type Response Smoking Status Never smoker entered on: 12/15/17 Sex Sex Representation Female (finding) Patient Care team information Care Team Personnel Name: Esther Limon Position: [facility] Onco RN Member Role: Primary Care Nurse Name: Faustino Sommer MD Position: [facility] Physician - Pediatrics Member Role: PCP Address: [address] [place] [id number] [[email or web address] Telecom: Name: Nidia Sotomayor [place] Position: [facility] Onco RN Member Role: Primary Care Nurse Name: Shahida Bell NP Position: [facility] PCO Associate Professional Member Role: Lifetime Consulting Provider Care Team Related Persons Name: FIGUEROA LU Insurance Providers Guarantor name: MOISES LU Health Plan Information #: 1 Payer: [employer] Member Number: NA Policy Number: NA Group Number: NA
== END 2025-03-05 15:13 | disposition home or self-care (01) ==
LOC: HO.HBS 14:34
PROVIDERS: PCP Internal Medicine; Visit Provider Physician Assistant Surgical
DX: E66.3 Overweight (principal); Z68.27 Body mass index [BMI] 27.0-27.9, adult; Z98.84 Bariatric surgery status; Z90.3 Acquired absence of stomach [part of]
CPT/HCPCS: 99213

== ENCOUNTER → 2025-03-05 14:34 | Outpatient (BNVA) | payer OTHER, SELFPAY | PROVIDERS: PCP Internal Medicine; Visit Provider Physician Assistant Surgical ==

== ENCOUNTER 2025-03-22 08:19 | Outpatient (REF) | payer OTHER, SELFPAY ==
--- OUTSIDE RECORDS SUMMARY | 2025-03-22 08:26 | XMS_ITS | Data Portability ---
Author Organization [facility], , [facility] Address [address] [place] [address] Care Team Providers Care Production Operations Manager Name Role Phone AJ FELIPE OTHER AJ FELIPE Guardian Ad Litem [facility] WHIT PAYNE Primary Care Provider [phone] Assessment Encounter Date Assessment Date Assessment LastModified [...] Organization Details Last Modified Time Details Appointments Follow Up, 40 2024 10:00A M Aj Felipe MD Not available Not available Not available Lab HbA1c (hemoglo bin A1c), blood 2023 024 [facility], [address] [place] [address], [id number], 05/28/2024 11:17:08 lipid panel, serum 2023 024 [facility], [address] [place] [address], [id number], 05/28/2024 14:16:25 CMP, serum or plasma 2023 024 [facility], [address] [place] [address], [id number], 05/28/2024 14:38:58 [facility]alb umin, urine [facility]23 [email or web address] [address] [place] [address], [id number], 05/29/2024 14:48:40 HbA1c (hemoglo bin A1c), blood 2023 025 [facility], [address] [place] [address], [id number], 10/24/2024 11:53:30 lipid panel, serum 2023 025 [facility], [address] [place] [address], [id number], 10/24/2024 14:02:08 CMP, serum or plasma 2023 025 [facility], [address] [place] [address], [id number], 10/24/2024 14:02:07 HbA1c (hemoglo bin A1c), blood 2024 025 [facility], [address] [place] [address], [id number], 10/24/2024 11:53:30 CMP, serum or plasma 2024 025 [facility], [address] [place] [address], [id number], 10/24/2024 14:02:07 lipid panel, serum 2024 025 [facility], [address] [place] [address], [id number], 10/24/2024 14:02:08 thyroglo bulin Ab, serum - thyroid AB tumor marker 2023 024 [facility], [address] [place] [address], [id number], 06/07/2024 15:03:30 thyroglo bulin Ab, serum - thyroid AB tumor marker 2023 025 [facility], [address] [place] [address], [id number], 10/26/2024 23:43:33 thyroglo bulin Ab, serum - thyroid AB tumor marker 2024 025 [facility], [address] [place] [address], [id number], 10/26/2024 23:43:33 TSH, ultra-se nsitive, serum 2023 024 [facility] [address] [place] [address], [id number], 05/29/2024 14:51:19 T4, free, serum 2023 024 [facility], [address] [place] [address], 51836, 05/28/2024 12:29:43 T4, free, serum 2023 025 [facility], [address] [place] [address], [id number], 10/24/2024 12:34:56 TSH, ultra-se nsitive, serum 2023 025 [facility], [address] [place] [address], [id number], 10/26/2024 15:12:12 T4, free, serum 2024 025 [facility], [address] [place] [address], [id number], 01/22/2025 03:01:52 TSH, ultra-se nsitive, serum 2024 025 [facility], [address] [place] [address], [id number], 01/22/2025 03:01:53 HbA1c (hemoglo bin A1c), blood 2022 023 [facility], [address] [place] [address], [id number], 05/23/2024 11:43:14 CMP, serum or plasma 2022 023 [facility], [address] [place] [address], [id number], 09/19/2023 16:36:29 lipid panel, serum 2022 023 [facility], [address] [place] [address], [id number], 09/19/2023 16:36:30 microalb umin, urine 2022 023 [facility], [address] [place] [address], [id number], 09/23/2023 14:34:10 HbA1c (hemoglo bin A1c), blood 2022 024 [facility], [address] [place] [address], [id number], 05/23/2024 11:43:14 CMP, serum or plasma 2022 024 [facility], [address] [place] [address], [id number], 02/14/2024 14:58:31 lipid panel, serum 2022 024 [facility], [address] [place] [address], [id number], 02/14/2024 14:58:32 microalb umin, urine 2022 024 [facility], [address] [place] [address], [id number], 04/17/2024 11:00:12 TSH, serum or plasma 2022 023 [facility], [address] [place] [address], [id number], 05/23/2024 11:43:55 T4, free, serum 2022 023 [facility], [address] [place] [address], [id number], 05/23/2024 11:43:36 thyroglo bulin Ab, serum [address] [facility], [address] [place] [address], [id number], 10/11/2023 10:38:53 T4, free, serum 2022 024 [facility], [address] [place] [address], [id number], 05/23/2024 11:43:36 TSH, serum or plasma 2022 024 [facility], [address] [place] [address], 92746, 05/23/2024 11:43:55 thyroglo bulin Ab, serum 2022 024 [facility], [address] [place] [address], 15941, 02/17/2024 07:38:42 HbA1c (hemoglo bin A1c), blood 2022 023 [email or web address] 2 [facility] (Centralized Electronic Ordering - All Locations), Patient Can Go To The Location Of Their Choice, 09/16/2023 10:49:39 CMP, serum or plasma 2022 023 NARDA [facility] (Centralized Electronic Ordering - All Locations), Patient Can Go To The Location Of Their Choice, 06/03/2023 16:43:50 lipid panel, serum 2022 023 NARDA [facility] (Centralized Electronic Ordering - All Locations), Patient Can Go To The Location Of Their Choice, 06/03/2023 16:43:52 microalb umin, urine 2022 023 NARDA [facility] (Centralized Electronic Ordering - All Locations), Patient Can Go To The Location Of Their Choice, 06/03/2023 17:44:29 HbA1c (hemoglo bin A1c), blood 2022 023 NARDA [facility] (Centralized Electronic Ordering - All Locations), Patient Can Go To The Location Of Their Choice, 06/03/2023 19:04:09 thyroglo bulin Ab, serum 2022 023 [email or web address] 2 [facility] (Centralized Electronic Ordering - All Locations), Patient Can Go To The Location Of Their Choice, 09/16/2023 10:49:29 thyroglo bulin Ab, serum 2022 023 NARDA [facility] (Centralized Electronic Ordering - All Locations), Patient Can Go To The Location Of Their Choice, 06/04/2023 11:06:44 TSH, serum or plasma 2022 023 [email or web address] 2 [facility] (Centralized Electronic Ordering - All Locations), Patient Can Go To The Location Of Their Choice, 09/16/2023 10:49:14 T4, free, serum 2022 023 [email or web address] 2 [facility] (Centralized Electronic Ordering - All Locations), Patient Can Go To The Location Of Their Choice, [id number] 09/16/2023 10:49:49 TSH, serum or plasma 2022 023 POUND [facility] (Centralized Electronic Ordering - All Locations), Patient Can Go To The Location Of Their Choice, [id number] 06/03/2023 16:48:53 T4, free, serum 2022 023 POUND [facility] (Centralized Electronic Ordering - All Locations), Patient Can Go To The Location Of Their Choice, [id number] 06/03/2023 16:48:51 Referral None recorded . Procedures None recorded . Surgeries None recorded . Imaging None recorded . Medication Orders levothyr oxine 112 mcg tablet 2023 024 POUND [facility], [address] [place], [address], 04/25/2024 18:28:29 Mounjaro 12.5 mg/0.5 mL subcutan eous pen injector 2022 023 [facility], [address] [place], [address], 04/25/2024 16:49:16 Mounjaro 10 mg/0.5 mL subcutan eous pen injector 2022 023 [email or web address] [facility], [address] [place], [address], 09/16/2023 09:49:36 Mounjaro 7.5 mg/0.5 mL subcutan eous pen injector 2021 022 [email or web address] [facility], [address] [place], [address], 04/22/2023 09:44:57 Patient TargetsNo targets recorded. Patient Instructions Encounter Date Encounter Id Patient Instructions Last Modified By Organization Details Last Modified Time 02/22/2023 [id number] - Get labs done every 3 months [...] min [email or web address] Not available 02/22/2023 14:06:46 07/29/2023 [id number] - Get labs done every 3 months [...] min [email or web address] Not available 07/29/2023 09:10:37 09/16/2023 [id number] - Get labs done every 3 months [...] 40 min Not available 09/13/2023 11:27:35 04/25/2024 [id number] - Get labs done every 6 months [...] furth er confi rmati on Not Available [address], [id number], 12/01/2022 11:47:35 12/02/19 23 12/01/2022 HGB A1C estimated average glucose 125.5 mg/dL Not Available [address], [address], 12/01/2022 11:47:35 12/02/19 23 12/01/2022 COMP. METAB OLIC PANEL glucose 121 mg/dL 70-100 high Not Available [address], [address], 12/01/2022 14:30:55 12/02/19 23 12/01/2022 COMP. METAB OLIC PANEL BUN 12 mg/dL 7-18 Not Available [address], [address], 12/01/2022 14:30:55 12/02/19 23 12/01/2022 COMP. METAB OLIC PANEL creatinine 0.7 mg/dL 0.8-1. 3 low Not Available [address], [address], 12/01/2022 14:30:55 12/02/19 23 12/01/2022 COMP. METAB OLIC PANEL B/C 17.1 ratio Not Available [address], [address], 12/01/2022 14:30:55 12/02/19 23 12/01/2022 COMP. METAB [...] Colla borat ion (CKD- EPI) Equat ion (Darrelle r et. al 2020) as recom lenny d by the Natio nal Kidne y Found ation . eGFR is based on age, serum creat inine , and sex. CKD-E PI does not calcu late eGFR by race, does not apply to child sarah (age <18 years ), and shoul d not be used in pregn jose. Not Available [address], [address], 12/01/2022 14:30:55 12/02/19 23 12/01/2022 COMP. METAB OLIC PANEL sodium 142 mmol/ L 136-14 5 Not Available [address], [address], 12/01/2022 14:30:55 12/02/19 23 12/01/2022 COMP. METAB OLIC PANEL potassium 4.2 mmol/ L 3.5-5. 1 Not Available [address], [address], 12/01/2022 14:30:55 12/02/19 23 12/01/2022 COMP. METAB OLIC PANEL chloride 104 mmol/ L 96-107 Not Available [address], 24450, 12/01/2022 14:30:55 12/02/19 23 12/01/2022 COMP. METAB OLIC PANEL anion gap 9.4 5.0-15 .0 Not Available [address], [address]69, 12/01/2022 14:30:55 12/02/19 23 12/01/2022 COMP. METAB OLIC PANEL CO2 29 mmol/ L 21-32 Not Available [address], [address], 12/01/2022 14:30:55 12/02/19 23 12/01/2022 COMP. METAB OLIC PANEL calcium 9.7 mg/dL 8.5-10 .3 Not Available [address], 09496, 12/01/2022 14:30:55 12/02/19 23 12/01/2022 COMP. METAB OLIC PANEL total protein 7.0 g/dL 6.4-8. 2 Not Available [address], 95478, 12/01/2022 14:30:55 12/02/19 23 12/01/2022 COMP. METAB OLIC PANEL albumin 3.4 g/dL 3.4-5. 0 Not Available [address], [address]64, 12/01/2022 14:30:55 12/02/19 23 12/01/2022 COMP. METAB OLIC PANEL globulin 3.6 g/dL Not Available [address], 37721, 12/01/2022 14:30:55 12/02/19 23 12/01/2022 COMP. METAB OLIC PANEL A/G 0.9 ratio 0.8-2. 0 Not Available [address], 78354, 12/01/2022 14:30:55 12/02/19 23 12/01/2022 COMP. METAB OLIC PANEL total bilirubin 0.30 mg/dL 0.00-1 .00 Not Available [address], 56959, 12/01/2022 14:30:55 12/02/19 23 12/01/2022 COMP. METAB OLIC PANEL AST 50 U/L 0-37 high Not Available [address], [address], 12/01/2022 14:30:55 12/02/19 23 12/01/2022 COMP. METAB OLIC PANEL ALT 52 U/L 6-63 Not Available [address], [address]88, 12/01/2022 14:30:55 12/02/19 23 12/01/2022 COMP. METAB OLIC PANEL alk. phos. 259 U/L 50-136 high Not Available [address], [address], 12/01/2022 14:30:55 12/02/19 23 12/01/2022 LIPID PANEL cholesterol 146 mg/dL <200 mg/dl Alexandra able 200-2 39 mg/dl Borde rline High >240 mg/dl High Not Available [address], [address]96, 12/01/2022 14:30:57 12/02/19 23 12/01/2022 LIPID PANEL triglyceride s 198 mg/dL <150 mg/dL Tamia l 150-1 99 mg/dL Borde rline High 200-4 99 mg/dL High >500 mg/dL Very High Not Available [address], 90957, 12/01/2022 14:30:57 12/02/19 23 12/01/2022 LIPID PANEL direct HDL 54 mg/dL <40 mg/dl - Major Risk for CHD >60 mg/dl - Negat ravi Risk for CHD Not Available [address], [address]66, 12/01/2022 14:30:57 12/02/1912/01/2022 DIREC T LDL direct LDL 44 mg/dL RISK CATEG ORY LDL GOAL _ CHD or CHD Risk Equiv alent s <100 mg/dl (10-y ear risk >20%) 2+ Risk Facto rs <130 mg/dl (10-y ear risk <= 20%) 0-1 Risk Facto r <160 mg/dl Almo st all peopl e with 0-1 risk facto r have a 10 year risk <10%, thus 10 year risk asses ment in peopl e with 0-1 risk facto r is not neces ximena. Not Available [address], [address], 12/01/2022 14:30:58 12/02/1912/01/2022 MICRO ALBUM IN/CR EATIN INE RATIO PANEL , URINE microalbumin 58.1 mg/L 1.3-20 .0 high Not Available [address], [address], 12/01/2022 15:25:16 12/02/19 23 12/01/2022 MICRO ALBUM IN/CR EATIN INE RATIO PANEL , URINE creatinine urine 140.0 mg/dL 30.0-1 25.0 high Not Available [address], [address], 12/01/2022 15:25:16 12/02/19 23 12/01/2022 MICRO ALBUM IN/CR EATIN INE RATIO PANEL , URINE microalb/cre at ratio 41.5 mg/g_ creat 0.0-29 .0 high Not Available [address], [address], 12/01/2022 15:25:16 12/02/19 23 12/01/2022 FREE T4 free T4 1.33 NG/dL 0.75-1 .54 Not Available [address], [address], 12/01/2022 15:37:02 12/02/19 23 12/01/2022 TSH TSH 0.24 uIU/m L 0.50-6 .00 low The Ameri can Colle ge of Endoc rinol ogy and Ameri can Thyro id Assoc iatio n recom mend goal TSH value s betwe en 0.4-4 .0 mIU/m L. Not Available [address], [address], 12/01/2022 16:05:27 12/02/1912/05/2022 THYRO ID CANCE R (THYR OGLOB ULIN) MONIT OR thyroglobuli n antibody <1 IU/mL <=1 This Thyro globu ebony antib anjum test was perfo rmed using the StrataCloud an AccuRevt er Chemi lumin escen t metho d. Value s obtai mila from diffe rent assay metho ds canno t be used inter jackson eably . Thyro globu ebony antib anjum level s, regar dless of value , shoul d not be inter prete d as absol [place] evide nce of the prese nce or absen ce of disea se. Not Available [facility] [address], [address], 12/05/2022 06:13:00 12/02/19 23 12/05/2022 THYRO ID CANCE R (THYR OGLOB ULIN) MONIT OR thyroglobuli n <0.1 NG/mL Refer ence Range : Athyr otic: <0.1 ng/mL Refer ence range appli es to diffe renti ated thyro id cance r patie nts follo wing treat ment. The prese nce of measu rable thyro globu ebony indic ates the prese nce of thyro globu ebony-p roduc ing thyro id tissu e. Clini fanny corre latio n is advis ed. This Thyro globu ebony test was perfo rmed using the StrataCloud an Coult er Chemi lumin escen t metho d. Value s obtai mila from diffe rent assay metho ds canno t be used inter jackson eably . Thyro globu ebony level s, regar dless of value , shoul d not be inter prete d as absol [place] evide nce of the prese nce or absen ce of disea se. Not Available [facility] [address], [place], [address], 12/05/2022 06:13:00 06/03/20 23 06/03/2023 COMPR EHENS RAVI METAB OLIC PANL glucose 130 mg/dL (70-99 ) high Not Available [facility] (Centralized Electronic Ordering - All Locations) Patient Can Go To The Location Of Their Choice, 06/03/2023 16:43:50 06/03/20 23 06/03/2023 COMPR EHENS RAVI METAB OLIC PANL BUN 8 mg/dL (6-20) Not Available [facility] (Centralized Electronic Ordering - All Locations) Patient Can Go To The Location Of Their Choice, 06/03/2023 16:43:50 06/03/20 23 06/03/2023 COMPR EHENS RAVI METAB OLIC PANL creatinine 0.6 mg/dL (0.5-1 .0) Not Available [facility] (Centralized Electronic Ordering - All Locations) Patient Can Go To The Location Of Their Choice, 06/03/2023 16:43:50 06/03/2006/03/2023 COMPR EHENS RAVI METAB OLIC PANL sodium 141 mmol/ L (133-1 45) Not Available [facility] (Centralized Electronic Ordering - All Locations) Patient Can Go To The Location Of Their Choice, 06/03/2023 16:43:50 06/03/2006/03/2023 COMPR EHENS RAVI METAB OLIC PANL potassium 3.9 mmol/ L (3.6-5 .2) Not Available [facility] (Centralized Electronic Ordering - All Locations) Patient Can Go To The Location Of Their Choice, 06/03/2023 16:43:50 06/03/2006/03/2023 COMPR EHENS RAVI METAB OLIC PANL chloride 106 mmol/ L (98-10 7) Not Available [facility] (Centralized Electronic Ordering - All Locations) Patient Can Go To The Location Of Their Choice, 06/03/2023 16:43:50 06/03/2006/03/2023 COMPR EHENS RAVI METAB OLIC PANL bicarbonate 25 mmol/ L (22-29 ) Not Available [facility] (Centralized Electronic Ordering - All Locations) Patient Can Go To The Location Of Their Choice, 06/03/2023 16:43:50 06/03/2006/03/2023 COMPR EHENS RAVI METAB OLIC PANL anion gap 10 (4-17) Not Available [facility] (Centralized Electronic Ordering - All Locations) Patient Can Go To The Location Of Their Choice, 06/03/2023 16:43:50 06/03/2006/03/2023 COMPR EHENS RAVI METAB OLIC PANL albumin 3.9 gm/dL (3.4-4 .8) Not Available [facility] (Centralized Electronic Ordering - All Locations) Patient Can Go To The Location Of Their Choice, 06/03/2023 16:43:50 06/03/2006/03/2023 COMPR EHENS RAVI METAB OLIC PANL calcium 9.4 mg/dL (8.6-1 0.5) Not Available [facility] (Centralized Electronic Ordering - All Locations) Patient Can Go To The Location Of Their Choice, 06/03/2023 16:43:50 06/03/2006/03/2023 COMPR EHENS RAVI METAB OLIC PANL bilirubin,to scarlett 0.3 mg/dL (0-1.2 ) Not Available [facility] (Centralized Electronic Ordering - All Locations) Patient Can Go To The Location Of Their Choice, 06/03/2023 16:43:50 06/03/2006/03/2023 COMPR EHENS RAVI METAB OLIC PANL total protein 6.5 gm/dL (6.2-8 .2) Not Available [facility] (Centralized Electronic Ordering - All Locations) Patient Can Go To The Location Of Their Choice, 06/03/2023 16:43:50 06/03/2006/03/2023 COMPR EHENS RAVI METAB OLIC PANL Ag ratio 1.5 Not Available [facility] (Centralized Electronic Ordering - All Locations) Patient Can Go To The Location Of Their Choice, 06/03/2023 16:43:50 06/03/2006/03/2023 COMPR EHENS RAVI METAB OLIC PANL AST 55 U/L (0-32) high Not Available [facility] (Centralized Electronic Ordering - All Locations) Patient Can Go To The Location Of Their Choice, 06/03/2023 16:43:50 06/03/2006/03/2023 COMPR EHENS RAVI METAB OLIC PANL alk phos 208 U/L (35-10 4) high Not Available [facility] (Centralized Electronic Ordering - All Locations) Patient Can Go To The Location Of Their Choice, 06/03/2023 16:43:50 06/03/2006/03/2023 COMPR EHENS RAVI METAB OLIC PANL ALT 45 U/L (0-33) high Not Available [facility] (Centralized Electronic Ordering - All Locations) Patient Can Go To The Location Of Their Choice, 06/03/2023 16:43:50 06/03/2006/03/2023 COMPR EHENS RAVI METAB OLIC PANL estimated GFR creatinine 109 mL/mi n/1.7 3_M2 Creat inine based estim ated j luis toscano ation (eGFR ) in adult s is calcu lated using the Natio nal Kidne y Found ation recom lenny d 2020 CKD-E PI equat ion. Estim ates GFR from serum creat inine , age and sex. Not Available [facility] (Centralized Electronic Ordering - All Locations) Patient Can Go To The Location Of Their Choice, 06/03/2023 16:43:50 06/03/2006/03/2023 NON FASTI NG LIPID PANEL cholesterol, total 126 mg/dL (<200) Not Available [facility] ([facility] Order[facility] - All Locations) Patient Can Go To The Location Of Their Choice, 06/03/2023 16:43:51 06/03/2006/03/2023 NON FASTI NG LIPID PANEL HDL chol 51 mg/dL (>39) Not Available [facility] (Centralized Electronic Ordering - All Locations) Patient Can Go To The Location Of Their Choice, 06/03/2023 16:43:51 06/03/2006/03/2023 NON FASTI NG LIPID PANEL non HDL cholesterol (calc) 75 mg/dL (<160) Not Available [facility] ([facility] Ordering - All Locations) Patient Can Go To The Location Of Their Choice, 06/03/2023 16:43:51 06/03/2006/03/2023 FREE T4 free T4 1.88 NG/dL (0.70- 1.80) high Not Available [facility] (Centralized Electronic Ordering - All Locations) Patient Can Go To The Location Of Their Choice, 06/03/2023 16:48:51 06/03/2006/03/2023 TSH TSH 0.02 uIU/m L (0.4-4 .2) low Not Available [facility] (Centralized Electronic Ordering - All Locations) Patient Can Go To The Location Of Their Choice, 06/03/2023 16:48:53 06/03/2006/03/2023 URINA RY MICRO ALBUM IN micro-albumi n <12.0 mg/L (<20) The urine micro album in test is desig mila to monit or renal funct ion. When scree castro for Bence Mansfield prote inuri a, urine elect ropho marian is recom lenny d. Not Available [facility] (Centralized Electronic Ordering - All Locations) Patient Can Go To The Location Of Their Choice, 06/03/2023 17:44:29 06/03/2006/03/2023 URINA RY MICRO ALBUM IN malb/creat ratio UNABLE TO CALCUL ATE mg/gm (0-20) Not Available [facility] (Centralized Electronic Ordering - All Locations) Patient Can Go To The Location Of Their Choice, 06/03/2023 17:44:29 06/03/2006/03/2023 URINA RY MICRO ALBUM IN urine creat for micro albumin 62.9 mg/dL Not Available [facility] ([facility] Order[facility] - All Locations) Patient Can Go To The Location Of Their Choice, 06/03/2023 17:44:29 06/03/2006/03/2023 HEMOG LOBIN A1C hemoglobin A1C 5.7 % [...] devel oping diabe luci in the futur eChaya CAUTI ON: False ly low HbA1c resul [...] 43, Suppl ement 1 Not Available [facility] (Centralized Electronic Ordering - All Locations) Patient Can Go To The Location Of Their Choice, 06/03/2023 19:04:09 06/03/2006/04/2023 THYRO GLOBU EBONY,T UMOR MRKR W/RFL X thyroglobuli n antibody, serum <1.0 Refer ence range : 0.0 to 0.9 Unit: IU/mL (NOTE ) Thyro globu ebony Antib anjum measu red by Beckm an Coult er Metho dolog y Test perfo rmed by [facility], [address], [place] [address] Not Available [facility] (Centralized Electronic Ordering - All Locations) Patient Can Go To The Location Of Their Choice, 06/04/2023 11:06:43 06/03/20 23 06/04/2023 THYRO GLOBU EBONY REFLE X IMMUN OASSA Y thyroglobin reflex immunoassy low <0.1 Refer ence range : 1.5 to 38.5 Unit: ng/mL (NOTE ) Accor nito to the Natio nal Acade my of Clini fanny Bioch emist ry, the refer ence inter more for Thyro globu ebony (TG) shoul d be relat ed to [...] itati on is 0.1 ng/mL Thyro globu ebony measu red by Beckm an Coult er Immun ometr ic Assay Test perfo rmed by [facility], [address], [place] [address] Not Available [facility] (Centralized Electronic Ordering - All Locations) Patient Can Go To The Location Of Their Choice, 06/04/2023 11:07:04 09/16/20 23 09/16/2023 HGB A1C [...] furth er confi rmati on Not Available [address], [address], 09/16/2023 14:10:24 09/16/20 23 09/16/2023 HGB A1C estimated average glucose 105.4 mg/dL Not Available [address], [address], 09/16/2023 14:10:24 09/16/20 23 09/16/2023 FREE T4 free T4 1.53 NG/dL 0.75-1 .54 Not Available [address], [address], 09/16/2023 16:13:11 09/16/20 23 09/16/2023 TSH TSH 0.11 uIU/m L 0.50-6 .00 low The Ameri can Colle ge of Endoc rinol ogy and Ameri can Thyro id Assoc iatio n recom mend goal TSH value s betwe en 0.4-4 .0 mIU/m L. Not Available [address], [address], 09/16/2023 16:39:34 09/16/20 23 09/17/2023 THYRO GLOBU EBONY ANTIB ODIES thyroglobuli n antibodies <1 IU/mL < or = 1 normal Not Available [facility] [address], [place], [address], 09/17/2023 09:43:20 09/16/20 23 09/19/2023 COMP. METAB OLIC PANEL glucose 88 mg/dL 70-100 Not Available [address], [address], 09/19/2023 16:36:28 09/16/20 23 09/19/2023 COMP. METAB OLIC PANEL BUN 13 mg/dL 7-18 Not Available [address], [address], 09/19/2023 16:36:28 09/16/20 23 09/19/2023 COMP. METAB OLIC PANEL creatinine 0.8 mg/dL 0.8-1. 3 Not Available [address], [address], 09/19/2023 16:36:28 09/16/20 23 09/19/2023 COMP. METAB OLIC PANEL B/C 16.3 ratio Not Available [address], [address], 09/19/2023 16:36:28 09/16/20 23 09/19/2023 COMP. METAB [...] be used in pregn jose. Not Available [address], [address], 09/19/2023 16:36:28 09/16/20 23 09/19/2023 COMP. METAB OLIC PANEL sodium 142 mmol/ L 136-14 5 Not Available [address], [address], 09/19/2023 16:36:28 09/16/20 23 09/19/2023 COMP. METAB OLIC PANEL potassium 4.9 mmol/ L 3.5-5. 1 Not Available [address], [address], 09/19/2023 16:36:28 09/16/20 23 09/19/2023 COMP. METAB OLIC PANEL chloride 106 mmol/ L 96-107 Not Available [address], [address], 09/19/2023 16:36:28 09/16/20 23 09/19/2023 COMP. METAB OLIC PANEL anion gap 8.5 5.0-15 .0 Not Available [address], [address], 09/19/2023 16:36:28 09/16/20 23 09/19/2023 COMP. METAB OLIC PANEL CO2 28 mmol/ L 21-32 Not Available [address], [address], 09/19/2023 16:36:28 09/16/20 23 09/19/2023 COMP. METAB OLIC PANEL calcium 9.1 mg/dL 8.5-10 .3 Not Available [address], [address], 09/19/2023 16:36:28 09/16/20 23 09/19/2023 COMP. METAB OLIC PANEL total protein 7.5 g/dL 6.4-8. 2 Not Available [address], [address], 09/19/2023 16:36:28 09/16/20 23 09/19/2023 COMP. METAB OLIC PANEL albumin 3.6 g/dL 3.4-5. 0 Not Available [address], [address], 09/19/2023 16:36:28 09/16/20 23 09/19/2023 COMP. METAB OLIC PANEL globulin 3.9 g/dL Not Available [address], [address], 09/19/2023 16:36:28 09/16/20 23 09/19/2023 COMP. METAB OLIC PANEL A/G 0.9 ratio 0.8-2. 0 Not Available [address], [address], 09/19/2023 16:36:28 09/16/20 23 09/19/2023 COMP. METAB OLIC PANEL total bilirubin 0.30 mg/dL 0.00-1 .00 Not Available [address], [address], 09/19/2023 16:36:28 09/16/20 23 09/19/2023 COMP. METAB OLIC PANEL AST 38 U/L 0-37 high Not Available [address], [address], 09/19/2023 16:36:28 09/16/20 23 09/19/2023 COMP. METAB OLIC PANEL ALT 53 U/L 6-63 Not Available [address], [address], 09/19/2023 16:36:28 09/16/20 23 09/19/2023 COMP. METAB OLIC PANEL alk. phos. 182 U/L 50-136 high Not Available [address], [address], 09/19/2023 16:36:28 09/16/20 23 09/19/2023 LIPID PANEL cholesterol 124 mg/dL <200 mg/dl Alexandra able 200-2 39 mg/dl Borde rline High >240 mg/dl High Not Available [address], [address], 09/19/2023 16:36:30 09/16/20 23 09/19/2023 LIPID PANEL triglyceride s 77 mg/dL <150 mg/dL Tamia l 150-1 99 mg/dL Borde rline High 200-4 99 mg/dL High >500 mg/dL Very High Not Available [address], [address], 09/19/2023 16:36:30 09/16/20 23 09/19/2023 LIPID PANEL direct HDL 57 mg/dL <40 mg/dl - Major Risk for CHD >60 mg/dl - Negat ravi Risk for CHD Not Available [address], [address], 09/19/2023 16:36:30 09/16/20 23 09/19/2023 LDL - CALCU LATED LDL - calculated 51.6 RISK CATEG ORY LDL GOAL _ CHD or CHD Risk Equiv alent s <100 mg/dl (10-y ear risk >20%) 2+ Risk Facto rs <130 mg/dl (10-y ear risk <= 20%) 0-1 Risk Facto r <160 mg/dl Almo st all peopl e with 0-1 risk facto r have a 10 year risk <10%, thus 10 year risk asses ment in peopl e with 0-1 risk facto r is not neces ximena. Not Available [address], [address], 09/19/2023 16:36:31 09/16/20 23 09/20/2023 MICRO ALBUM IN/CR EATIN INE RATIO PANEL , URINE microalbumin 12.2 mg/L 1.3-20 .0 Not Available [address], [address], 09/20/2023 14:44:35 09/16/20 23 09/20/2023 MICRO ALBUM IN/CR EATIN INE RATIO PANEL , URINE creatinine urine 94.2 mg/dL 30.0-1 25.0 Not Available [address], [address], 09/20/2023 14:44:35 09/16/20 23 09/20/2023 MICRO ALBUM IN/CR EATIN INE RATIO PANEL , URINE microalb/cre at ratio 13.0 mg/g_ creat 0.0-29 .0 Not Available [address], [address], 09/20/2023 14:44:35 02/14/20 24 02/14/2024 HGB A1C [...] furth er confi rmati on Not Available [address], [address], 02/14/2024 13:18:57 02/14/20 24 02/14/2024 HGB A1C estimated average glucose 102.5 mg/dL Not Available [address], [address], 02/14/2024 13:18:57 02/14/20 24 02/14/2024 MICRO ALBUM IN/CR EATIN INE RATIO PANEL , URINE microalbumin 15.2 mg/L 1.3-20 .0 Not Available [address], [address], 02/14/2024 14:34:38 02/14/20 24 02/14/2024 MICRO ALBUM IN/CR EATIN INE RATIO PANEL , URINE creatinine urine 196.9 mg/dL 30.0-1 25.0 high Not Available [address], [address], 02/14/2024 14:34:38 02/14/20 24 02/14/2024 MICRO ALBUM IN/CR EATIN INE RATIO PANEL , URINE microalb/cre at ratio 7.7 mg/g_ creat 0.0-29 .0 Not Available [address], [address], 02/14/2024 14:34:38 02/14/20 24 02/14/2024 COMP. METAB OLIC PANEL glucose 83 mg/dL 70-100 Not Available [address], [address], 02/14/2024 14:58:30 02/14/20 24 02/14/2024 COMP. METAB OLIC PANEL BUN 16 mg/dL 7-18 Not Available [address], [address], 02/14/2024 14:58:30 02/14/20 24 02/14/2024 COMP. METAB OLIC PANEL creatinine 0.6 mg/dL 0.8-1. 3 low Not Available [address], [address], 02/14/2024 14:58:30 02/14/20 24 02/14/2024 COMP. METAB OLIC PANEL B/C 26.7 ratio Not Available [address], [address], 02/14/2024 14:58:30 02/14/20 24 02/14/2024 COMP. METAB [...] be used in pregn jose. Not Available [address], [address], 02/14/2024 14:58:30 02/14/20 24 02/14/2024 COMP. METAB OLIC PANEL sodium 143 mmol/ L 136-14 5 Not Available [address], [address], 02/14/2024 14:58:30 02/14/20 24 02/14/2024 COMP. METAB OLIC PANEL potassium 4.2 mmol/ L 3.5-5. 1 Not Available [address], [address], 02/14/2024 14:58:30 02/14/20 24 02/14/2024 COMP. METAB OLIC PANEL chloride 106 mmol/ L 96-107 Not Available [address], [address], 02/14/2024 14:58:30 02/14/20 24 02/14/2024 COMP. METAB OLIC PANEL anion gap 6.8 5.0-15 .0 Not Available [address], [address], 02/14/2024 14:58:30 02/14/20 24 02/14/2024 COMP. METAB OLIC PANEL CO2 30 mmol/ L 21-32 Not Available [address], [address], 02/14/2024 14:58:30 02/14/20 24 02/14/2024 COMP. METAB OLIC PANEL calcium 9.3 mg/dL 8.5-10 .3 Not Available [address], [address], 02/14/2024 14:58:30 02/14/20 24 02/14/2024 COMP. METAB OLIC PANEL total protein 7.1 g/dL 6.4-8. 2 Not Available [address], [address], 02/14/2024 14:58:30 02/14/20 24 02/14/2024 COMP. METAB OLIC PANEL albumin 3.5 g/dL 3.4-5. 0 Not Available [address], [address], 02/14/2024 14:58:30 02/14/20 24 02/14/2024 COMP. METAB OLIC PANEL globulin 3.6 g/dL Not Available [address], [address], 02/14/2024 14:58:30 02/14/20 24 02/14/2024 COMP. METAB OLIC PANEL A/G 1.0 ratio 0.8-2. 0 Not Available [address], [address], 02/14/2024 14:58:30 02/14/20 24 02/14/2024 COMP. METAB OLIC PANEL total bilirubin 0.50 mg/dL 0.00-1 .00 Not Available [address], [address], 02/14/2024 14:58:30 02/14/20 24 02/14/2024 COMP. METAB OLIC PANEL AST 34 U/L 0-37 Not Available [address], [address], 02/14/2024 14:58:30 02/14/20 24 02/14/2024 COMP. METAB OLIC PANEL ALT 44 U/L 6-63 Not Available [address], [address], 02/14/2024 14:58:30 02/14/20 24 02/14/2024 COMP. METAB OLIC PANEL alk. phos. 149 U/L 50-136 high Not Available [address], [address], 02/14/2024 14:58:30 02/14/20 24 02/14/2024 LIPID PANEL cholesterol 124 mg/dL <200 mg/dl Alexandra able 200-2 39 mg/dl Borde rline High >240 mg/dl High Not Available [address], [address], 02/14/2024 14:58:32 02/14/20 24 02/14/2024 LIPID PANEL triglyceride s 100 mg/dL <150 mg/dL Tamia l 150-1 99 mg/dL Borde rline High 200-4 99 mg/dL High >500 mg/dL Very High Not Available [address], [address], 02/14/2024 14:58:32 02/14/20 24 02/14/2024 LIPID PANEL direct HDL 47 mg/dL <40 mg/dl - Major Risk for CHD >60 mg/dl - Negat ravi Risk for CHD Not Available [address], [address], 02/14/2024 14:58:32 02/14/20 24 02/14/2024 LDL - CALCU LATED LDL - calculated 57.0 RISK CATEG ORY LDL GOAL _ CHD or CHD Risk Equiv alent s <100 mg/dl (10-y ear risk >20%) 2+ Risk Facto rs <130 mg/dl (10-y ear risk <= 20%) 0-1 Risk Facto r <160 mg/dl Almo st all peopl e with 0-1 risk facto r have a 10 year risk <10%, thus 10 year risk asses ment in peopl e with 0-1 risk facto r is not neces ximena. Not Available [address], [address], 02/14/2024 14:58:34 02/14/20 24 02/14/2024 FREE T4 free T4 1.28 NG/dL 0.75-1 .54 Not Available [address], [address], 02/14/2024 15:08:30 02/14/20 24 02/14/2024 TSH TSH 0.03 uIU/m L 0.50-6 .00 low The Ameri can [employer] ge of Endoc rinol ogy and Ameri can Thyro id Assoc iatio n recom mend goal TSH value s betwe en 0.4-4 .0 mIU/m L. Not Available [address], [address], 02/14/2024 15:33:50 02/14/20 24 02/17/2024 THYRO ID CANCE R (THYR OGLOB ULIN) MONIT OR thyroglobuli n antibody <1 IU/mL <=1 This Thyro globu ebony antib anjum test was perfo rmed using the StrataCloud an Coult er Chemi lumin escen t metho d. Value s obtai mila from diffe rent assay metho ds canno t be used inter [facility] . Thyro globu ebony antib anjum level s, regar dless of value , shoul d not be inter prete d as absol [place] evide nce of the prese nce or absen ce of disea se. Not Available [facility] [address] [place] [address], [place], [address], 02/17/2024 07:38:40 02/14/2002/17/2024 THYRO ID CANCE R (THYR OGLOB ULIN) MONIT OR thyroglobuli n <0.1 NG/mL Refer ence Range : Athyr otic: <0.1 ng/mL Refer ence range appli es to diffe renti ated thyro id cance r patie nts follo wing treat ment. The prese nce of measu rable thyro globu ebony indic ates the prese nce of thyro globu ebony-p roduc ing thyro id tissu e. Clini fanny corre latio n is advis ed. This Thyro globu ebony test was perfo rmed using the cfgAdvancem an Coult er Chemi lumin escen t metho d. Value s obtai mila from diffe rent assay metho ds canno t be used inter [facility] . Thyro globu ebony level s, regar dless of value , shoul d not be inter prete d as absol [place] evide nce of the prese nce or absen ce of disea se. Not Available [facility] [place] [facility] [address], [address], 02/17/2024 07:38:40 02/14/2002/17/2024 THYRO GLOBU EBONY ANTIB ODIES thyroglobuli n antibodies <1 IU/mL < or = 1 normal Not Available [facility] [place] [facility] [address], [address], 02/17/2024 07:38:42 05/28/2005/28/2024 HGB A1C hemoglobin A1C 5.1 % 4.8-6. [...] furth er confi rmati on Not Available [address], [address], 05/28/2024 11:17:08 05/28/2005/28/2024 HGB A1C estimated average glucose 99.7 mg/dL Not Available [address], [address], 05/28/2024 11:17:08 05/28/20 24 05/28/2024 FREE T4 free T4 1.61 NG/dL 0.75-1 .54 high Not Available [address], [address], 05/28/2024 12:29:43 05/28/20 24 05/28/2024 TSH TSH 0.05 uIU/m L 0.50-6 .00 low The Amer[employer] can [employer] ge [employer] Endoc rinol ogy and Ameri can Thyro id Assoc iatio n recom mend goal TSH value s betwe en 0.4-4 .0 mIU/m L. Not Available [address], [address], 05/28/2024 14:08:09 05/28/20 24 05/28/2024 LIPID PANEL cholesterol 131 mg/dL <200 mg/dl Alexandra able 200-2 39 mg/dl Borde rline High >240 mg/dl High Not Available [address], [address], 05/28/2024 14:16:25 05/28/20 24 05/28/2024 LIPID PANEL triglyceride s 73 mg/dL <150 mg/dL Tamia l 150-1 99 mg/dL Borde rline High 200-4 99 mg/dL High >500 mg/dL Very High Not Available [address], [address], 05/28/2024 14:16:25 05/28/20 24 05/28/2024 LIPID PANEL direct HDL 59 mg/dL <40 mg/dl - Major Risk for CHD >60 mg/dl - Negat ravi Risk for CHD Not Available [address], [address], 05/28/2024 14:16:25 05/28/20 24 05/28/2024 LDL - CALCU LATED LDL - calculated 57 RISK CATEG ORY LDL GOAL _ CHD or CHD Risk Equiv alent s <100 mg/dl (10-y ear risk >20%) 2+ Risk Facto rs <130 mg/dl (10-y ear risk <= 20%) 0-1 Risk Facto r <160 mg/dl Almo st all peopl e with 0-1 risk facto r have a 10 year risk <10%, thus 10 year risk asses ment in peopl e with 0-1 risk facto r is not dandregladys bueno. Not Available [address], [address], 05/28/2024 14:16:26 05/28/20 24 05/28/2024 COMP. METAB OLIC PANEL glucose 88 mg/dL 70-100 Not Available [address], [address], 05/28/2024 14:38:58 05/28/20 24 05/28/2024 COMP. METAB OLIC PANEL BUN 14 mg/dL 7-18 Not Available [address], [address], 05/28/2024 14:38:58 05/28/20 24 05/28/2024 COMP. METAB OLIC PANEL creatinine 0.7 mg/dL 0.8-1. 3 low Not Available [address], [address], 05/28/2024 14:38:58 05/28/20 24 05/28/2024 COMP. METAB OLIC PANEL B/C 20.0 ratio Not Available [address], [address], 05/28/2024 14:38:58 05/28/20 24 05/28/2024 COMP. METAB [...] child sarah (age <18 years ), and laurenul d not be used in pregn jose. Not Available [address], [address], 05/28/2024 14:38:58 05/28/20 24 05/28/2024 COMP. METAB OLIC PANEL sodium 143 mmol/ L 136-14 5 Not Available [address], [address], 05/28/2024 14:38:58 05/28/20 24 05/28/2024 COMP. METAB OLIC PANEL potassium 3.9 mmol/ L 3.5-5. 1 Not Available [address], [address], 05/28/2024 14:38:58 05/28/20 24 05/28/2024 COMP. METAB OLIC PANEL chloride 106 mmol/ L 96-107 Not Available [address], [address], 05/28/2024 14:38:58 05/28/20 24 05/28/2024 COMP. METAB OLIC PANEL anion gap 8.5 5.0-15 .0 Not Available [address], [address], 05/28/2024 14:38:58 05/28/20 24 05/28/2024 COMP. METAB OLIC PANEL CO2 29 mmol/ L 21-32 Not Available [address], [address], 05/28/2024 14:38:58 05/28/20 24 05/28/2024 COMP. METAB OLIC PANEL calcium 9.0 mg/dL 8.5-10 .3 Not Available [address], [address], 05/28/2024 14:38:58 05/28/20 24 05/28/2024 COMP. METAB OLIC PANEL total protein 6.9 g/dL 6.4-8. 2 Not Available [address], [address], 05/28/2024 14:38:58 05/28/20 24 05/28/2024 COMP. METAB OLIC PANEL albumin 3.6 g/dL 3.4-5. 0 Not Available [address], [address], 05/28/2024 14:38:58 05/28/20 24 05/28/2024 COMP. METAB OLIC PANEL globulin 3.3 g/dL Not Available [address], [address], 05/28/2024 14:38:58 05/28/20 24 05/28/2024 COMP. METAB OLIC PANEL A/G 1.1 ratio 0.8-2. 0 Not Available [address], [address], 05/28/2024 14:38:58 05/28/20 24 05/28/2024 COMP. METAB OLIC PANEL total bilirubin 0.60 mg/dL 0.00-1 .00 Not Available [address], [address], 05/28/2024 14:38:58 05/28/20 24 05/28/2024 COMP. METAB OLIC PANEL AST 39 U/L 0-37 high Not Available [address], [address], 05/28/2024 14:38:58 05/28/20 24 05/28/2024 COMP. METAB OLIC PANEL ALT 40 U/L 6-63 Not Available [address], [address], 05/28/2024 14:38:58 05/28/20 24 05/28/2024 COMP. METAB OLIC PANEL alk. phos. 151 U/L 50-136 high Not Available [address], [address], 05/28/2024 14:38:58 05/28/20 24 05/28/2024 MICRO ALBUM IN/CR EATIN INE RATIO PANEL , URINE microalbumin 11.5 mg/L 1.3-20 .0 Not Available [address], [address], 05/28/2024 16:07:39 05/28/20 24 05/28/2024 MICRO ALBUM IN/CR EATIN INE RATIO PANEL , URINE creatinine urine 143.3 mg/dL 30.0-1 25.0 high Not Available [address], [address], 05/28/2024 16:07:39 05/28/20 24 05/28/2024 MICRO ALBUM IN/CR EATIN INE RATIO PANEL , URINE microalb/cre at ratio 8.0 mg/g_ creat 0.0-29 .0 Not Available [address], [address], 05/28/2024 16:07:39 05/28/20 24 06/07/2024 THYRO ID CANCE R (THYR OGLOB ULIN) MONIT OR thyroglobuli n antibody <1 IU/mL <=1 This Thyro globu ebony antib anjum test was perfo rmed using the Strata[employer] an [place] er Chemi lumin escen t metho d. Value s obtai mila from diffe rent assay metho ds canno t be used inter [facility] . Thyro globu ebony antib anjum level s, regar dless of value , shoul d not be inter prete d as absol [place] evide nce of the prese nce or absen ce of disea se. Not Available [facility] [address] [place] [address], [address], 06/07/2024 15:03:30 05/28/20 24 06/07/2024 THYRO ID CANCE R (THYR OGLOB ULIN) MONIT OR thyroglobuli n <0.1 NG/mL Refer ence Range : Athyr otic: <0.1 ng/mL Refer ence range appli es to diffe renti ated thyro id cance r patie nts follo wing treat ment. The prese nce of measu rable thyro globu ebony indic ates the prese nce of thyro globu ebony-p roduc ing thyro id tissu e. Clini fanny corre latio n is advis ed. This Thyro globu ebony test was perfo rmed using the StrataCloud an Coult er Chemi lumin escen t metho d. Value s obtai mila from diffe rent assay metho ds canno t be used inter [facility] . Thyro globu ebony level s, regar dless of value , shoul d not be inter prete d as absol [place] evide nce of the prese nce or absen ce of disea se. Not Available [facility] [address] [place] [address], [place], [address], 06/07/2024 15:03:30 10/24/19 25 10/24/2024 HGB A1C hemoglobin A1C 5.3 % 4.8-6. [...] furth er confi rmati on Not Available [address], [address], 10/24/2024 11:53:29 10/24/19 25 10/24/2024 HGB A1C estimated average glucose 105.4 mg/dL Not Available [address], [address], 10/24/2024 11:53:29 10/24/19 25 10/24/2024 FREE T4 free T4 1.34 NG/dL 0.75-1 .54 Not Available [address], [address], 10/24/2024 12:34:56 10/24/19 25 10/24/2024 TSH TSH 0.67 uIU/m L 0.50-6 .00 The Ameri can Colle ge of Endoc rinol ogy and Ameri can Thyro id Assoc iatio n recom mend goal TSH value s betwe en 0.4-4 .0 mIU/m L. Not Available [address], [address], 10/24/2024 13:59:35 10/24/19 25 10/24/2024 COMP. METAB OLIC PANEL glucose 91 mg/dL 70-100 Not Available [address], [address], 10/24/2024 14:02:07 10/24/19 25 10/24/2024 COMP. METAB OLIC PANEL BUN 16 mg/dL 7-18 Not Available [address], [address], 10/24/2024 14:02:07 10/24/19 25 10/24/2024 COMP. METAB OLIC PANEL creatinine 0.8 mg/dL 0.8-1. 3 Not Available [address], [address], 10/24/2024 14:02:07 10/24/19 25 10/24/2024 COMP. METAB OLIC PANEL B/C 20.0 ratio Not Available [address], [address], 10/24/2024 14:02:07 10/24/19 25 10/24/2024 COMP. METAB OLIC PANEL GFR >=60ML /MIN [...] be used in pregn jose. Not Available [address], [address], 10/24/2024 14:02:07 10/24/19 25 10/24/2024 COMP. METAB OLIC PANEL sodium 144 mmol/ L 136-14 5 Not Available [address], [address], 10/24/2024 14:02:07 10/24/19 25 10/24/2024 COMP. METAB OLIC PANEL potassium 4.5 mmol/ L 3.5-5. 1 Not Available [address], [address], 10/24/2024 14:02:07 10/24/19 25 10/24/2024 COMP. METAB OLIC PANEL chloride 106 mmol/ L 96-107 Not Available [address], [address], 10/24/2024 14:02:07 10/24/19 25 10/24/2024 COMP. METAB OLIC PANEL anion gap 7.2 5.0-15 .0 Not Available [address], [address], 10/24/2024 14:02:07 10/24/19 25 10/24/2024 COMP. METAB OLIC PANEL CO2 31 mmol/ L 21-32 Not Available [address], [address], 10/24/2024 14:02:07 10/24/19 25 10/24/2024 COMP. METAB OLIC PANEL calcium 9.5 mg/dL 8.5-10 .3 Not Available [address], [address], 10/24/2024 14:02:07 10/24/19 25 10/24/2024 COMP. METAB OLIC PANEL total protein 7.4 g/dL 6.4-8. 2 Not Available [address], [address], 10/24/2024 14:02:07 10/24/19 25 10/24/2024 COMP. METAB OLIC PANEL albumin 3.8 g/dL 3.4-5. 0 Not Available [address], [address], 10/24/2024 14:02:07 10/24/19 25 10/24/2024 COMP. METAB OLIC PANEL globulin 3.6 g/dL Not Available [address], [address], 10/24/2024 14:02:07 10/24/19 25 10/24/2024 COMP. METAB OLIC PANEL A/G 1.1 ratio 0.8-2. 0 Not Available [address], [address], 10/24/2024 14:02:07 10/24/19 25 10/24/2024 COMP. METAB OLIC PANEL total bilirubin 0.70 mg/dL 0.00-1 .00 Not Available [address], [address], 10/24/2024 14:02:07 10/24/19 25 10/24/2024 COMP. METAB OLIC PANEL AST 29 U/L 0-37 Not Available [address], [address], 10/24/2024 14:02:07 10/24/19 25 10/24/2024 COMP. METAB OLIC PANEL ALT 31 U/L 6-63 Not Available [address], [address], 10/24/2024 14:02:07 10/24/1910/24/2024 COMP. METAB OLIC PANEL alk. phos. 156 U/L 50-136 high Not Available [address], [address], 10/24/2024 14:02:07 10/24/1910/24/2024 LIPID PANEL cholesterol 154 mg/dL <200 mg/dl Alexandra able 200-2 39 mg/dl Borde rline High >240 mg/dl High Not Available [address], [address], 10/24/2024 14:02:08 10/24/19 25 10/24/2024 LIPID PANEL triglyceride s 85 mg/dL <150 mg/dL Tamia l 150-1 99 mg/dL Borde rline High 200-4 99 mg/dL High >500 mg/dL Very High Not Available [address], [address], 10/24/2024 14:02:08 10/24/1910/24/2024 LIPID PANEL direct HDL 75 mg/dL <40 mg/dl - Major Risk for CHD >60 mg/dl - Negat ravi Risk for CHD Not Available [address], [address], 10/24/2024 14:02:08 10/24/1910/24/2024 LDL - CALCU LATED LDL - calculated 62 RISK CATEG ORY LDL GOAL _ CHD or CHD Risk Equiv alent s <100 mg/dl (10-y ear risk >20%) 2+ Risk Facto rs <130 mg/dl (10-y ear risk <= 20%) 0-1 Risk Facto r <160 mg/dl Almo st all peopl e with 0-1 risk facto r have a 10 year risk <10%, thus 10 year risk asses ment in peopl e with 0-1 risk facto r is not emma bueno. Not Available [facility] [address] [facility], [place], [address], 10/24/2024 14:02:10 10/24/19 25 10/26/2024 THYRO ID CANCE R (THYR OGLOB ULIN) MONIT OR thyroglobuli n antibody <1 IU/mL <=1 This Thyro globu ebony antib anjum test was perfo rmed using the Beckm an Coult er Chemi lumin escen t metho d. Value s obtai mila from diffe rent assay metho ds canno t be used inter [facility] . Thyro globu ebony antib anjum level s, regar dless of value , shoul d not be inter prete d as absol [place] evide nce of the prese nce or absen ce of disea se. Not Available [facility] [address], [place], [address], 10/26/2024 23:43:33 10/24/19 25 10/26/2024 THYRO ID CANCE R (THYR OGLOB ULIN) MONIT OR thyroglobuli n <0.1 NG/mL Refer ence Range : Athyr otic: <0.1 ng/mL Refer ence range appli es to diffe renti ated thyro id cance r patie nts follo wing treat ment. The prese nce of measu rable thyro globu ebony indic ates the prese nce of thyro globu ebony-p roduc ing thyro id tissu e. Clini fanny corre latio n is advis ed. This Thyro globu ebony test was perfo rmed using the Beckm an Coult er Chemi lumin escen t metho d. Value s obtai mila from diffe rent assay metho ds canno t be used inter [facility] . Thyro globu ebony level s, regar dless of value , shoul d not be inter prete d as absol [place] evide nce of the prese nce or absen ce of [facility] se. Not Available [facility] [place] [facility] [address], [place], [address], 10/26/2024 23:43:33 Result Notes None recorded. Problems Name Problem SNOMED Code Status Onset Date Resolution Date Notes Provider Name and Address Organization Details Recorded Time Renal disorder due to type 2 diabetes mellitus 121306066 Active Aj Felipe MD [address] [place] [address], [id number] , [facility] 3 09:01:23 Hyperlipid emia 93339884 Active Aj Felipe MD [address] [place] [address], , [facility] 2 11:35:32 Numbness of lower limb 520779722 Active Aj Felipe MD [address] [place] [address], , [facility] 6 09:46:36 Polyuria 47592061 Completed 08/22/2013 Not Available [facility] 3 02:04:12 Menopausal symptom [id number] Completed 08/22/2013 Not Available [facility] 3 02:01:29 Blood chemistry outside reference range [id number] Completed 08/22/2013 Not Available [facility] 3 02:03:30 Postoperat ravi hypothyroi dism 91233037 Active 2007 Aj Felipe MD [address] [place] [address], , [facility] 3 09:01:07 Primary malignant neoplasm of thyroid gland 98249045 Active 2003 Aj Felipe MD [address] [place] [address], , [facility] 3 09:01:23 Problem Notes None recorded. Procedures Surgical History Date Name Laterality Status Provider Name and Address Organization Details Recorded Time 9 Carpal tunnel surgery completed Haley Marcos LPN [facility] 04/24/2019 09:07:21 9 release of trigger thumb completed Haley Marcos LPN [facility] 04/24/2019 09:07:39 Imaging Results None recorded. Procedure Notes None recorded. Medical Equipment None Reported. Allergies Allergen ID Allergen Name Allergen Category Reaction Reaction Severity Criticality Documentation Date Start Date Code Code System Note Provider Name and Address Organization Details Recorded Time 20161103 Oxycontin medicatio n Not available Not available Not available 09/27/2017 48867 6 RxNorm Prema Matamoros RN BSN [address] [place] [address], [place], [id number] [place] [address] 7 09:05:36 7548 Product containin g penicilli n (product) medicatio n rash Not available Not available 01/02/2009 [id number] SNOMED Not Available [facility] 1 06:05:20 Medications Name Sig Start [...] TWICE A DAY 04/25 completed [place] 02/23/20 [place] 09/16/20 LABS 12/02/19 Not Available Not Available Not Available ropinirol [...] Not Available Vitals Date Recorded Body weight Body mass index (BMI) Body height Heart rate Systolic blood pressure Diastolic blood pressure Provider Name and Address Organization Details Last Updated DateTime 3 651153. 94 g 40 kg/m2 158.75 cm 81 /min 146 mm[Hg] 81 mm[Hg] Xochitl Sparrow LPN [facility] 3 13:31:55 Date Recorded Body height Body mass index (BMI) Body weight Heart rate Systolic blood pressure Diastolic blood pressure Provider Name and Address Organization Details Last Updated DateTime 4 158.75 cm 27.8 kg/m2 49215.6 6 g 63 /min 112 mm[Hg] 70 mm[Hg] Xochitl Sparrow LPN [facility] 4 16:54:45 Date Recorded Body weight Systolic blood pressure Diastolic blood pressure Provider Name and Address Organization Details Last Updated DateTime 06/23/2022 482490.84 g 132 mm[Hg] 86 mm[Hg] Idania Cole RN [facility] 06/23/2022 11:05:46 Date Recorded Body height Body mass index (BMI) Body weight Provider Name and Address Organization Details Last Updated DateTime 07/29/2023 158.75 cm 38.5 kg/m2 13618.77 g Idania Cole RN [facility] 07/29/2023 08:39:56 Date Recorded Body height Body mass index (BMI) Body weight Heart rate Systolic blood pressure Diastolic blood pressure Provider Name and Address Organization Details Last Updated DateTime 3 158.75 cm 39.5 kg/m2 62550.8 8 g 72 /min 136 mm[Hg] 82 mm[Hg] Idania Cole RN [facility] 3 09:52:37 Social History Question Answer Notes LastModified by Organizat ion Details LastModified Time Tobacco Smoking Status Never Smoker Not Available [facility] 08/19/2011 04:53:49 Do You Have An Advance Directive? No [email or web address] Information not available 08/19/2011 What Is Your Level Of Caffeine Consumption? [...] 12 [email or web address] Information not available 08/19/2011 Are There Any Guns Present In Your [...] Monitoring: Bring Meter In The Future For Appointmen ts. Information not available 05/10/2018 DSME Plan Goal Success Initiated Information not available 05/10/2018 DSME Plan Goal Evaluation: 05/10/2018 Information not available 05/10/2018 DSME Plan Initiated: 05/10/2018 DSME Dates Seen: 05/10/18, tiara Information not available 05/10/2018 DSME Plan Status In Progress - tiara Infor partha not available 05/10/2018 Diabetes Ed Classes Discussed Decined [email or web address] Information no t available 05/10/2018 Marital Status Information not available [...] Information not available 08/19/2011 Do You Use Sunscreen Routinely? No [email or web address] Information not available 08/19/2011 Sex: Unknown Functional Status Question Answer Note LastModified by Organizat ion Details LastModified Time Do you use any illicit or recreational drugs? No Information not available 05/14/2022 Do you or have you ever used any other forms of tobacco or nicotine? No Information not available 05/14/2022 What is your level of alcohol consumption? 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 Family History Relationship [...] week. Has been OK. 18 y.o.son works electrical parts reconditioner with . 14 y.o. son is her baby 08/17- Sister doing OK (divorce tough). sons are dong OK. 03/20- No changes. Sister remarried. January diverticulitis. Sons are OK. 04/20- No changes. 01/21: No change- not much interaction with sister right now. 05/24: Family OK. Youngest son Reserves. Oldest nearby lives on farm. No grands. Medical History Condition Response Thyroid Disease Y Diabetes Type II Y Gynecological HistoryNo gynecological history recorded. Obstetrics History GPAL:G 0 P 0 0 0 0 Immunizations Vaccine Type Date Status Note Provider Nam e and Address Organization Details Recorded Time Influenza, split virus, trivalent, preservative 1 completed Not Available [facility] 10/20/2019 02:18:14 Influenza, split virus, trivalent, PF 3 completed Not Available [facility] 10/20/2019 02:18:32 Influenza, split virus, trivalent, PF 4 completed Not Available [facility] 10/20/2019 02:25:04 Influenza, split virus, quadrivalent, PF 5 completed Not Available [facility] 10/20/2019 02:20:12 Influenza, split virus, quadrivalent, PF 7 completed Not Available [facility] 10/20/2019 02:22:29 COVID-19, mRNA, LNP-S, PF, 100 mcg/0.5mL dose or 50 mcg/0.25mL dose 1 completed ANAMARIA Mckee [facility] 05/14/2022 10:57:17 COVID-19, mRNA, LNP-S, PF, 100 mcg/0.5mL dose or 50 mcg/0.25mL dose 1 completed ANAMARIA Mckee [facility] 05/14/2022 10:57:27 Past Encounters Encounter ID Performer Location Encounter Start Date Encounter Closed Date Diagnosis/Indication Diagnosis SNOMED-CT Code Diagnosis ICD10 Code Diagnosis Note [id number] [facility] - [address] [place] [id number] 09/15/2004 07:17:13 09/15/2004 11:47:10 [id number] Aj Felipe MD Endocrino logy, [address] [place] [address] 09/30/2004 13:24:11 09/30/2004 17:11:58 [id number] [facility] - [address] [place] [id number] 11/30/2004 07:06:18 11/30/2004 09:21:26 [id number] Aj Felipe MD Endocrino logy, [address] [place] [address] 04/13/2006 13:26:41 04/14/2006 08:35:25 [id number] [facility] - [address] [place] [address] 04/13/2006 14:37:30 04/13/2006 14:37:39 [id number] Aj Felipe MD Endocrino logy, [address] [place] [address] 06/07/2007 13:06:06 10/23/2008 02:02:29 [id number] [facility] - [address] [place] [id number] 06/30/2007 08:55:27 06/30/2007 08:55:35 [id number] FP TREATMENT NURSE [facility] [place]ICE [address] [place] [id number] 07/03/2007 08:31:33 10/23/2008 02:02:29 [id number] FP TREATMENT NURSE [facility], OFFICE [address] [place] [id number] 07/04/2007 08:28:14 10/23/2008 02:02:29 [id number] Aj Felipe MD Endocrino logy, [address] [place] [id number] 07/14/2007 11:40:39 07/14/2007 12:47:17 [id number] [facility] - [address] [place] [address] 10/06/2007 14:01:26 10/06/2007 14:01:33 [id number] Aj Felipe MD Endocrino logy, [address] [address] 05/15/2008 13:05:24 10/23/2008 02:02:29 [id number] [facility] - [address] [id number] 05/15/2008 14:28:35 05/15/2008 14:28:49 [id number] [facility] - [address] [id number] 10/17/2008 14:03:39 10/17/2008 14:03:45 [id number] Beatriz Stapleton PA-C Endocrino logy, [address] [id number] 01/02/2009 09:41:53 02/07/2009 09:15:04 [id number] Beatriz Stapleton PA-C Endocrino logy, [address] [id number] 02/12/2010 09:27:06 02/18/2010 09:09:10 [id number] Beatriz Stapleton PA-C Endocrino logy, [address] [id number] 07/23/2011 10:25:14 07/23/2011 11:13:06 [id number] Aj Felipe MD Endocrino logy, [address] [id number] 12/20/2012 17:13:58 01/01/2013 09:42:30 [id number] Aj Felipe MD Endocrino logy, [address] [id number] 07/25/2014 10:05:38 07/25/2014 11:25:42 Postoperative hypothyroidism [id number] TFTs not done with lab request. Update labs to document where TSH is and to continue to keep towards low end. Influenza vaccine needed [id number] Primary ma lignant neoplasm of thyroid gland [id number] Small focus of papillary thyroid cancer- excised 2002 with follow up 100 mCi of I131. Has had low thyroglobu ebony levels indicating continued remission. Low risk for recurrence . [id number] Aj Felipe MD Endocrino logy, [address] [id number] 02/21/2015 09:46:40 02/21/2015 10:39:44 Primary malignant neoplasm of thyroid gland 32543610 Small focus of papillary thyroid cancer- excised 2002 with follow up 100 mCi of I131. Has had low thyroglobu ebony levels indicating continued remission. Low risk for recurrence . Given very low TSH and high fT4, will decrease dose. Postoperat ravi hypothyroidism 65904403 TSH now suppressed with high fT4 with better adherence to taking meds- was increased to 200 because of TSH= 58.4 in 10/17. Decrease to 150 and update labs in 3 months. Renal diso rder due to type 2 diabetes mellitus 935394766 Now on metformin/ Victoza (1.8) and Levemir (13 HS). Doing great with 40# weight loss and a1c under 7%. If she wants, can look to take less insulin over time. Would expect that metformin would be good to leave on board from now on- any decreases in meds can focus on insulin or incretin. - Had significan t proteinuri a in 10/2014. Would suggest update of that lab. If she has any albuminuri a, would leave her on Losartan (might even increase) even if BP is OK. [id number] Aj Felipe MD Endocrino logy, [address] [id number] 08/22/2015 09:47:50 08/22/2015 10:40:03 Active or passive immunization [id number] Z23 Primary ma lignant neoplasm of thyroid gland 93334440 C73 Small focus of papillary thyroid cancer- excised 2002 with follow up 100 mCi of I131. Has had low thyroglobu ebony levels (01/2015) indicating continued remission. Low risk for recurrence . Given very low TSH and high fT4, will decrease dose. Postoperat ravi hypothyroidism 60018791 E89.0 TSH now (2014) suppressed at 0.05 with high fT4 (better adherence with meds- previously up to 200 because of TSH= 58.4 in 10/17). Decrease to 137 and update labs in 3 months. Renal diso rder due to type 2 diabetes mellitus 374191513 E11.29 Now on metformin/ Victoza (1.8) and Levemir (9 HS). Doing great with 40# weight loss and a1c has reportedly been at goal. Would expect that metformin would be good to leave on board from now on- any decreases in meds can focus on insulin or incretin. - Had significan t proteinuri a in 10/2014. Not sure if this has been updated. If she has any albuminuri a, would leave her on Losartan (might even increase) even if BP is OK. Request copy of her diabetes labs. [id number] Aj Felipe MD Endocrino logy, [address] [id number] 02/20/2016 08:13:06 02/20/2016 09:45:25 Primary malignant neoplasm of thyroid gland 99543987 C73 Small focus of papillary thyroid cancer- excised 2002 with follow up 100 mCi of I131. Has had low thyroglobu ebony levels (01/2015) indicating continued remission. Low risk for recurrence . Decreased dose from 150 to137 when TSH was 0.05 in 07/17. Need to update labs. Postoperat ravi hypothyroidism 83398474 E89.0 TSH now (2014) suppressed at 0.05 with high fT4 (better adherence with meds- previously up to 200 because of TSH= 58.4 in 10/17). Decrease to 137 and update labs in 3 months. Renal diso rder due to type 2 diabetes mellitus 222463181 E11.29 Now on metformin/ Victoza (1.8) and Levemir (8 HS). No reported lows. Doing great with 40# weight loss and a1c is 5%. At this point, seems like she should be able to go off levemir and use metformin and victoza for control. - Had significan t proteinuri a in 10/2014. On losartan and most recent now 25 (12/2015). Has LDL of 136 and is not on statin- given hx of HTN and obesity, would strongly consider statin. Request copy of her diabetes labs. Hyperlipidemia 23254964 E78.5 Numbness o f lower limb 324007161 R20.0 Mostly along lateral aspect of leg by hx. Not present as sx today and not present on exam today. Strength OK Reflexes (even Achilles) OK bilaterall y. Not consistent with peripheral diabetic neuropathy since not in stocking distributi on Not really consistent with mononeurop athy since extends down from buttocks to foot. If becomes chronic (rather than intermitte nt) or is associated with weakness, would make sure PCP knows. [id number] Aj Felipe MD Endocrino logy, [address] [id number] 02/24/2017 14:27:14 02/24/2017 15:43:14 Postoperative hypothyroidism 60467967 E89.0 Thyroidect raheem for thyroid CA in 2002.Has been on levoxyl 137.Proble ms with getting labs and not getting Rx and being out for few weeks.Has been back on for past 2 weeks. Get labs in 2 months. Primary ma lignant neoplasm of thyroid gland 38268956 C73 Decreased dose from 150 to 137 when TSH was 0.05 in 07/17. Need to update labs. Renal diso rder due to type 2 diabetes mellitus 762434796 E11.29 Has been on metformin only (was on Victoza (1.8) and Levemir (8 HS)). Had 40# weight loss but has regained over past year. No recent a1c- had been under 6.5% Would likely benefit from being on metformin and victoza for control. - Had significan t proteinuri a in 10/2014. On losartan and was 25 (12/2015). No recent labs. Had LDL of 136 and is not on statin- given hx of HTN and obesity, would strongly consider statin. Per patient, will order DM labs here. Hyperlipidemia 02177260 E78.5 Update labs on atorva 10. (only iced coffee and milk). [id number] Aj Felipe MD Endocrino logy, [address] [id number] 09/27/2017 08:58:19 09/27/2017 10:11:03 Postoperative hypothyroidism 49823468 E89.0 Thyroidect raheem for thyroid CA in 2002.Has been on levoxyl 137.TSH up to 7.06. Try taking extra 1/2 pill per week. Get labs in 2 months. Renal diso rder due to type 2 diabetes mellitus 208421078 E11.29 Has been on metformin and Victoza (1.8) Had been on Levemir in past(8 HS). Had lost 40# (2014) but regained during 2016 . Recent a1c- excellent at 6.1% Had significan t proteinuri a in 10/2014. On losartan at 25 (12/2015). LDL better (48)- on atorva 10. Was 136 in past. Primary ma lignant neoplasm of thyroid gland 30164830 C73 TSH up to 7 on 137. But was 0.05 when on 150. Try 137 daily with extra half pill once weekly (avg is 146).Monit or labs and adjust prn. Hyperlipidemia 89559856 E78.5 Doing well on atorva 10. Fatigue 09875927 R53.83 get sleep study. Steatotic liver disease 539245389 K76.0 No hx of alcohol excess.LFT s stable but not better despite a1c at goal. Reports having had liver bx in past. Am concerned that her albumin is a bit low. May need f/u for this. Encourage discussion with PCP. Active or passive immunization [id number] Z23 [id number] Aj Felipe MD Endocrino logy, [address] [address] 03/17/2018 08:36:28 03/17/2018 09:43:01 Postoperative hypothyroidism 63916003 E89.0 Thyroidect raheem for thyroid CA in 2002.Has been on levoxyl 137.TSH up to 20.1 was 7.06. avg dose currently is 147. Will raise to 175 mcg. Get labs in 2 months. Renal diso rder due to type 2 diabetes mellitus 789977899 E11.29 Has been on metformin and Victoza (1.8) Had been on Levemir in past(8 HS). Had lost 40# (2014) but regained during 2016Has now gained additional weight. Recent a1c- over 7% for first time- at 7.2%Would like to see if some weight improves after correcting high TSH. But will likely need another agent- she wants something to help with weight so could consider SGLT2 class. Had significan t proteinuri a in 10/2014. On losartan at 25 (12/2015). LDL better (48)- on atorva 10. Was 136 in past. Primary ma lignant neoplasm of thyroid gland 77997410 C73 TSH up to 20 (was 7) on avg of 146 (7.5 of 137 per week).Laura tor labs and adjust prn.Tg due every March. Hyperlipidemia 64357845 E78.5 Doing well on atorva 10. Steatotic liver disease 783942909 K76.0 No hx of alcohol excess.LFT s (AST) up vs. last timeCould be due to wt. gain and higher a1c. Reports having had liver bx in past. Am concerned that her albumin is a bit low. May need f/u for this. Encourage discussion with PCP. [id number] Iram Mohan RN, BSN, [facility] , [address] [address] 05/10/2018 07:44:45 05/15/2018 11:33:54 Uncontrolled type 2 diabetes mellitus 857908856 E11.65 Met with Ruth burger for diabetes education, kindly referred by Dr. Felipe.-Paulie iagnosed: 2-3 years ago-A1C: 7.2% in March and it has increased from 6.1% in September 2017-Blood Sugars: She did not bring her meter today and admits she is testing her blood sugars in the morning only. She was encouraged to bring her meter to future appointmen ts. -Hypoglyce martin: None reported. -Diet: She is trying a new vegetable once a week and is most interested in trying the Mediterran surinder Diet. -Exercise: She admits she is not very active however, she does enjoy walking, swimming and kayaking. -Medicatio ns: Metformin 1,000 mg BID, Victoza 1.8 mg once a day and switching over to Trulicity once she runs out of Victoza. -Recommend ations: She was encouraged to bring her meter so we can download and start testing 2 hours after dinner. Reviewed ways for her to change her diet the the following techniques : Plate Method, Carb Counting, Whole Foods, Mediterran surinder Diet or Mindfulnes s Eating. She is most interested in the Mediterran surinder Diet. She wants to give this a try first and return in a month for FU. No changes were made to her medication s at this time. She verbalized understand ing and agreeing with plan. Reviewed the following: Disease Process: Goals of Treatment. Natural progressio n of diabetes Monitoring : Appropriat e times to test blood sugar and target blood sugars. Nutrition: Identifica tion of high carb foods, effects of carbs, carb counting and developing a meal plan. Label reading. The Plate Method, Mindful Eating, Whole Food Diet, Mediterran surinder Diet, and Carbohydra te Counting. Physical Activity: Introducti on to its importance . Effects of regular physical activity on blood sugars. [id number] Aj Felipe MD Endocrino logy, [address] [address] 04/24/2019 08:35:40 04/24/2019 09:55:57 Postoperative hypothyroidism 54159572 E89.0 04/20- TSH = 1.33 and fT4 1.31.On 137 x 7.5 pills per week.Given low risk of recurrence , continue this regimen Thyroidect raheem for thyroid CA in 2002. Get labs in 2 months. Primary ma lignant neoplasm of thyroid gland 71962348 C73 TSH up to 20 (was 7) on avg of 146 (7.5 of 137 per week).Has been better about taking meds. She reports taking 137 x 7.5 pills per wee. Monitor labs and adjust prn.Tg due every March. Renal diso rder due to type 2 diabetes mellitus 240875959 E11.29 Has been on metformin but stopped Victoza (was on 1.8)Had lost 40# (2014) but regained during 2016Has now gained additional weight but weigh tstable in 2019. Had been on Levemir in past(8 HS).Trulic ity not covered.Ca n see if Ozempic is covered. Recent a1c- under 7% - had been up to 7.2% Had significan t proteinuri a in 10/2014. On losartan at 25 (12/2015). LDL better (48)- on simva (? dose). Was 136 in past. Hyperlipidemia 07517715 E78.5 Doing well on simva (? dose). Steatotic liver disease 458672463 K76.0 No hx of alcohol excess.LFT s (AST) up over past year or soCould be due to wt. gain and higher a1c. Reports having had liver bx in past (thinks 20 years ago). May need f/u for this. Encourage discussion with PCP. [id number] Aj Felipe MD Endocrino logy, [address] [id number] 01/28/2021 14:27:25 01/28/2021 19:22:16 Postoperative hypothyroidism 70815543 E89.0 TSH= 1.25 (10/23); 12.89 (11/22); was 1.02 (04/20); was 1.33 (01/19); was 0.07; was 20.01 (03/20); was 7.06 On 150 mcg daily up from 137 x 7.5 pills per week. Would like TSH a bit lower (due to CA hx) but she original focus was small and surgery was in 2002. Continue for now. Check Tg as part of CA surveillan ce. Get labs q 3 months. Primary ma lignant neoplasm of thyroid gland 88211890 C73 TSH= 1.25 (10/23); 12.89 (11/22); was 1.02 (04/20); was 1.33 (01/19); was 0.07; was 20.01 (03/20); was 7.06 On 150 mcg daily; was taking 137 x 7.5 pills per wee. Would like TSH a bit lower (due to CA hx) but she original focus was small and surgery was in 2002. Continue for now. Check Tg as part of CA surveillan ce. Monitor labs and adjust prn. Tg due every March. Renal diso rder due to type 2 diabetes mellitus 667707809 E11.29 Has been on metformin but stopped Victoza (was on 1.8) On ozempic 0.25. Not really checking sugars. Had been on Levemir in past(8 HS). 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 Son is trying to get her to walk more and eat better. She's trying to do better. Update but expect it will still be high. Has had significan t proteinuri a in 10/2014. On losartan at 25 (12/2015). ACR= 29.5 (10/23). Update. If still elevated, may suggest increasing losartan to 50. LIPIDS: 10/23: 149/285/43 /49; LDL has been good on simva (10mg). Hyperlipidemia 50661988 E78.5 Doing well on simva (10). Steatotic liver disease 931944743 K76.0 No hx of alcohol excess. LFTs (AST) up over past year or so. Reports having had liver bx in past (thinks 20 years ago). [id number] Iram Mohan RN, BSN, [facility] DM Education , [address] [address] 06/17/2021 14:34:53 06/22/2021 09:18:12 Uncontrolled type 2 diabetes mellitus 833007466 E11.65 -Virtual Appt with Ruth over Narda Castellanos.-Kindloretta y referred by Dr. Felipe for diabetes education. -Last seen in January with Dr. Felipe and Diabetes education in May of 2018.-Diag nosed: 5-6 years ago-Last A1C was 8.5% in January. -Able to review her blood sugars over the phone:06/17 - pm: 1049/14- 9 am: 104/- 12 pm: 1059/11- 5 am: 140/- am: 108/04-10 am: 1258/- 9 am: 1688/- 8 pm: am: 1097/- am: 236 -Meter averages:7 day average: 10868 day average: 10084 day average: 129 -Blood Sugars: She did not bring her meter today and admits she is testing her blood sugars in the morning only. She was encouraged to bring her meter to future appointmen ts. -Hypoglyce martin: None reported. -Exercise: She admits she is not very active however, she is pretty active on the job. -Medicatio ns: Metformin 1,000 mg BID, Ozempic 0.25 mg once a week. Tried 0.5 mg, however she had to switch back due to side effects. -PLAN: Continue current medication s and try testing 2x/day. Consider pairs testing by checking before a meal and after a meal and alternate a meal per day. Reviewed the following: Disease Process: Goals of Treatment. Natural progressio n of diabetes Monitoring : Appropriat e times to test blood sugar and target blood sugars. Carbohydra te counting with meals. [id number] Aj Felipe MD Endocrino logy, [address] [address] 05/14/2022 10:41:18 05/19/2022 14:27:17 Renal disorder due to type 2 diabetes mellitus 602473308 E11.29 Has been on metformin Stopped Victoza (was on 1.8). Had been on Levemir in past(8 HS).Was on ozempic 0.25 but ran out (spring 2021) and didn't get refill.Treadwell sn't typically check sugars.No labs since 06/23. Previous was 7.3 (06/23)- has often been uncontroll ed. Was over 11% (10/23)Upda te but expect it will still be high. 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 On losartan at 25 (12/2015). ACR= 18.8 (02/20; was 29.5 (10/23). Update. If still elevated, may suggest increasing losartan to 50.Try Mounjaro (samples given). If tolerates, will send in Rx. Nurse visit in 6 weeks. LIPIDS: 01/21: 150-152-55 -65 10/23: 149/285/43 /49; LDL has been good on simva (10mg). Postoperat ravi hypothyroidism 15979673 E89.0 TSH= 0.93 (06/23- hx CA); was 1.25 (10/23); 12.89 (11/22); was 1.02 (04/20); was 1.33 (01/19); was 0.07; was 20.01 (03/20); was 7.06 On 150 mcg x8/7 (05/24); was daily up from 137 x 7.5 pills per week. Goal is to have TSH towards LLN (due to CA hx) but she original focus was small and surgery was in 2002. Continue for now. Check Tg as part of CA surveillan ce. Get labs q 3 months. Primary ma lignant neoplasm of thyroid gland 30780413 C73 TSH= 0.93 (06/23); was 1.25 (10/23); 12.89 (11/22); was 1.02 (04/20); was 1.33 (01/19); was 0.07; was 20.01 (03/20); was 7.06 On 150 mcg 8/7 (05/24); was daily; was taking 137 x 7.5 pills per wee. Would like TSH towards LLN - original focus was small and surgery was in 2002. Continue for now. Check Tg as part of CA surveillan ce. Monitor labs and adjust prn. Tg due every March. Steatotic liver disease 443697861 K76.0 Based on liver u/s in 02/20. No hx of alcohol excess.AST generally > ALT which is not typical pattern for NAFLD. Reports having had liver bx in past (thinks 20 years ago).May want to f/u and consider other etiologies . Hyperlipidemia 66433147 E78.5 Doing well on simva (10).See lab results. [id number] Aj Felipe MD Endocrino logy, [address] [address] 06/23/2022 10:47:49 06/23/2022 11:27:07 Uncontrolled type 2 diabetes mellitus 453265948 E11.65 Pt is up to mounjaro 5mg weekly- she does note a mild stomach ache that is bearable, it happens closer to taking the shot.She has not noticed a huge difference in her numbers- but she has noticed a change in her appetiteSh e is about 5 lbs down since she started the medication .Meter downloaded - AVG 146- pts highest noted back in May (she states she had some cocktails) lowest 100- no symptoms at this time.Savannah nikky on her second week of the 5mg mounjaro- will finish the next two weeks with 5mg ? going up to 7.5mg after that.Lane whitaker discussed with Dr. Felipe- verbalized increasing to 7.5mg of mounjaro after finishing the next two weeks at 5mg. Will send in script. [id number] Aj Felipe MD Endocrino logy, [address] [address] 02/22/2023 13:15:52 02/23/2023 16:19:30 Renal disorder due to type 2 diabetes mellitus 412287933 E11.29 Has been on metformin Stopped Victoza (was on 1.8). Had been on Levemir in past(8 HS).Was on ozempic 0.25 but ran out (spring 2021) and didn't get refill.Treadwell sn't typically check sugars.No labs since 06/23. Previous was 7.3 (06/23)- has often been uncontroll ed. Was over 11% (10/23)Upda te but expect it will still be high. 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 On losartan at 25 (12/2015). ACR= 18.8 (02/20; was 29.5 (10/23). Update. If still elevated, may suggest increasing losartan to 50.On Mounjaro (7.5).Tole rating reasonably well. increase LIPIDS:12/02 3: 146/198/54 /44/: 150-152-55 -65 10/23: 149/285/43 /49; LDL has been good on simva (10mg). Postoperat ravi hypothyroidism [id number] E89.0 TSH= 0.24 (12/23) was 2.46 (05/24) was 0.93 (06/23- hx CA); was 1.25 (10/23); 12.89 (11/22); was 1.02 (04/20); was 1.33 (01/19); was 0.07; was 20.01 (03/20); was 7.06 On 150 mcg x8/7 (since 05/24); was daily up from 137 x 7.5 pills per week. Goal is to have TSH towards LLN (due to CA hx) but she original focus was small and surgery was in 2002. Continue for now. Check Tg as part of CA surveillan ce. Get labs q 3 months. Primary ma lignant neoplasm of thyroid gland [id number] C73 TSH= 0.24 (12/23) was 2.46 (05/24) was 0.93 (06/23); was 1.25 (10/23); 12.89 (11/22); was 1.02 (04/20); was 1.33 (01/19); was 0.07; was 20.01 (03/20); was 7.06 On 150 mcg 8/7 (since 05/24); was daily; was taking 137 x 7.5 pills per wee. Would like TSH towards LLN - original focus was small and surgery was in 2002. Continue for now. Check Tg as part of CA surveillan ce. Monitor labs and adjust prn. Tg due every March. Steatotic liver disease [id number] K76.0 Based on liver u/s in 02/20. No hx of alcohol excess.AST generally > ALT which is not typical pattern for NAFLD. Reports having had liver bx in past (thinks 20 years ago).May want to f/u and consider other etiologies . 02/22: Increase Mounjaro. Hyperlipidemia [id number] E78.5 Doing well on simva (10).See lab results. [id number] Aj Felipe MD Endocrino logy, [facility] [address] [place] [address] 07/29/2023 08:35:07 07/29/2023 10:10:36 Renal disorder due to type 2 diabetes mellitus [id number] E11.29 Has been on metforminN ow on mounjaro (was on Victoza and ozempic 0.25).Ran out of Ozempic (spring 2021) and didn't get refill. Levemir in past(8 HS).Doesn' t typically check sugars. 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 On losartan at 25 (12/2015). ACR= <12 (06/25); was 45 (12/23); was 18.8 (02/20; was 29.5 (10/23). Update. Better on losartan taking 50 bid. Can switch to 100daily.O n Mounjaro (10).Keisha ating reasonably well. increase to 12.5 LIPIDS:06/04 3: total/hdl= 126/51.12/02 3: 146/198/54 /444/21: 150-152-55 -65 10/23: 149/285/43 /49; LDL has been good on simva (10mg).: Better with excellent a1c and on losartan 50 bid.weight down with mounjaro 10mg. OK to increase to 12.5. Postoperat ravi hypothyroidism [id number] E89.0 TSH= 0.02 (06/25) was 0.24 (12/23) was 2.46 (05/24) was 0.93 (06/23- hx CA); was 1.25 (10/23); 12.89 (11/22); was 1.02 (04/20); was 1.33 (01/19); was 0.07; was 20.01 (03/20); was 7.06 On 150 mcg x8/7 (since 05/24); was daily up from 137 x 7.5 pills per week. Goal is to have TSH towards LLN (due to CA hx) but she original focus was small and surgery was in 2002. Decrease to 150 x 6/7. Tg has been BDL (part of CA surveillan ce). Get labs q 3 months.tsh -0.02 decrease dose to 150 x 6/7. repeat labs in 3 months. Primary ma lignant neoplasm of thyroid gland [id number] C73 TSH= 0.02 (06/25) was 0.24 (12/23) was 2.46 (05/24) was 0.93 (06/23); was 1.25 (10/23); 12.89 (11/22); was 1.02 (04/20); was 1.33 (01/19); was 0.07; was 20.01 (03/20); was 7.06 On 150 mcg 8/7 (since 05/24); was daily; was taking 137 x 7.5 pills per wee.Decrea se to 150 x 6/7 (07/25) Would like TSH towards LLN - original focus was small and surgery was in 2002. Check Tg as part of CA surveillan ce. Monitor labs and adjust prn. Tg due every March. Has been <0.01 )(07/25) Steatotic liver disease [id number] K76.0 Based on liver u/s in 02/20. No hx of alcohol excess.AST generally > ALT which is not typical pattern for NAFLD. Reports having had liver bx in past (thinks 20 years ago).May want to f/u and consider other etiologies . 07/25: Increase Mounjaro.U ltrasound generally identifies fatty liver but does not track changes well.Would need Fibroscan to better quantify. Hyperlipidemia [id number] E78.5 Doing well on simva (10).See lab results.: next time do fasting so can see triglyceri faizan. Might be better on low dose rosuva to help with that. [id number] Aj Felipe MD Endocrino logy, [address] [id number] 09/16/2023 09:43:47 10/19/2023 12:46:59 Renal disorder due to type 2 diabetes mellitus [id number] E11.29 On metformin and Mounjaro (12.5) Doesn't typically check sugars. 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 Had proteinuri a but better- now on losartan at 100. ACR= <12 (06/25); was 45 (12/23); was 18.8 (02/20; was 29.5 (10/23). Update. Better on losartan 100mg.Moun jaro 12.5 LIPIDS:06/04 3: total/hdl= 126/51.12/02 3: 146/198/54 /444/21: 150-152-55 -65 10/23: 149/285/43 /49; LDL has been good on simva (10mg).: Better with excellent a1c and on losartan 50 bid.weight down with mounjaro 10mg. OK to increase to 12.5. 09/24: check lipids Postoperat ravi hypothyroidism [id number] E89.0 TSH= 0.02 (06/25) was 0.24 (12/23) was 2.46 (05/24) was 0.93 (06/23- hx CA); was 1.25 (10/23); 12.89 (11/22); was 1.02 (04/20); was 1.33 (01/19); was 0.07; was 20.01 (03/20); was 7.06 On 150 mcg x8/7 (since 05/24); was daily up from 137 x 7.5 pills per week. Goal is to have TSH towards LLN (due to CA hx) but she original focus was small and surgery was in 2002. Decrease to 150 x 6/7. Tg has been BDL (part of CA surveillan ce). Get labs q 3 months.tsh -0.02 decrease dose to 150 x 6/7.09/24: No recent labs- update Primary ma lignant neoplasm of thyroid gland [id number] C73 TSH= 0.02 (06/25) was 0.24 (12/23) was 2.46 (05/24) was 0.93 (06/23); was 1.25 (10/23); 12.89 (11/22); was 1.02 (04/20); was 1.33 (01/19); was 0.07; was 20.01 (03/20); was 7.06 On 150 mcg 05/09 (since 05/24); was daily; was taking 137 x 7.5 pills per wee.Decrea se to 150 x 03/09 (07/25) Would like TSH towards LLN - original focus was small and surgery was in 2002. Check Tg as part of CA surveillan ce. Monitor labs and adjust prn. Tg due every March. Has been <0.1 (07/25) Steatotic liver disease [id number] K76.0 Based on liver u/s in 02/20. No hx of alcohol excess.AST generally > ALT which is not typical pattern for NAFLD. Reports having had liver bx in past (thinks 20 years ago).May want to f/u and consider other etiologies . 07/25: Increase Mounjaro. 09/24: Followed by Shahida Perkins in [facility]. Had elastograp hy. On incretin. Hyperlipidemia [id number] E78.5 Doing well on simva (10).See lab results.: next time do fasting so can see triglyceri faizan. Might be better on low dose rosuva to help with that. [id number] Aj Felipe MD Endocrino logy, [address] [phone] 04/25/2024 16:17:11 04/26/2024 09:45:14 Renal disorder due to type 2 diabetes mellitus [id number] E11.29 OFF metformin and Mounjaro (12.5)NO MEDS since had gastric sleeve and resulting weight loss Doesn't typically check sugars. 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 Had proteinuri a but better- now off losartan since weight loss (mounjaro and gastric sleeve). ACR= 7.7 (02/23) was 13 (09/24) was <12 (06/25); was 45 (12/23); was 18.8 (02/20; was 29.5 (10/23). Update. LIPIDS:on simva : 124/100/47 /57/23: total/hdl= 126/51.3/2 3: 146/198/54 /444/21: 150-152-55 -65 10/23: 149/285/43 /49; LDL has been good on simva (10mg).leila ght down with krish.Hilary vargas weight loss with gastric sleeve (2023) 04/25: check lipids. May be able to stop simva. Postoperat ravi hypothyroidism [id number] E89.0 TSH= 0.03 (02/23) was 0.1 (09/24) was 0.02 (06/25) was 0.24 (12/23) was 2.46 (05/24) was 0.93 (06/23- hx CA); was 1.25 (10/23); 12.89 (11/22); was 1.02 (04/20); was 1.33 (01/19); was 0.07; was 20.01 (03/20); was 7.06 On 150 mcg x 03/09 (04/25); was x8/7 (since 05/24); was daily up from 137 x 7.5 pills per week.04/25: avg dose= 128. Decrease dose to 112mcg. Goal is to have TSH towards LLN (due to CA hx) but she original focus was small and surgery was in 2002. Tg has been BDL (part of CA surveillan ce). Get labs q 3 months. Primary ma lignant neoplasm of thyroid gland [id number] C73 TSH= 0.03 (02/23) was 0.1 (09/24) was 0.02 (06/25) was 0.24 (12/23) was 2.46 (05/24) was 0.93 (06/23); was 1.25 (10/23); 12.89 (11/22); was 1.02 (04/20); was 1.33 (01/19); was 0.07; was 20.01 (03/20); was 7.06 On 150 mcg 05/09 (since 05/24); was daily; was taking 137 x 7.5 pills per week.TSH over-suppr essed.04/25 : Decrease dose to 112 mcg. Would like TSH towards LLN - original focus was small and surgery was in 2002. Check Tg as part of CA surveillan ce. Monitor labs and adjust prn. Tg has been <0.1 (07/25) Steatotic liver disease [id number] K76.0 Based on liver u/s in 02/20. No hx of alcohol excess.In past, AST generally > ALT which is not typical pattern for NAFLD. Reports having had liver bx in past (thinks 20 years ago).May want to f/u and consider other etiologies . 09/24: Had elastograp hy. On incretin.: bariatric surgeon told pt. that liver as not normal.Has lost weight and was on mounjaro (now off).May want to update fibroscan or at least u/s to see if has MASLD Hyperlipidemia [id number] E78.5 Doing well on simva (10).See lab results.: next time do fasting so can see triglyceri faizan. Might be better on low dose rosuva to help with that.04/25: if OK, may be able to come off simva (given wt. loss and normal a1c) Health Concerns Section Related Observation LastModified by Organization Detai ls LastModified Time None Recorded Concern Status LastModified by Organization Details LastModified Time None Recorded Advance Directives Directive N: Payers Insurance Date Sequence Insurance Name Policy Number Policy Shelby Covered Member ID Shelby Member ID Guarantor Name 10/29/2024 1 [facility] [id number] [place] [id number] Ruth [place] Notes Date Note Type Note Provider Name [...] doesn't go for walks- had to put Pompey down). Weight is 222 (02/22); was 235. Cardiac / Eye / Podiatric / Renal / Vascular Symptomsno coronary artery disease; no retinopathy ([address] (2021)); no numbness of feet; no kidney disease Hypoglycemia Symptomsfrequency of hypoglycemic episodesinfrequently; No lows. In past, feels nervous when BG around 70 (only on metformin). Dogs noticed once (BG was 65)Notes:TSH 0.93-cancer AST/ALT ongoing elevation. ast/alt= 50/52 (12/23) was 94/75 (05/24); was 60/45 (06/23); was 53/46 (10/23); was 44/31 (04/21); 77/79 (04/20); as 70/54 (01/19) Son (Yogesh) has helped her (in [email or web address] and [employer] ). Not buying snacks. Small meals with [...] 07/21/11); total body scan thyrogen: (07/09 at [facility]); Pt hx of thyroid cancer (2002), goal is to suppress TSH to low normal. Treatment:levoxyl, dose: 150 mcg (x 8/7 (05/24); was daily ( 01/21); Was 137 x 7.5 pills per week. Was on 150 Levoxyl. Takes away from calcium); Reports taking daily in AM. Waits 30 minutes between pill and coffee (milk)/bkfst. Monitoring and goals:Taking MVI away from T4 (but today was with thyroid). Takes Mg in evening. Takes vit D (1000). Constitutional:no cold intolerance; no heat intolerance Eyes:opthamologist: Ras); No blurry vision. Neck:no difficulty swallowing; no [...] of thyroid glandLV on 05/24Last labs 12/23 [id number] cuedPT had Liver US on 1Checks blood sugars occasionally when not feeling well last reading was FBS 128Pt saw a state comptroller states might have cirrosis of the liver PT had colonoscopy and endoscopy last week. PAST MEDICAL Hx (updated): Had u/s around december 2022 by GI for LFTs ([address]). Start of cirrhosis.On mounjaro since 06/24. 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 [...] some.No dizziness with standing. Aj Felipe MD [address] [place] [address], [phone], [facility] 02/23/2023 19:34:58 07/29/2023 text/html DiabetesReported bypatient.Labs:last Hemoglobin [...] units (was higher).); Mounjaro 10 (07/25; was 7.55); occ nausea. tolerable . Occ stomach ache. [...] weight gain;weight loss ( lbs)(since fall 2021 (ro));barriers to self management(multiple jobs.); Still has 1 dog (crook) but doesn't go for walks- had to put Pompey down). Weight is 214 (07/25); was 222 (02/22); was 235. Cardiac / Eye / Podiatric / Renal / Vascular Symptomsno coronary artery disease; no retinopathy ([address] (2021).); no numbness of feet; no kidney disease; due (07/25) Hypoglycemia Symptomsfrequency of hypoglycemic episodesinfrequently; No lows. In past, feels nervous when BG around 70 (only on metformin). Dogs noticed once (BG was 65)Notes:06/25: 126/xxx/51/xx12/23: 146/198/54/: 169-247-46 (05/24);01/21: [phone] (01/21)07/25: Eating less junk- Krish helping (10mg). TSH 0.93-cancer AST/ALT ongoing elevation.AST/ALT= 55/45 (06/25); Told U/S shows sign of cirrhosis ([address]). was 50/52 (12/23) was 94/75 (05/24); was 60/45 (06/23); was 53/46 (10/23); was 44/31 (04/21); 77/79 (04/20); as 70/54 (01/19) Son (Yogesh) has helped her (in [employer] ). Not buying snacks. Small meals with [...] 07/21/11); total body scan thyrogen: (07/09 at [facility]); Pt hx of thyroid cancer [...] Constitutional:no cold intolerance; no heat intolerance Eyes:opthamologist: (Alfred.) Neck:no difficulty swallowing; no masses Heart:no rapid [...] 10/15. 1.28 ( prev 1.30) PCP: Kemal ([facility]).ONC: [place]. OFF tamoxifen (graduated).[facility] put on gabapentinDx of breast CA in 2016: s/p lumpectomy and now on tamoxifen Follow-Up: postoperative hypothyroidismFollow-Up : primary malignant neoplasm of thyroid glandFollow-Up: renal disorder due to type 2 diabetes mellitusRenal disorder due to type 2 diabetes mellitusprimary malignant neoplasm of thyroid glandLV on 05/24Last labs 12/23 [id number] cuedPT had Liver US on 1Checks blood sugars occasionally when not feeling well last reading was FBS 128Pt saw a state comptroller states might have cirrosis of the liver PT had colonoscopy and endoscopy last week. PAST MEDICAL Hx (updated): Had u/s around december 2022 by GI for LFTs ([address]). Start of cirrhosis.On mounjaro since 06/24.07/25: BP up. Started on amlodipine. has machine at home- no major change. 5mg. 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 not much time for walking FAMILY Hx (updated): No changes. Youngest son [employer]erves. Oldest nearby lives on farm. No grands.07/25: all good. weight= 222 (02/22); doesn't check at home. 07/25: wants to increase Mounjaro. Distressed about saddle bag .sex life is zero. very self conscious about looks (role in [employer]- more visible than in past).Talked about option [...] too.No dizziness with standing. Aj Felipe MD [address] [place] [address], [place], [phone], [facility] 07/29/2023 09:18:19 09/16/2023 text/html DiabetesReported bypatient.Labs:last Hemoglobin [...] weight gain;weight loss ( lbs)(since fall 2021 (Mounjaro));barriers to self management(multiple jobs.); Still has 1 dog (crook) but doesn't go for walks- had to put Alice down). [facility] is 220 ([facility]24[facility] was 214 (07/25); was 222 (02/22); was 235. Cardiac / Eye / Podiatric / Renal / Vascular Symptomsno coronary artery disease; no retinopathy ([facility] (2021)); no numbness of feet; no kidney disease Hypoglycemia Symptomsfrequency of hypoglycemic episodesinfrequently; No lows. In past, feels nervous when BG around 70 (only on metformin). Dogs noticed once (BG was 65)Notes: 06/25: 126/xxx/51/xx12/23: 146/198/5405/24: 169-247-46 (05/24);01/21: [phone] (01/21)07/25: Eating less junk- Mounjaro helping (10mg). [...] 07/21/11); total body scan thyrogen: (07/09 at [facility]); Pt hx of thyroid cancer [...] 10/15. 1.28 ( prev 1.30) PCP: Jania ([employer]) with Kemal ([facility]).ONC: yearly now ([facility]) OFF tamoxifen (graduated).Dx of [...] last reading was FBS 128Pt saw a state comptroller states might have cirrosis of the liver PT had colonoscopy and endoscopy last week. PAST MEDICAL Hx (updated): Had u/s around december 2022 by GI for LFTs ([address]). Start of cirrhosis.On mounjaro since 06/24.07/25: BP up. Started on amlodipine. has machine at home- no major change. 5mg.09/24: No changes. losaratan increased to 100. 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 Not exercising. up/down stairs 2-3x per day FAMILY Hx (updated): No changes. Youngest son [employer]. Oldest nearby lives on farm ([employer]). No grands.in past, Son (Yogesh) has helped her (in [email or web address] and [employer] ). Not buying snacks. Small meals with protein. Bringing meals to work more. yogurt with berries. Has juicer now.09/24: all good. WEIGHT= 219 (09/24); was 222 (02/22); doesn't check at home. masx was 250 (2018)On Mounjaro 12.5.Will likely be contacting [place] surgeons. In past: sex life is zero. very self conscious about looks (role in [employer]- more visible than in past).Talked about option [...] No dizziness with standing. Aj Felipe MD [address] [place] [address], [phone], [facility] 10/18/2023 18:17:21 04/25/2024 text/html DiabetesReported bypatient.Labs:last Hemoglobin [...] for walks- had to put Alice down). WEIGHT: 151 (04/25@home); was 220 (09/24@[employer]); was 214 (07/25); was 222 (02/22); was 235. Cardiac / Eye / Podiatric / Renal / Vascular Symptomsno coronary artery disease; no retinopathy ([facility] (2023)); no numbness of feet; no kidney disease Hypoglycemia Symptomsfrequency of hypoglycemic episodes; No lows.Notes:02/23: 124/100/47/57 still on simva.06/25: 126/xxx/51/xx12/23: 146/198/5405/24: 169-247-46 (05/24);01/21: [phone] (01/21)07/25: Eating less junk- Mounjaro helping (10mg). 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 Not exercising. 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 Treadmill daily: 45-60 min. 3-3.5 mph. FAMILY Hx (updated): No changes. Youngest son [employer]. Oldest nearby lives on farm ([place] No grands.in past, Son (Yogesh) has helped her (in [employer] ). Not buying snacks. Small meals with [...] too.No dizziness with standing. Aj Felipe MD [address] [place] [address], [phone], [facility] 04/25/2024 18:28:30 OBGyn Episode No OBEpisode recorded.
[2025-03-22 08:36] LABS: MANUAL DIFF FLAG NO
[2025-03-22 08:51] LABS: Basophils Percent Auto 0.9 % (0-2); Eosinophils Absolute Auto 0.1 X10*3/uL (0.0-0.4); Eosinophils Percent Auto 1.6 % (0-4); Hematocrit 42.2 % (37.0-47.0); Hemoglobin 13.6 g/dl (12.0-16.0); Imm Gran Abs Auto 0.02 X10*3/uL (0.00-0.03); Imm Gran Pct Auto 0.5 % (0.0-0.4); Lymphocytes Absolute Auto 1.2 X10*3/uL (1.2-4.9); Lymphocytes Percent Auto 27.8 % (20-40); Mean Corpuscular HGB Conc 32.2 g/dl (31.0-35.0); Mean Corpuscular Hemoglobin 27.8 pg (27.0-33.0); Mean Corpuscular Volume 86.3 fL (80.0-98.0); Mean Platelet Volume 9.5 fL (9.4-12.3); Monocytes Absolute Auto 0.3 X10*3/uL (0.1-1.2); Monocytes Percent Auto 7.3 % (2-11); Neutrophils Absolute Auto 2.7 x10*3/uL (2.0-8.3); Neutrophils Percent Auto 61.9 % (45-73); Platelet Count 143 X10*3/uL (160-400); Red Blood Count 4.89 X10*6/uL (4.20-5.50); Red Cell Distribution Width 13.5 % (11.0-16.0); White Blood Count 4.4 X10*3/uL (4.8-10.8)
[2025-03-22 09:22] LABS: Estimated Average Glucose 100 mg/dL; Hemoglobin A1C 111.1177 umol/L; Hemoglobin A1c % 5.1 % (<6.0); Total Hemoglobin (HGBA1C) 3497.3863 umol/L
[2025-03-22 10:29] LABS: Anion Gap 10 (12-20); Blood Urea Nitrogen 12 mg/dL (9-16); C Reactive Protein 0.39 mg/dL (< or = 0.50); Calcium 9.5 mg/dL (8.4-10.2); Carbon Dioxide 29 mmol/L (22-29); Chloride 108 mmol/L (96-108); Cholesterol 156 mg/dL (<200); Estimated Glomerular Filt Rate > 60; Glucose Random 84 mg/dL (60-115); HDL Cholesterol 63 mg/dL (>40); Iron 51 mcg/dL (30-160); LDL Cholesterol Calculated 73 mg/dL (<100); Percent Iron Saturation 18 % (15-50); Sodium 143 mmol/L (135-145); Total Iron Binding Capacity 288 mcg/dL (228-428); Triglycerides 103 mg/dL (<150); Unsaturated Iron Binding 237 ug/dL
[2025-03-22 11:05] LABS: Folate 11.4 ng/mL (> or = 4.0); Vitamin B12 847 pg/mL (200-900)
[2025-03-22 11:06] LABS: Ferritin 24 ng/mL (10-250); TSH reflex Free T4 0.17 uIU/mL (0.32-4.0); Vitamin D 25-OH Total 94.3 ng/mL (>30)
[2025-03-22 11:40] LABS: Free T4 (Free Thyroxine) 1.11 ng/dL (0.71-1.85); Insulin 11 uU/mL (2-29)
[2025-03-26 19:43] LABS: Zinc 61 mcg/dL (60-130)
[2025-03-27 14:33] LABS: Vitamin A 41 mcg/dL (38-98)
[2025-04-01 03:11] LABS: Vitamin B1 16 nmol/L (8-30)
== END 2025-03-22 08:20 | disposition home or self-care (01) ==
LOC: HO.LAB 08:19
PROVIDERS: PCP Internal Medicine; Visit Provider Physician Assistant Surgical
DX: E50.9 Vitamin A deficiency, unspecified (principal); Z98.84 Bariatric surgery status; E78.00 Pure hypercholesterolemia, unspecified; I10 Essential (primary) hypertension; E03.9 Hypothyroidism, unspecified; Z13.1 Encounter for screening for diabetes mellitus
CPT/HCPCS: 36415; 80048; 80061; 82306; 82607; 82728; 82746; 83036; 83525; 83540; 84425; 84439; 84443; 84590; 84630; 85025; 86140

== ENCOUNTER 2025-05-09 13:52 | Outpatient (AMB) | payer OTHER, SELFPAY ==
--- NOTE | 2025-05-09 08:39 | MHC.OFFVISWM ---
VS Expanded 05/09/25 08:40 Height 5 ft 2.5 in Weight 160 lb 2 oz BMI 28.8 Body Fat % 37.2 Fat Free Mass 100.6 Visceral Fat Rating 12 Body Water % 43 Muscle Mass/Score 94.5 Basal Metabolic Rate/Score 1,382 Intake Visit Reasons: TV PO LSG 02/28/24 Fuel Injection Servicer Required: No Allergies oxycodone (From Percocet) Adverse Reaction (Intermediate, Verified 03/05/25 14:43) Rash Penicillins Adverse Reaction (Intermediate, Verified 03/05/25 14:43) Rash Medication List - Last Reconciled 05/09/25 by PILAR Triplett clotrimazole 1% (Antifungal (clotrimazole)) 1 appl topical BID escitalopram oxalate 20 mg PO DAILY levothyroxine 150 mcg PO DAILY ropinirole 0.5 mg PO TID trazodone 50 - 100 mg PO BEDTIME PRN HPI Comments Details: This?a?54?yo female who is s/p LSG without hiatal hernia repair on?02/28/2024. Presents for 1 year 3 month post op visit. Weight today is 160.2 pounds, with a BMI of 28.8. There has been a 54 pound weight loss,(initial weight 214.2 pounds) since starting the program on 10/28/2023 reflecting a 25.2 % total body weight loss and a weight loss of 18.2 pounds since surgery (operative weight 178.4 pounds) reflecting a 10.2 % TBWL since surgery. No complaints of nausea, emesis, abdominal pain or reflux. Reports infrequent but normal bowel movements every 1-2 days and uses stool softeners regularly. She has been using MVI She has been checking her BP at home with readings 1 teens-120s/60-70s. She has not used her amlodipine or losartan. Overall, patient states that she has been feeling hunger, much more so than previously. Not satisfied with her current weight, wants to be 140 pounds. She went into the right BMI and got a meal plan but could not recall it at the time of the visit. Present meal plan includes: (not too sure and not consistent) Celebrate rebuild 2 scoops in water/coffee mix at 7-830 fruit at 11 protein chips or protein bar or another shake at noon dinner at 430 pm 5 forks protein and 5 forks salad/veg sometimes another bar or skinny pop popcorn or fruit Drinking 48 oz additional water ? Exercise routine includes: walking outside 3 x per week, about 1.5 mi. treadmill at home not using it PFSH Medical History BMI 32.0-32.9,adult BMI 34.0-34.9,adult Arthritis Diabetes Cirrhosis Depression Elevated cholesterol HTN (hypertension) Cancer Restless leg syndrome Stress incontinence Hypothyroidism Anxiety DJD (degenerative joint disease) Asthma GERD (gastroesophageal reflux disease) Surgical History Hx of laparoscopic partial gastrectomy History of lumpectomy of right breast History of delivery History of partial hysterectomy Hx of cholecystectomy Hx of thyroidectomy Hx of colonoscopy Family History Maternal Aunt Breast cancer Mother Thyroid cancer Social History Household Members: Spouse and Children Household Members Other:: 3 Housing: House Are you a primary morning caregiver to a significant other at home: No Do you presently have visiting nurse or other home services: No Alcohol intake: current Alcohol intake frequency: holidays/special occasions only Patient Tobacco Use Status: Never used Tobacco service: No Physical Exam Vital Signs: BMI result Body Mass Index 28.8 Telehealth Telehealth Telehealth Platform: Telephone Location of provider rendering services: practice address Location of patient: address on file Patient Identification confirmed using: Name, : Yes Telehealth method: voice only Patient verbally consented to treatment: Yes Patient verbally consented to billing insurance company: Yes Patient informed of any privacy concerns related to visit: Yes Minutes spent on Phone/Video with Pt.: 15 Assessment & Plan Assessment & Plan (1) S/P laparoscopic sleeve gastrectomy: Code(s): Z98.84 - Bariatric surgery status Category: Surgical Plan: Patient affirms her stated goal of 140 lb. Discussed the principles of consistency, discipline, purpose fullness. She has not been exercising regularly nor following the meal plan. She states that she will go back into the right BMI ronnie, create the meal plan and follow it consistently. She has a treadmill at home and discussed using it 4 days a week with a goal of burning 350-400 calories per day in addition to walking outside 3 days a week which she enjoys, although increasing to at least 3 miles per day. She is in agreement with this plan and understands the importance. She will follow up in the office in 6-8 weeks, texting sooner should she have any questions or concerns. Additionally discussed the importance of texting her weight is weekly for accountability and to reassess how she is doing.
[2025-05-09 08:40] VITALS: BMI 28.8
--- OUTSIDE RECORDS SUMMARY | 2025-05-09 14:00 | XMS_ITS | Patient Health Record ---
[facility] Address [address] [place] [address] Care Team Providers Care Emergency Services Professional Name Role Phone Pratik Varela MD Primary Care Provider Unavailab eber Nargis Pan Unavailable [phone] Suzy Fontana Unavailable Unavailable Allergies Allergen (clinical [...] Problem Status W/U Status Risk Notes Problem Information temporarily unavailable Other hammer toe(s) (acquired), right foot (M20.41) Active confirmed Problem Information temporarily unavailable Other hammer toe(s) (acquired), left foot (M20.42) Active confirmed Problem Information temporarily unavailable Primary osteoarthritis, left ankle and foot (M19.072) Active confirmed Problem Information temporarily unavailable Other hammer toe(s) (acquired), left foot (M20.42) Active confirmed Problem Information temporarily unavailable Lesion of plantar nerve, 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) Active confirmed Problem Information temporarily unavailable Type 2 diabetes mellitus without complications (E11.9) Active confirmed Plan Of Treatment Pending Test Test Name Order Date X ray : Foot, right 3V 06/01/2011 29131, J0702- Neuroma/Injection 07/04/20 30744, J0702- Neuroma/Injection 03/16/20 Insurance Providers Payer Name Payer Address Payer Phone Subscriber Number Group Number Insured Name Patient Relationship to Insured Coverage Start Date Coverage End Date [facility] [address] [place] [address] [id number] [facility] Self - patient is the insured Medical (General) History Medical History History ICD Code chicken pox bone implants/screws thyroid disorder headaches/migraines gall bladder problems depression cancer back, hip, knee pain asthma Anxiety Reflux Diabetic Surgical History Surgery Date(Month/Year) section cholecystectomy 2000 thyroidectomy 2002 knee surgery breast cancer 11/18
== END 2025-05-09 14:35 | disposition home or self-care (01) ==
LOC: HO.HBS 13:52
PROVIDERS: PCP Internal Medicine; Visit Provider Physician Assistant Surgical
DX: E66.3 Overweight (principal); Z68.28 Body mass index [BMI] 28.0-28.9, adult; Z90.3 Acquired absence of stomach [part of]; Z98.84 Bariatric surgery status
CPT/HCPCS: 98013